=== PATIENT | female | born 1940 | race Caucasian/White ===

== ENCOUNTER 2021-11-21 19:07 | Outpatient (CLI) | payer MEDICARE, SELFPAY | END 2021-11-21 19:08 | disposition home or self-care (01) | LOC: AMB 12-05 12:07 | PROVIDERS: Visit Provider Internal Medicine | DX: R50.9 Fever, unspecified (principal); R11.2 Nausea with vomiting, unspecified; R53.1 Weakness | CPT/HCPCS: A0425; A0427 ==

== ENCOUNTER 2021-11-21 19:42 | Emergency (ER) | payer MEDICARE, SELFPAY ==
[2021-11-21 19:52] VITALS: BP 146/77; PULSE 86; RESP 16; TEMP 36.6; O2SAT 93
--- NOTE | 2021-11-21 20:14 | CRLHL7_ITS ---
For Patients: As a result of the Century Cures Act, medical imaging exams and procedure reports are released immediately into your electronic medical record. You may view this report before your referring provider. If you have questions, please contact your health care provider. Indication: Confusion Technique: Noncontrast CT of the head Please note that all CT scans at this facility use dose modulation, iterative reconstruction, and/or weight-based dosing when appropriate to reduce radiation dose to as low as reasonably achievable. Comparison: None Findings: Unremarkable soft tissues. Bilateral lens replacements. Paranasal sinuses and mastoid air cells appear clear. Unremarkable cranium. Unremarkable basal cisterns, sylvian fissures, ventricles and extra-axial spaces. Normal sulcation for age. No evidence of mass, mass effect, midline shift, acute hemorrhage or acute infarct. Impression: No acute intracranial abnormality. Please note that all CT scans at this facility use dose modulation, iterative reconstruction, and/or weight-based dosing when appropriate to reduce radiation dose to as low as reasonably achievable. Dictated by Sudhakar Tnag MD @ 11/21/2021 8:57:26 PM (Electronically Signed)
[2021-11-21] MEDS: 0.9 % SODIUM CHLORIDE 500 ML 500 ML IV (20:24)
[2021-11-21 20:32] LABS: Lactate* 1.4 mmol/L (0.5-1.9)
--- NOTE | 2021-11-21 20:38 | ED_ITS ---
HPI - General Adult General Chief complaint: Weakness Stated complaint: Weakness Time Seen by Provider: 11/21/21 20:07 History of Present Illness HPI narrative: Pt is a 81 year old woman who became acutely ill at 4:30 this afternoon. She had sudden onset of chills, malaise, and vomiting. No chest pain or shortness of breath. Pt has trouble emtying her bladder and has a stimulator in place. No dysuria. 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 No recent changes. Pt felt slightly confused and called for an ambulance. Upon arrival in the ED she is feeling better with no further symptoms. Had COVID 6 weeks ago. No respiratory symptoms. No diarrhea. No measured fever. Pt does not appear to have been to our facility previously. Related Data Home Medications Medication Instructions Recorded Confirmed amlodipine 2.5 mg tablet 2.5 mg PO DAILY 11/21/21 11/21/21 aspirin 81 mg tablet,delayed 81 mg PO DAILY 11/21/21 11/21/21 release (Adult Aspirin Regimen) duloxetine 20 mg capsule,delayed 20 mg PO DAILY 11/21/21 11/21/21 release (Cymbalta) finasteride 5 mg tablet 5 mg PO DAILY 11/21/21 11/21/21 metoprolol succinate 25 mg 25 mg PO DAILY 11/21/21 11/21/21 tablet,extended release 24 hr nitrofurantoin macrocrystal 100 mg 100 mg PO Q24H 11/21/21 11/21/21 capsule potassium chloride 20 mEq 20 meq PO DAILY 11/21/21 11/21/21 tablet,extended release (K-Tab) tamsulosin 0.4 mg capsule 0.4 mg PO DAILY 11/21/21 11/21/21 tramadol 50 mg tablet 50 mg PO DAILY 11/21/21 11/21/21 Allergies Allergy/AdvReac Type Severity Reaction Status Date / Time No Known Drug Allergies Allergy Verified 11/21/21 20:03 Review of Systems Status of ROS: Reports: 10 or more systems reviewed and unremarkable except as noted in History and below [facility] Social History Smoking Status: Never smoker Do you use any of these nicotine containing products: None Second hand tobacco smoke exposure: No How often do you have a drink containing alcohol: never How often do you have six or more drinks on one occasion: Never AUDIT-C Alcohol total score: 0 Non-prescribed substance use: denies use service: No Exam Narrative: Exam Narrative: EXAM GENERAL: Patient appears comfortable and well. EYES: No scleral icterus. ENT: Tympanic membranes and oropharynx normal. THYROID: no thyroid nodules or thyromegaly. LYMPH: No supraclavicular or cervical lymphadenopathy. 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 EXT: No dependent lower extremity pedal edema. HEART: Regular rate and rhythm with no murmurs, rubs, or gallops. LUNGS: Clear to auscultation bilaterally with no crackles or wheezes. ABD: Soft, non tender, non distended. PSYCH: Good eye contact, speech is not pressured. Const: Vital Signs, click to edit/add: Vital Signs - 24 hr 11/21/21 19:52 11/21/21 21:21 Temperature 97.9 F Pulse Rate [Left P ulse Oximeter] 86 Respiratory Rate 16 Blood Pressure [Ri ght Upper Arm] 146/77 H 163/77 H Pulse Oximetry 93 Oxygen Delivery Me thod Room Air Course Course Hospital Course: Pt appears well. CBC, CMP, Lactate, Troponin, UA ordered. Normal saline given. Reevaluation(s) Reevaluation #1: Pt has been given 500 cc of normal saline and is feeling much better. CT of head unremarkable. WBC 22 with urine consistent with UTI. No other significant findings. Time: 21:44 Vital Signs Vital signs: Initial Vital Signs Temperature 97.9 F 11/21/21 19:52 Temperature Source Temporal Artery Scan 11/21/21 19:52 Pulse Rate 86 11/21/21 19:52 Pulse Rhythm 11/21/21 19:52 Pulse Strength 3+ Normal 11/21/21 19:52 Respiratory Rate 16 11/21/21 19:52 Blood Pressure 146/77 H 11/21/21 19:52 Blood Pressure Mean 100 11/21/21 19:52 Blood Pressure Position Supine 11/21/21 19:52 Pulse Oximetry 93 11/21/21 19:52 Oxygen Delivery Method 11/21/21 19:52 Vital Signs Temperature 97.9 F 11/21/21 19:52 Pulse Rate 86 11/21/21 19:52 Respiratory Rate 16 11/21/21 19:52 Blood Pressure 146/77 H 11/21/21 19:52 Pulse Oximetry 93 11/21/21 19:52 Oxygen Delivery Method 11/21/21 19:52 Temperature 97.9 F 11/21/21 19:52 Pulse Rate 86 11/21/21 19:52 Respiratory Rate 16 11/21/21 19:52 Blood Pressure 163/77 H 11/21/21 21:21 Pulse Oximetry 93 11/21/21 19:52 Oxygen Delivery Method 11/21/21 19:52 Medical Decision Making MDM Narrative Medical decision making narrative: Pt is a 81 year old woman who presents with sudden onset of illness. Workup shows elevated WBC with abnormal urine. Pt feeling better after 500 cc normal saline. Pt urine sent for culture. 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 Differential Diagnosis Differential Diagnosis: Sepsis, UTI, CVA, Viral Sydrome, Abd Infection Lab Data Labs: Lab Results 11/21/21 11/21/21 11/21/21 Range/Units 20:20 20:24 20:24 WBC 22.81 H (4.50-11.00) K/uL RBC 4.86 (4.00-5.20) m/uL Hgb 13.6 (12.0-16.0) gm/dL Hct 41.8 (33.0-51.0) % MCV 86 (80-100) fL MCH 28 (26-34) pg MCHC 33 (32-36) gm/dL RDW Coeff of Lalitha 14.3 (11.5-15.5) % Plt Count 304 (140-440) K/uL Neut % (Auto) 89.5 H (42.0-72.0) % Lymph % (Auto) 3.4 L (20-44) % [place] % (Auto) 6.5 (0.0-11.0) % Eos % (Auto) 0.4 (0.0-7.0) % Baso % (Auto) 0.1 (0.0-3.0) % Neut # (Auto) 20.40 H (1.7-7.0) K/uL Lymph # (Auto) 0.80 L (0.90-2.90) K/uL [place] # (Auto) 1.50 H (0.00-0.90) K/UL Eos # (Auto) 0.10 (0.00-0.50) K/uL Baso # (Auto) 0.00 (0.00-0.30) K/uL Abs Immat Gran (auto) 0.03 (0.00-0.30) K/uL Sodium 137 (135-149) mmol/L Potassium 3.8 (3.6-5.1) mmol/L Chloride 100 (96-114) mmol/L Carbon Dioxide 26 (20-32) mmol/L BUN 16 (7-30) mg/dL Creatinine 0.7 (0.5-1.5) mg/dL Estimated Creat Clear 39.70 Estimated GFR 87 ml/min Glucose 179 H (60-115) mg/dL Lactate (0.5-1.9) mmol/L Calcium 9.2 (8.4-10.6) mg/dL Total Bilirubin 0.9 (0.1-1.5) mg/dL AST 35 (12-35) U/L ALT 22 (4-35) U/L Alkaline Phosphatase 94 (40-150) U/L Total Protein 8.5 H (6.0-8.3) g/dL Albumin 4.7 (3.3-5.0) g/dL Amylase 71 (18-89) U/L Urine Color Yellow (Yellow) Urine Appearance Clear (Clear) Urine pH 6.5 (5.0-8.5) Ur Specific [place] 1.020 (1.000-1.030) Urine Protein Trace A (Negative) Urine Glucose (UA) Negative (Negative) Urine Ketones 3+ A (Negative) Urine Blood 1+ A (Negative) Urine Nitrite Negative (Negative) Urine Bilirubin Negative (Negative) Urine Urobilinogen 0.2 (0.2-1.0) Ur Leukocyte Esterase 3+ A (Negative) Urine RBC 0-2 (0-2) Urine WBC 5-10 A (0-5) Ur Squamous Epith Cells Moderate A (None-Few) Urine Bacteria Moderate A (None) 11/21/21 Range/Units 20:24 WBC (4.50-11.00) K/uL RBC (4.00-5.20) m/uL Hgb (12.0-16.0) gm/dL Hct (33.0-51.0) % MCV (80-100) fL MCH (26-34) pg MCHC (32-36) gm/dL RDW Coeff of Lalitha (11.5-15.5) % Plt Count (140-440) K/uL Neut % (Auto) (42.0-72.0) % Lymph % (Auto) (20-44) % [place] % (Auto) (0.0-11.0) % Eos % (Auto) (0.0-7.0) % Baso % (Auto) (0.0-3.0) % Neut # (Auto) (1.7-7.0) K/uL Lymph # (Auto) (0.90-2.90) K/uL [place] # (Auto) (0.00-0.90) K/UL Eos # (Auto) (0.00-0.50) K/uL Baso # (Auto) (0.00-0.30) K/uL Abs Immat Gran (auto) (0.00-0.30) K/uL Sodium (135-149) mmol/L Potassium (3.6-5.1) mmol/L Chloride (96-114) mmol/L Carbon Dioxide (20-32) mmol/L BUN (7-30) mg/dL Creatinine (0.5-1.5) mg/dL Estimated Creat Clear Estimated GFR ml/min Glucose (60-115) mg/dL Lactate 1.4 (0.5-1.9) mmol/L Calcium (8.4-10.6) mg/dL Total Bilirubin (0.1-1.5) mg/dL AST (12-35) U/L ALT (4-35) U/L Alkaline Phosphatase (40-150) U/L Total Protein (6.0-8.3) g/dL Albumin (3.3-5.0) g/dL Amylase (18-89) U/L Urine Color (Yellow) Urine Appearance (Clear) Urine pH (5.0-8.5) Ur Specific [place] (1.000-1.030) Urine Protein (Negative) Urine Glucose (UA) (Negative) Urine Ketones (Negative) Urine Blood (Negative) Urine Nitrite (Negative) Urine Bilirubin (Negative) Urine Urobilinogen (0.2-1.0) Ur Leukocyte Esterase (Negative) Urine RBC (0-2) Urine WBC (0-5) Ur Squamous Epith Cells (None-Few) Urine Bacteria (None) Discharge Plan Discharge Clinical Impression: Urinary tract infection Condition: Stable Instructions: Urinary Tract Infection in Women (ED) Additional Instructions: Cipro as directed Continue current meds Follow up with your doctor in the next week. Activity Level: Activity as Tolerated Discharge Diet: Regular Prescriptions: No Action potassium chloride [K-Tab] 20 mEq tablet extended release 20 meq PO DAILY duloxetine [Cymbalta] 20 mg capsule,delayed release(DR/EC) 20 mg PO DAILY metoprolol succinate 25 mg tablet extended release 24 hr 25 mg PO DAILY tamsulosin 0.4 mg capsule 0.4 mg PO DAILY amlodipine 2.5 mg tablet 2.5 mg PO DAILY nitrofurantoin macrocrystal 100 mg capsule 100 mg PO Q24H Rx Instructions: must administer with a meal/food finasteride 5 mg tablet 5 mg PO DAILY aspirin [Adult Aspirin Regimen] 81 mg tablet,delayed release (DR/EC) 81 mg PO DAILY tramadol 50 mg tablet 50 mg PO DAILY Follow Up/Referrals: Provider,Not a Local [Primary Care Provider] - Stand Alone Forms: [employer] Info Instructions
[2021-11-21 20:43] LABS: Appearance Urine Clear (Clear); Bilirubin Urine Negative (Negative); Blood Urine 1+ (Negative); Color Urine Yellow (Yellow); Glucose Urine Negative (Negative); Ketones Urine 3+ (Negative); Leukocyte Esterase Urine 3+ (Negative); Nitrite Urine Negative (Negative); Protein Urine Trace (Negative); Urobilinogen Urine 0.2 (0.2-1.0); pH Urine 6.5 (5.0-8.5)
[2021-11-21 20:49] LABS: Albumin* 4.7 g/dL (3.3-5.0); Basophils Percent Auto 0.1 % (0.0-3.0); Chloride* 100 mmol/L (96-114); Eosinophils Percent Auto 0.4 % (0.0-7.0); Hematocrit 41.8 % (33.0-51.0); Hemoglobin* 13.6 gm/dL (12.0-16.0); Immature Granulocytes Abs Auto 0.03 K/uL (0.00-0.30); Lymphocytes Percent Auto 3.4 % (20-44); Mean Corpuscular HGB Conc 33 gm/dL (32-36); Mean Corpuscular Hemoglobin 28 pg (26-34); Mean Corpuscular Volume 86 fL (80-100); Monocytes Percent Auto 6.5 % (0.0-11.0); Neutrophils Percent Auto 89.5 % (42.0-72.0); Platelet Count* 304 K/uL (140-440); RDW Coefficient of Variation % 14.3 % (11.5-15.5); Red Blood Count 4.86 m/uL (4.00-5.20); Slide Review Reflex No; White Blood Count* 22.81 K/uL (4.50-11.00)
[2021-11-21 20:50] LABS: Potassium* 3.8 mmol/L (3.6-5.1); Sodium* 137 mmol/L (135-149)
[2021-11-21 20:52] LABS: Alkaline Phosphatase* 94 U/L (40-150); Amylase* 71 U/L (18-89); Aspartate Amino Transferase* 35 U/L (12-35); Bilirubin Total* 0.9 mg/dL (0.1-1.5); Blood Urea Nitrogen* 16 mg/dL (7-30); Carbon Dioxide* 26 mmol/L (20-32); Creatinine* 0.7 mg/dL (0.5-1.5); Estimated Glomerular Filt Rate 87 ml/min; Glucose* 179 mg/dL (60-115); Total Protein* 8.5 g/dL (6.0-8.3)
[2021-11-21 20:53] LABS: Alanine Aminotransferase* 22 U/L (4-35); Calcium* 9.2 mg/dL (8.4-10.6)
[2021-11-21 21:07] LABS: RBC Urine 0-2 (0-2)
[2021-11-21 21:08] LABS: Bacteria Urine Moderate; Squamous Epithelial Cell Urine Moderate (None-Few)
[2021-11-21 21:21] VITALS: BP 163/77
[2021-11-21 21:47] VITALS: BP 108/68; RESP 20; O2SAT 98
[2021-11-21] MEDS: cefTRIAXone 1 GM in 0.9 % SODIUM CHLORIDE Mini-bag 100 ML IVPB (22:07)
--- NOTE | 2021-11-21 22:38 | PC.NURSE ---
written and verbal D/C per MD and RN. IV D/C intact. Pt ambulate out with daughter and steady gait. [facility] meds provided and instructed use of.
[2021-11-21 22:42] VITALS: BP 110/82; PULSE 81; PULSE 88; RESP 18
== END 2021-11-21 22:45 | disposition home or self-care (01) ==
PROVIDERS: Emergency Provider Internal Medicine
DX: N39.0 Urinary tract infection, site not specified (principal)
CPT/HCPCS: 36415; 70450; 80053; 81003; 81015; 82150; 83605; 85025; 87086; 96361; 96374; 99284; J0696; J7120

== ENCOUNTER 2022-11-20 16:04 | Outpatient (CLI) | payer MEDICARE, SELFPAY | END 2022-11-20 16:05 | disposition home or self-care (01) | LOC: AMB 11-24 14:23 | PROVIDERS: Visit Provider Family Medicine | DX: S09.90XA Unspecified injury of head, initial encounter (principal); R42 Dizziness and giddiness; W18.30XA Fall on same level, unspecified, initial encounter; Y92.10 Unspecified residential institution as the place of occurrence of the external cause | CPT/HCPCS: A0425; A0427 ==

== ENCOUNTER 2024-03-21 08:57 | Outpatient (CLI) | payer MEDICARE, SELFPAY | END 2024-03-21 08:58 | disposition home or self-care (01) | LOC: AMB 04-05 08:29 | PROVIDERS: Visit Provider Emergency Medicine | DX: R53.83 Other fatigue (principal); R05.9 Cough, unspecified; R06.02 Shortness of breath | CPT/HCPCS: A0425; A0427 ==

== ENCOUNTER 2024-03-21 09:31 | Inpatient (IN) | payer MEDICARE, SELFPAY ==
[2024-03-21] VITALS (11 sets, daily range): BP systolic 127–141; BP diastolic 65–71; PULSE 62–82; RESP 20–24; TEMP 36.8–37.3; O2SAT 77–97; BMI 25.0
--- OUTSIDE RECORDS SUMMARY | 2024-03-21 09:37 | XMS_ITS | Encounter Summary ---
Author Organization [facility] Address [address] [place] [id number] Care Team Providers Care Director Athletic Name Role Phone System, Provider Not In Primary Care Provider Un available Seema Boateng APRN NURSE MANAGER Unavailable Steph Jovel PA-C Unavailable Reason for Visit * Reason Comments Flu Symptoms * Auth/Cert (Routine) Specialty Diagnoses / Procedures Referred By Jennifer kincaid Referred To Contact EMERGENCY MEDICINE Diagnoses Influenza A Vomiting and diarrhea Hyponatremia Chest heaviness [facility] Emergency Dept [address] [place] [address] Phone: tel: fax: Referral ID Status Reason Start Date Expiration Date Visits Re quested Visits Authorized [id number] 1 1 Encounter Details Date Type Department Care Team (Late st Contact Info) Description 03/16/2024 5:56 PM ATTORNEY GENERAL - 03/17/2024 11:54 AM ATTORNEY GENERAL Emergency [facility] Emergency Dept [address] [place] [address] Corona Moore DO [facility] [facility] [facility] [address] [facility] [place] [place] [id number] Dyllan Anne MD [address] [place] [address] Mild intermittent asthma with exacerbation (Primary Dx); Influenza A; Vomiting and diarrhea; Hyponatremia; Chest heaviness Discharge Disposition: Home or Self Care Social History Tobacco Use Types Packs/Day Years Used Date Smoking Tobacco: Former Cigarettes Smokeless Tobacco: Former Alcohol Use Standard Drinks/Week Comments Not Currently 0 (1 standard drink = 0.6 oz pur e alcohol) Adolescent Education Answer Date Record ed Getting School Help Needed Not on file 12/06 Food Insecurity Answer Date Recorded Within the past 12 months, d id you worry that your food would run out before you got money to buy more? No 11/09/2023 Within the past 12 months, d id the food you bought just not last and you didn t have money to get more? No 11/09/2023 Housing Stability Answer Date Recorded Do you have housing? (Kevin g is defined as stable permanent housing and does not include staying ouside in a car, in a tent, in an abandoned building, in an overnight nursing home, or couch-surfing.) Yes 11/09/2023 Are you worried about losing your housing? No 11/09/2023 Financial Resource Strain Answer Date R ecorded Within the past 12 months, h ave you or your family members you live with been unable to get utilities (heat, electricity) when it was really needed? No 11/09/2023 Transportation Needs Answer Date Record ed Within the past 12 months, h as lack of transportation kept you from medical appointments, getting your medicines, non-medical meetings or appointments, work, or from getting things that you need? No 11/09/2023 Interpersonal Safety Answer Date Record ed Do you feel physically and e motionally safe where you currently live? Yes 11/09/2023 Within the past 12 months, h ave you been hit, slapped, kicked or otherwise physically hurt by someone? No 11/09/2023 Within the past 12 months, h ave you been humiliated or emotionally abused in other ways by your partner or ex-partner? No 11/09/2023 Comments No Sex and Gender Information Value Date Recorded Sex Assigned at Not on file Legal Sex Female 3:18 AM ATTORNEY GENERAL Gender Identity Not on file Sexual Orientation Not on file documented as of this encounter Last Filed Vital Signs Vital Sign Reading Time Taken Comments Blood Pressure 114/74 03/17/2024 8:35 AM ATTORNEY GENERAL Pulse 89 03/17/2024 8:35 AM ATTORNEY GENERAL Temperature 36.3 C (97.4 F) 03/17/2024 8:35 AM ATTORNEY GENERAL Respiratory Rate 20 03/17/2024 8:35 AM ATTORNEY GENERAL Oxygen Saturation 96% 03/17/2024 8:35 AM ATTORNEY GENERAL Inhaled Oxygen Concentration - - Weight 65.8 kg (145 lb) 03/16/2024 1:54 PM ATTORNEY GENERAL Height 165.1 cm (5' 5) 03/16/2024 1:54 PM ATTORNEY GENERAL Body Mass Index 24.13 03/16/2024 1:54 PM ATTORNEY GENERAL documented in this encounter Discharge Summaries * Leonard Giang MD - 03/17/2024 9:[address] [facility] Hospitalist Discharge Summary Date of Admission: 03/16/2024 Date of Discharge: 03/17/2024 Discharging Provider: Leonard Giang MD Discharge Service: Hospitalist Service Discharge Diagnoses Acute exacerbation of mild intermittent asthma due to influenza A. Dehydration. Mild hyponatremia. Hypertension. Hyperlipidemia. History of coronary artery disease. Glaucoma. Depression. Clinically Significant Risk Factors Follow-ups Needed After Discharge Follow-up Appointments Follow-up and recommended labs and tests Follow up with primary care provider, Provider Not In System, within 7 days for hospital follow- up. No follow up labs or test are needed. Discharge Disposition Discharged to home Condition at discharge: Stable Hospital Course 83-year-old female with history of seasonal allergies and mild intermittent asthma who presented on03/16/2019 10:05 days of cough, weakness, shortness of breath and some chest tightness along with wheezing. Her has been sick with flu who was admitted to the hospital 5 days ago. She initially went to urgent care and was sent to the ER. In the ED she had normal vital signs but in moderate distress due to cough and shortness of breath with wheezing. Lab evaluation was unremarkable with chest x-ray showing by basilar atelectasis. She tested positive for influenza A. She was not started on Tamiflu due to the duration of her symptoms. Was started on prednisone and albuterol nebs with improvement in her symptoms. She was successfully weaned off oxygen and was able to ambulate without shortness of breath. She is not wheezing at the time of discharge. She will be discharged with a burst dose of steroids and as needed albuterol. Given her asthma at baseline is only intermittent, she does not need inhaled steroids. Consultations This Hospital Stay PHYSICAL THERAPY ADULT IP CONSULT Code Status Full Code Time Spent on this Encounter I, Leonard Giang MD, personally saw the patient today and spent less than or equal to 30 minutes discharging this patient. Leonard Giang MD [facility] [address] [facility] [address] Physical Exam Vital Signs: Temp: 97.4 ??F (36.3 ??C) Temp src: Oral BP: 114/74 Pulse: 89 Resp: 20 SpO2: 96 % O2 Device: Nasal cannula Oxygen Delivery: 2 LPM Weight: 145 lbs 0 oz General Appearance: Alert awake and oriented x 3 Respiratory: Clear to auscultation. Wheezing resolved. Cardiovascular: S1-S2 normal GI: Soft and nontender Skin: No rash Other: No edema Primary Care Physician Provider Not In System Discharge Orders Reason for your hospital stay Acute exacerbation of asthma due to influenza A Follow-up and recommended labs and tests Follow up with primary care provider, Provider Not In System, within 7 days for hospital follow- up. No follow up labs or test are needed. Activity Your activity upon discharge: activity as tolerated Diet Follow this diet upon discharge: Current Diet:Orders Placed This Encounter Regular Diet Adult Significant Results and Procedures Most Recent 3 CBC's: Recent Labs Lab Test 11/09/23 1426 11/20/22 1716 11/09/17 1946 WBC 10.6 9.9 12.9* HGB 11.4* 12.2 12.4 MCV 87 90 86 PLT 282 270 325 Most Recent 3 BMP's: Recent Labs Lab Test 03/16/24 1408 11/09/23 1426 11/20/22 1716 NA 131* 136 134* POTASSIUM 3.9 3.4 4.2 CHLORIDE 95* 97* 102 CO2 20* 25 22 BUN 15.1 22.2 20.0 CR 0.83 1.36* 1.04* ANIONGAP 16* 14 10 SAUD 8.8 8.9 8.8 GLC 118* 144* 98 Most Recent 2 LFT's:No lab results found., Results for orders placed or performed during the hospital encounter of 11/09/[address] w/o contrast Narrative EXAM: CT HEAD W/O CONTRAST LOCATION: [facility] DATE: 11/09/2023 INDICATION: Near syncope, dizziness COMPARISON: None. TECHNIQUE: Routine CT Head without IV contrast. Multiplanar reformats. Dose reduction techniques were used. FINDINGS: INTRACRANIAL CONTENTS: No intracranial hemorrhage, extraaxial collection, or mass effect. No CT evidence of acute infarct. Mild presumed chronic small vessel ischemic changes. Mild to moderate generalized volume loss. No hydrocephalus. VISUALIZED ORBITS/SINUSES/MASTOIDS: No intraorbital abnormality. No paranasal sinus mucosal disease. No middle ear or mastoid effusion. BONES/SOFT TISSUES: No acute abnormality. Impression IMPRESSION: 1. No acute intracranial process. CTA Head Neck with Contrast Narrative EXAM: CTA HEAD NECK W CONTRAST LOCATION: [facility] DATE: 11/09/2023 INDICATION: Intermittent dizziness, near syncopal episode COMPARISON: None. CONTRAST: 67mL Isovue 370 TECHNIQUE: Head and neck CT angiogram with IV contrast. Axial helical CT images of the head and neck vessels obtained during the arterial phase of intravenous contrast administration. Axial 2D reconstructed images and multiplanar 3D MIP reconstructed images of the head and neck vessels were performed by the technologist. Dose reduction techniques were used. All stenosis measurements made according to NASCET criteria unless otherwise specified. FINDINGS: HEAD CTA: Right distal carotid siphon mild to moderate stenosis. Left carotid siphon mild to moderate stenosis. Findings secondary to calcified plaque. Left proximal M2 segment inferior division demonstrates tandem moderate stenoses. Left proximal V4 mild to moderate stenosis secondary to calcified plaque. No additional significant stenosis or occlusion. No brain aneurysm. No AVM/AVF. Left medial transverse sinus demonstrates minimal to no enhancement. There is more normal enhancement within the left mid and lateral transverse sinus. Findings may reflect a developmental variant orage-indeterminate thrombosis. Remaining dural venous sinuses appear to enhance normally. NECK CTA: RIGHT CAROTID: No significant stenosis/occlusion. No dissection. LEFT CAROTID: No significant stenosis/occlusion. No dissection. VERTEBRAL ARTERIES: Right vertebral artery origin mild to moderate stenosis. No additional significant stenosis or occlusion. No dissection. AORTIC ARCH: Classic aortic arch anatomy. No significant stenosis at the origin of the great vessels. ARTERIAL PLAQUE: Calcified/noncalcified plaque scattered throughout the arterial system. NONVASCULAR STRUCTURES: Right lung apex calcified granuloma. Possible diffuse bony demineralization. Multilevel spondylosis. Right parotid gland and right submandibular gland demonstrate asymmetric more pronounced enhancement concerning for right parotitis and right submandibular sialadenitis. Right nasopharynx, right oralpharynx, right supraglottic mucosal surfaces demonstrate asymmetric enhancement with no mass lesion possible infectious inflammatory. Atypical normal variation possible. Of note, there is a left arm contrast injection bolus. Multiple small and prominent lymph nodes within the neck. Impression IMPRESSION: HEAD CTA: 1. No intracranial arterial large vessel occlusion. 2. Intracranial arterial stenoses described above likely due to atherosclerotic vascular disease. Please see above for discussion. 3. Left medial transverse sinus demonstrates minimal to no enhancement. There is more normal enhancement within the left mid and lateral transverse sinus. Findings may reflect a developmental variantor age-indeterminate thrombosis. 4. Remaining dural venous sinuses demonstrate normal enhancement. NECK CTA: 1. Right vertebral artery origin mild to moderate stenosis. 2. No additional significant stenosis or occlusion. 3. No cervical artery dissection. 4. Right parotid gland and right submandibular gland demonstrate asymmetric more pronounced enhancement concerning for right parotitis and right submandibular sialadenitis. 5. Right nasopharynx, right oral pharynx, right supraglottic mucosal surfaces demonstrate asymmetric enhancement with no mass lesion possible infectious inflammatory. 6. There is no thickening of the aerodigestive airway mucosal structures. 7. Atypical normal variation possible. Consider follow-up nonemergent CT soft tissue neck to ensureresolution of findings. Dr Ivana Salomon was notified by Dr Gene López at 9:15 PM 11/09/2023 ATTORNEY GENERAL/CDT. Echocardiogram Complete Value LVEF 65-70% Narrative [id number]^LANDAVERDE^[facility] Echocardiography Laboratory [address] [place] [address] Name: HALEY CROW : 1940 Study Date: 11/10/2023 08:45 AM Age: 83 yrs Gender: Female Patient Location: [facility] Reason For Study: Syncope Ordering Physician: JORDAN LANDAVERDE Referring Physician: System, Provider Not In Performed By: Jackie Tirado RDCS BSA: 1.8 m2 Height: 65 in Weight: 157 lb BP: 71/92 mmHg Procedure Complete Portable Echo Adult. Interpretation Summary 1. The left ventricle is normal in size. The visual ejection fraction is 65- 70%. 2. Mild septal thickening. No rest outflow gradient, with Valsalva mild gradient of 3m/s. 3. The right ventricle is normal in structure, function and size. 4. Mitral leaflets are thickened, restricted posterior leaflet motion, mild stenosis, mean 5mmHg. Echo 11/2022 showed EF 65%. Left Ventricle The left ventricle is normal in size. A sigmoid septum is present. Mild septal thickening. No rest outflow gradient, with Valsalva mild gradient of 3m/s. The visual ejection fraction is 65-70%. Normal left ventricular wall motion. Right Ventricle The right ventricle is normal in structure, function and size. Atria The left atrium is moderately dilated. Right atrial size is normal. There is no atrial shunt seen. Mitral Valve Mitral leaflets are thickened, restricted posterior leaflet motion, mild stenosis, mean 5mmHg. There is mild (1+) mitral regurgitation. Tricuspid Valve There is mild (1+) tricuspid regurgitation. Aortic Valve The aortic valve is normal in structure and function. Pulmonic Valve The pulmonic valve is normal in structure and function. Vessels Normal ascending, transverse (arch), and descending aorta. The inferior vena cava was normal in size with preserved respiratory variability. Pericardium There is no pericardial effusion. Rhythm Sinus rhythm was noted. MMode/2D Measurements & Calculations IVSd: 1.6 cm LVIDd: 3.7 cm LVIDs: 2.3 cm LVPWd: 1.0 cm IVC diam: 1.4 cm FS: 37.9 % LV mass(C)d: 165.1 grams LV mass(C)dI: 92.5 grams/m2 Ao root diam: 3.6 cm LA dimension: 4.1 cm LA/Ao: 1.1 LVOT diam: 2.0 cm LVOT area: 3.1 cm2 Ao root diam index Ht(cm/m): 2.2 Ao root diam index BSA (cm/m2): 2.0 LA Volume (BP): 82.9 ml LA Volume Index (BP): 46.6 ml/m2 RV Base: 2.8 cm RWT: 0.54 TAPSE: 2.4 cm Doppler Measurements & Calculations MV E max mac: 115.0 cm/sec MV A max mac: 148.4 cm/sec MV E/A: 0.77 MV max P.9 mmHg MV mean P.8 mmHg MV V2 VTI: 39.8 cm MV P1/2t max mac: 103.4 cm/sec MV P1/2t: 98.5 msec MVA(P1/2t): 2.2 cm2 MV dec slope: 307.5 cm/sec2 MV dec time: 0.34 sec Ao V2 max: 155.7 cm/sec Ao max P.0 mmHg PA acc time: 0.16 sec TR max mac: 261.0 cm/sec TR max P.2 mmHg RV S Mac: 15.1 cm/sec Report approved by: Audra Milner 11/10/2023 12:44 PM Discharge Medications Current Discharge Medication List START taking these medications Details benzonatate (TESSALON) 100 MG capsule Take 2 capsules (200 mg) by mouth 3 times daily as needed forcough. Qty: 30 capsule, Refills: 0 Associated Diagnoses: Influenza A; Mild intermittent asthma with exacerbation guaiFENesin-dextromethorphan (ROBITUSSIN DM) 100-10 MG/5ML syrup Take 10 mLs by mouth every 4 hoursas needed for cough. Qty: 236 mL, Refills: 0 Associated Diagnoses: Influenza A; Mild intermittent asthma with exacerbation predniSONE (DELTASONE) 20 MG tablet Take 2 tablets (40 mg) by mouth daily for 5 days. Qty: 10 tablet, Refills: 0 Associated Diagnoses: Influenza A; Mild intermittent asthma with exacerbation CONTINUE these medications which have CHANGED Details albuterol (PROAIR HFA/PROVENTIL HFA/VENTOLIN HFA) 108 (90 Base) MCG/ACT inhaler Inhale 2 puffs intothe lungs every 4 hours as needed for shortness of breath, wheezing or cough. Qty: 18 g, Refills: 3 Comments: Pharmacy may dispense brand covered by insurance (Proair, or proventil or ventolin or generic albuterol inhaler) Associated Diagnoses: Influenza A; Mild intermittent asthma with exacerbation CONTINUE these medications which have NOT CHANGED Details amLODIPine (NORVASC) 5 MG tablet Take 7.5 mg by mouth daily. aspirin 81 MG EC tablet Take 81 mg by mouth daily clobetasol (TEMOVATE) 0.05 % external ointment Apply topically 2 times daily To víctor area cyanocobalamin (VITAMIN B-12) 1000 MCG tablet Take 1,000 mcg by mouth daily dorzolamide-timolol (COSOPT) 2-0.5 % ophthalmic solution Place 1 drop into the right eye 2 times daily ferrous sulfate (FE TABS) 325 (65 Fe) MG EC tablet Take 65 mg of iron by mouth daily latanoprost (XALATAN) 0.005 % ophthalmic solution INSTILL 1 DROP IN BOTH EYES NIGHTLY AT BEDTIME Magnesium Citrate (MAGNESIUM GUMMIES) 67 MG CHEW Take 1 chew tab by mouth daily. melatonin 5 MG tablet Take 5 mg by mouth at bedtime. potassium chloride michelle er (K-DUR) Take 20 mEq by mouth daily rosuvastatin (CRESTOR) 10 MG tablet Take 10 mg by mouth daily VITAMIN D, CHOLECALCIFEROL, PO Take 2,000 Units by mouth daily DULoxetine (CYMBALTA) 20 MG capsule Take 40 mg by mouth At Bedtime STOP taking these medications MAGNESIUM OXIDE PO Comments: Reason for Stopping: Allergies Allergies Allergen Reactions Gramineae Pollens Hives Plaquenil [Hydroxychloroquine] Hives Smoke. Unknown and Other (See Comments) Dust Mite Extract Other (See Comments) RNEY GENERAL documented in this encounter Discharge Instructions * Discharge Instructions* Vilma Lepe RN - 03/17/2024 11:03 AM ATTORNEY GENERAL RNEY GENERAL documented in this encounter Medications at Time of Discharge albuterol (PROAIR HFA/PROVENTIL HFA/VENTOLIN HFA) 108 (90 Base) MCG/ACT inhalerIndications :Influenza A,Mild intermittent asthma with exacerbation Inhale 2 puffs into the lungs every 4 hours as needed for shortness of breath, wheezing or cough. 18 g 3 03/17/2024 amLODIPine (NORVASC) 5 MG tablet Take 7.5 mg by mouth daily. aspirin 81 MG EC tablet Take 81 mg by mouth daily 05/30/2021 benzonatate (TESSALON) 100 MG capsuleIndications :Influenza A,Mild intermittent asthma with exacerbation Take 2 capsules (200 mg) by mouth 3 times daily as needed for cough. 30 capsule 03/17/2024 clobetasol (TEMOVATE) 0.05 % external ointment Apply topically 2 times daily To víctor area cyanocobalamin (VITAMIN B-12) 1000 MCG tablet Take 1,000 mcg by mouth daily dorzolamide-timolo l (COSOPT) 2-0.5 % ophthalmic solution Place 1 drop into the right eye 2 times daily 10/15/2022 ferrous sulfate (FE TABS) 325 (65 Fe) MG EC tablet Take 65 mg of iron by mouth daily guaiFENesin-dextro methorphan (ROBITUSSIN DM) 100-10 MG/5ML syrupIndications:I nfluenza A,Mild intermittent asthma with exacerbation Take 10 mLs by mouth every 4 hours as needed for cough. 236 mL 03/17/2024 latanoprost (XALATAN) 0.005 % ophthalmic solution INSTILL 1 DROP IN BOTH EYES NIGHTLY AT BEDTIME 08/28/2022 Magnesium Citrate (MAGNESIUM GUMMIES) 67 MG CHEW Take 1 chew tab by mouth daily. melatonin 5 MG tablet Take 5 mg by mouth at bedtime. potassium chloride michelle er (K-DUR) Take 20 mEq by mouth daily predniSONE (DELTASONE) 20 MG tabletIndications: Influenza A,Mild intermittent asthma with exacerbation Take 2 tablets (40 mg) by mouth daily for 5 days. 10 tablet 03/18/2024 rosuvastatin (CRESTOR) 10 MG tablet Take 10 mg by mouth daily VITAMIN D, CHOLECALCIFEROL, PO Take 2,000 Units by mouth daily DULoxetine (CYMBALTA) 20 MG capsule Take 40 mg by mouth At Bedtime documented as of this encounter Progress Notes * Lindsay Reyna, PT - 03/17/2024 10:50 AM CST PT: Orders received. Chart reviewed and discussed with care team. PT not indicated due to per RN, pt is able to ambulate safely and is getting ready to discharge. Defer discharge recommendations to medical team. Will complete orders. RNEY GENERAL documented in this encounter H&P Notes * Dyllan Anne MD - 03/16/2024 10:[address] [facility] History and Physical - Hospitalist Service Date of Admission: 03/16/2024 Assessment & Plan Haley Crow is an 83 year old female admitted on 03/16/2024 with acute influenza A. She has history of glaucoma, seasonal allergies, hyperlipidemia, asthma, depression, hypertension, hypertrophiccardiomyopathy, coronary artery disease with previous coronary artery stent, GERD, and polymyalgia rheumatica. She presented to the emergency department today for evaluation of flu symptoms. Her was admitted to 5 days ago with the flu. He remains in the hospital with other serious health issues. She started feeling ill about a week ago. She has had cough, weakness, shortness of breath, diarrhea, and chest tightness. Her symptoms did seem to be improving at the end of last week but in the last day or 2 have gotten worse. She has been having difficulty walking, eating, and sleeping. Shewent to urgent care for evaluation. She had a CBC that showed white blood cell count 11.4 and a chest x-ray that suggested bibasilar atelectasis. She was having coughing fits so was referred to the emergency department. Emergency department evaluation showed normal vital signs. Physical exam showed moderate distress due to coughing and shortness of breath. She also had coarse breath sounds with wheezes on expiration. Laboratory evaluation at urgent care included white blood cells 11.4 and hemoglobin 11.6. Chest x-ray showed bibasilar atelectasis. Laboratory evaluation here showed sodium 131, chloride 95, bicarb 20, anion gap 16, glucose 118, troponin 24 and 23 on repeat. And positive influenza A test. I was asked to admit her with worsening influenza A symptoms. Problem list: Influenza A Severe coughing Acute exacerbation of asthma Dehydration Weakness -Admit to observation -She has been symptomatic too long to benefit from Tamiflu -Supportive cares for influenza with Tessalon Perles and Robitussin AC for cough, Tylenol, and antiemetics as needed -Treat acute asthma exacerbation with prednisone 40 mg daily and albuterol nebs as needed. -1 L of lactated Ringer's over 10 hours for dehydration -PT for weakness Hyponatremia, mild -Repeat BMP in the morning after IV fluid Hypertension Hyperlipidemia Coronary artery disease -Resume prior to admission aspirin, Norvasc, and Crestor -As needed hydralazine for excessive hypertension Glaucoma -Prior to admission eyedrops Depression -Resume prior to admission Cymbalta Observation Goals: -diagnostic tests and consults completed and resulted, -vital signs normal or atpatient baseline, Nurse to notify provider when observation goals have been met and patient is ready for discharge. Diet: Regular Diet Adult DVT Prophylaxis: Enoxaparin (Lovenox) SQ Calle Catheter: Not present Lines: None Cardiac Monitoring: None Code Status: Full Code Clinically Significant Risk Factors Present on Admission # Hyponatremia: Lowest Na = 131 mmol/L in last 2 days, will monitor as appropriate # Hypochloremia: Lowest Cl = 95 mmol/L in last 2 days, will monitor as appropriate # Drug Induced Platelet Defect: home medication list includes an antiplatelet medication # Hypertension: Noted on problem list Disposition Plan Medically Ready for Discharge: Anticipated Tomorrow Dyllan Anne MD Hospitalist Service [facility] Securely message with [employer] ([employer] info) Text page via [facility] Paging/Directory Chief Complaint Weakness, cough, chest tightness, diarrhea, and wheezing History is obtained from the patient, her son and granddaughter, Dr. Moore, and the medical record History of Present Illness Haley Crow is an 83 year old female admitted on 03/16/2024 with acute influenza A. She has history of glaucoma, seasonal allergies, hyperlipidemia, asthma, depression, hypertension, hypertrophiccardiomyopathy, coronary artery disease with previous coronary artery stent, GERD, and polymyalgia rheumatica. She presented to the emergency department today for evaluation of flu symptoms. Her was admitted to 5 days ago with the flu. He remains in the hospital with other serious health issues. She started feeling ill about a week ago. She has had cough, weakness, shortness of breath, diarrhea, and chest tightness. Her symptoms did seem to be improving at the end of last week but in the last day or 2 have gotten worse. She has been having difficulty walking, eating, and sleeping. Shewent to urgent care for evaluation. She had a CBC that showed white blood cell count 11.4 and a chest x-ray that suggested bibasilar atelectasis. She was having coughing fits so was referred to the emergency department. Emergency department evaluation showed normal vital signs. Physical exam showed moderate distress due to coughing and shortness of breath. She also had coarse breath sounds with wheezes on expiration. Laboratory evaluation at urgent care included white blood cells 11.4 and hemoglobin 11.6. Chest x-ray showed bibasilar atelectasis. Laboratory evaluation here showed sodium 131, chloride 95, bicarb 20, anion gap 16, glucose 118, troponin 24 and 23 on repeat. And positive influenza A test. I was asked to admit her with worsening influenza A symptoms. Past Medical History Glaucoma, seasonal allergies, hyperlipidemia, hypertension, asthma, depression, hypertension, hypertrophic cardiomyopathy, coronary artery disease with previous stent, GERD, and polymyalgia rheumatica Prior to Admission Medications Prior to Admission Medications Prescriptions Last Dose Informant Patient Reported? Taking? DULoxetine (CYMBALTA) 20 MG capsule Self Yes No Sig: Take 40 mg by mouth At Bedtime MAGNESIUM OXIDE PO Yes No Sig: Take 400 mg by mouth daily. VITAMIN D, CHOLECALCIFEROL, PO Self Yes No Sig: Take 2,000 Units by mouth daily albuterol (PROAIR HFA/PROVENTIL HFA/VENTOLIN HFA) 108 (90 Base) MCG/ACT inhaler Self Yes No Sig: INHALE 2 PUFFS BY MOUTH INTO THE LUNGS EVERY 4 HOURS NEEDED FOR WHEEZING OR SHORTNESS OF BREATH amLODIPine (NORVASC) 10 MG tablet No No Sig: Take 1 tablet (10 mg) by mouth daily. aspirin 81 MG EC tablet Self Yes No Sig: Take 81 mg by mouth daily cetirizine (ZYRTEC) 10 MG tablet Self Yes No Sig: Take 10 mg by mouth daily Patient not taking: Reported on 12/20/2023 clobetasol (TEMOVATE) 0.05 % external ointment Self Yes No Sig: Apply topically 2 times daily To víctor area cyanocobalamin (VITAMIN B-12) 1000 MCG tablet Self Yes No Sig: Take 1,000 mcg by mouth daily dorzolamide-timolol (COSOPT) 2-0.5 % ophthalmic solution Self Yes No Sig: Place 1 drop into the right eye 2 times daily ferrous sulfate (FE TABS) 325 (65 Fe) MG EC tablet Self Yes No Sig: Take 65 mg of iron by mouth daily latanoprost (XALATAN) 0.005 % ophthalmic solution Self Yes No Sig: INSTILL 1 DROP IN BOTH EYES NIGHTLY AT BEDTIME melatonin 5 MG tablet Yes No Sig: Take 5 mg by mouth at bedtime. potassium chloride michelle er (K-DUR) Self Yes No Sig: Take 20 mEq by mouth daily rosuvastatin (CRESTOR) 10 MG tablet Self Yes No Sig: Take 10 mg by mouth daily Facility-Administered Medications: None Review of Systems The 10 point Review of Systems is negative other than noted in the HPI or here. Social History I have reviewed this patient's social history and updated it with pertinent information if needed. Social History Tobacco Use Smoking status: Former Types: Cigarettes Smokeless tobacco: Former Substance Use Topics Alcohol use: Not Currently Drug use: Never Family History Noncontributory Allergies Allergies Allergen Reactions Gramineae Pollens Hives Plaquenil [Hydroxychloroquine] Hives Smoke. Unknown and Other (See Comments) Dust Mite Extract Other (See Comments) Physical Exam Vital Signs: Temp: 98.7 ??F (37.1 ??C) Temp src: Axillary BP: (!) 157/80 Pulse: 81 Resp: 22 SpO2: (!) 88 % O2 Device: None (Room air) Weight: 145 lbs 0 oz GENERAL: Pleasant and cooperative. Moderate acute distress with severe coughing spells. Uncomfortable appearing EYES: Pupils equal and round. No scleral erythema or icterus. ENT: External ears are normal without deformity. Posterior oropharynx is without erythem, swelling,or exudate. NECK: Supple. No masses or swelling. No tenderness. Thyroid is normal without mass or tenderness. CHEST: Diffuse coarse breath sounds and wheezes to auscultation. Normal breath sounds. No retractions. CV: Regular rate and rhythm. No JVD. Pulses normal. ABDOMEN: Bowel sounds present. No tenderness. No masses or hernia. EXTREMETIES: No clubbing, cyanosis, or ischemia. SKIN: Warm and dry to touch. No wounds or rashes. NEUROLOGIC: Strength and sensation are normal. Deep tendon reflexes are normal. Cranial nerves are normal. Medical Decision Making 60 MINUTES SPENT BY ME on the date of service doing chart review, history, exam, documentation & further activities per the note. Data I have personally reviewed the following data over the past 24 hrs: N/A \ N/A / N/A 131 (L) 95 (L) 15.1 / 118 (H) 3.9 20 (L) 0.83 \ Trop: 23 (H) BNP: N/A Imaging results reviewed over the past 24 hrs: No results found for this or any previous visit (from the past 24 hours). Recent Labs Lab 03/16/24 1408 NA 131* POTASSIUM 3.9 CHLORIDE 95* CO2 20* BUN 15.1 CR 0.83 ANIONGAP 16* SAUD 8.8 GLC 118* [facility] documented in this encounter ED Notes * Vilma Lepe RN - 03/17/2024 11:25 AM CST Patient's After Visit Summary was reviewed with patient and/or family. Patient verbalized understanding of After Visit Summary, recommended follow up and was given an opportunity to ask questions. Discharge medications sent home with patient/family: YES Discharged with daughter [facility] * Vilma Lepe RN - 03/17/2024 9:47 AM CST Pt was ambulated with pulse ox on, O2 went from 98%-96%. MD notified. [facility] * Daniel Vega RN - 03/16/2024 9:26 PM CST Bed: ED25 Expected date: Expected time: Means of arrival: Comments: IN 6 [facility] * Rosario Barth RN - 03/16/2024 8:[address] [facility] ED Nurse Handoff Report ED Chief complaint: Flu Symptoms . ED Diagnosis: Final diagnoses: Influenza A Vomiting and diarrhea Hyponatremia Chest heaviness Allergies: Allergies Allergen Reactions Gramineae Pollens Hives Plaquenil [Hydroxychloroquine] Hives Smoke. Unknown and Other (See Comments) Dust Mite Extract Other (See Comments) Code Status: Full Code Activity level - Baseline/Home: assist of 1. Activity Level - Current: assist of 1. Lift room needed: No. Bariatric: No Fisher Trawl Line Needed: No Isolation: Yes. Infection: Not Applicable Influenza. Respiratory status: Room air Vital Signs (within 30 minutes): Vitals: 03/16/24 1354 BP: 118/57 Pulse: 70 Resp: 20 Temp: 99.8 ??F (37.7 ??C) TempSrc: Oral SpO2: 96% Weight: 65.8 kg (145 lb) Height: 1.651 m (5' 5) Cardiac Rhythm: , Pain level: Patient confused: No. Patient Falls Risk: bed/chair alarm on, nonskid shoes/slippers when out of bed, and arm band in place. Elimination Status: Has voided Patient Report - Initial Complaint: Haley Crow is a 83 year old female who presents to ED forevaluation of flu symptoms. The patient reports that she has had symptoms for a week now, and her is in the hospital currently with influenza. Initially she and her both felt similar symptoms, but her then had leg pain, so she called the ambulance for him. Her granddaughter reports that patient can't get better from her symptoms and has difficulty walking, eating, and drinking. She has been sleeping nonstop for the past week. She had vomiting and diarrhea at the beginning but now mainly has respiratory symptoms. The patient herself reports chest heaviness/tightness that doesn't change with deep breaths, though the deep breaths make her cough. She also had terrible chills 3 days ago. She denies fever or palpitations. . Focused Assessment: Pt presents for evaluation of a productive cough, chest tightness and weakness.Denies fever, chills or back pain. Feels like it's hard to take a deep breath. Exposed to influenzaA by . Went to [facility], had labs and a chest xray done. Sent here due to lower BPs 90s/50s and for possible IV abx. Abnormal Results: Labs Ordered and Resulted from Time of ED Arrival to Time of ED Departure BASIC METABOLIC PANEL - Abnormal Result Value Sodium 131 (*) Potassium 3.9 Chloride 95 (*) Carbon Dioxide (CO2) 20 (*) Anion Gap 16 (*) Urea Nitrogen 15.1 Creatinine 0.83 GFR Estimate 70 Calcium 8.8 Glucose 118 (*) TROPONIN T, HIGH SENSITIVITY - Abnormal Troponin T, High Sensitivity 24 (*) TROPONIN T, HIGH SENSITIVITY - Abnormal Troponin T, High Sensitivity 23 (*) INFLUENZA A/B, RSV AND SARS-COV2 PCR - Abnormal Influenza A PCR Positive (*) Influenza B PCR Negative RSV PCR Negative SARS CoV2 PCR Negative MAGNESIUM - Normal Magnesium 1.9 ROUTINE UA WITH MICROSCOPIC REFLEX TO CULTURE No orders to display Treatments provided: See MAR Family Comments: At bedside OBS brochure/video discussed/provided to patient: Yes ED Medications: Medications - No data to display Drips infusing: No For the majority of the shift this patient was Green. Interventions performed were NA. Sepsis treatment initiated: No Cares/treatment/interventions/medications to be completed following ED care: All inpatient orders ED Nurse Name: Rosario Barth RN 8:46 PM [facility] * Corona Moore, - 03/16/2024 6:03 PM CST Emergency Department Note Code Status: Full Code History of Present Illness Chief Complaint: Flu Symptoms HPI Haley Crow is a 83 year old female who presents to ED for evaluation of flu symptoms. The patient reports that she has had symptoms for a week now, and her is in the hospital currently with influenza. Initially she and her both felt similar symptoms, but her then had leg pain, so she called the ambulance for him. Her granddaughter reports that patient can't get better from her symptoms and has difficulty walking, eating, and drinking. She has been sleeping nonstop for the past week. She had vomiting and diarrhea at the beginning but now mainly has respiratory symptoms. The patient herself reports chest heaviness/tightness that doesn't change with deep breaths, though the deep breaths make her cough. She also had terrible chills 3 days ago. She denies fever orpalpitations. Independent Historian: Granddaughter as detailed above. Review of External Notes Unable to see UC note from today as patient went to [facility]. Reviewed labs from Urgent Care (printed): WBC 14, HGB 11.6, CXR Atelectasis Past Medical History Medical History, Surgical History, Problem List, and Medications Reviewed in [facility] Physical Exam Patient Vitals for the past 24 hrs: BP Temp Temp src Pulse Resp SpO2 Height Weight 03/17/24 0127 (!) 140/69 98.1 ??F (36.7 ??C) Oral 70 16 92 % -- -- 03/16/24 2309 -- -- -- -- -- 92 % -- -- 03/16/24 2228 -- -- -- -- -- 92 % -- -- 03/16/24 2207 -- -- -- -- -- (!) 88 % -- -- 03/16/24 2131 (!) 157/80 98.7 ??F (37.1 ??C) Axillary 81 22 96 % -- -- 03/16/24 1354 118/57 99.8 ??F (37.7 ??C) Oral 70 20 96 % 1.651 m (5' 5) 65.8 kg (145 lb) Physical Exam Constitutional: Vital signs reviewed as above. Eyes: PEERL, EOMI B/L Neck: No JVD noted. FROM Cardiovascular: normal rate, Regular rhythm and normal heart sounds. No murmur heard. Equal B/L peripheral pulses. Pulmonary/Chest: No respiratory distress. Patient has no wheezes. Patient has B/L coarse breath sounds. Gastrointestinal: Soft. There is no tenderness. Musculoskeletal/Extremities: No pitting edema noted. Normal tone. Skin: Skin is warm and dry. There is no diaphoresis noted. Psychiatric: The patient appears calm. Diagnostics Laboratory: Imaging: Labs Ordered and Resulted from Time of ED Arrival to Time of ED Departure BASIC METABOLIC PANEL - Abnormal Result Value Sodium 131 (*) Potassium 3.9 Chloride 95 (*) Carbon Dioxide (CO2) 20 (*) Anion Gap 16 (*) Urea Nitrogen 15.1 Creatinine 0.83 GFR Estimate 70 Calcium 8.8 Glucose 118 (*) TROPONIN T, HIGH SENSITIVITY - Abnormal Troponin T, High Sensitivity 24 (*) TROPONIN T, HIGH SENSITIVITY - Abnormal Troponin T, High Sensitivity 23 (*) INFLUENZA A/B, RSV AND SARS-COV2 PCR - Abnormal Influenza A PCR Positive (*) Influenza B PCR Negative RSV PCR Negative SARS CoV2 PCR Negative MAGNESIUM - Normal Magnesium 1.9 No orders to display EKG None and ECG results from 03/16/24 EKG 12-lead, tracing only Value Systolic Blood Pressure Diastolic Blood Pressure Ventricular Rate 69 Atrial Rate 69 NC Interval 132 QRS Duration 94 QT 438 QTc 469 P [place] 50 R AXIS 50 T [place] 63 Interpretation ECG Atrial-paced rhythm Abnormal ECG When compared with ECG of 09-Nov-2023 14:26, Electronic atrial pacemaker has replaced Sinus rhythm Interpreted by me at 1805 Independent Interpretation See ED course ED Course Medications Administered Medications amLODIPine (NORVASC) tablet 10 mg (has no administration in time range) aspirin EC tablet 81 mg (has no administration in time range) dorzolamide-timolol (COSOPT) ophthalmic solution 1 drop (has no administration in time range) DULoxetine (CYMBALTA) DR capsule 40 mg (has no administration in time range) latanoprost (XALATAN) 0.005 % ophthalmic solution 1 drop (has no administration in time range) magnesium oxide (MAG-OX) tablet 400 mg (has no administration in time range) rosuvastatin (CRESTOR) tablet 10 mg (has no administration in time range) potassium chloride michelle ER (KLOR-CON M20) CR tablet 20 mEq (has no administration in time range) senna-docusate (SENOKOT-S/PERICOLACE) 8.6-50 MG per tablet 1 tablet (has no administration in time range) Or senna-docusate (SENOKOT-S/PERICOLACE) 8.6-50 MG per tablet 2 tablet (has no administration in time range) ondansetron (ZOFRAN ODT) ODT tab 4 mg (has no administration in time range) Or ondansetron (ZOFRAN) injection 4 mg (has no administration in time range) prochlorperazine (COMPAZINE) injection 5 mg (has no administration in time range) Or prochlorperazine (COMPAZINE) tablet 5 mg (has no administration in time range) enoxaparin ANTICOAGULANT (LOVENOX) injection 40 mg (has no administration in time range) lactated ringers infusion (has no administration in time range) hydrALAZINE (APRESOLINE) tablet 10 mg (has no administration in time range) Or hydrALAZINE (APRESOLINE) injection 10 mg (has no administration in time range) acetaminophen (TYLENOL) tablet 650 mg (650 mg Oral $Given 03/16/242242) Or acetaminophen (TYLENOL) Suppository 650 mg ( Rectal See Alternative 03/16/242242) melatonin tablet 3 mg (has no administration in time range) polyethylene glycol (MIRALAX) Packet 17 g (has no administration in time range) bisacodyl (DULCOLAX) suppository 10 mg (has no administration in time range) albuterol (PROVENTIL) neb solution 2.5 mg (has no administration in time range) predniSONE (DELTASONE) tablet 40 mg (40 mg Oral $Given 03/16/242242) benzonatate (TESSALON) capsule 100 mg (100 mg Oral $Given 03/16/242242) guaiFENesin-codeine (ROBITUSSIN AC) 100-10 MG/5ML solution 5-10 mL (10 mLs Oral $Given 03/16/242242) lactated ringers infusion ( Intravenous $New Bag 03/16/242211) albuterol (PROVENTIL) neb solution 2.5 mg (2.5 mg Nebulization $Given 03/16/242243) guaiFENesin-codeine (ROBITUSSIN AC) 100-10 MG/5ML solution 10 mL (10 mLs Oral $Given 03/16/242240) Procedures Procedures Discussion of Management See ED Course ED Course ED Course as of 03/17/24 0243 SatMar 16, [id number] I evaluated the patient and obtained history. 2027 I rechecked and updated the patient. [address] Anne of the hospitalist service regarding admission. Optional/Additional Documentation: None Medical Decision Making / Diagnosis MIPS None Medical Decision Making: This 83-year-old presents due to respiratory symptoms. Please see the HPI and exam for specifics. The patient's is currently in the hospital due to influenza. The patient's workup included testing for that amongst other things. She was found to have influenza A. There was documented hypoxia. I discussed case with the hospitalist who excepted patient for hospitalization. The patient's troponin is elevated but stable. She had a CBC at urgent care that was notable for leukocytosis. Chest x-ray imaging there did not reveal pneumonia. Critical Care: None. Disposition: See ED Course and MDM ICD-10 Codes: ICD-10-CM 1. Influenza A J10.1 2. Vomiting and diarrhea R11.10 R19.7 3. Hyponatremia E87.1 4. Chest heaviness R07.89 Discharge Medications: New Prescriptions No medications on file Scribe Disclosure: Helen Gonzales, am serving as a scribe at 6:32 PM on 03/16/2024 to document services personally performed by Corona Moore DO based on my observations and the provider's statements to me. 03/16/2024 Corona Moore DO [employer] Corona Moore DO 03/17/24 0245 [facility] * Kirstin Vazquez RN - 03/16/2024 1:51 PM CST Pt presents for evaluation of a productive cough, chest tightness and weakness. Denies fever, chills or back pain. Feels like it's hard to take a deep breath. Exposed to influenza A by . Went to [facility], had labs and a chest xray done. Sent here due to lower BPs 90s/50s and for possible IV abx. [facility] documented in this encounter Miscellaneous Notes * Plan of Care - Vilma Lepe RN - 03/17/2024 9:16 AM CST PRIMARY DIAGNOSIS: GENERIC NURSING OUTPATIENT/OBSERVATION GOALS TO BE MET BEFORE DISCHARGE: ADLs back to baseline: No Activity and level of assistance: Ax1 Pain status: Pain free. Return to near baseline physical activity: No Relay Adjuster Nurse Safe discharge environment identified: Yes Barriers to discharge: Yes Entered by: Vilma Lepe RN 03/17/2024 9:16 AM A&Ox4. VSS. Scheduled medications given. Breakfast tray delivered. LR 100 mL/hr. Droplet precautions maintained. No further needs at this time. Please review provider order for any additional goals. Nurse to notify provider when observation goals have been met and patient is ready for discharge. Problem: Adult Inpatient Plan of Care Goal: Plan of Care Review Description: The Plan of Care Review/Shift note should be completed every shift. The Outcome Evaluation is a brief statement about your assessment that the patient is improving, declining, or no change. This information will be displayed automatically on your shift note. Outcome: Progressing Flowsheets (Taken 03/17/2024 0915) Plan of Care Reviewed With: patient Overall Patient Progress: no change Goal: Patient-Specific Goal (Individualized) Description: You can add care plan individualizations to a care plan. Examples of Individualizationmight be: Parent requests to be called daily at 9am for status, I have a hard time hearing out of my right ear, or Do not touch me to wake me up as it startles me. Outcome: Progressing Goal: Absence of Hospital-Acquired Illness or Injury Outcome: Progressing Goal: Optimal Comfort and Wellbeing Outcome: Progressing Goal: Readiness for Transition of Care Outcome: Progressing Goal Outcome Evaluation: Plan of Care Reviewed With: patient Overall Patient Progress: no changeOverall Patient Progress: no change [facility] * Pharmacy-Admission Medication History - Tete Frye RPH - 03/17/2024 9:00 AM CST Pharmacist Admission Medication History Admission medication history is complete. The information provided in this note is only as accurateas the sources available at the time of the update. Information Source(s): Patient via in-person Pertinent Information: Changes made to [employer]INCIPAL CONSULTING [employer]INEER medication list: Added: None Deleted: zyrtec Changed: amlodipine, magnesium supplement Allergies reviewed with patient and updates made in EHR: yes Medication History Completed By: Tete Frye RPH 03/17/2024 9:00 AM [employer]SULTING [employer]INEER Med List Medication Sig Last Dose/Taking albuterol (PROAIR HFA/PROVENTIL HFA/VENTOLIN HFA) 108 (90 Base) MCG/ACT inhaler INHALE 2 PUFFS BY MOUTH INTO THE LUNGS EVERY 4 HOURS NEEDED FOR WHEEZING OR SHORTNESS OF BREATH Taking amLODIPine (NORVASC) 5 MG tablet Take 7.5 mg by mouth daily. 03/16/2024 Morning aspirin 81 MG EC tablet Take 81 mg by mouth daily 03/16/2024 Morning clobetasol (TEMOVATE) 0.05 % external ointment Apply topically 2 times daily To víctor area 03/16/2024 cyanocobalamin (VITAMIN B-12) 1000 MCG tablet Take 1,000 mcg by mouth daily 03/16/2024 Morning dorzolamide-timolol (COSOPT) 2-0.5 % ophthalmic solution Place 1 drop into the right eye 2 times daily 03/16/2024 Morning ferrous sulfate (FE TABS) 325 (65 Fe) MG EC tablet Take 65 mg of iron by mouth daily 03/16/2024 Morning latanoprost (XALATAN) 0.005 % ophthalmic solution INSTILL 1 DROP IN BOTH EYES NIGHTLY AT BEDTIME 03/15/2024 Bedtime Magnesium Citrate (MAGNESIUM GUMMIES) 67 MG CHEW Take 1 chew tab by mouth daily. Taking melatonin 5 MG tablet Take 5 mg by mouth at bedtime. 03/15/2024 Bedtime potassium chloride michelle er (K-DUR) Take 20 mEq by mouth daily 03/16/2024 Morning rosuvastatin (CRESTOR) 10 MG tablet Take 10 mg by mouth daily 03/16/2024 Morning VITAMIN D, CHOLECALCIFEROL, PO Take 2,000 Units by mouth daily 03/16/2024 Morning [facility] * Plan of Care - Humaira Dowd RN - 03/17/2024 6:[address] [facility] ED Boarding Nurse Handoff Addendum Report: Date/time: 03/17/2024, 4:59 AM Activity Level: assist of 1 with walker Fall Risk: Yes: nonskid shoes/slippers when out of bed, patient and family education, and activity supervised Active Infusions: LR 100 ml/hr Current Meds Due: see MAR Current care needs: oxygen needs, cough control, skin care management, steroids, PT Oxygen requirements (liters/min and/or FiO2): 2LNC Respiratory status: Nasal cannula Vital signs (within last 30 minutes): Vitals: 03/16/24 2228 03/16/24 2309 03/17/24 0127 03/17/24 0515 BP: (!) 140/69 115/71 BP Location: Right arm Right arm Pulse: 70 89 Resp: 16 24 Temp: 98.1 ??F (36.7 ??C) 97.5 ??F (36.4 ??C) TempSrc: Oral Oral SpO2: 92% 92% 92% 97% Weight: Height: Focused assessment within last 30 minutes: Pt A&Ox4. Denies pain. Pt has strong, frequent cough; robitussin and tessalon perles given withrelief. On 2LNC with O2 sats low 90s. UA sent; pt having urinary frequency. VSS with exception of hypertension SBP in 140s-150s. ED Boarding Nurse name: Humaira Dowd RN [facility] documented in this encounter Plan of Treatment Not on file documented as of this encounter Procedures Procedure Name Priority Date/Time Associated Diagnosis Comments ROUTINE UA WITH MICROSCOPIC REFLEX TO CULTURE STAT 03/17/2024 1:20 AM [facility] URINE CULTURE STAT 03/17/2024 1:20 AM [facility]AL INFLUENZA A/B, RSV AND SARS-COV2 PCR STAT 03/16/2024 6:33 PM [facility]AL TROPONIN T, HIGH SENSITIVITY STAT 03/16/2024 6:15 PM [facility] MAGNESIUM STAT 03/16/2024 6:15 PM [facility] EKG 12-LEAD, TRACING ONLY STAT 03/16/2024 2:34 PM [facility] EXTRA TUBE STAT 03/16/2024 2:08 PM [facility] EXTRA PURPLE TOP TUBE STAT 03/16/2024 2:08 PM [facility]AL EXTRA RED TOP TUBE STAT 03/16/2024 2: 08 PM [facility]AL EXTRA BLUE TOP TUBE STAT 03/16/2024 2 :08 PM [facility]AL TROPONIN T, HIGH SENSITIVITY STAT 03/16/2024 2:08 PM [facility] BASIC METABOLIC PANEL STAT 03/16/2024 2:08 PM [facility] documented in this encounter Results * Urine Culture (03/17/2024 1:20 AM ATTORNEY GENERAL) Pathologist [facility] Culture <10,000 CFU/mL Mixture of Urogenital [place] 03/18/2024 6:18 AM [facility] Urine URINE SPECIMEN OBTAINED BY CLEAN CATCH PROCEDURE / Unknown Non-blood Collection / Unknown 03/17/2024 1:20 AM ATTORNEY GENERAL 03/17/2024 1:47 AM [facility]AL Dyllan Anne MD LAB - MICRO GENERAL ORDERABL ES Final Result [facility] Inf. Diseases Diag. Lab [address] [facility], [address] [place] [id number] * (ABNORMAL) UA with Microscopic reflex to Culture (03/17/2024 1:20 AM ATTORNEY GENERAL) Color Urine Yellow Colorless, Straw, Light Yellow, Yellow 03/17/2024 1:48 AM [facility]ORY Appearance Urine Slightly Cloudy(A) Clear 03/17/2024 1:48 AM [facility] Glucose Urine Negative Negative mg/dL 03/17/2024 1:48 AM [facility] Bilirubin Urine Negative Negative 1:48 AM [facility] Ketones Urine Trace(A) Negative mg/dL 03/17/2024 1:48 AM ATTORNEY [facility]AL [facility] Specific [place] Urine 1.011 1.003 - 1.035 03/17/2024 1:48 AM [facility]AL [facility] Blood Urine Moderate(A) Negative 03/17/2024 1:48 AM [facility] LABORATORY pH Urine 6.0 5.0 - 7.0 03/17/2024 1:48 AM [facility] Protein Albumin Urine 20(A) Negative mg/dL 03/17/2024 1:48 AM [facility] Urobilinogen Urine Normal Normal, 2.0 mg/dL 03/17/2024 1:48 AM [facility] Nitrite Urine Negative Negative 03/17/2024 1:48 AM [facility] Leukocyte Esterase Urine Large(A) Negative 03/17/2024 1:48 AM [facility] Bacteria Urine Few(A) None Seen /HPF 03/17/2024 1:48 AM [facility] Mucus Urine Present(A) None Seen /LPF 03/17/2024 1:48 AM [facility] RBC Urine 121(H) <=2 /HPF 03/17/2024 1:48 AM [facility] WBC Urine 21(H) <=5 /HPF 03/17/2024 1:48 AM [facility] Squamous Epithelials Urine 1 <=1 /HPF 03/17/2024 1:48 AM [facility] Hyaline Casts Urine 1 <=2 /LPF 03/17/2024 1:48 AM [facility] Urine URINE SPECIMEN OBTAINED BY CLEAN CATCH PROCEDURE / Unknown Non-blood Collection / Unknown 03/17/2024 1:20 AM [facility] 03/17/2024 1:24 AM [facility] Narrative [facility] - 03/17/2024 1:48 AM [facility] Urine Culture ordered based on laboratory criteria us Dyllan Anne MD LAB - URINE ORDERABLES Final Result LABORATORY [facility] [address] [facility] Lab (1st floor, no room number) [place] [address] * (ABNORMAL) Influenza A/B, RSV and SARS-CoV2 PCR (COVID-19) Nasopharyngeal (03/16/2024 6:33 PM [facility]) Influenza A PCR Positive(A) Negative 03/16/2024 7:25 PM [facility] Influenza B PCR Negative Negative 03/16/2024 7:25 PM [facility] RSV PCR Negative Negative 03/16/2024 7:25 PM [facility] SARS CoV2 PCR Negative Negative 03/16/2024 7:25 PM [facility] Comment:NEGATIVE: SARS-CoV-2 (COVID-19) RNA not detected, presumed negative. Swab NASOPHARYNGEAL STRUCTURE / Unknown Non-blood Collection / Unknown 03/16/2024 6:33 PM [facility] 03/16/2024 6:46 PM [facility] Narrative LABORATORY - 03/16/2024 7:25 PM [facility] Testing was performed using the Xpert Xpress CoV2/Flu/RSV Assay on the [employer] GeneXpert Instrument. This test should be ordered for the detection of SARS- CoV2, influenza, and RSV viruses in individuals with signs and symptoms of respiratory tract infection. This test is for in vitro diagnostic use under the [place] FDA for laboratories certified under CLIA to perform high or moderate complexity testing. This test has been [place] FDA cleared. A negative result does not rule out the presence of PCR inhibitors in the specimen or target RNA in concentration below the limit of detection for the assay. If only one viral target is positive but coinfection with multiple targets is suspected, the sample should be re-tested with another FDA cleared, approved, or authorized test, if coninfection would change clinical management. This test was validated by the [facility] [employer]. These laboratories are certified under the Clinical Laboratory Improvement Amendments of 1988 (CLIA-88) as qualified to perfom high complexity laboratory testing. Corona Moore DO LAB - MICRO GENERAL ORDE RABLES Final Result [facility] [address] [facility] Lab (1st floor, no room number) [place] [address], [facility] * Magnesium (03/16/2024 6:15 PM [facility]) Magnesium 1.9 1.7 - 2.3 mg/dL 03/16/2024 6:55 PM [facility] Blood BLOOD SPECIMEN / Unknown Venipuncture / Unknown 03/16/2024 6:15 PM [facility] 03/16/2024 6:19 PM [facility] Corona Moore DO LAB - BLOOD ORDERABLES F inal Result [facility] [address] Lab (1st floor, no room number) [place] [address], [facility] * (ABNORMAL) Troponin T, High Sensitivity (03/16/2024 6:15 PM [facility]) Troponin T, High Sensitivity 23(H) <=14 ng/L 03/16/2024 6:44 PM [facility] Comment: Either a High Sensitivity Troponin T baseline (0 hours) value = 100 ng/L, or an increase in High Sensitivity Troponin T = 7 ng/L at 2 hours compared to 0 hours (2-0 hours), suggests myocardial injury, and urgent clinical attention is required. If the 2-0 hours increase is <7 ng/L, a High Sensitivity Troponin T result above gender-specific reference ranges warrants further evaluation. Recommendations for further evaluation include correlation with clinical decision-making tool (e.g., HEART), a 3rd High Sensitivity Troponin T test 2 hours after the 2nd (a 20% change from baseline would represent concern), admission for observation, close PCC/cardiology follow-up, or urgent outpatient provocative testing. Blood BLOOD SPECIMEN / Unknown Venipuncture / Unknown 03/16/2024 6:15 PM [facility] 03/16/2024 6:19 PM [facility] us Corona Moore DO LAB - BLOOD ORDERABLES F inal Result LABORATORY [facility] [address], no room number) [place] [address], [facility] * EKG 12-lead, tracing only (03/16/2024 2:34 PM [facility]) Pathologist [facility] Systolic Blood Pressure mmHg RADIOLOGY RESULTS Diastolic Blood Pressure mmHg RADIOLOGY RESULTS Ventricular Rate 69 BPM RAD IOLOGY RESULTS Atrial Rate 69 BPM RADIOLOG Y RESULTS NC Interval 132 ms RADIOLOG Y RESULTS QRS Duration 94 ms RADIOLO GY RESULTS QT 438 ms RADIOLOGY RESULTS QTc 469 ms RADIOLOGY RESULTS P [place] 50 degrees RADIOLOGY RESULTS R AXIS 50 degrees RADIOLOGY RESULTS T [place] 63 degrees RADIOLOGY RESULTS Interpretation ECG Atrial-paced rhythm Abnormal ECG When compared with ECG of 09-Nov-2023 14:26, Electronic atrial pacemaker has replaced Sinus rhythm Unconfirmed report - interpretation of this ECG is computer generated - see medical record for final interpretation Confirmed by - EMERGENCY ROOM, PHYSICIAN ([id number]), video effects editor Donny Boland ([id number]) on 03/16/2024 2:48:44 PM RADIOLOGY RESULTS 03/16/2024 2:34 PM [facility] 03/16/2024 2:48 PM [facility] Arnoldo Baxter MD ECG ORDERABLES Edited Re sult - Final RADIOLOGY RESULTS * Extra Purple Top Tube (03/16/2024 2:08 PM [facility]) Hold Specimen [facility] 03/16/2024 3:31 PM [facility] Blood STRUCTURE OF LEFT UPPER LIMB / Unknown Venipuncture / Unknown 03/16/2024 2:08 PM [facility] 03/16/2024 2:25 PM [facility] Corona Moore DO LAB - BLOOD ORDERABLES F inal Result Performing Organization Address [facility] de Phone Number [facility] [address] Lab (1st floor, no room number) [place] [phone] * Extra Red Top Tube (03/16/2024 2:08 PM [facility]) Hold Specimen [facility] 03/16/2024 3:31 PM [facility] Blood STRUCTURE OF LEFT UPPER LIMB / Unknown Venipuncture / Unknown 03/16/2024 2:08 PM [facility] 03/16/2024 2:25 PM [facility] Corona Moore DO LAB - BLOOD ORDERABLES F inal Result Performing Organization Address City/[facility] Co de Phone Number [facility] [address] Lab (1st floor, no room number) [place] [address] * Extra Blue Top Tube (03/16/2024 2:08 PM [facility]) Hold Specimen [facility] 03/16/2024 3:31 PM [facility] Blood STRUCTURE OF LEFT UPPER LIMB / Unknown Venipuncture / Unknown 03/16/2024 2:08 PM [facility] 03/16/2024 2:25 PM [facility] Corona Moore LAB - BLOOD ORDERABLES F inal Result Performing Organization Address City/[facility]/ZIP Co de Phone Number [facility] [address] Lab (1st floor, no room number) [place] [address] * (ABNORMAL) Troponin T, High Sensitivity (03/16/2024 2:08 PM [facility]) [facility] Troponin T, High Sensitivity 24(H) <=14 ng/L 03/16/2024 2:50 PM [facility] Comment: Either a High Sensitivity Troponin T baseline (0 hours) value = 100 ng/L, or an increase in High Sensitivity Troponin T = 7 ng/L at 2 hours compared to 0 hours (2-0 hours), suggests myocardial injury, and urgent clinical attention is required. If the 2-0 hours increase is <7 ng/L, a High Sensitivity Troponin T result above gender-specific reference ranges warrants further evaluation. Recommendations for further evaluation include correlation with clinical decision-making tool (e.g., HEART), a 3rd High Sensitivity Troponin T test 2 hours after the 2nd (a 20% change from baseline would represent concern), admission for observation, close PCC/cardiology follow-up, or urgent outpatient provocative testing. Blood STRUCTURE OF LEFT UPPER LIMB / Unknown Venipuncture / Unknown 03/16/2024 2:08 PM [facility] 03/16/2024 2:25 PM [facility] Corona Moore LAB - BLOOD ORDERABLES F inal Result [facility] [address] Lab (1st floor, no room number) [place] [address], [facility] * (ABNORMAL) Basic metabolic panel (03/16/2024 2:08 PM [facility]) Sodium 131(L) 135 - 145 mmol/L 03/16/2024 2:50 PM [facility] Potassium 3.9 3.4 - 5.3 mmol/L 03/16/2024 2:50 PM [facility] Chloride 95(L) 98 - 107 mmol/L 03/16/2024 2:50 PM [facility] Carbon Dioxide (CO2) 20(L) 22 - 29 mmol/L 03/16/2024 2:50 PM [facility] Anion Gap 16(H) 7 - 15 mmol/L 03/16/2024 2:50 PM [facility] Urea Nitrogen 15.1 8.0 - 23.0 mg/dL 03/16/2024 2:50 PM [facility] Creatinine 0.83 0.51 - 0.95 mg/dL 03/16/2024 2:50 PM [facility] GFR Estimate 70 >60 mL/min/1.7 3m2 03/16/2024 2:50 PM [facility] Comment:eGFR calculated usin g 2020 CKD-EPI equation. Calcium 8.8 8.8 - 10.4 mg/dL 03/16/2024 2:50 PM [facility] Comment:Reference intervals for this test were updated on 09/24/2023 to reflect our healthy population more accurately. There may be differences in the flagging of prior results with similar values performed with this method. Those prior results can be interpreted in the context of the updated reference intervals. Glucose 118(H) 70 - 99 mg/dL 03/16/2024 2:50 PM [facility] Blood STRUCTURE OF LEFT UPPER LIMB / Unknown Venipuncture / Unknown 03/16/2024 2:08 PM [facility] 03/16/2024 2:25 PM [facility] us Corona Moore DO LAB - BLOOD ORDERABLES F inal Result LABORATORY [facility] [address] [facility] Lab (1st floor, no room number) [place] [address], [facility] documented in this encounter Visit Diagnoses Diagnosis Mild intermittent asthma with exacerbation- Primary Unspecified asthma, with exacerbation Influenza A Influenza with other respiratory manifestations Vomiting and diarrhea Vomiting alone Hyponatremia Hyposmolality and/or hyponatremia Chest heaviness Other chest pain Hyponatremia Hyposmolality and/or hyponatremia Chest heaviness Other chest pain Influenza A Influenza with other respiratory manifestations Vomiting and diarrhea Vomiting alone documented in this encounter Administered Medications Inactive Administered Medications - up to 3 most recent administrations Medication Order MAR Action Action Date Dose Rate Site acetaminophen (TYLENOL) Suppository 650 mg 650 mg, Rectal, EVERY 4 HOURS PRN, mild pain, other, and adjunct with moderate or severe pain or per patient request, Starting on Sat03/16/24 at 2214, Alternate with ibuprofen if ordered. Maximum acetaminophen dose from all sources = 75 mg/kg/day not to exceed 4 grams/day. acetaminophen (TYLENOL) tablet 650 mg 650 mg, Oral, EVERY 4 HOURS PRN, mild pain, other, and adjunct with moderate or severe pain or per patient request, Starting on Sat03/16/24 at 2214, Alternate with ibuprofen if ordered. Maximum acetaminophen dose from all sources = 75 mg/kg/day not to exceed 4 grams/day. $Given 03/16/2024 10:43 PM [facility] 650 mg albuterol (PROVENTIL) neb solution 2.5 mg 2.5 mg, Nebulization, ONCE, On Sat03/16/24 at 2215, For 1 dose $Given 03/16/2024 10:44 PM [facility] 2.5 mg amLODIPine (NORVASC) tablet 7.5 mg 7.5 mg, Oral, DAILY, First dose (after last modification) on Sat03/17/24 at 0930, Hold for SBP < 110 $Given 03/17/2024 11:09 AM [facility] 7.5 mg aspirin EC tablet 81 mg 81 mg, Oral, DAILY, First dose on Sat03/17/24 at 0935, DO NOT CRUSH. $Given 03/17/2024 11:09 AM [facility] 81 mg benzonatate (TESSALON) capsule 100 mg 100 mg, Oral, 3 TIMES DAILY PRN, cough, Starting on Sat03/16/24 at 2214, Swallow whole. Do not chew, crush or break. $Given 03/16/2024 10:43 PM [facility] 100 mg enoxaparin ANTICOAGULANT (LOVENOX) injection 40 mg 40 mg, Subcutaneous, EVERY 24 HOURS, First dose on Sat03/17/24 at 0900, Contact provider if platelet count drops by 50% or more after enoxaparin initiation OR if platelet count falls below 50 x 10e3/uL $Given 03/17/2024 9:03 AM [facility] 40 mg guaiFENesin-codeine (ROBITUSSIN AC) 100-10 MG/5ML solution 10 mL 10 mL, Oral, ONCE, On Sat03/16/24 at 2215, For 1 dose $Given 03/16/2024 10:41 PM [facility] 10 mLs guaiFENesin-codeine (ROBITUSSIN AC) 100-10 MG/5ML solution 5-10 mL 5-10 mL, Oral, EVERY 4 HOURS PRN, cough, Starting on Sat03/16/24 at 2214 $Given 03/17/2024 5:22 AM [facility] 10 mLs $Given 03/16/2024 10:43 PM [facility] 10 mLs hydrALAZINE (APRESOLINE) injection 10 mg 10 mg, Intravenous, EVERY 4 HOURS PRN, high blood pressure, for systolic BP greater than 180 mmHg, Administer over 1 Minutes, Starting on Sat03/16/24 at 2214 hydrALAZINE (APRESOLINE) tablet 10 mg 10 mg, Oral, EVERY 4 HOURS PRN, high blood pressure, for systolic BP greater than 180 mmHg, Starting on Sat03/16/24 at 2214 lactated ringers infusion at 125 mL/hr, Intravenous, ONCE, 1 dose, On Sat03/16/24 at 2110 $New Bag 03/16/2024 10:12 PM [facility] 125 mL/hr lactated ringers infusion at 100 mL/hr, Intravenous, CONTINUOUS, Starting on Sat03/16/24 at 2215, Until Sat03/17/24 at 0814 $New Bag 03/17/2024 6:38 AM [facility] 100 mL/hr magnesium oxide (MAG-OX) tablet 400 mg 400 mg, Oral, DAILY, First dose on Sat03/17/24 at 0935 $Given 03/17/2024 11:09 AM [facility] 400 mg ondansetron (ZOFRAN ODT) ODT tab 4 mg 4 mg, Oral, EVERY 6 HOURS PRN, nausea/vomiting - 1st line, Starting on Sat03/16/24 at 2214, This is Step 1 of nausea and vomiting management. If nausea not resolved in 15 minutes, go to Step 2 prochlorperazine (COMPAZINE). With dry hands, peel back foil backing and gently remove tablet. Do not push oral disintegrating tablet through foil backing. Administer immediately on tongue and oral disintegrating tablet dissolves in seconds, then swallow with saliva. Liquid not required. ondansetron (ZOFRAN) injection 4 mg 4 mg, Intravenous, EVERY 6 HOURS PRN, nausea/vomiting - 1st line, Administer over 2-5 Minutes, Starting on Sat03/16/24 at 2214, Give IF patient unable to tolerate oral medication. This is Step 1 of nausea and vomiting management. If nausea not resolved in 15 minutes, go to Step 2 prochlorperazine (COMPAZINE). potassium chloride michelle ER (KLOR-CON M20) CR tablet 20 mEq 20 mEq, Oral, DAILY, First dose on Sat03/17/24 at 0935, DO NOT CRUSH $Given 03/17/2024 11:09 AM [facility] 20 mEq predniSONE (DELTASONE) tablet 40 mg 40 mg, Oral, DAILY, First dose on Sat03/16/24 at 2215 $Given 03/17/2024 9:03 AM [facility] 40 mg $Given 03/16/2024 10:43 PM [facility] 40 mg prochlorperazine (COMPAZINE) injection 5 mg 5 mg, Intravenous, EVERY 6 HOURS PRN, nausea/vomiting - 2nd line, Administer over 1-2 Minutes, Starting on Sat03/16/24 at 2214, Give IF patient unable to tolerate oral medication. This is Step 2 of nausea and vomiting management. Give if nausea not resolved 15 minutes after giving ondansetron (ZOFRAN). If nausea not resolved in 15-30 minutes, Notify provider. prochlorperazine (COMPAZINE) tablet 5 mg 5 mg, Oral, EVERY 6 HOURS PRN, nausea/vomiting - 2nd line, Starting on Sat03/16/24 at 2214, This is Step 2 of nausea and vomiting management. Give if nausea not resolved 15 minutes after giving ondansetron (ZOFRAN). If nausea not resolved in 15-30 minutes, Notify provider. senna-docusate (SENOKOT-S/PERICOLACE) 8.6-50 MG per tablet 1 tablet 1 tablet, Oral, 2 TIMES DAILY PRN, constipation, Starting on Sat03/16/24 at 2214, If no bowel movement in 24 hours, increase to 2 tablets by mouth. IF more than 1 constipation PRN medication is ordered, administer step-hawkins as indicated, moving to the next step ONLY if prior step ineffective. Step 1: senna-docusate (SENOKOT-S; PERICOLACE) OR bisacodyl (DULCOLAX) EC tablet Step 2: polyethylene glycol (MIRALAX/GLYCOLAX) Step 3: bisacodyl (DULCOLAX) suppository Step 4: enema Hold for loose stools. senna-docusate (SENOKOT-S/PERICOLACE) 8.6-50 MG per tablet 2 tablet 2 tablet, Oral, 2 TIMES DAILY PRN, constipation, Starting on Sat03/16/24 at 2214, IF more than 1 constipation PRN medication is ordered, administer step-hawkins as indicated, moving to the next step ONLY if prior step ineffective. Step 1: senna-docusate (SENOKOT-S; PERICOLACE) OR bisacodyl (DULCOLAX) EC tablet Step 2: polyethylene glycol (MIRALAX/GLYCOLAX) Step 3: bisacodyl (DULCOLAX) suppository Step 4: enema Hold for loose stools. documented in this encounter Active and Recently Administered Medications Times are shown in [facility]. Scheduled Medication Order 03/15/2024 03/16/2024 03/17/2024 albuterol (PROVENTIL) neb solution 2.5 mg (COMPLETED) 2.5 mg, Nebulization, ONCE, On Sat03/16/24 at 2215, For 1 dose 2244 ($Given - Provider: Humaira Dowd RN) amLODIPine (NORVASC) tablet 7.5 mg 7.5 mg, Oral, DAILY, First dose (after last modification) on Sat03/17/24 at 0930, Hold for SBP < 110 1109 ($Given - Provi lauri: Vilma Lepe RN) aspirin EC tablet 81 mg 81 mg, Oral, DAILY, First dose on Sat03/17/24 at 0935, DO NOT CRUSH. 1109 ($Given - Provi lauri: Vilma Lepe RN) dorzolamide-timolol (COSOPT) ophthalmic solution 1 drop 1 drop, Right Eye, 2 TIMES DAILY, First dose on Sat03/17/24 at 0935 0935 (Canceled Entry - Provider: Orders Generic Provider - Comment: Automatically canceled at discontinue of medication order) DULoxetine (CYMBALTA) DR capsule 40 mg 40 mg, Oral, AT BEDTIME, First dose on Sat03/17/24 at 2200 enoxaparin ANTICOAGULANT (LOVENOX) injection 40 mg 40 mg, Subcutaneous, EVERY 24 HOURS, First dose on Sat03/17/24 at 0900, Contact provider if platelet count drops by 50% or more after enoxaparin initiation OR if platelet count falls below 50 x 10e3/uL 0903 ($Given - Provi lauri: Vilma Lepe RN) guaiFENesin-codeine (ROBITUSSIN AC) 100-10 MG/5ML solution 10 mL (COMPLETED) 10 mL, Oral, ONCE, On Sat03/16/24 at 2215, For 1 dose 2241 ($Given - Provider: Humaira Dowd RN) lactated ringers infusion (COMPLETED) at 125 mL/hr, Intravenous, ONCE, 1 dose, On Sat03/16/24 at 2110 2212 ($New Bag - Provider: Humaira Dowd RN) 0639 (Stopped - Provider: Humaira Dowd RN) latanoprost (XALATAN) 0.005 % ophthalmic solution 1 drop 1 drop, Both Eyes, AT BEDTIME, First dose on Sat03/17/24 at 2200 magnesium oxide (MAG-OX) tablet 400 mg 400 mg, Oral, DAILY, First dose on Sat03/17/24 at 0935 1109 ($Given - Provi lauri: Vilma Lepe RN) potassium chloride michelle ER (KLOR-CON M20) CR tablet 20 mEq 20 mEq, Oral, DAILY, First dose on Sat03/17/24 at 0935, DO NOT CRUSH 1109 ($Given - Provi lauri: Vilma Lepe, HUSSEIN) predniSONE (DELTASONE) tablet 40 mg 40 mg, Oral, DAILY, First dose on Sat03/16/24 at 2215 2243 ($Given - Provider: Humaira Dowd RN) 0903 ($Given - Provider: Vilma Lepe, HUSSEIN) rosuvastatin (CRESTOR) tablet 10 mg 10 mg, Oral, DAILY, First dose on Sat03/17/24 at 0935 0935 (Canceled Entry - Provider: Orders Generic Provider - Comment: Automatically canceled at discontinue of medication order) Continuous Medication Order 03/15/2024 03/16/2024 03/17/2024 lactated ringers infusion at 100 mL/hr, Intravenous, CONTINUOUS, Starting on Sat03/16/24 at 2215, Until Sat03/17/24 at 0814 0638 ($New Bag - Pro vider: Humaira Dowd RN)0858 (Stopped - Provider: Vilma Lepe RN) PRN Medication Order 03/15/2024 03/16/2024 03/17/2024 acetaminophen (TYLENOL) Suppository 650 mg(Linked Group 1) 650 mg, Rectal, EVERY 4 HOURS PRN, mild pain, other, and adjunct with moderate or severe pain or per patient request, Starting on Sat03/16/24 at 2214, Alternate with ibuprofen if ordered. Maximum acetaminophen dose from all sources = 75 mg/kg/day not to exceed 4 grams/day. 2243 (See Alternative - Provider: Humaira Dowd RN) acetaminophen (TYLENOL) tablet 650 mg(Linked Group 1) 650 mg, Oral, EVERY 4 HOURS PRN, mild pain, other, and adjunct with moderate or severe pain or per patient request, Starting on Sat03/16/24 at 2214, Alternate with ibuprofen if ordered. Maximum acetaminophen dose from all sources = 75 mg/kg/day not to exceed 4 grams/day. 2243 ($Given - Provider: Humaira Dowd RN) albuterol (PROVENTIL) neb solution 2.5 mg 2.5 mg, Nebulization, EVERY 4 HOURS PRN, shortness of breath, Starting on Sat03/16/24 at 2214 benzonatate (TESSALON) capsule 100 mg 100 mg, Oral, 3 TIMES DAILY PRN, cough, Starting on Sat03/16/24 at 2214, Swallow whole. Do not chew, crush or break. 2243 ($Given - Provider: Humaira Dowd RN) bisacodyl (DULCOLAX) suppository 10 mg 10 mg, Rectal, DAILY PRN, constipation, Starting on Sat03/16/24 at 2214, IF more than 1 constipation PRN medication is ordered, administer step-hawkins as indicated, moving to the next step ONLY if prior step ineffective. Step 1: senna-docusate (SENOKOT-S; PERICOLACE) OR bisacodyl (DULCOLAX) EC tablet Step 2: polyethylene glycol (MIRALAX/GLYCOLAX) Step 3: bisacodyl (DULCOLAX) suppository Step 4: enema Hold for loose stools. guaiFENesin-codeine (ROBITUSSIN AC) 100-10 MG/5ML solution 5-10 mL 5-10 mL, Oral, EVERY 4 HOURS PRN, cough, Starting on Sat03/16/24 at 2214 2243 ($Given - Provider: Humaira Dowd RN) 0522 ($Given - Provider: Humaira Dowd RN) hydrALAZINE (APRESOLINE) injection 10 mg(Linked Group 2) 10 mg, Intravenous, EVERY 4 HOURS PRN, high blood pressure, for systolic BP greater than 180 mmHg, Administer over 1 Minutes, Starting on Sat03/16/24 at 2214 hydrALAZINE (APRESOLINE) tablet 10 mg(Linked Group 2) 10 mg, Oral, EVERY 4 HOURS PRN, high blood pressure, for systolic BP greater than 180 mmHg, Starting on Sat03/16/24 at 2214 melatonin tablet 3 mg 3 mg, Oral, AT BEDTIME PRN, sleep, Starting on Sat03/16/24 at 2214, Do not give unless at least 6 hours of uninterrupted sleep is expected. If patient has multiple medications ordered PRN sleep/insomnia, offer melatonin first. ondansetron (ZOFRAN ODT) ODT tab 4 mg(Linked Group 3) 4 mg, Oral, EVERY 6 HOURS PRN, nausea/vomiting - 1st line, Starting on Sat03/16/24 at 2214, This is Step 1 of nausea and vomiting management. If nausea not resolved in 15 minutes, go to Step 2 prochlorperazine (COMPAZINE). With dry hands, peel back foil backing and gently remove tablet. Do not push oral disintegrating tablet through foil backing. Administer immediately on tongue and oral disintegrating tablet dissolves in seconds, then swallow with saliva. Liquid not required. ondansetron (ZOFRAN) injection 4 mg(Linked Group 3) 4 mg, Intravenous, EVERY 6 HOURS PRN, nausea/vomiting - 1st line, Administer over 2-5 Minutes, Starting on Sat03/16/24 at 2214, Give IF patient unable to tolerate oral medication. This is Step 1 of nausea and vomiting management. If nausea not resolved in 15 minutes, go to Step 2 prochlorperazine (COMPAZINE). polyethylene glycol (MIRALAX) Packet 17 g 17 g, Oral, 2 TIMES DAILY PRN, constipation, Starting on Sat03/16/24 at 2214, IF more than 1 constipation PRN medication is ordered, administer step-hawkins as indicated, moving to the next step ONLY if prior step ineffective. Step 1: senna-docusate (SENOKOT-S; PERICOLACE) OR bisacodyl (DULCOLAX) EC tablet Step 2: polyethylene glycol (MIRALAX/GLYCOLAX) Step 3: bisacodyl (DULCOLAX) suppository Step 4: enema 1 Packet = 17 grams. Mix each gram with at least 1/2 ounce (15 mL) of water - 8 ounces for 17 g dose, 4 ounces for 8.5 g dose, 2 ounces for 4 g dose. Follow with the same volume of water. Hold for loose stools unless being administered as part of a bowel prep regimen or bowel clean out. prochlorperazine (COMPAZINE) injection 5 mg(Linked Group 4) 5 mg, Intravenous, EVERY 6 HOURS PRN, nausea/vomiting - 2nd line, Administer over 1-2 Minutes, Starting on Sat03/16/24 at 2214, Give IF patient unable to tolerate oral medication. This is Step 2 of nausea and vomiting management. Give if nausea not resolved 15 minutes after giving ondansetron (ZOFRAN). If nausea not resolved in 15-30 minutes, Notify provider. prochlorperazine (COMPAZINE) tablet 5 mg(Linked Group 4) 5 mg, Oral, EVERY 6 HOURS PRN, nausea/vomiting - 2nd line, Starting on Sat03/16/24 at 2214, This is Step 2 of nausea and vomiting management. Give if nausea not resolved 15 minutes after giving ondansetron (ZOFRAN). If nausea not resolved in 15-30 minutes, Notify provider. senna-docusate (SENOKOT-S/PERICOLACE) 8.6-50 MG per tablet 1 tablet(Linked Group 5) 1 tablet, Oral, 2 TIMES DAILY PRN, constipation, Starting on Sat03/16/24 at 2214, If no bowel movement in 24 hours, increase to 2 tablets by mouth. IF more than 1 constipation PRN medication is ordered, administer step-hawkins as indicated, moving to the next step ONLY if prior step ineffective. Step 1: senna-docusate (SENOKOT-S; PERICOLACE) OR bisacodyl (DULCOLAX) EC tablet Step 2: polyethylene glycol (MIRALAX/GLYCOLAX) Step 3: bisacodyl (DULCOLAX) suppository Step 4: enema Hold for loose stools. senna-docusate (SENOKOT-S/PERICOLACE) 8.6-50 MG per tablet 2 tablet(Linked Group 5) 2 tablet, Oral, 2 TIMES DAILY PRN, constipation, Starting on Sat03/16/24 at 2214, IF more than 1 constipation PRN medication is ordered, administer step-hawkins as indicated, moving to the next step ONLY if prior step ineffective. Step 1: senna-docusate (SENOKOT-S; PERICOLACE) OR bisacodyl (DULCOLAX) EC tablet Step 2: polyethylene glycol (MIRALAX/GLYCOLAX) Step 3: bisacodyl (DULCOLAX) suppository Step 4: enema Hold for loose stools. Linked Groups Order Group 1: acetaminophen (TYLENOL) tablet 650 mgJump to med 650 mg, Oral, EVERY 4 HOURS PRN, mild pain, other, and adjunct with moderate or severe pain or per patient request, Starting on Sat03/16/24 at 2214, Alternate with ibuprofen if ordered. Maximum acetaminophen dose from all sources = 75 mg/kg/day not to exceed 4 grams/day. Or acetaminophen (TYLENOL) Suppository 650 mgJump to med 650 mg, Rectal, EVERY 4 HOURS PRN, mild pain, other, and adjunct with moderate or severe pain or per patient request, Starting on Sat03/16/24 at 2214, Alternate with ibuprofen if ordered. Maximum acetaminophen dose from all sources = 75 mg/kg/day not to exceed 4 grams/day. Group 2: hydrALAZINE (APRESOLINE) tablet 10 mgJump to med 10 mg, Oral, EVERY 4 HOURS PRN, high blood pressure, for systolic BP greater than 180 mmHg, Starting on Sat03/16/24 at 2214 Or hydrALAZINE (APRESOLINE) injection 10 mgJump to med 10 mg, Intravenous, EVERY 4 HOURS PRN, high blood pressure, for systolic BP greater than 180 mmHg, Administer over 1 Minutes, Starting on Sat03/16/24 at 2214 Group 3: ondansetron (ZOFRAN ODT) ODT tab 4 mgJump to med 4 mg, Oral, EVERY 6 HOURS PRN, nausea/vomiting - 1st line, Starting on Sat03/16/24 at 2214, This is Step 1 of nausea and vomiting management. If nausea not resolved in 15 minutes, go to Step 2 prochlorperazine (COMPAZINE). With dry hands, peel back foil backing and gently remove tablet. Do not push oral disintegrating tablet through foil backing. Administer immediately on tongue and oral disintegrating tablet dissolves in seconds, then swallow with saliva. Liquid not required. Or ondansetron (ZOFRAN) injection 4 mgJump to med 4 mg, Intravenous, EVERY 6 HOURS PRN, nausea/vomiting - 1st line, Administer over 2-5 Minutes, Starting on Sat03/16/24 at 2214, Give IF patient unable to tolerate oral medication. This is Step 1 of nausea and vomiting management. If nausea not resolved in 15 minutes, go to Step 2 prochlorperazine (COMPAZINE). Group 4: prochlorperazine (COMPAZINE) injection 5 mgJump to med 5 mg, Intravenous, EVERY 6 HOURS PRN, nausea/vomiting - 2nd line, Administer over 1-2 Minutes, Starting on Sat03/16/24 at 2214, Give IF patient unable to tolerate oral medication. This is Step 2 of nausea and vomiting management. Give if nausea not resolved 15 minutes after giving ondansetron (ZOFRAN). If nausea not resolved in 15-30 minutes, Notify provider. Or prochlorperazine (COMPAZINE) tablet 5 mgJump to med 5 mg, Oral, EVERY 6 HOURS PRN, nausea/vomiting - 2nd line, Starting on Sat03/16/24 at 2214, This is Step 2 of nausea and vomiting management. Give if nausea not resolved 15 minutes after giving ondansetron (ZOFRAN). If nausea not resolved in 15-30 minutes, Notify provider. Group 5: senna-docusate (SENOKOT-S/PERICOLACE) 8.6-50 MG per tablet 1 tabletJump to med 1 tablet, Oral, 2 TIMES DAILY PRN, constipation, Starting on Sat03/16/24 at 2214, If no bowel movement in 24 hours, increase to 2 tablets by mouth. IF more than 1 constipation PRN medication is ordered, administer step-hawkins as indicated, moving to the next step ONLY if prior step ineffective. Step 1: senna-docusate (SENOKOT-S; PERICOLACE) OR bisacodyl (DULCOLAX) EC tablet Step 2: polyethylene glycol (MIRALAX/GLYCOLAX) Step 3: bisacodyl (DULCOLAX) suppository Step 4: enema Hold for loose stools. Or senna-docusate (SENOKOT-S/PERICOLACE) 8.6-50 MG per tablet 2 tabletJump to med 2 tablet, Oral, 2 TIMES DAILY PRN, constipation, Starting on Sat03/16/24 at 2214, IF more than 1 constipation PRN medication is ordered, administer step-hawkins as indicated, moving to the next step ONLY if prior step ineffective. Step 1: senna-docusate (SENOKOT-S; PERICOLACE) OR bisacodyl (DULCOLAX) EC tablet Step 2: polyethylene glycol (MIRALAX/GLYCOLAX) Step 3: bisacodyl (DULCOLAX) suppository Step 4: enema Hold for loose stools. documented in this encounter Additional Health Concerns Infection Onset Date Last Indicated Resolved Time Rule Out COVID-19 03/16/2024 03/16/2024 03/16/2024 7:25 PM [facility]NEY GENER[facility] Influenza 03/16/2024 03/16/2024 documented as of this encounter Care Teams Director Athletic Relationship Specialty Start Date End Date System, Provider Not In PCP - General Clinic 11/09/17 Seema Boateng, [employer]SE MANAGER [id number] [id number] Nurse Practitioner Cardiovascular Disease 11/22/22 Steph Jovel PA-C [id number] [id number] Assigned Heart and Vascular Provider 12/29/22 documented as of this encounter
--- OUTSIDE RECORDS SUMMARY | 2024-03-21 09:37 | XMS_ITS | Clinical Summary ---
Author Organization [facility] Address [address] [place] [address] Care Team Providers Care Documentation Lead Name Role Phone System, Provider Not In Primary Care Provider Un available Seema Boateng APRN FULL STACK ENGINEER Unavailable Steph Jovel PA-C Unavailable Allergies Active Allergy Reactions Criticality Noted Date Comments Dust Mite Extract Other (See Comments) Low 08/26/19 24 Gramineae Pollens Hives High 02/04/2021 Hydroxychloroquine Hives 11/20/2022 Smoke. Unknown,Other (See Comments) 024 Medications potassium chloride michelle er (K-DUR) Take 20 mEq by mouth daily Active VITAMIN D, CHOLECALCIFEROL , PO Take 2,000 Units by mouth daily Active aspirin 81 MG EC tablet Take 81 mg by mouth daily 05/31/19 22 Active clobetasol (TEMOVATE) 0.05 % external ointment Apply topically 2 times daily To víctor area Active dorzolamide-edvin olol (COSOPT) 2-0.5 % ophthalmic solution Place 1 drop into the right eye 2 times daily 10/16/19 23 Active DULoxetine (CYMBALTA) 20 MG capsule Take 40 mg by mouth At Bedtime Active ferrous sulfate (FE TABS) 325 (65 Fe) MG EC tablet Take 65 mg of iron by mouth daily Active latanoprost (XALATAN) 0.005 % ophthalmic solution INSTILL 1 DROP IN BOTH EYES NIGHTLY AT BEDTIME 08/29/19 23 Active rosuvastatin (CRESTOR) 10 MG tablet Take 10 mg by mouth daily Active cyanocobalamin (VITAMIN B-12) 1000 MCG tablet Take 1,000 mcg by mouth daily Active melatonin 5 MG tablet Take 5 mg by mouth at bedtime. Active amLODIPine (NORVASC) 5 MG tablet Take 7.5 mg by mouth daily. Active Magnesium Citrate (MAGNESIUM GUMMIES) 67 MG CHEW Take 1 chew tab by mouth daily. Active albuterol (PROAIR HFA/PROVENTIL HFA/VENTOLIN HFA) 108 (90 Base) MCG/ACT inhalerIndicati ons:Influenza A,Mild intermittent asthma with exacerbation Inhale 2 puffs into the lungs every 4 hours as needed for shortness of breath, wheezing or cough. 18 g 3 03/17/19 25 Active benzonatate (TESSALON) 100 MG capsuleIndicati ons:Influenza A,Mild intermittent asthma with exacerbation Take 2 capsules (200 mg) by mouth 3 times daily as needed for cough. 30 capsule 03/17/19 25 Active predniSONE (DELTASONE) 20 MG tabletIndicatio ns:Influenza A,Mild intermittent asthma with exacerbation Take 2 tablets (40 mg) by mouth daily for 5 days. 10 tablet 03/18/19 25 025 Active guaiFENesin-dex tromethorphan (ROBITUSSIN DM) 100-10 MG/5ML syrupIndication s:Influenza A,Mild intermittent asthma with exacerbation Take 10 mLs by mouth every 4 hours as needed for cough. 236 mL 03/17/19 25 Active albuterol (PROAIR HFA/PROVENTIL HFA/VENTOLIN HFA) 108 (90 Base) MCG/ACT inhaler INHALE 2 PUFFS BY MOUTH INTO THE LUNGS EVERY 4 HOURS NEEDED FOR WHEEZING OR SHORTNESS OF BREATH 025 Discontinued cetirizine (ZYRTEC) 10 MG tablet Take 10 mg by mouth daily 025 Discontinued(Me d Rec(No AVS / No eCancel)) MAGNESIUM OXIDE PO Take 400 mg by mouth daily. 025 Discontinued(Me d Rec(No AVS / No eCancel)) amLODIPine (NORVASC) 10 MG tabletIndicatio ns:Essential hypertension Take 1 tablet (10 mg) by mouth daily. 90 tablet 3 12/20/19 24 025 Discontinued(Me d Rec(No AVS / No eCancel)) Active Problems Problem Noted Date Diagnosed Date Hyponatremia 03/16/2024 Chest heaviness 03/16/2024 Influenza A 03/16/2024 Vomiting and diarrhea 03/16/2024 Near syncope 11/09/2023 Symptomatic bradycardia 11/20/2022 Acute renal failure, unspecified acute renal katherine lure type 11/20/2022 Syncope, unspecified syncope type 11/20/2022 Anemia 06/01/2021 Bronchitis 06/01/2021 Polymyalgia rheumatica 04/25/2020 Cyst of left ovary 02/22/2020 Coronary arteriosclerosis 08/05/2019 Hypertrophic cardiomyopathy 07/14/2019 Overview (11/20/2022): Isolated septal hypertrophy Eczema 02/16/2019 Major depression in remission 05/29/2018 Alopecia 01/08/2018 Low back pain 01/08/2018 Methicillin resistant Staphylococcus aureus infe ction 01/08/2018 Urinary urgency 01/08/2018 Glaucoma 11/18/2017 Essential hypertension 08/15/2002 Overview (11/20/2022): Hypertension Encounters Date Type Department Care Team Description 03/16/2024 5:56 PM SOUND ENGINEERING TECHNICIAN - 03/17/2024 11:54 AM SOUND ENGINEERING TECHNICIAN Emergency [facility] Emergency Dept [address] [place] [phone] Corona Moore DO Sebring, Daniel L, MD Mild intermittent asthma with exacerbation (Primary Dx); Influenza A; Vomiting and diarrhea; Hyponatremia; Chest heaviness Discharge Disposition: Home or Self Care 03/16/2024 Travel 12/20/2023 8:40 AM CDT Office Visit [facility] [place] [address] [place] [phone] Steph Jovel PA-C Mitral valve stenosis, unspecified etiology (Primary Dx); Bradycardia; Essential hypertension 12/20/2023 Travel from Last 3 Months Family History Relation Status Comments Father Mother Social History Tobacco Use Types Packs/Day Years Used Date Smoking Tobacco: Former Cigarettes Smokeless Tobacco: Former Tobacco Cessation:Counseling Given: Not Answered Alcohol Use Standard Drinks/Week Comments Not Currently [...] in an abandoned building, in an overnight halfway, or couch-surfing.) Yes 11/09/2023 Are you worried [...] on file Legal Sex Female 3:18 AM SOUND ENGINEERING TECHNICIAN Gender Identity Not on file Sexual Orientation Not on file Last Filed Vital Signs Vital Sign Reading Time Taken Comments Blood Pressure 114/74 03/17/2024 8:35 AM SOUND ENGINEERING TECHNICIAN Pulse 89 03/17/2024 8:35 AM SOUND ENGINEERING TECHNICIAN Temperature 36.3 C (97.4 F) 03/17/2024 8:35 AM SOUND ENGINEERING TECHNICIAN Respiratory Rate 20 03/17/2024 8:35 AM SOUND ENGINEERING TECHNICIAN Oxygen Saturation 96% 03/17/2024 8:35 AM SOUND ENGINEERING TECHNICIAN Inhaled Oxygen Concentration - - Weight 65.8 kg (145 lb) 03/16/2024 1:54 PM SOUND ENGINEERING TECHNICIAN Height 165.1 cm (5' 5) 03/16/2024 1:54 PM SOUND ENGINEERING TECHNICIAN Body Mass Index 24.13 03/16/2024 1:54 PM SOUND ENGINEERING TECHNICIAN Plan of Treatment Health Maintenance Due Date Last Done Comments ADVANCE CARE PLANNING 1940 ANNUAL REVIEW OF HM ORDERS 1940 ASTHMA ACTION PLAN 1940 ASTHMA CONTROL TEST 1940 DEPRESSION ACTION PLAN 1940 DEXA 1940 PHQ-9 1940 FALL RISK ASSESSMENT 2005 MEDICARE ANNUAL WELLNESS VISIT 2005 RSV VACCINE (1 - 1-dose 75+ series) 10/24/2015 ZOSTER IMMUNIZATION (2 of 3) 09/02/2018 07/08/2018, 03/11/2012 COVID-19 Vaccine ( season) 2024 12/20/2023, 01/24/2023, 12/01/2021, Additional history exists LIPID 11/08/2024 11/09/2023 BMP 03/16/2025 03/16/2024, 08/03/2023, 11/20/2022, Additional history exists DTAP/TDAP/TD IMMUNIZATION (3 - Td or Tdap) 07/08/2028 07/08/2018, 03/11/2006, 03/11/2006, Additional history exists Pneumococcal Vaccine: 50+ Years Completed 12/10/2017, 08/23/2014, 03/11/2009, Additional history exists INFLUENZA VACCINE Completed 12/20/2023, , 12/01/2021, Additional history exists HPV IMMUNIZATION Aged Out No longer e ligible based on patient's age to complete this topic MENINGITIS IMMUNIZATION Aged Out No l onger eligible based on patient's age to complete this topic RSV MONOCLONAL ANTIBODY Aged Out No l onger eligible based on patient's age to complete this topic Procedures Procedure Name Priority Date/Time Associated Diagnosis Comments URINE CULTURE STAT 03/17/2024 1:20 AM SOUND ENGINEERING TECHNICIAN ROUTINE UA WITH MICROSCOPIC REFLEX TO CULTURE STAT 03/17/2024 1:20 AM SOUND ENGINEERING TECHNICIAN INFLUENZA A/B, RSV AND SARS-COV2 PCR STAT 03/16/2024 6:33 PM SOUND ENGINEERING TECHNICIAN MAGNESIUM STAT 03/16/2024 6:15 PM SOUND ENGINEERING TECHNICIAN TROPONIN T, HIGH SENSITIVITY STAT 03/16/2024 6:15 PM SOUND ENGINEERING TECHNICIAN EKG 12-LEAD, TRACING ONLY STAT 03/16/2024 2:34 PM SOUND ENGINEERING TECHNICIAN EXTRA PURPLE TOP TUBE STAT 03/16/2024 2:08 PM SOUND ENGINEERING TECHNICIAN EXTRA RED TOP TUBE STAT 03/16/2024 2: 08 PM SOUND ENGINEERING TECHNICIAN EXTRA BLUE TOP TUBE STAT 03/16/2024 2 :08 PM SOUND ENGINEERING TECHNICIAN EXTRA TUBE STAT 03/16/2024 2:08 PM SOUND ENGINEERING TECHNICIAN TROPONIN T, HIGH SENSITIVITY STAT 03/16/2024 2:08 PM SOUND ENGINEERING TECHNICIAN BASIC METABOLIC PANEL STAT 03/16/2024 2:08 PM SOUND ENGINEERING TECHNICIAN LAB RESULT - HIM SCAN 03/03/2024 12:00 AM SOUND ENGINEERING TECHNICIAN LIPID REFLEX TO DIRECT LDL PANEL Add-On 11/09/2023 7:31 PM CDT from Last 3 Months or Most Recently Relevant to Health Maintenance Results * (ABNORMAL) UA with Microscopic reflex to Culture (03/17/2024 1:20 AM SOUND ENGINEERING TECHNICIAN) Color Urine Yellow Colorless, Straw, Light Yellow, Yellow 03/17/2024 1:48 AM SOUND ENGINEERING TECHNICIAN [facility] Appearance Urine Slightly Cloudy(A) Clear 03/17/2024 1:48 AM SOUND ENGINEERING TECHNICIAN [facility] Glucose Urine Negative Negative mg/dL 03/17/2024 1:48 AM SOUND ENGINEERING TECHNICIAN [facility] Bilirubin Urine Negative Negative 1:48 AM SOUND ENGINEERING TECHNICIAN LABORATORY Ketones Urine Trace(A) Negative mg/dL 03/17/2024 1:48 AM SOUND ENGINEERING TECHNICIAN LABORATORY Specific [place] Urine 1.011 1.003 - 1.035 03/17/2024 1:48 AM SOUND ENGINEERING TECHNICIAN LABORATORY Blood Urine Moderate(A) Negative 03/17/2024 1:48 AM SOUND ENGINEERING TECHNICIAN LABORATORY pH Urine 6.0 5.0 - 7.0 03/17/2024 1:48 AM SOUND ENGINEERING TECHNICIAN LABORATORY Protein Albumin Urine 20(A) Negative mg/dL 03/17/2024 1:48 AM SOUND ENGINEERING TECHNICIAN LABORATORY Urobilinogen Urine Normal Normal, 2.0 mg/dL 03/17/2024 1:48 AM SOUND ENGINEERING TECHNICIAN LABORATORY Nitrite Urine Negative Negative 03/17/2024 1:48 AM SOUND ENGINEERING TECHNICIAN LABORATORY Leukocyte Esterase Urine Large(A) Negative 03/17/2024 1:48 AM SOUND ENGINEERING TECHNICIAN LABORATORY Bacteria Urine Few(A) None Seen /HPF 03/17/2024 1:48 AM SOUND ENGINEERING TECHNICIAN LABORATORY Mucus Urine Present(A) None Seen /LPF 03/17/2024 1:48 AM SOUND ENGINEERING TECHNICIAN LABORATORY RBC Urine 121(H) <=2 /HPF 03/17/2024 1:48 AM SOUND ENGINEERING TECHNICIAN LABORATORY WBC Urine 21(H) <=5 /HPF 03/17/2024 1:48 AM SOUND ENGINEERING TECHNICIAN LABORATORY Squamous Epithelials Urine 1 <=1 /HPF 03/17/2024 1:48 AM SOUND ENGINEERING TECHNICIAN LABORATORY Hyaline Casts Urine 1 <=2 /LPF 03/17/2024 1:48 AM SOUND ENGINEERING TECHNICIAN LABORATORY Urine URINE SPECIMEN OBTAINED BY CLEAN CATCH PROCEDURE / Unknown Non-blood Collection / Unknown 03/17/2024 1:20 AM SOUND ENGINEERING TECHNICIAN 03/17/2024 1:24 AM SOUND ENGINEERING TECHNICIAN Narrative LABORATORY - 03/17/2024 1:48 AM SOUND ENGINEERING TECHNICIAN Urine Culture ordered based on laboratory criteria us Dyllan Anne MD LAB - URINE ORDERABLES Final Result LABORATORY [facility] [address] Lab (1st floor, no room number) [place] [address], [facility] * Urine Culture (03/17/2024 1:20 AM SOUND ENGINEERING TECHNICIAN) Culture <10,000 CFU/mL Mixture of Urogenital Prudence 03/18/2024 6:18 AM SOUND ENGINEERING TECHNICIAN [facility] Urine URINE SPECIMEN OBTAINED BY CLEAN CATCH PROCEDURE / Unknown Non-blood Collection / Unknown 03/17/2024 1:20 AM SOUND ENGINEERING TECHNICIAN 03/17/2024 1:47 AM SOUND ENGINEERING TECHNICIAN us Dyllan Anne MD LAB - MICRO GENERAL ORDERABL ES Final Result [facility] [address] [place] [address] * (ABNORMAL) Influenza A/B, RSV and SARS-CoV2 PCR (COVID-19) Nasopharyngeal (03/16/2024 6:33 PM SOUND ENGINEERING TECHNICIAN) Influenza A PCR Positive(A) Negative 03/16/2024 7:25 PM SOUND ENGINEERING TECHNICIAN [facility] Influenza B PCR Negative Negative 03/16/2024 7:25 PM SOUND ENGINEERING TECHNICIAN [facility] RSV PCR Negative Negative 03/16/2024 7:25 PM SOUND ENGINEERING TECHNICIAN [facility] SARS CoV2 PCR Negative Negative 03/16/2024 7:25 PM SOUND ENGINEERING TECHNICIAN LABORATORY Comment:NEGATIVE: SARS-CoV-2 (COVID-19) RNA not detected, presumed negative. Swab NASOPHARYNGEAL STRUCTURE / Unknown Non-blood Collection / Unknown 03/16/2024 6:33 PM SOUND ENGINEERING TECHNICIAN 03/16/2024 6:46 PM SOUND ENGINEERING TECHNICIAN Narrative [facility] - 03/16/2024 7:25 PM SOUND ENGINEERING TECHNICIAN Testing was performed using the Xpert Xpress CoV2/Flu/RSV Assay on the [employer] GeneXpert Instrument. This test should be ordered [...] management. This test was validated by the [facility]. These laboratories are certified under the Clinical Laboratory Improvement Amendments of 1988 (CLIA-88) as qualified to perfom high complexity laboratory testing. Corona Moore DO LAB - MICRO GENERAL ORDE RABLES Final Result Performing Organization Address [facility]/ZIP Co de Phone Number [facility] [address] [employer] Lab (1st floor, no room number) [place] [address], [facility] * (ABNORMAL) Troponin T, High Sensitivity (03/16/2024 6:15 PM SOUND ENGINEERING TECHNICIAN) Only the most recent of2 resultswithin the time period is included. [facility] Troponin T, High Sensitivity 23(H) <=14 ng/L 03/16/2024 6:44 PM SOUND ENGINEERING TECHNICIAN LABORATORY Comment: Either a High Sensitivity Troponin [...] Unknown Venipuncture / Unknown 03/16/2024 6:15 PM SOUND ENGINEERING TECHNICIAN 03/16/2024 6:19 PM SOUND ENGINEERING TECHNICIAN Corona Moore DO LAB - BLOOD ORDERABLES F inal Result Performing Organization Address [facility]/ZIP Co de Phone Number [facility] [address] Lab (1st floor, no room number) [place] [address] * Magnesium (03/16/2024 6:15 PM SOUND ENGINEERING TECHNICIAN) Magnesium 1.9 1.7 - 2.3 mg/dL 03/16/2024 6:55 PM SOUND ENGINEERING TECHNICIAN [facility] Blood BLOOD SPECIMEN / Unknown Venipuncture / Unknown 03/16/2024 6:15 PM SOUND ENGINEERING TECHNICIAN 03/16/2024 6:19 PM SOUND ENGINEERING TECHNICIAN Corona Moore DO LAB - BLOOD ORDERABLES F inal Result LABORATORY [facility] Lab [address] Lab (1st floor, no room number) [place] [address] * EKG 12-lead, tracing only (03/16/2024 2:34 PM SOUND ENGINEERING TECHNICIAN) Systolic Blood Pressure mmHg RADIOLOGY RESULTS Diastolic Blood Pressure mmHg RADIOLOGY RESULTS Ventricular Rate 69 BPM RAD IOLOGY RESULTS Atrial Rate 69 BPM RADIOLOG Y RESULTS NH Interval 132 ms RADIOLOG Y RESULTS QRS Duration 94 ms RADIOLO GY RESULTS QT 438 ms RADIOLOGY RESULTS QTc 469 ms RADIOLOGY RESULTS P Sherman 50 degrees RADIOLOGY RESULTS R AXIS 50 degrees RADIOLOGY RESULTS T Sherman 63 degrees RADIOLOGY RESULTS Interpretation ECG Atrial-paced rhythm Abnormal ECG When compared with ECG of 09-Nov-2023 14:26, Electronic atrial pacemaker has replaced Sinus rhythm Unconfirmed report - interpretation of this ECG is computer generated - see medical record for final interpretation Confirmed by - EMERGENCY ROOM, PHYSICIAN ([id number]), health editor Donny Boland ([id number]) on 03/16/2024 2:48:44 PM RADIOLOGY RESULTS 03/16/2024 2:34 PM SOUND ENGINEERING TECHNICIAN 03/16/2024 2:48 PM SOUND ENGINEERING TECHNICIAN Arnoldo Baxter MD ECG ORDERABLES Edited Re allisont - Final RADIOLOGY RESULTS * Extra Purple Top Tube (03/16/2024 2:08 PM SOUND ENGINEERING TECHNICIAN) Hold Specimen JIC 03/16/2024 3:31 PM SOUND ENGINEERING TECHNICIAN [facility] Blood STRUCTURE OF LEFT UPPER LIMB / Unknown Venipuncture / Unknown 03/16/2024 2:08 PM SOUND ENGINEERING TECHNICIAN 03/16/2024 2:25 PM SOUND ENGINEERING TECHNICIAN Corona Moore LAB - BLOOD ORDERABLES F inal Result Performing Organization Address City/[facility]/ZIP Co de Phone Number [facility] [address] Lab (1st floor, no room number) [place] [address] * Extra Red Top Tube (03/16/2024 2:08 PM SOUND ENGINEERING TECHNICIAN) Hold Specimen [facility] 03/16/2024 3:31 PM SOUND ENGINEERING TECHNICIAN [facility] Blood STRUCTURE OF LEFT UPPER LIMB / Unknown Venipuncture / Unknown 03/16/2024 2:08 PM SOUND ENGINEERING TECHNICIAN 03/16/2024 2:25 PM SOUND ENGINEERING TECHNICIAN Corona Moore LAB - BLOOD ORDERABLES F inal Result Performing Organization Address [facility]/ZIP Co de Phone Number [facility] [address] Lab (1st floor, no room number) [place] [address], [facility] * Extra Blue Top Tube (03/16/2024 2:08 PM SOUND ENGINEERING TECHNICIAN) Hold Specimen [facility] 03/16/2024 3:31 PM SOUND ENGINEERING TECHNICIAN [facility] Blood STRUCTURE OF LEFT UPPER LIMB / Unknown Venipuncture / Unknown 03/16/2024 2:08 PM SOUND ENGINEERING TECHNICIAN 03/16/2024 2:25 PM SOUND ENGINEERING TECHNICIAN Corona Moore LAB - BLOOD ORDERABLES F inal Result Performing Organization Address City/[facility]/ZIP Co de Phone Number [facility] [address] Lab (1st floor, no room number) [place] [address], [facility] * (ABNORMAL) Basic metabolic panel (03/16/2024 2:08 PM SOUND ENGINEERING TECHNICIAN) Sodium 131(L) 135 - 145 mmol/L 03/16/2024 2:50 PM SOUND ENGINEERING TECHNICIAN LABORATORY Potassium 3.9 3.4 - 5.3 mmol/L 03/16/2024 2:50 PM SOUND ENGINEERING TECHNICIAN LABORATORY Chloride 95(L) 98 - 107 mmol/L 03/16/2024 2:50 PM SOUND ENGINEERING TECHNICIAN LABORATORY Carbon Dioxide (CO2) 20(L) 22 - 29 mmol/L 03/16/2024 2:50 PM SOUND ENGINEERING TECHNICIAN LABORATORY Anion Gap 16(H) 7 - 15 mmol/L 03/16/2024 2:50 PM SOUND ENGINEERING TECHNICIAN LABORATORY Urea Nitrogen 15.1 8.0 - 23.0 mg/dL 03/16/2024 2:50 PM SOUND ENGINEERING TECHNICIAN LABORATORY Creatinine 0.83 0.51 - 0.95 mg/dL 03/16/2024 2:50 PM SOUND ENGINEERING TECHNICIAN LABORATORY GFR Estimate 70 >60 mL/min/1.7 3m2 03/16/2024 2:50 PM SOUND ENGINEERING TECHNICIAN LABORATORY Comment:eGFR calculated usin 2020 CKD-EPI equation. Calcium 8.8 8.8 - 10.4 mg/dL 03/16/2024 2:50 PM [facility] Comment:Reference intervals for this test were updated on 09/24/2023 to reflect our healthy population more accurately. There may be differences in the flagging of prior results with similar values performed with this method. Those prior results can be interpreted in the context of the updated reference intervals. Glucose 118(H) 70 - 99 mg/dL 03/16/2024 2:50 PM SOUND ENGINEERING TECHNICIAN LABORATORY Blood STRUCTURE OF LEFT UPPER LIMB / Unknown Venipuncture / Unknown 03/16/2024 2:08 PM SOUND ENGINEERING TECHNICIAN 03/16/2024 2:25 PM SOUND ENGINEERING TECHNICIAN Corona Moore DO LAB - BLOOD ORDERABLES F inal Result LABORATORY [facility] [address] [facility] Lab (1st floor, no room number) [place] [address], [facility] * Lab Result - HIM Scan (03/03/2024 12:00 AM SOUND ENGINEERING TECHNICIAN) 03/03/2024 us Provider Outside NON-BEAKER LAB TESTING Final Result * (ABNORMAL) Lipid panel reflex to direct LDL (11/09/2023 7:31 PM CDT) Cholesterol 108 <200 mg/dL 11/10/2023 12:59 AM CDT [facility] Triglycerides 64 <150 mg/dL 11/10/2023 12:59 AM CDT [facility] Direct Measure HDL 45(L) >=50 mg/dL 2023 12:59 AM CDT [facility] LDL Cholesterol Calculated 50 <=100 mg/dL 11/10/2023 12:59 AM CDT [facility] Non HDL Cholesterol 63 <130 mg/dL 11/10/2023 12:59 AM CDT [facility] Blood STRUCTURE OF RIGHT WRIST REGION / Unknown Venipuncture / Unknown 11/09/2023 7:31 PM CDT 11/09/2023 7:35 PM CDT Narrative [facility] - 11/10/2023 12:59 AM CDT Cholesterol Desirable: <200 mg/dL Triglycerides Normal: Less than 150 mg/dL Borderline High: 150-199 mg/dL High: 200-499 mg/dL Very High: Greater than or equal to 500 mg/dL Direct Measure HDL Female: Greater than or equal to 50 mg/dL Male: Greater than or equal to 40 mg/dL LDL Cholesterol Desirable: <100mg/dL Above Desirable: 100-129 mg/dL Borderline High: 130-159 mg/dL High: 160-189 mg/dL Very High: >= 190 mg/dL Non HDL Cholesterol Desirable: 130 mg/dL Above Desirable: 130-159 mg/dL Borderline High: 160-189 mg/dL High: 190-219 mg/dL Very High: Greater than or equal to 220 mg/dL us Rosalind Leonard MD LAB - BLOOD ORDERABLES Final Res ult [facility] [address] [place] [address], [facility] from Last 3 Months or Most Recently Relevant to Health Maintenance Additional Health Concerns Infection Onset Date Last Indicated Influenza 03/16/2024 03/16/2024 Insurance MEDICARE [facility] MEDICARE [facility] Advance Directives For more information, please contact: [phone] * Full Code (Latest Code Status on File) Date Activated Date Inactivated Comments 03/16/2024 10:14 PM 03/17/2024 1:59 PM All basic and advanced life-sustaining interventions are performed as appropriate Question Answer Comments Code status determined by: Discussion with patie nt/ legal decision maker * Full Code Date Activated Date Inactivated Comments 11/09/2023 8:00 PM 11/10/2023 3:01 PM All basic and advanced life-sustaining interventions are performed as appropriate Question Answer Comments Code status determined by: Discussion with patie nt/ legal decision maker * Full Code Date Activated Date Inactivated Comments 11/21/2022 1:26 AM 11/22/2022 3:33 PM All basic an d advanced life-sustaining interventions are performed as appropriate Question Answer Comments Code status determined by: Discussion with patie nt/ legal decision maker Care Teams Documentation Lead Relationship Specialty Start Date End Date System, Provider Not In PCP - General Clinic 11/09/17 Seema Boateng APRN FULL STACK ENGINEER [id number] [place] [id number] Nurse Practitioner Cardiovascular Disease 11/22/22 Steph Jovel PA-C [address] [place] [id number] Assigned Heart and Vascular Provider 12/29/22
--- OUTSIDE RECORDS SUMMARY | 2024-03-21 09:37 | XMS_ITS | Referral Summary ---
Author Organization [facility] Address [address] [place] [address] Care Team Providers Care Rolling Down Machine Operator Name Role Phone System, Provider Not In Primary Care Provider Un available Seema Boateng APRN [employer] Unavailable [phone] Steph Jovel PA-C Unavailable Encounters Date Type Department Care Team Description 03/16/2024 5:56 PM ORACLE BRM DEVELOPER - 03/17/2024 11:54 AM ORACLE BRM DEVELOPER [facility] Emergency Dept [address] [place] [address] Corona Moore DO Sebring, Daniel L, MD Mild intermittent asthma with exacerbation (Primary Dx); Influenza A; Vomiting and diarrhea; Hyponatremia; Chest heaviness Discharge Disposition: Home or Self Care 03/16/2024 Travel 12/20/2023 Travel 12/20/2023 8:40 AM CDT Office Visit [facility] [place] [address] [facility] [address] [place] [phone] Steph Jovel PA-C Mitral valve stenosis, unspecified etiology (Primary Dx); Bradycardia; Essential hypertension from Last 3 Months Allergies Active Allergy Reactions Criticality Noted Date [...] 11/18/2017 Essential hypertension 08/15/2002 Overview (11/20/2022): Hypertension Social History Tobacco Use Types Packs/Day Years [...] Answer Date Recorded Do you have housing? (Housin g is defined as stable permanent housing and does not include staying ouside in a car, in a tent, in an abandoned building, in an overnight fdc, or couch-surfing.) Yes 11/09/2023 Are you worried [...] on file Legal Sex Female 3:18 AM ORACLE BRM DEVELOPER Gender Identity Not on file Sexual Orientation Not on file Last Filed Vital Signs Vital Sign Reading Time Taken Comments Blood Pressure 114/74 03/17/2024 8:35 AM ORACLE BRM DEVELOPER Pulse 89 03/17/2024 8:35 AM ORACLE BRM DEVELOPER Temperature 36.3 C (97.4 F) 03/17/2024 8:35 AM ORACLE BRM DEVELOPER Respiratory Rate 20 03/17/2024 8:35 AM ORACLE BRM DEVELOPER Oxygen Saturation 96% 03/17/2024 8:35 AM ORACLE BRM DEVELOPER Inhaled Oxygen Concentration - - Weight 65.8 kg (145 lb) 03/16/2024 1:54 PM ORACLE BRM DEVELOPER Height 165.1 cm (5' 5) 03/16/2024 1:54 PM ORACLE BRM DEVELOPER Body Mass Index 24.13 03/16/2024 1:54 PM ORACLE BRM DEVELOPER Plan of Treatment Not on file Procedures Procedure Name Priority Date/Time Associated Diagnosis Comments URINE CULTURE STAT 03/17/2024 1:20 AM ORACLE BRM DEVELOPER ROUTINE UA WITH MICROSCOPIC REFLEX TO CULTURE STAT 03/17/2024 1:20 AM ORACLE BRM DEVELOPER INFLUENZA A/B, RSV AND SARS-COV2 PCR STAT 03/16/2024 6:33 PM ORACLE BRM DEVELOPER MAGNESIUM STAT 03/16/2024 6:15 PM ORACLE BRM DEVELOPER TROPONIN T, HIGH SENSITIVITY STAT 03/16/2024 6:15 PM ORACLE BRM DEVELOPER EKG 12-LEAD, TRACING ONLY STAT 03/16/2024 2:34 PM ORACLE BRM DEVELOPER EXTRA PURPLE TOP TUBE STAT 03/16/2024 2:08 PM ORACLE BRM DEVELOPER EXTRA RED TOP TUBE STAT 03/16/2024 2: 08 PM ORACLE BRM DEVELOPER EXTRA BLUE TOP TUBE STAT 03/16/2024 2 :08 PM ORACLE BRM DEVELOPER EXTRA TUBE STAT 03/16/2024 2:08 PM ORACLE BRM DEVELOPER TROPONIN T, HIGH SENSITIVITY STAT 03/16/2024 2:08 PM ORACLE BRM DEVELOPER BASIC METABOLIC PANEL STAT 03/16/2024 2:08 PM ORACLE BRM DEVELOPER LAB RESULT - HIM SCAN 03/03/2024 12:00 AM ORACLE BRM DEVELOPER LIPID REFLEX TO DIRECT LDL PANEL Add-On 11/09/2023 7:31 PM CDT from Last 3 Months or Most Recently Relevant to Health Maintenance Results * (ABNORMAL) UA with Microscopic reflex to Culture (03/17/2024 1:20 AM ORACLE BRM DEVELOPER) Color Urine Yellow Colorless, Straw, Light Yellow, Yellow 03/17/2024 1:48 AM ORACLE BRM DEVELOPER LABORATORY Appearance Urine Slightly Cloudy(A) Clear 03/17/2024 1:48 AM ORACLE BRM DEVELOPER LABORATORY Glucose Urine Negative Negative mg/dL 03/17/2024 1:48 AM ORACLE BRM DEVELOPER LABORATORY Bilirubin Urine Negative Negative 1:48 AM ORACLE BRM DEVELOPER LABORATORY Ketones Urine Trace(A) Negative mg/dL 03/17/2024 1:48 AM ORACLE BRM DEVELOPER LABORATORY Specific Reeds Urine 1.011 1.003 - 1.035 03/17/2024 1:48 AM ORACLE BRM DEVELOPER LABORATORY Blood Urine Moderate(A) Negative 03/17/2024 1:48 AM [facility] pH Urine 6.0 5.0 - 7.0 03/17/2024 1:48 AM [facility] Protein Albumin Urine 20(A) Negative mg/dL 03/17/2024 1:48 AM ORACLE BRM DEVELOPER LABORATORY Urobilinogen Urine Normal Normal, 2.0 mg/dL 03/17/2024 1:48 AM ORACLE BRM DEVELOPER LABORATORY Nitrite Urine Negative Negative 03/17/2024 1:48 AM ORACLE BRM DEVELOPER LABORATORY Leukocyte Esterase Urine Large(A) Negative 03/17/2024 1:48 AM ORACLE BRM DEVELOPER LABORATORY Bacteria Urine Few(A) None Seen /HPF 03/17/2024 1:48 AM [facility] Mucus Urine Present(A) None Seen /LPF 03/17/2024 1:48 AM ORACLE BRM DEVELOPER LABORATORY RBC Urine 121(H) <=2 /HPF 03/17/2024 1:48 AM ORACLE BRM DEVELOPER LABORATORY WBC Urine 21(H) <=5 /HPF 03/17/2024 1:48 AM ORACLE BRM DEVELOPER LABORATORY Squamous Epithelials Urine 1 <=1 /HPF 03/17/2024 1:48 AM [facility] Hyaline Casts Urine 1 <=2 /LPF 03/17/2024 1:48 AM [facility] Urine URINE SPECIMEN OBTAINED BY CLEAN CATCH PROCEDURE / Unknown Non-blood Collection / Unknown 03/17/2024 1:20 AM ORACLE BRM DEVELOPER 03/17/2024 1:24 AM ORACLE BRM DEVELOPER Narrative [facility]AT[facility] - 03/17/2024 1:48 AM ORACLE BRM DEVELOPER Urine Culture ordered based on laboratory criteria Dyllan Anne MD LAB - URINE ORDERABLES Final Result [facility] LABORATORY [facility] [address] Lab (1st floor, no room number) [place] [address] * Urine Culture (03/17/2024 1:20 AM ORACLE BRM DEVELOPER) Culture <10,000 CFU/mL Mixture of Urogenital Prudence 03/18/2024 6:18 AM ORACLE BRM DEVELOPER [facility] Urine URINE SPECIMEN OBTAINED BY CLEAN CATCH PROCEDURE / Unknown Non-blood Collection / Unknown 03/17/2024 1:20 AM ORACLE BRM DEVELOPER 03/17/2024 1:47 AM ORACLE BRM DEVELOPER Dyllan Anne MD LAB - MICRO GENERAL ORDERABL ES Final Result [facility]ORAT[facility] Inf. Diseases Diag. Lab [address] [facility], [address] [place] [address] * (ABNORMAL) Influenza A/B, RSV and SARS-CoV2 PCR (COVID-19) Nasopharyngeal (03/16/2024 6:33 PM ORACLE BRM DEVELOPER) Influenza A PCR Positive(A) Negative 03/16/2024 7:25 PM ORACLE BRM DEVELOPER LABORATORY Influenza B PCR Negative Negative 03/16/2024 7:25 PM ORACLE BRM DEVELOPER [facility] RSV PCR Negative Negative 03/16/2024 7:25 PM ORACLE BRM DEVELOPER [facility] SARS CoV2 PCR Negative Negative 03/16/2024 7:25 PM ORACLE BRM DEVELOPER LABORATORY Comment:NEGATIVE: SARS-CoV-2 (COVID-19) RNA not detected, presumed negative. Swab NASOPHARYNGEAL STRUCTURE / Unknown Non-blood Collection / Unknown 03/16/2024 6:33 PM ORACLE BRM DEVELOPER 03/16/2024 6:46 PM ORACLE BRM DEVELOPER Narrative [facility] LAB[facility]ATORY - 03/16/2024 7:25 PM ORACLE BRM DEVELOPER Testing was performed using the Xpert Xpress CoV2/Flu/RSV Assay on the [employer] GeneXpert Instrument. This test should be ordered [...] management. This test was validated by the [facility]. These laboratories are certified under the Clinical Laboratory Improvement Amendments of 1988 (CLIA-88) as qualified to perfom high complexity laboratory testing. Corona Moore DO LAB - MICRO GENERAL KAYLEIGH DEAL Final Result LABORATORY [facility] [address] [facility], no room number) [place] [address], [facility] * (ABNORMAL) Troponin T, High Sensitivity (03/16/2024 6:15 PM ORACLE BRM DEVELOPER) Only the most recent of2 resultswithin the time period is included. Troponin T, High Sensitivity 23(H) <=14 ng/L 03/16/2024 6:44 PM ORACLE BRM DEVELOPER LABORATORY Comment: Either a High Sensitivity Troponin [...] Unknown Venipuncture / Unknown 03/16/2024 6:15 PM ORACLE BRM DEVELOPER 03/16/2024 6:19 PM ORACLE BRM DEVELOPER Corona Moore LAB - BLOOD ORDERABLES F inal Result [facility] Acute [facility] Lab [address] Lab (1st floor, no room number) [place] [phone] [place] [address] * Magnesium (03/16/2024 6:15 PM ORACLE BRM DEVELOPER) Magnesium 1.9 1.7 - 2.3 mg/dL 03/16/2024 6:55 PM ORACLE BRM DEVELOPER LABORATORY Blood BLOOD SPECIMEN / Unknown Venipuncture / Unknown 03/16/2024 6:15 PM ORACLE BRM DEVELOPER 03/16/2024 6:19 PM ORACLE BRM DEVELOPER Corona Moore LAB - BLOOD ORDERABLES F inal Result Performing Organization Address City/[facility]/ZIP Co de Phone Number [facility] [address] Lab (1st floor, no room number) [place] [phone] [place] [address] * EKG 12-lead, tracing only (03/16/2024 2:34 PM ORACLE BRM DEVELOPER) Systolic Blood Pressure mmHg RADIOLOGY RESULTS Diastolic Blood Pressure mmHg RADIOLOGY RESULTS Ventricular Rate 69 BPM RAD IOLOGY RESULTS Atrial Rate 69 BPM RADIOLOG Y RESULTS CA Interval 132 ms RADIOLOG Y RESULTS QRS Duration 94 ms RADIOLO GY RESULTS QT 438 ms RADIOLOGY RESULTS QTc 469 ms RADIOLOGY RESULTS P [place] 50 degrees RADIOLOGY RESULTS R AXIS 50 degrees RADIOLOGY RESULTS T [place] 63 degrees RADIOLOGY RESULTS Interpretation ECG Atrial-paced rhythm Abnormal ECG When compared with ECG of 09-Nov-2023 14:26, Electronic atrial pacemaker has replaced Sinus rhythm Unconfirmed report - interpretation of this ECG is computer generated - see medical record for final interpretation Confirmed by - EMERGENCY ROOM, PHYSICIAN ([id number]), photography editor Donny Boland ([id number]) on 03/16/2024 2:48:44 PM RADIOLOGY RESULTS 03/16/2024 2:34 PM ORACLE BRM DEVELOPER 03/16/2024 2:48 PM ORACLE BRM DEVELOPER Arnoldo Baxter MD ECG ORDERABLES Edited Re sult - Final Performing Organization Address [facility] Co de Phone Number RADIOLOGY RESULTS * Extra Purple Top Tube (03/16/2024 2:08 PM ORACLE BRM DEVELOPER) Hold Specimen [facility] 03/16/2024 3:31 PM ORACLE BRM DEVELOPER [facility] LAB[facility]ATORY Blood STRUCTURE OF LEFT UPPER LIMB / Unknown Venipuncture / Unknown 03/16/2024 2:08 PM ORACLE BRM DEVELOPER 03/16/2024 2:25 PM ORACLE BRM DEVELOPER Coronameri Giraldo Teresa DO LAB - BLOOD ORDERABLES F inal Result Performing Organization Address [facility] de Phone Number [facility] Lab [address] Lab (1st floor, no room number) [place] [address], [facility] * Extra Red Top Tube (03/16/2024 2:08 PM ORACLE BRM DEVELOPER) Hold Specimen [facility] 03/16/2024 3:31 PM ORACLE BRM DEVELOPER [facility] LAB[facility] Blood STRUCTURE OF LEFT UPPER LIMB / Unknown Venipuncture / Unknown 03/16/2024 2:08 PM ORACLE BRM DEVELOPER 03/16/2024 2:25 PM ORACLE BRM DEVELOPER Corona Moore DO LAB - BLOOD ORDERABLES F inal Result Performing Organization Address [facility] de Phone Number [facility] [address] Lab (1st floor, no room number) [place] [address], [facility] * Extra Blue Top Tube (03/16/2024 2:08 PM ORACLE BRM DEVELOPER) Hold Specimen [facility] 03/16/2024 3:31 PM ORACLE BRM DEVELOPER [facility] LAB[facility] Blood STRUCTURE OF LEFT UPPER LIMB / Unknown Venipuncture / Unknown 03/16/2024 2:08 PM ORACLE BRM DEVELOPER 03/16/2024 2:25 PM ORACLE BRM DEVELOPER us Corona Giraldo Moore DO LAB - BLOOD ORDERABLES F inal Result LABORATORY [facility] [address] [facility] Lab (1st floor, no room number) [place] [address], [facility] * (ABNORMAL) Basic metabolic panel (03/16/2024 2:08 PM ORACLE BRM DEVELOPER) Sodium 131(L) 135 - 145 mmol/L 03/16/2024 2:50 PM ORACLE BRM DEVELOPER LABORATORY Potassium 3.9 3.4 - 5.3 mmol/L 03/16/2024 2:50 PM [facility] Chloride 95(L) 98 - 107 mmol/L 03/16/2024 2:50 PM [facility] Carbon Dioxide (CO2) 20(L) 22 - 29 mmol/L 03/16/2024 2:50 PM [facility] Anion Gap 16(H) 7 - 15 mmol/L 03/16/2024 2:50 PM [facility] Urea Nitrogen 15.1 8.0 - 23.0 mg/dL 03/16/2024 2:50 PM ORACLE BRM DEVELOPER LABORATORY Creatinine 0.83 0.51 - 0.95 mg/dL 03/16/2024 2:50 PM [facility] GFR Estimate 70 >60 mL/min/1.7 3m2 03/16/2024 2:50 PM [facility] Comment:eGFR calculated usin 2020 CKD-EPI equation. Calcium 8.8 8.8 - 10.4 mg/dL 03/16/2024 2:50 PM [facility] Comment:Reference intervals for this test were updated on 09/24/2023 to reflect our healthy population more accurately. There may be differences in the flagging of prior results with similar values performed with this method. Those prior results can be interpreted in the context of the updated reference intervals. Glucose 118(H) 70 - 99 mg/dL 03/16/2024 2:50 PM [facility] Blood STRUCTURE OF LEFT UPPER LIMB / Unknown Venipuncture / Unknown 03/16/2024 2:08 PM ORACLE BRM DEVELOPER 03/16/2024 2:25 PM ORACLE BRM DEVELOPER us Corona Moore DO LAB - BLOOD ORDERABLES F inal Result LABORATORY [facility] [address] Lab (1st floor, no room number) [place] [address], [facility] * Lab Result - HIM Scan (03/03/2024 12:00 AM ORACLE BRM DEVELOPER) 03/03/2024 Provider Outside NON-BEAKER LAB TESTING Final Result [...] BLOOD ORDERABLES Final Res ult [facility]U LABORATORY [facility] [place] [facility] [address] [facility] [address] [facility], [address] [address] from Last 3 Months or Most Recently Relevant to Health Maintenance Additional Health Concerns Infection Onset Date Last Indicated Influenza 03/16/2024 03/16/2024 Insurance MEDICARE [facility] MEDICARE [employer] Advance Directives For more information, please contact: [phone] * Full Code (Latest Code Status on [...] patie nt/ legal decision maker Care Teams Rolling Down Machine Operator Relationship Specialty Start Date End Date System, Provider Not In PCP - General Clinic 11/09/17 Seema Boateng APRN [employer] [address] [place] [id number] Nurse Practitioner Cardiovascular Disease 11/22/22 Steph Jovel PA-C [address] [place] [address] Assigned Heart and Vascular Provider 12/29/22
--- OUTSIDE RECORDS SUMMARY | 2024-03-21 09:38 | XMS_ITS | Encounter Summary ---
Author Organization [facility] Address [address] [place] [address] [place] [address] Care Team Providers Care Supervisor Fertilizer Name Role Phone Ky Jorgensen MD Primary Care Provider Reason for Visit * Procedure/Equipment (Routine) - Incomplete Specialty Diagnoses / Procedures Referred By Jennifer kincaid Referred To Contact Diagnoses Right knee pain, unspecified chronicity Procedures XR Knee Lt 1-2 Views Comparison Kushal Reddy MD [address] [facility] [place] [address] Referral ID Status Reason Start Date Expiration Date V isits Requested Visits Authorized [id number] Incomplete 03/05/2024 06/04/2025 1 1 Encounter Details Date Type Department Care Team (Late st Contact Info) Description 03/05/2024 10:40 AM SIX COLOR PRESS OPERATOR Ancillary Procedure [facility] [address] [address] [address] [place] [address] Kushal Reddy MD [address] [facility] [place] [phone] Right knee pain, unspecified chronicity Social History Tobacco Use Types Packs/Day Years Used Date Smoking Tobacco: Never Smokeless Tobacco: Never Alcohol Use Standard Drinks/Week Comments No 0 (1 standard drink = 0.6 oz pur e alcohol) PHQ-2 Answer Date Recorded PHQ-2 Score 0 07/31/2023 Sex and Gender Information Value Date Recorded Sex Assigned at Not on file Gender Identity Not on file Sexual Orientation Not on file documented as of this encounter Plan of Treatment Not on file documented as of this encounter Procedures Procedure Name Priority Date/Time Associated Diagnosis Comments XR KNEE LT 1-2 VIEWS COMPARISON Routine 03/05/2024 10:48 AM SIX COLOR PRESS OPERATOR Right knee pain, unspecified chronicity documented in this encounter Results * XR Knee Lt 1-2 Views Comparison (03/05/2024 10:48 AM SIX COLOR PRESS OPERATOR) Anatomical Region Laterality Modality Lower Extremity, Knee Digital Ra diography 03/05/2024 10:3 5 AM SIX COLOR PRESS OPERATOR Narrative 03/05/2024 11:18 AM SIX COLOR PRESS OPERATOR COMPARISON: None. FINDINGS: Right knee 3 views. Mild degenerative changes in the patellofemoral compartment. Vascular calcifications. No fracture. Left knee 2 views for comparison. Mild degenerative changes in the medial and patellofemoral compartment. Procedure Note Jacques Tomlin MD - 03/05/2024 COMPARISON: None. FINDINGS: Right knee 3 views. Mild degenerative changes in the patellofemoralcompartment. Vascular calcifications. No fracture. Left knee 2 views for comparison. Mild degenerative changes in the medialand patellofemoral compartment. Kushal Reddy MD RAD GD * XR Knee Rt 3 Views (03/05/2024 10:48 AM SIX COLOR PRESS OPERATOR) Anatomical Region Laterality Modality Lower Extremity, Knee Digital Ra diography 03/05/2024 10:3 5 AM SIX COLOR PRESS OPERATOR Narrative 03/05/2024 11:18 AM SIX COLOR PRESS OPERATOR COMPARISON: None. FINDINGS: Right knee 3 views. Mild degenerative changes in the patellofemoral compartment. Vascular calcifications. No fracture. Left knee 2 views for comparison. Mild degenerative changes in the medial and patellofemoral compartment. Procedure Note Jacques Tomlin MD - 03/05/2024 COMPARISON: None. FINDINGS: Right knee 3 views. Mild degenerative changes in the patellofemoralcompartment. Vascular calcifications. No fracture. Left knee 2 views for comparison. Mild degenerative changes in the medialand patellofemoral compartment. Kushal Reddy MD RAD GD documented in this encounter Visit Diagnoses Diagnosis Right knee pain, unspecified chronicity Right knee pain, unspecified chronicity documented in this encounter Care Teams Supervisor Fertilizer Relationship Specialty [place] [address] [place] [address] PCP - General Family Practice 11/21/17 documented as of this encounter
--- OUTSIDE RECORDS SUMMARY | 2024-03-21 09:38 | XMS_ITS | Encounter Summary ---
Author Organization [facility] Address [address] [place] [address] [place] [address] Care Team Providers Care Retort Load Expediter Name Role Phone Ky Jorgensen MD Primary Care Provider Reason for Visit * Procedure/Equipment (Routine) - Incomplete Specialty Diagnoses / Procedures Referred By Jennifer kincaid Referred To Contact Diagnoses Right knee pain, unspecified chronicity Procedures XR Knee Rt 3 Views Kushal Reddy MD [address] [facility] [place] [address] Referral ID Status Reason Start Date Expiration Date V isits Requested Visits Authorized [id number] Incomplete 03/05/2024 06/04/2025 1 1 Encounter Details Date Type Department Care Team (Late st Contact Info) Description 03/05/2024 10:35 AM WELL SERVICE PUMP EQUIPMENT OPERATOR Ancillary Procedure [facility] [address] [address] [address] [place] [address] Kushal Reddy MD [address] [facility] [place] [phone] Right knee pain, unspecified chronicity Social History [...] Priority Date/Time Associated Diagnosis Comments XR KNEE RT 3 VIEWS Routine 03/05/2024 10 :48 AM WELL SERVICE PUMP EQUIPMENT OPERATOR Right knee pain, unspecified chronicity documented in this encounter Results * XR Knee Lt 1-2 Views Comparison (03/05/2024 10:48 AM WELL SERVICE PUMP EQUIPMENT OPERATOR) Anatomical Region Laterality Modality Lower Extremity, Knee Digital Ra diography 03/05/2024 10:3 5 AM WELL SERVICE PUMP EQUIPMENT OPERATOR Narrative 03/05/2024 11:18 AM WELL SERVICE PUMP EQUIPMENT OPERATOR COMPARISON: None. FINDINGS: Right knee 3 [...] Knee Rt 3 Views (03/05/2024 10:48 AM WELL SERVICE PUMP EQUIPMENT OPERATOR) Anatomical Region Laterality Modality Lower Extremity, Knee Digital Ra diography 03/05/2024 10:3 5 AM WELL SERVICE PUMP EQUIPMENT OPERATOR Narrative 03/05/2024 11:18 AM WELL SERVICE PUMP EQUIPMENT OPERATOR COMPARISON: None. FINDINGS: Right knee 3 [...] changes in the medialand patellofemoral compartment. Kushal WORKMAN GD documented in this encounter Visit Diagnoses Diagnosis Right knee pain, unspecified chronicity Right knee pain, unspecified chronicity documented in this encounter Care Teams Retort Load Expediter Relationship Specialty [place] [address] [place] [address] PCP - General Family Practice 11/21/17 documented as of this encounter
--- OUTSIDE RECORDS SUMMARY | 2024-03-21 09:38 | XMS_ITS | Clinical Summary ---
Author Organization [facility] Address [address] [place] [id number] Care Team Providers Care Breaker Unit Assembler Name Role Phone JameelKy moses MD Primary Care Provider [phone] Source Comments You are receiving this document as you are listed as the primary care provider,follow-up provider, or the patient has been referred to you for consultation.This is in compliance with the Medicare and[facility] Cent[facility] EHR Incentive Program,which states Providers who transition their patient to another setting of careor provider of care or refers their patient to another provider of care shouldprovide summary care record for each transition of care or referral. [facility] Allergies Active Allergy Reactions Criticality Noted Date Comments Gramineae Pollens Hives High 02/04/2021 Hydroxychloroquine Hives High 08/26/2020 Medications Medication Sig Dispensed Refills Start Date End Date Status loratadine (CLARITIN) 10 MG tablet Take 1 Tablet (10 mg) by mouth daily. Active cyanocobalamin (VITAMIN B12) 1000 MCG tablet Take 1 Tablet (1,000 mcg) by mouth daily. Active latanoprost (XALATAN) 0.005 % eye drop solution Place 1 Drop into both eyes every evening. 2.5 mL 11/18/2017 Active dorzolamide (TRUSOPT) 2 % eye drop solution Place 1 Drop into both eyes three times a day. 10 mL 11/18/2017 Active cholecalciferol (VITAMIND3) 2000 units tablet Take 1 Tablet (2,000 Units) by mouth daily. Active ALBUterol sulfate HFA 108 (90 Base) MCG/ACT inhaler Inhale 1-2 Puffs every 4 hours as needed for Wheezing. 1 Each 3 02/16/2020 Active metoprolol succinate (TOPROL XL) 25 MG 24 hour release tablet Take 1 Tablet (25 mg) by mouth daily. 07/14/2020 Active rosuvastatin (CRESTOR) 10 MG tablet Take 1 Tablet (10 mg) by mouth daily at bedtime. 07/11/2020 Active Potassium Chloride ER 20 MEQ TBCR Take 1 Tablet (20 mEq) by mouth daily. 08/19/2020 Active escitalopram oxalate (LEXAPRO) 5 MG tablet TAKE 1 TABLET BY MOUTH IN THE MORNING WITH FOOD 06/27/2020 Active amLODIPine (NORVASC) 5 MG tablet 08/24/2020 Active aspirin 81 MG chewable tablet Chew and swallow 1 Tablet (81 mg) by mouth daily. Active Triamcinolone Acetonide (NASACORT NA) Active desvenlafaxine succinate (PRISTIQ) 50 MG 24 hour release tablet Take 25 mg by mouth daily. Active Probiotic Product (SUPER PROBIOTIC OR) Active ALBUterol sulfate HFA 108 (90 Base) MCG/ACT inhalerIndications: SOB (shortness of breath) Inhale 1-2 Puffs every 4 hours as needed for Wheezing. 1 g 02/04/2021 Active cholecalciferol (VITAMIN D3) 1.25 MG (04007 UT) capsule Vitamin D3 2000 iu Active cyanocobalamin 100 MCG tablet Active benzonatate (TESSALON) 200 MG capsule Take 1 Capsule by mouth three times a day as needed for Cough. 30 Capsule 02/13/2021 Active ketoconazole (NIZORAL) 2 % cream Apply topically two times a day. 30 g 02/13/2021 Active ferrous sulfate (AKA IRON SULFATE) 325 (65 Fe) MG enteric coated tablet Take 1 Tablet (325 mg) by mouth. Active cetirizine (ZYRTEC) 10 MG tablet Take 1 Tablet (10 mg) by mouth. Active melatonin 3 MG tablet Take 2 Tablets (6 mg) by mouth. Active potassium chloride (KLOR-CON M) 20 MEQ ER tablet Take 1 Tablet (20 mEq) by mouth daily. 04/01/2023 Active DULoxetine (CYMBALTA) 20 MG capsule Take 1 Capsule (20 mg) by mouth daily. Active Active Problems Problem Noted Date Diagnosed Date Mixed hyperlipidemia 07/31/2023 Recurrent major depressive disorder, in full rem ission 07/31/2023 Hypertrophic cardiomyopathy 07/31/2023 Coronary artery disease 07/31/2023 Stented coronary artery 07/31/2023 GERD without esophagitis 07/31/2023 History of iron deficiency anemia 07/31/2023 Overactive bladder 07/31/2023 Lichen sclerosus 07/31/2023 Polymyalgia rheumatica 07/31/2023 Glaucoma 11/18/2017 Essential hypertension 08/15/2002 Overview (10/31/2016): Hypertension Lumbago 08/15/2002 Overview (10/31/2016): Pain Low Back Encounters Date Type Department Care Team Description 03/05/2024 10:40 AM COMMUNICATION MANAGER Ancillary Procedure [facility] [address] Radiology [address] [place] [address] Kushal Reddy MD Right knee pain, unspecified chronicity 03/05/2024 10:35 AM COMMUNICATION MANAGER Ancillary Procedure [facility] [address] Radiology [address] [place] [address] Kushal Reddy MD Right knee pain, unspecified chronicity 03/05/2024 10:30 AM COMMUNICATION MANAGER Office Visit [facility] [address] [address] [address] [place] [address] Kushal Reddy MD Right knee pain, unspecified chronicity (Primary Dx); Primary osteoarthritis of right knee 12/31/2023 Telephone Endoscopy at [facility] [place] [address] [place] [address]. [place] [address] Dennys Mendez MD Follow-up from Last 3 Months Immunizations Name Administration Dates Next Due Flu Vac (3+ yrs) 11/30/2011, 1,12/06/2008,2007,01/13/2007,01/09/2006,12/14/1998 [id number] 03/08/2009 HepA Adult (19+ yrs) 03/11/2006,06/01/1998 HepA, Pediatric (DO NOT USE; for MIIC only) 06/01/1998 HepB Adult (Engerix-B, 20+ y rs, 3 dose series) 03/11/2006 IPV (Polio) 06/01/1998 Influenza ([place] Only) (Flul aval Quad 0.5, 3+ yrs) 11/10/2019 Influenza IIV3 (Trivalent) F wily Highdose, 65+ Yrs (30691) 11/10/2019,12/08/2018,12/14/2016,2015,12/05/2014,11/29/2013,01/06/2013 Influenza IIV4 (Quadrivalent ) Fluzone, 65+ Yrs 01/01/2023,12/01/2021,12/02/2020,2019 Influenza aIIV3 65+ Years (Fluad) 03/11/2016 MMR 03/11/2006 Moderna COVID-19 12+ 01/24/2023 PCV13 (Prevnar) 12/10/2017,08/23/2014,03/11/2009 PPSV23 (Pneumovax) 01/13/2007,03/11/2006 Pfizer Bivalent 12+ 12/01/2021 Pfizer Monovalent 12+ Purple Top 12/03/2020,04/12,04/09/2020 RSV Arexvy 01/01/2023 Td 11/27/1993 Tdap 07/08/2018,03/11/2006 Tetanus Toxoid, Absorbed 03/11/2006 Tetanus Toxoid, Unspecified Formulation 03/11/2006 Zoster (Zostavax) 03/11/2012 Zoster, Unspecified Formulation 07/08/2018 Social History Tobacco Use Types Packs/Day Years [...] Sign Reading Time Taken Comments Blood Pressure 158/73 12/18/2023 4:30 PM CDT Pulse 62 12/18/2023 4:30 PM CDT Temperature 36.8 C (98.2 F) 12/18/2023 2:53 PM CDT Respiratory Rate 18 12/18/2023 4:30 PM CDT Oxygen Saturation 99% 12/18/2023 4:30 PM CDT Inhaled Oxygen Concentration - - Weight 68.9 kg (152 lb) 03/05/2024 10:27 AM COMMUNICATION MANAGER Height 166.4 cm (5' 5.5) 03/05/2024 10:27 AM CS T Body Mass Index 24.91 03/05/2024 10:27 AM COMMUNICATION MANAGER Plan of Treatment Health Maintenance Due Date Last Done Comments Dexa 2005 HepB (2) 04/08/2006 03/11/2006 Zoster/Shingles (2 of 3) 09/02/2018 07/08/2018, 03/2012 Medicare Annual Wellness Visit 07/30/2024 07/31/2023 DTaP/Tdap/Td (3 - Tdap) 07/08/2028 07/09/19, 03/11/2006, 11/27/1993 IPV (Polio) Aged Out 06/01/1998 No longer eligi ble based on patient's age to complete this topic HepA Completed 03/11/2006, 05/10, 06/01/1998 Pneumococcal 65+ Yrs Completed 12/10/2017, 08/23/2014, 03/11/2009, Additional history exists RSV Completed 01/01/2023 COVID-19 Vaccine Completed 12/20/2023, , 12/01/2021, Additional history exists Influenza Completed 12/20/2023, 12/10, 12/01/2021, Additional history exists Hib Aged Out No longer eligi ble based on patient's age to complete this topic MCV4 Aged Out No longer eligi ble based on patient's age to complete this topic Procedures Procedure Name Priority Date/Time Associated Diagnosis Comments XR KNEE LT 1-2 VIEWS COMPARISON Routine 03/05/2024 10:48 AM COMMUNICATION MANAGER Right knee pain, unspecified chronicity XR KNEE RT 3 VIEWS Routine 03/05/2024 10 :48 AM COMMUNICATION MANAGER Right knee pain, unspecified chronicity from Last 3 Months Results * XR Knee Lt 1-2 Views Comparison (03/05/2024 10:48 AM COMMUNICATION MANAGER) Anatomical Region Laterality Modality Lower Extremity, Knee Digital Ra diography 03/05/2024 10:3 5 AM COMMUNICATION MANAGER Narrative 03/05/2024 11:18 AM COMMUNICATION MANAGER COMPARISON: None. FINDINGS: Right knee 3 views. [...] the medialand patellofemoral compartment. Kushal WORKMAN GD * XR Knee Rt 3 Views (03/05/2024 10:48 AM COMMUNICATION MANAGER) Anatomical Region Laterality Modality Lower Extremity, Knee Digital Ra diography 03/05/2024 10:3 5 AM COMMUNICATION MANAGER Narrative 03/05/2024 11:18 AM COMMUNICATION MANAGER COMPARISON: None. FINDINGS: Right knee 3 views. [...] the medialand patellofemoral compartment. Kushal WORKMAN GD from Last 3 Months Care Teams Breaker Unit Assembler Relationship Specialty [place] [address] [place] [address] PCP - General Family Practice 11/21/17
--- OUTSIDE RECORDS SUMMARY | 2024-03-21 09:38 | XMS_ITS | Clinical Summary ---
Author Organization [facility] Address [address] [place] [address] Care Team Providers Care Crime Scene Analyst Name Role Phone None Reported, Pcp Primary Care Provider Unavail able Source Comments Patient records contain information from all sites at [facility]. For routine questions regarding patient records, call [phone] during business hours, M-F 8:00 AM - 5:00 PM Central Time. Record requests for emergency care only can be directed to [phone] at any time.[facility] Allergies Active Allergy Reactions Criticality Noted Date Comments Cigarette Smoke Other (see comments) 08/26/2023 House Dust Other (see comments) Low 08/26/2023 Hydroxychloroquine Hives only, no other systemic symptoms,Hives (Reselect Reaction),Itching,Rash High 08/26/2020 Pollen Extracts Other (see comments) 08/26/2023 Medications potassium chloride (KLOR-CON) 20 mEq packet Take 20 mEq by mouth daily with morning meal. Active DULoxetine (CYMBALTA) [address] capsule Take 40 mg by mouth daily. Active rosuvastatin (CRESTOR) 10 mg tablet Take 10 mg by mouth daily. Active aspirin 81 mg chewable tablet Chew 81 mg daily. Active latanoprost (XALATAN) 0.005 % ophthalmic solution Administer 1 drop into both eyes at bedtime. Active dorzolamide-edvin oloL (COSOPT) 22.3-6.8 mg/mL ophthalmic solution Administer 1 drop into the right eye 2 (two) times a day. Active melatonin 5 mg tablet Take 5 mg by mouth at bedtime. Active cyanocobalamin (VITAMIN B12) 1,000 mcg tablet Take 1,000 mcg by mouth daily. Active cholecalciferol (Vitamin D3) 50 mcg (2,000 Unit) tablet Take 50 mcg by mouth daily. Active ferrous sulfate 325 mg (65 mg iron) DR tablet Take 65 mg of iron by mouth daily. Active magnesium oxide (MAG-OX) 400 mg (241.3 mg magnesium) tablet Take 400 mg by mouth every morning before breakfast. Active clobetasoL (CLOBEX) 0.05 % external spray Apply 1 Application topically as needed. Apply to hair. Active loratadine (CLARITIN) 10 mg tablet Take 10 mg by mouth daily. 6 Active clobetasol propionate 0.05 % in plasticized pf base Apply topically 3 (three) times a day as needed. Active triamcinolone (KENALOG) 0.1 % ointmentIndicat ions:Lichen Sclerosus Apply to vulva twice a day for 2 weeks, then switch with clobetasol ointment 80 g 3 4 Active ipratropium (Atrovent) 42 mcg (0.06 %) nasal spray 1-2 sprays Q4H PRN 15 mL 3 4 Active ruxolitinib (Opzelura) 1.5 % cream Apply 1 Application topically 2 (two) times a day. Apply to the vulva Saturday, , Saturday, saturday 60 g 3 4 Active Additional Information Patient not taking.Reported on 12/11/2023 UNABLE TO FIND Apply 1 each topically daily. Med Name: Tofacitinib 2% ointment 10 mL container Apply to affected skin on the vulvar area every other day, alternating with clobetasol ointment 30 each 2 4 Active clotrimazole (Mycelex) 10 mg abenr Dissolve 1 Abner (10 mg total) in the mouth daily as needed (when using clobetasol). Use once daily before you apply clobetasol 30 Abner 11 4 025 Active clobetasoL (Temovate) 0.05 % ointmentIndicat ions:Lichen Sclerosus Apply 1 Application topically 2 (two) times a day. Apply to vulva twice a day for 2 weeks, then alternate with triamcinolone ointment for 2 weeks 60 g 3 4 Active amLODIPine (Norvasc) 5 mg tablet Take 1 tablet by mouth daily. 4 Active nystatin (Mycostatin) 100,000 unit/gram cream Apply 1 Application topically 2 (two) times a day. Apply to vulvar skin for 2 weeks. 90 g 4 Active Active Problems Problem Noted Date Diagnosed Date Lichen Sclerosus 12/21/2022 Family History Medical History Relation Name Comments Stroke Mother Jessenia Escalera 90 yrs old at the time Leukemia Mother's Brother Dhiraj Hearn had cronic Leukima for many years. His son of acute Leukima after a very short time. Another first cousin survived it Breast cancer Paternal Grandmother Isabel Escalera Relation Name Status Comments Mother Jessenia Escalera Mother's Brother Dhiraj Bennett Paternal Grandmother Isabel Escalera Social History Tobacco Use Types Packs/Day Years Used Date Smoking Tobacco: Former Cigarettes Q uit: 03/11/1966 Smokeless Tobacco: Never Alcohol Use Standard Drinks/Week Comments Not Currently 0 (1 standard drink = 0.6 oz pur e alcohol) [facility] Utilities Answer Date Recorded In the past [address] [facility] [employer], gas, oil, or water [employer] threatened to shut off services in your home? No 12/10/2023 Humiliation, Afraid, Rape, and Kick questionnair e Answer Date Recorded Within the last year, have y ou been afraid of your partner or ex-partner? No 11/07/2022 Within the last year, have y ou been humiliated or emotionally abused in other ways by your partner or ex-partner? No Within the last year, have y ou been kicked, hit, slapped, or otherwise physically hurt by your partner or ex-partner? No 11/07/2022 Within the last year, have y ou been raped or forced to have any kind of sexual activity by your partner or ex-partner? No 11/07/2022 Overall Financial Resource Strain (CARDIA) Answe r Date Recorded How hard is it for you to pa y for the very basics like food, housing, medical care, and heating? Not hard at all 11/07/2022 Exercise Vital Sign Answer Date Recorde d On average, how many days pe r week do you engage in moderate to strenuous exercise (like a brisk walk)? 0 days 11/28/2023 On average, how many minutes do you engage in exercise at this level? 0 min 11/28/2023 Hunger Vital Sign Answer Date Recorded Within the past 12 months, y ou worried that your food would run out before you got the money to buy more. Never true 12/10/19 24 Within the past 12 months, t he food you bought just didn't last and you didn't have money to get more. Never true 12/10/2023 PRAPARE - Transportation Answer Date Re corded In the past 12 months, has l ack of transportation kept you from medical appointments or from getting medications? No 03/2023 In the past 12 months, has l ack of transportation kept you from meetings, work, or from getting things needed for daily living? No 12/10/2023 Nutrition Answer Date Recorded On average, how many serving s of fruits and vegetables do you eat per day (serving size is equal to 1 cup or approximately the size of a tennis ball)? 0-2 11/28/2023 Dental Answer Date Recorded Dental: Regular Dentist Yes 11/08/19 Employment Answer Date Recorded Employment status Retired 11/28/2023 Housing Stability Answer Date Recorded What is your living situation today? I have a [facility] place to live 12/10/2023 Comments Unknown Sex and Gender Information Value Date Recorded Sex Assigned at Female 11/07/2022 7:40 PM CDT Legal Sex Female 11:22 AM CDT Gender Identity Female 11/07/2022 7:40 PM CDT Sexual Orientation Straight 11/07/2022 7: 40 PM CDT Last Filed Vital Signs Vital Sign Reading Time Taken Comments Blood Pressure 134/75 08/28/2023 12:55 PM CDT Pulse 74 08/28/2023 12:55 PM CDT Temperature - - Respiratory Rate - - Oxygen Saturation - - Inhaled Oxygen Concentration - - Weight - - Height - - Body Mass Index - - Plan of Treatment Health Maintenance Due Date Last Done Comments Visit: Annual, age 65+ (or Medicare and <65) 1940 Visit: Medicare Annual Wellness 1940 IPV Vaccines (2 of 3 - Adult catch-up series) 06/29/1998 06/01/1998 Zoster Vaccines (2 of 3) 05/06/2012 03/11/2012 COVID-19 Vaccine (2023-2 5 season) 2023 01/24/2023, 12/01/2021, 06/22/2021, Additional history exists Influenza Vaccine (#1) 2023 , 12/01/2021, 12/02/2020, Additional history exists Depression Screening (Annual PHQ-2) 03/11/2024 Fall Risk Screen (Annual) 03/11/2024 DTaP,Tdap,and Td Vaccines (3 - Td or Tdap) 07/08/2028 07/08/2018, 03/11/2006, 11/27/1993 Pneumococcal vaccine (50+ years) Completed 12/10/2017, 08/23/2014, 03/11/2009, Additional history exists RSV vaccine - (32-3 6 weeks) or 60+ years Completed 01/01/2023 Medical Devices Implanted Type Area Tablet Making Machine Operator Device Identifier Shelf Expiration Date Model / Serial / Lot Cardiac Stent Cardiac Stent Heart Description:2 Stents Urologic Other Urologic Other Left: Buttock Description:[place] stem [place] control [facility] Care Teams Crime Scene Analyst Relationship Specialty Start Date End Date None Reported, Pcp PCP - General 01/17/24
--- OUTSIDE RECORDS SUMMARY | 2024-03-21 09:38 | XMS_ITS | Referral Summary ---
Author Organization [facility] Address [address] [place] [address] Care Team Providers Care Cottage Supervisor Name Role Phone None Reported, Pcp Primary Care Provider Unavail able Source Comments Patient records contain information from all sites at [facility]. For routine questions regarding patient records, call [phone] during business hours, M-F 8:00 AM - 5:00 PM Central Time. Record requests for emergency care only can be directed to [phone] at any time.[facility] Allergies Active Allergy Reactions Criticality Noted [...] 2 4 Active clotrimazole (Mycelex) 10 mg abner Dissolve 1 Abner (10 mg total) in [...] Noted Date Diagnosed Date Lichen Sclerosus 12/21/2022 Social History Tobacco Use Types Packs/Day Years Used Date Smoking Tobacco: Former Cigarettes Q uit: 03/11/1966 Smokeless Tobacco: Never Alcohol Use Standard Drinks/Week Comments Not Currently 0 (1 standard drink = 0.6 oz pur e alcohol) [facility] Utilities Answer Date Recorded In the past 12 months has [employer], oil, or water [employer] threatened to shut off services in your [...] your living situation today? I have a [facility] place to live 12/10/2023 Comments Unknown Sex [...] Mass Index - - Plan of Treatment Not on file Medical Devices Implanted Type Area Manager Area Device Identifier Shelf Expiration Date Model / Serial / Lot Cardiac Stent Cardiac Stent Heart Description:2 Stents Urologic Other Urologic Other Left: Buttock Description:Inter stem [place] control Insurance MEDICARE [facility] Care Teams Cottage Supervisor Relationship Specialty Start Date End Date None Reported, Pcp PCP - General 01/17/24
--- OUTSIDE RECORDS SUMMARY | 2024-03-21 09:38 | XMS_ITS | Encounter Summary ---
Author Organization [facility] Address [address] [place] [address] [place] [address] Care Team Providers Care Crayon Painter Name Role Phone Ky Jorgensen MD Primary Care Provider Reason for Referral * Procedure/Equipment (Routine) - Incomplete Specialty Diagnoses / Procedures Referred By Contac t Referred To Contact Diagnoses Right knee pain, unspecified chronicity Procedures XR Knee Lt 1-2 Views Kushal Gill MD [address] [place] [address] Referral ID Status Reason Start Date Expiration Date V isits Requested Visits Authorized [id number] Incomplete 03/05/2024 06/04/2025 1 1 ER * Procedure/Equipment (Routine) - Incomplete Specialty Diagnoses / Procedures Referred By Contac t Referred To Contact Diagnoses Right knee pain, unspecified chronicity Procedures XR Knee Rt 3 Views Kushal Reddy MD [address] [place] [address] Referral ID Status Reason Start Date Expiration Date V isits Requested Visits Authorized [id number] Incomplete 03/05/2024 06/04/2025 1 1 ER Reason for Visit * Reason Comments KNEE PAIN Consult Right knee D OP: 3 months ago, then last night 03/05/24 acute anterior/medial knee. ERIKA: no injury. Thinks cortisone might help Encounter Details Date Type Department Care Team (Late st Contact Info) Description 03/05/2024 10:30 AM TRADER Office Visit [facility] Orthopedic Urgent Care at [address] [phone] Kushal Reddy MD [address] [place] [id number] Right knee pain, unspecified chronicity (Primary Dx); Primary osteoarthritis of right knee Social History Tobacco Use Types Packs/Day Years [...] Sign Reading Time Taken Comments Blood Pressure - - Pulse - - Temperature - - Respiratory Rate - - Oxygen Saturation - - Inhaled Oxygen Concentration - - Weight 68.9 kg (152 lb) 03/05/2024 10:27 AM TRADER Height 166.4 cm (5' 5.5) 03/05/2024 10:27 AM CS T Body Mass Index 24.91 03/05/2024 10:27 AM TRADER documented in this encounter Patient Instructions * Patient Instructions* Hue Kaplan, ATC - 03/05/2024 10:30 AM TRADER Thank you for choosing [facility] for your health care visit today. If you have any questions regarding your visit or next steps, please contact us at [phone]. Kushal Reddy MD Medication Requests: Prescriptions are filled on Weekdays before 3:00PM For all medication refills: Request a refill using MyChart or contact your Pharmacy Paperwork Requests: FMLA or disability paperwork can be faxed to: [phone] Please allow 7-10 business days for completion of all paperwork. [facility] Worker's Compensation Services: E-mail Address: [email or web address] What is Know Your Cost? Know Your Cost is a service for patients and patient/members to call and receive personalized cost information and estimates across our care group. The phone number is (COST) Saturday - Saturday 8 AM to 5 PM To request copies of your medical records, call: [phone] (option 4) Diagnosis: R knee osteoarthritis Plan: Follow Up: As needed if symptoms are not improving or worsen. Injection(s): The right knee was injected with Kenalog-40 and marcaine. You've just had a steroid (cortisone) injection: Steroid injections are among the most frequently used treatments in orthopedics. Steroid injectionsare used for a wide range of conditions from arthritis, to bursitis, to tennis elbow, etc. The two most common side-effects of steroid shots called ???steroid flare??? and ???steroid flush. Steroid flare can cause an increase in symptoms in the first 24-48 hours after a steroid injection.This will usually subside within a few days, and is a cause from the additional fluid in your joint, and the trauma to the joint lining from the injection. This pain usually subsides quickly and can be aided with an ice pack and over the counter anti-inflammatory medication. Steroid flush is a flushing sensation and redness of their face. This reaction is more common in women, but can occur in men as well, and is seen into up to 15 percent of patients. This can begin within a few hours of the injection and may last for a few days. It is not dangerous, and will resolve itself. Diabetic patients also can have their blood sugar levels affected. Patients with diabetes should carefully monitor their blood sugar as steroid can cause a temporary rise in their levels. Patients taking insulin should be especially careful, checking their blood sugar often and adjusting the insulin doses, if necessary. Steroid injections can only be repeated every 3 or 4 months. For some conditions there may also be a limited total number of times it is safe to repeat an injection. RISKS: Infection Whenever there is a break in the skin, like when a needle is used to administer steroid, there is achance of infection this is very unlikely to happen, usually would occur days after the injection. Signs and symptoms to watch for: fever, streaking redness, pus, drainage, foul odor, localized redness that continues to get worse, come to the office if symptoms are recognized during business hours, or proceed to the emergency room if symptoms are recognized after office hours. Skin Pigment Changes Patients should also be aware that steroid may cause skin around the injection site to lighten. This is not harmful or long lasting. Loss of Fatty Tissue This is one reason we limit the number of steroid injections administered. High doses of steroid can have detrimental effects on some tissues in the body, though due to the dosage we use the risk is extremely rare. When injected into fatty tissue, steroid can lead to a problem called fat atrophy. Fat atrophy causes loss of fatty tissue, which can lead to dimpling of the skin or the thinning out of fat. Skin will feel thin. Patients who get steroid injections in the heel to treat plantar fasciitis may find walking painful as fat that usually cushions their steps may thin out. Tendon Rupture Steroid can also cause weakening of tendons. This is one reason to limit the number of steroid injections administered. RESTRICTIONS: Avoid vigorous activity for the next 24 hours. Avoid submersion for next 24 hours; ok to shower. Brace/DME: You were provided a Hinged knee brace in clinic today. Please use and care according to instructions given today. This item will be billed to your insurance. If insurance does not cover this item, you will be billed for any uncovered amount. You should wear your items as directed in clinic. ER documented in this encounter Progress Notes * Kushal Reddy MD - 03/05/2024 10:30 AM CST Acute Injury Clinic Progress Note Date of visit: 03/05/2024 Chief Complaint Chief Complaint Patient presents with KNEE PAIN Consult Right knee DOP: 3 months ago, then last night 03/05/24 acute anterior/medial knee. ERIKA: no injury. Thinks cortisone might help History of Present Illness Haley Crow is a 83 y.o. female that presents today for evaluation of KNEE PAIN (Consult Rightknee DOP: 3 months ago, then last night 03/05/24 acute anterior/medial knee. ERIKA: no injury. Thinkscortisone might help) Haley Crow has had right knee pain, relatively mild, for the past 3 months but this became worse yesterday while she was standing in the kitchen over [place]. No new injuries or falls. He hasbeen treating with Voltaren gel, ice, and Salon pas patches. Thinks she may have had a cortisone injection over 9 years ago, but isn't sure if that is the right knee or the left knee. She has needed a walker to get around the house. She and her are currently visiting here over the holidays before returning to their home in [place] next week. PMHx, medications, allergies, reviewed in Epic. Exam Ht 1.664 m (5' 5.5) Wt 68.9 kg (152 lb) BMI 24.91 kg/m?? General/ Constitutional: Well nourished, well developed, no apparent distress Respiratory: Normal respirations, no retractions Neurological: Oriented to person, place, and time Psychological: Normal mood and affect Musculoskeletal Antalgic gait but able to bear full weight on the right. Tenderness present over the medial joint line. Range of motion is lacking 10?? of full extension, but flexion is full and relatively pain-free. Mild pain but no laxity with valgus stress, negative varus. Positive mild effusion, no unusual warmth or redness. Negative patellar apprehension. Negative anterior-posterior drawer. Imaging XR Knee Rt 3 Views, XR Knee Lt 1-2 Views Comparison COMPARISON: None. FINDINGS: Right knee 3 views. Mild degenerative changes in the patellofemoral compartment. Vascular calcifications. No fracture. Left knee 2 views for comparison. Mild degenerative changes in the medial and patellofemoral compartment. These images were independently reviewed by myself and with the patient, as well as relevant imagesvia PACS if available. Patient advised that x-rays and interpreting physicians are not perfect and if symptoms do not improve as expected would consider additional advance images to rule out occult fracture. Assessment/Plan 1. Right knee pain, unspecified chronicity - XR Knee Rt 3 Views; Future - XR Knee Lt 1-2 Views Comparison; Future - Inject/Asp Major Joint/Bursa Hip Knee Shoulder - Triamcinolone Acet Inj Nos: (per 10 mg) - Khan Knee hinged brace(1819) 2. Primary osteoarthritis of right knee - Inject/Asp Major Joint/Bursa Hip Knee Shoulder - Triamcinolone Acet Inj Nos: (per 10 mg) - Khan Knee hinged brace(1819) Mild degenerative changes noted about the right knee, suspect acute flare, discussed options and wewill proceed with a hinged knee brace today for stability, and she is eager to proceed with a cortisone injection. Follow up with primary care upon return to [place] in a few weeks. RIGHT Knee Injection Consent After discussing the various treatment options for the condition, it was agreed that a corticosteroid injection would be the next step in treatment. The nature of the indications for corticosteroid and local anesthetic injection reviewed in detail with the patient today. The inherent risks of injection including infection, allergic reaction, increased pain, incomplete relief for a temporary relief of symptoms, alterations in blood glucose levels requiring careful monitoring and treatment as indicated, tendon, ligament or articular cartilage rupture or degeneration, nerve injury, skin depigmentation, and/or fatty atrophy were discussed. Procedure After the risks and benefits of the procedure were explained, consent was given. Patient placed in supine position. The site for the injection was properly marked and prepped with chloroprep. Topicalanalgesia provided with ethyl chloride. Using a 25 gauge 1.5 in needle, the knee joint was injectedvia the superolateral patellar approach with 40mg of Kenalog, and 4 cc of 0.5% bupivocaine using sterile technique. During injection, there was unrestricted flow. A sterile Band-Aid was applied. Patient tolerated the injection well and was discharged without complication. I have discussed the nature of her current subjective complaints, clinical examination, test results and have reviewed treatment options. Kushal Reddy MD, SHARONA, CAQ [facility] This note contains medical terminology which is meant for communication between health care physicians and providers. Please note that vocabulary/phrasing/abbreviations may not carry the same definitions as they would in normal conversational speech. Additionally voice recognition software was usedto generate this note. As a result, wrong word or '[id number]' substitutions may have occurred due to the inherent limitations of voice recognition software. There may be errors in the script that have gone undetected. Please consider this when interpreting information found in this chart. ER documented in this encounter Plan of Treatment Not on file documented as of this encounter Results * XR Knee Lt 1-2 Views Comparison (03/05/2024 10:48 AM TRADER) Anatomical Region Laterality Modality Lower Extremity, Knee Digital Ra diography 03/05/2024 10:3 5 AM TRADER Narrative 03/05/2024 11:18 AM TRADER COMPARISON: None. FINDINGS: Right knee 3 views. [...] Knee Rt 3 Views (03/05/2024 10:48 AM TRADER) Anatomical Region Laterality Modality Lower Extremity, Knee Digital Ra diography 03/05/2024 10:3 5 AM TRADER Narrative 03/05/2024 11:18 AM TRADER COMPARISON: None. FINDINGS: Right knee 3 views. [...] Visit Diagnoses Diagnosis Right knee pain, unspecified chronicity- Primary Primary osteoarthritis of right knee Primary localized osteoarthrosis, lower leg Right knee pain, unspecified chronicity Right knee pain, unspecified chronicity documented in this encounter Care Teams Crayon Painter Relationship Specialty [place] [address] [place] [address] PCP - General Family Practice 11/21/17 documented as of this encounter
--- OUTSIDE RECORDS SUMMARY | 2024-03-21 09:38 | XMS_ITS ---
Author Organization [facility] Address [address] [place] [address] Care Team Providers Care College Physics Instructor Name Role Phone Unavailable Unavailable Unavailable Surgery Details Not on file Complications Check Surgery Details section. Procedure Estimated Blood Loss Check Surgery Details section. Procedure Findings Check Surgery Details section. Procedure Specimens Taken Check Surgery Details section.
--- OUTSIDE RECORDS SUMMARY | 2024-03-21 09:38 | XMS_ITS | Encounter Summary ---
Author Organization [facility] Address [address] [place] [address]. [place] [address] Care Team Providers Care President And Chief Operating Officer Name Role Phone System, Provider Not In Primary Care Provider Un available Seema Boateng APRN FABRIC AND ACCESSORIES ESTIMATOR Unavailable [phone] Steph Jovel PA-C Unavailable [phone] Encounter Details Date Type Department Care Team (Latest Contact Info) Description 03/16/2024 Travel Social History Tobacco Use Types Packs/Day Years [...] Answer Date Recorded Do you have housing? (Ericin g is defined as stable permanent housing and does not include staying ouside in a car, in a tent, in an abandoned building, in an overnight correction, or couch-surfing.) Yes 11/09/2023 Are you worried [...] on file Legal Sex Female 3:18 AM PHOTORESIST PRINTER Gender Identity Not on file Sexual Orientation Not on file documented as of this encounter Plan of Treatment Not on file documented as of this encounter Visit Diagnoses Not on filedocumented in this encounter Additional Health Concerns Infection Onset Date Last Indicated Resolved Time Rule Out COVID-19 03/16/2024 03/16/2024 03/16/2024 7:25 PM PHOTORESIST PRINTER Influenza 03/16/2024 03/16/2024 documented as of this encounter Care Teams President And Chief Operating Officer Relationship Specialty Start Date End Date System, Provider Not In PCP - General Clinic 11/09/17 Seema Boateng APRN FABRIC AND ACCESSORIES ESTIMATOR [address] [address] Nurse Practitioner Cardiovascular Disease 11/22/22 Steph Jovel PA-C [address] [place] [id number] Assigned Heart and Vascular Provider 12/29/22 documented as of this encounter
--- NOTE | 2024-03-21 09:58 | CRLHL7_ITS ---
For Patients: As a result of the Century Cures Act, medical imaging exams and procedure reports are released immediately into your electronic medical record. You may view this report before your referring provider. If you have questions, please contact your health care provider. INDICATION: Respiratory distress TECHNIQUE: 1 view chest radiograph COMPARISON: 03/16/2024 FINDINGS: Devices: None. Lung volumes are lower today. New left basilar consolidation with loss of the normal left diaphragmatic silhouette. Mildly elevated right diaphragm is unchanged. No pulmonary edema. No pleural effusion. No pneumothorax. Heart size is normal. IMPRESSION: Left lower lobe consolidative opacity could be pneumonia or atelectasis. Dictated by Vashti Wood MD @ 03/21/2024 11:01:32 AM (Electronically Signed)
--- NOTE | 2024-03-21 10:01 | ED.GENADULT ---
HPI - General Adult General Date Seen: 03/21/24 Chief complaint: Shortness of Breath/Dyspnea Stated complaint: respiratory distress Time Seen by Provider: 03/21/24 09:48 History of Present Illness HPI narrative: 83-year-old female brought to the ER this morning by EMS from her home in [place] with concern for cough, distal call to breathing, and hypoxia History from the patient is that she and her normally live in [place]. She has a past medical history of lichen sclerosis, high blood pressure, occasional extra heartbeat (patient says no history of coronary disease or CHF) overactive bladder. She and her came home for [place] with the plan to stay here in [place] for 2 weeks and then go back to the long-term home in [place]. However while they were here in town for [place] they both became ill with influenza a and her was actually diagnosed with metastatic prostate cancer last week. Therefore they are changing their long-term plans and will now be living long-term here in [place] so he can get his prostate cancer care. Patient began to be sick about 11 days ago around on March 11 with cough. She was diagnosed with influenza based on testing done at [facility] last week. Apparently both she and her were sick with influenza. She was managed in the emergency department at [facility]. It sounds like she stayed overnight in the ER but could not get to a medical bed because or simply were no beds available. She was discharged the following day. She was sent home with albuterol (she has had albuterol in the past and may have a history of asthma, she is not sure. She does not have to use her albuterol very often), prednisone, and also cough medication. She was not put on Tamiflu because she was outside the 48 hour window. It sounds like she has had worsening cough with production of a lot of whitish sputum and worsening shortness of breath. Overnight her breathing got worse. Either she or her family called 911 History from paramedics is that she was hypoxic with sats of 82% on room air when they arrived. EMS was able to put her on non-rebreather and sats came up to the low 90s. She had coarse sounding lungs throughout and they gave 1 nebulizer which is did not make a demonstrable improvement in her oxygenation but did lead to increased cough with increased production of sputum. Mental status is been normal. She is protecting her airway. Patient reports that she has had multiple bouts of pneumonia including bronchopneumonia and lobar pneumonia. Related Data Home Medications ?Medication ?Instructions ?Recorded ?Confirmed aspirin 81 mg tablet,delayed 81 mg PO DAILY 11/21/21 03/21/24 release (Adult Aspirin Regimen) duloxetine 20 mg capsule,delayed 40 mg PO HS 11/21/21 03/21/24 release (Cymbalta) potassium chloride 20 mEq 20 meq PO DAILY 11/21/21 03/21/24 tablet,extended release (K-Tab) tramadol 50 mg tablet 50 mg PO Q6H PRN 11/21/21 03/21/24 rosuvastatin 5 mg tablet 5 mg PO DAILY 03/16/24 03/21/24 amlodipine 5 mg tablet 7.5 mg PO DAILY 03/21/24 03/21/24 cholecalciferol (vitamin D3) 50 50 mcg PO DAILY 03/21/24 03/21/24 mcg (2,000 unit) capsule cyanocobalamin (vitamin B-12) 500 1,000 mcg PO DAILY 03/21/24 03/21/24 mcg tablet dorzolamide 22.3 mg-timolol 6.8 1 drp ophthalmic (eye) BID 03/21/24 03/21/24 mg/mL eye drops (Cosopt) ferrous sulfate 325 mg (65 mg 325 mg PO DAILY 03/21/24 03/21/24 iron) tablet (FeroSul) latanoprost 0.005 % eye drops 1 drp ophthalmic (eye) HS 03/21/24 03/21/24 melatonin 5 mg capsule 5 mg PO HS 03/21/24 03/21/24 Allergies Allergy/AdvReac Type Severity Reaction Status Date / Time hydroxychloroquine (From Allergy Verified 03/16/24 11:36 Plaquenil) [facility] Social History What is your current living situation?: I presently have a place to live Problems where you live: no known problems Problems where you live details: none In the past 12 months, utilities in danger of being shut off: no In past 12 months, lack of transportation kept you from medical appts, meetings, work, or getting things needed for daily living: no In the past 12 mos, have been you worried that your food would run out before you had money to buy more?: never true In the past 12 mos, the food you bought just didn't last and you didn't have money to buy more?: never true Highest level of school completed/degree received: high school graduate Smoking Status: Former smoker What tobacco products do you use: cigarettes Smoking quit date/years: >15 years ago Do you use any of these nicotine containing products: None Second hand tobacco smoke exposure: No How often do you have a drink containing alcohol: never How often do you have six or more drinks on one occasion: Never AUDIT-C Alcohol total score: 0 Non-prescribed substance use: denies use Caffeine: Yes (1-2/cup coffee) How often does anyone, including family, friends and others, physically hurt you: never How often does anyone, including family, friends and others, insult or talk down to you: never How often does anyone, including family, friends and others, threaten you with harm: never How often does anyone, including family, friends and others, scream or curse at you: never service: No Exam Narrative: Exam Narrative: Primary Survey: A- patent. Speaking clearly. Phonation normal. No stridor. B- tachypneic but no severe respiratory distress or tripoding. Able to speak nearly complete sentences. Sats are quite low at 78% on room air but came up to low 90s on non-rebreather. We transitioned her over to high-flow nasal cannula to keep sats in the 90s, help with her work of breathing and lower easier ability to speak. C- no active bleeding. Blood pressure stable. Symmetric pulses and cap refill in 4 extremities. D- alert and oriented x3. GCS 15. No focal deficits. Constitutional: Appears well-developed and well-nourished. Alert. Conversant and alert and normal mental status. Does have a cough productive of whitish sputum HENT: Head: Atraumatic. Nose: Nose normal. Mouth/Throat: Oral mucosa is clear and moist. no trismus. Pharynx normal. Tonsils symmetric. No tonsillar enlargement, erythema, or exudate. Eyes: Conjunctivae normal. EOM normal. Pupils equal, round, and reactive to light. No scleral icterus. Neck: Normal range of motion. Neck supple. No tracheal deviation present. Cardiovascular: Normal rate, regular rhythm. No gallop. No friction rub. No murmur heard. Symmetric radial and DP artery pulses . Normal cap refill in her fingertips Pulmonary/Chest: Tachypnea, mild difficulty breathing but no respiratory distress requiring immediate intubation. She has bilaterally coarse lung sounds with more coarse rales on the left than on the right. Productive cough. Abdominal: SoftNo distension. No mass. No tenderness. No rebound. No guarding. Musculoskeletal: RUE: Normal range of motion. No tenderness. No deformity LUE: Normal range of motion. No tenderness. No deformity RLE: Normal range of motion. No edema. No tenderness. No deformity LLE: Normal range of motion. No edema. No tenderness. No deformity Neurological: Alert and oriented to person, place, and time. Normal strength. CN II-VII intact. No sensory deficit. GCS eye subscore is 4. GCS verbal subscore is 5. GCS motor subscore is 6. Normal coordination Skin: Skin is warm and dry. No rash noted. No pallor. Normal capillary refill. Psychiatric: Normal mood. Normal affect. Const: Vital Signs, click to edit/add: Vital Signs - 24 hr 03/21/24 09:41 03/21/24 09:48 03/21/24 11:58 Temperature 98.2 F Pulse Rate [Pulse Oximeter] 76 Respiratory Rate 20 Blood Pressure [Ri ght Upper Arm] 127/71 Pulse Oximetry 77 L 93 Oxygen Delivery Me thod Room Air High Flow Nasal Ca nnula Oxygen Flow Rate 35 35 Fraction of Inspir ed Oxygen 100 90 Course Course ED Course: Recheck-sats in the mid 90s on high-flow nasal cannula. Patient breathing better. No definit change in lung sounds after neb. No clear evidence for ongoing bronchospasm. Would hold off on steroids for now Reevaluation(s) Reevaluation #1: Recheck-patient's daughter at bedside. Discussed results of workup. They are in agreement with plan for be admitted Discussed with hospitalist, Dr. Bermeo. He graciously accepts for admission. Vital Signs Vital signs: Initial Vital Signs Temperature 98.2 F 03/21/24 09:41 Temperature Source Temporal Artery Scan 03/21/24 09:41 Pulse Rate 76 03/21/24 09:41 Pulse Rhythm Regular 03/21/24 09:41 Respiratory Rate 20 03/21/24 09:41 Respiratory Effort Labored, Short of Breath, Abdominal Breathing, Tachypnea 03/21/24 09:41 Respiratory Depth Retractive 03/21/24 09:41 Respiratory Pattern Tachypnea 03/21/24 09:41 Blood Pressure 127/71 03/21/24 09:41 Blood Pressure Mean 89 03/21/24 09:41 Blood Pressure Position Supine 03/21/24 09:41 Pulse Oximetry 77 L 03/21/24 09:41 Oxygen Delivery Method Room Air 03/21/24 09:41 Vital Signs Temperature 98.2 F 03/21/24 09:41 Pulse Rate 76 03/21/24 09:41 Respiratory Rate 20 03/21/24 09:41 Blood Pressure 127/71 03/21/24 09:41 Pulse Oximetry 77 L 03/21/24 09:41 Oxygen Delivery Method Room Air 03/21/24 09:41 Temperature 98.7 F 03/21/24 12:57 Pulse Rate 80 03/21/24 12:57 Respiratory Rate 24 03/21/24 12:57 Blood Pressure 141/67 H 03/21/24 12:57 Pulse Oximetry 97 03/21/24 12:57 Oxygen Delivery Method High Flow Nasal Cannula 03/21/24 12:57 Oxygen Flow Rate 35 03/21/24 12:57 Fraction of Inspired Oxygen 90 03/21/24 13:00 Medications Administered Medications: Discontinued Medications Generic Name Dose Route Start Last Admin Trade Name Freq PRN Reason Stop Dose Admin Ceftriaxone Sodium 1 gm/ 100 mls @ 200 mls/hr 03/21/24 11:34 03/21/24 12:55 Sodium Chloride IVPB 03/21/24 11:35 Infused ONCE ONE Infusion Azithromycin 500 mg/ Sodium 255 mls @ 255 mls/hr 03/21/24 11:34 03/21/24 14:21 Chloride IVPB 03/21/24 11:35 Infused ONCE ONE Infusion Sodium Chloride 1,000 mls @ 1,000 mls/hr 03/21/24 12:00 03/21/24 12:00 0.9 % Sodium Chloride 1000 Ml IV 03/21/24 12:59 1,000 mls/hr .Q1H ANDRES Administration Medical Decision Making MDM Narrative Medical decision making narrative: Pleasant 83-year-old female presenting to the ER today with concern for cough, difficulty breathing, hypoxia, generalized weakness She did develop respiratory symptoms with nasal congestion and cough on the 1st and apparently was positive for influenza A at another hospital last week. She was apparently kept in the hospital overnight and then discharged the following day (she had to spend the night in the ER because they had no beds) and was sent home on supportive care. She was getting better but now has had worsening cough again for the past couple of days and was very short of breath this morning She was hypoxic with sats of 78 when she presented here to the ER. Sats were able to come up into the 90s when placed on high-flow nasal cannula. Lung sounds were bilaterally coarse with coarse wheezes and rhonchi, worse on the left than on the right. No real wheezing. There was perhaps partial improvement with the neb. At this point does not present as a typical asthma or COPD exacerbation. She has a nonsmoker. No altered mental status to suggest hypercarbia. Venous blood gas shows a venous pCO2 of 36 and pH is 7.49 which would suggest a respiratory alkalosis due to hyperventilation to compensate for hypoxia Repeat nasal PCR is negative for influenza, COVID, RSV today. Chest x-ray does show dense infiltrate in left lower lobe and subtle infiltrates on the right. White blood cell count is 15.4. Differential includes 82% neutrophils, 8% lymphocytes. Suspect that she probably has a bacterial pneumonia superimposed on her previous influenza. Interestingly procalcitonin is fairly low at 0.07. Blood cultures pending at this time. Started on IV antibiotics here in the ER-Rocephin and Zithromax. She has mild hypokalemia with a potassium of 3.4. Suspect this might reflect potassium shifts due to the albuterol nebs she had received from EMS. Would hold off on potassium supplementation for now. BUN 13, creatinine 0.6 is reassuring. LFTs are normal. Troponin is negative. N terminal proBNP is abnormal at 1920 suggesting there should could be some component of CHF. She is not having peripheral edema. Lab Data Labs: Lab Results 03/21/24 03/21/24 Range/Units 09:49 10:19 WBC 15.44 H (4.50-11.00) K/uL RBC 4.05 (4.00-5.20) m/uL Hgb 11.0 L (12.0-16.0) gm/dL Hct 33.2 (33.0-51.0) % MCV 82 (80-100) fL MCH 27 (26-34) pg MCHC 33 (32-36) gm/dL RDW Coeff of Lalitha 12.9 (11.5-15.5) % Plt Count 368 (140-440) K/uL Neut % (Auto) 81.9 H (42.0-72.0) % Lymph % (Auto) 8.4 L (20-44) % Vernon % (Auto) 9.0 (0.0-11.0) % Eos % (Auto) 0.2 (0.0-7.0) % Baso % (Auto) 0.0 (0.0-3.0) % Neut # (Auto) 12.60 H (1.7-7.0) K/uL Lymph # (Auto) 1.30 (0.90-2.90) K/uL Vernon # (Auto) 1.40 H (0.00-0.90) K/UL Eos # (Auto) 0.00 (0.00-0.50) K/uL Baso # (Auto) 0.00 (0.00-0.30) K/uL Abs Immat Gran (auto) 0.10 (0.00-0.30) K/uL Imm/Tot Granulo (auto) 0.5 % VBG pH 7.494 H (7.32-7.43) VBG pCO2 36 L (40-50) mmHG VBG pO2 48.7 H (25-47) mmHG VBG HCO3 27 (21-28) mmol/L Sodium 132 L (135-149) mmol/L Potassium 3.4 L (3.6-5.1) mmol/L Chloride 99 (96-114) mmol/L Carbon Dioxide 28 (20-32) mmol/L Anion Gap 5 L (7-15) mEq/L BUN 13 (7-30) mg/dL Creatinine 0.6 (0.5-1.5) mg/dL Estimated GFR 89 ml/min Glucose 126 H (60-115) mg/dL Lactate 1.1 (0.5-1.9) mmol/L Calcium 8.5 (8.4-10.6) mg/dL Total Bilirubin 0.5 (0.1-1.5) mg/dL AST 17 (12-35) U/L ALT 22 (4-35) U/L Alkaline Phosphatase 69 (40-150) U/L Troponin I < 0.01 L (0.01-0.04) ng/mL NT-Pro-B Natriuret Pep 1920 pg/mL Total Protein 5.6 L (6.0-8.3) g/dL Albumin 2.9 L (3.3-5.0) g/dL Procalcitonin 0.07 (<0.50) ng/mL SARS-CoV-2 (PCR) Negative SARS-CoV-2 (Negative) Influenza Type A (PCR) Negative PCR FLU A (Negative) Influenza Type B (PCR) Negative PCR FLU B (Negative) RSV (PCR) Negative PCR RSV (Negative) Imaging Data Chest x-ray: Attestation: I have reviewed the pertinent imaging results. My impression: Left> right basilar opacity Radiologist's impression: FINDINGS: Devices: None. Lung volumes are lower today. New left basilar consolidation with loss of the normal left diaphragmatic silhouette. Mildly elevated right diaphragm is unchanged. No pulmonary edema. No pleural effusion. No pneumothorax. Heart size is normal. IMPRESSION: Left lower lobe consolidative opacity could be pneumonia or atelectasis. Discharge Plan Discharge Clinical Impression: Community acquired pneumonia, Hypoxia Patient Disposition: Admitted As Inpatient Condition: Guarded
--- OUTSIDE RECORDS SUMMARY | 2024-03-21 10:13 | XMS_ITS | Encounter Summary ---
Author Organization [facility]ly [facility] Address [address] [place] [address] [place] [id number] Care Team Providers [employer] Name Role Phone Ky Jorgensen MD Primary Care Provider Reason for Visit * Procedure/Equipment (Routine) - Incomplete Specialty Diagnoses / Procedures Referred By Jennifer kincaid Referred To Contact Diagnoses Right knee pain, unspecified chronicity Procedures XR Knee Lt 1-2 Views Comparison Kushal Reddy MD [address] [facility] [place] [phone] Referral ID Status Reason Start Date Expiration Date V isits Requested Visits Authorized [id number] Incomplete 03/05/2024 06/04/2025 1 1 Encounter Details Date Type Department Care Team (Late st Contact Info) Description 03/05/2024 10:40 AM SAILING OFFICER Ancillary Procedure [facility] [id number] [facility] [address] [place] [address] Kushal Reddy MD [address] [facility] [place] [phone] Right knee pain, unspecified chronicity Social History [...] 1-2 VIEWS COMPARISON Routine 03/05/2024 10:48 AM SAILING OFFICER Right knee pain, unspecified chronicity documented in this encounter Results * XR Knee Lt 1-2 Views Comparison (03/05/2024 10:48 AM SAILING OFFICER) Anatomical Region Laterality Modality Lower Extremity, Knee Digital Ra diography 03/05/2024 10:3 5 AM SAILING OFFICER Narrative 03/05/2024 11:18 AM SAILING OFFICER COMPARISON: None. FINDINGS: Right knee 3 views. [...] Knee Rt 3 Views (03/05/2024 10:48 AM SAILING OFFICER) Anatomical Region Laterality Modality Lower Extremity, Knee Digital Ra diography 03/05/2024 10:3 5 AM SAILING OFFICER Narrative 03/05/2024 11:18 AM SAILING OFFICER COMPARISON: None. FINDINGS: Right knee 3 views. [...] chronicity documented in this encounter Care Teams [employer] Relationship Specialty [place] [address] [place] [address] PCP - General Family Practice 11/21/17 documented as of this encounter
--- OUTSIDE RECORDS SUMMARY | 2024-03-21 10:13 | XMS_ITS | Referral Summary ---
Author Organization [facility] Address [address] [place] [address] Care Team Providers Care Percussion Instrument Tuner Name Role Phone System, Provider Not In Primary Care Provider Un available Seema Boateng APRN COMMERCIAL PHOTOGRAPHER Unavailable [phone] Steph Jovel PA-C Unavailable Encounters Date Type Department Care Team Description 03/16/2024 5:56 PM INTERNAL MEDICINE NURSE - 03/17/2024 11:54 AM INTERNAL MEDICINE NURSE Emergency [facility] Emergency Dept [address] [place] [address] Corona Moore DO Sebring, Daniel L, MD Mild intermittent asthma with exacerbation (Primary Dx); Influenza A; Vomiting and diarrhea; Hyponatremia; Chest heaviness Discharge Disposition: Home or Self Care 03/16/2024 Travel 12/20/2023 Travel 12/20/2023 8:40 AM CDT Office Visit [facility] [place] [address] [address] [place] [phone] Steph Jovel PA-C Mitral valve stenosis, unspecified [...] in an abandoned building, in an overnight group home, or couch-surfing.) Yes 11/09/2023 Are you [...] on file Legal Sex Female 3:18 AM INTERNAL MEDICINE NURSE Gender Identity Not on file Sexual Orientation Not on file Last Filed Vital Signs Vital Sign Reading Time Taken Comments Blood Pressure 114/74 03/17/2024 8:35 AM INTERNAL MEDICINE NURSE Pulse 89 03/17/2024 8:35 AM INTERNAL MEDICINE NURSE Temperature 36.3 C (97.4 F) 03/17/2024 8:35 AM INTERNAL MEDICINE NURSE Respiratory Rate 20 03/17/2024 8:35 AM INTERNAL MEDICINE NURSE Oxygen Saturation 96% 03/17/2024 8:35 AM INTERNAL MEDICINE NURSE Inhaled Oxygen Concentration - - Weight 65.8 kg (145 lb) 03/16/2024 1:54 PM INTERNAL MEDICINE NURSE Height 165.1 cm (5' 5) 03/16/2024 1:54 PM INTERNAL MEDICINE NURSE Body Mass Index 24.13 03/16/2024 1:54 PM INTERNAL MEDICINE NURSE Plan of Treatment Not on file Procedures Procedure Name Priority Date/Time Associated Diagnosis Comments URINE CULTURE STAT 03/17/2024 1:20 AM INTERNAL MEDICINE NURSE ROUTINE UA WITH MICROSCOPIC REFLEX TO CULTURE STAT 03/17/2024 1:20 AM INTERNAL MEDICINE NURSE INFLUENZA A/B, RSV AND SARS-COV2 PCR STAT 03/16/2024 6:33 PM INTERNAL MEDICINE NURSE MAGNESIUM STAT 03/16/2024 6:15 PM INTERNAL MEDICINE NURSE TROPONIN T, HIGH SENSITIVITY STAT 03/16/2024 6:15 PM INTERNAL MEDICINE NURSE EKG 12-LEAD, TRACING ONLY STAT 03/16/2024 2:34 PM INTERNAL MEDICINE NURSE EXTRA PURPLE TOP TUBE STAT 03/16/2024 2:08 PM INTERNAL MEDICINE NURSE EXTRA RED TOP TUBE STAT 03/16/2024 2: 08 PM INTERNAL MEDICINE NURSE EXTRA BLUE TOP TUBE STAT 03/16/2024 2 :08 PM INTERNAL MEDICINE NURSE EXTRA TUBE STAT 03/16/2024 2:08 PM INTERNAL MEDICINE NURSE TROPONIN T, HIGH SENSITIVITY STAT 03/16/2024 2:08 PM INTERNAL MEDICINE NURSE BASIC METABOLIC PANEL STAT 03/16/2024 2:08 PM INTERNAL MEDICINE NURSE LAB RESULT - HIM SCAN 03/03/2024 12:00 AM INTERNAL MEDICINE NURSE LIPID REFLEX TO DIRECT LDL PANEL Add-On 11/09/2023 7:31 PM CDT from Last 3 Months or Most Recently Relevant to Health Maintenance Results * (ABNORMAL) UA with Microscopic reflex to Culture (03/17/2024 1:20 AM INTERNAL MEDICINE NURSE) Color Urine Yellow Colorless, Straw, Light Yellow, Yellow 03/17/2024 1:48 AM INTERNAL MEDICINE NURSE LABORATORY Appearance Urine Slightly Cloudy(A) Clear 03/17/2024 1:48 AM INTERNAL MEDICINE NURSE LABORATORY Glucose Urine Negative Negative mg/dL 03/17/2024 1:48 AM INTERNAL MEDICINE NURSE LABORATORY Bilirubin Urine Negative Negative 1:48 AM INTERNAL MEDICINE NURSE LABORATORY Ketones Urine Trace(A) Negative mg/dL 03/17/2024 1:48 AM INTERNAL MEDICINE NURSE LABORATORY Specific [place] Urine 1.011 1.003 - 1.035 03/17/2024 1:48 AM INTERNAL MEDICINE NURSE LABORATORY Blood Urine Moderate(A) Negative 03/17/2024 1:48 AM [facility] pH Urine 6.0 5.0 - 7.0 03/17/2024 1:48 AM [facility] Protein Albumin Urine 20(A) Negative mg/dL 03/17/2024 1:48 AM INTERNAL MEDICINE NURSE LABORATORY Urobilinogen Urine Normal Normal, 2.0 mg/dL 03/17/2024 1:48 AM INTERNAL MEDICINE NURSE LABORATORY Nitrite Urine Negative Negative 03/17/2024 1:48 AM INTERNAL MEDICINE NURSE LABORATORY Leukocyte Esterase Urine Large(A) Negative 03/17/2024 1:48 AM INTERNAL MEDICINE NURSE LABORATORY Bacteria Urine Few(A) None Seen /HPF 03/17/2024 1:48 AM [facility] Mucus Urine Present(A) None Seen /LPF 03/17/2024 1:48 AM INTERNAL MEDICINE NURSE LABORATORY RBC Urine 121(H) <=2 /HPF 03/17/2024 1:48 AM INTERNAL MEDICINE NURSE LABORATORY WBC Urine 21(H) <=5 /HPF 03/17/2024 1:48 AM INTERNAL MEDICINE NURSE LABORATORY Squamous Epithelials Urine 1 <=1 /HPF 03/17/2024 1:48 AM [facility] Hyaline Casts Urine 1 <=2 /LPF 03/17/2024 1:48 AM [facility] Urine URINE SPECIMEN OBTAINED BY CLEAN CATCH PROCEDURE / Unknown Non-blood Collection / Unknown 03/17/2024 1:20 AM INTERNAL MEDICINE NURSE 03/17/2024 1:24 AM INTERNAL MEDICINE NURSE Narrative [facility] LABORATORY - 03/17/2024 1:48 AM INTERNAL MEDICINE NURSE Urine Culture ordered based on laboratory criteria Dyllan Anne MD LAB - URINE ORDERABLES Final Result [facility] LABORATORY [facility] [address] Lab (1st floor, no room number) [place] [address] * Urine Culture (03/17/2024 1:20 AM INTERNAL MEDICINE NURSE) Culture <10,000 CFU/mL Mixture of Urogenital Prudence 03/18/2024 6:18 AM INTERNAL MEDICINE NURSE [facility] Urine URINE SPECIMEN OBTAINED BY CLEAN CATCH PROCEDURE / Unknown Non-blood Collection / Unknown 03/17/2024 1:20 AM INTERNAL MEDICINE NURSE 03/17/2024 1:47 AM INTERNAL MEDICINE NURSE Dyllan Anne MD LAB - MICRO GENERAL ORDERABL ES Final Result [facility]ORAT[facility] Inf. Diseases Diag. Lab [address] [facility], [address] [place] [address] * (ABNORMAL) Influenza A/B, RSV and SARS-CoV2 PCR (COVID-19) Nasopharyngeal (03/16/2024 6:33 PM INTERNAL MEDICINE NURSE) Influenza A PCR Positive(A) Negative 03/16/2024 7:25 PM INTERNAL MEDICINE NURSE LABORATORY Influenza B PCR Negative Negative 03/16/2024 7:25 PM INTERNAL MEDICINE NURSE [facility] LABORAT[facility] RSV PCR Negative Negative 03/16/2024 7:25 PM INTERNAL MEDICINE NURSE [facility] SARS CoV2 PCR Negative Negative 03/16/2024 7:25 PM INTERNAL MEDICINE NURSE LABORATORY Comment:NEGATIVE: SARS-CoV-2 (COVID-19) RNA not detected, presumed negative. Swab NASOPHARYNGEAL STRUCTURE / Unknown Non-blood Collection / Unknown 03/16/2024 6:33 PM INTERNAL MEDICINE NURSE 03/16/2024 6:46 PM INTERNAL MEDICINE NURSE Narrative [facility] LABORATORY - 03/16/2024 7:25 PM INTERNAL MEDICINE NURSE Testing was performed using the Xpert Xpress CoV2/Flu/RSV Assay on the [employer] [place] GeneXpert Instrument. This test should be ordered [...] management. This test was validated by the [facility]. These laboratories are certified under the Clinical Laboratory Improvement Amendments of 1988 (CLIA-88) as qualified to perfom high complexity laboratory testing. Corona Moore DO LAB - MICRO GENERAL KAYLEIGH DEAL Final Result LABORATORY [facility] [address] [facility] (1st [facility], no room number) [place] [address], [facility] * (ABNORMAL) Troponin T, High Sensitivity (03/16/2024 6:15 PM INTERNAL MEDICINE NURSE) Only the most recent of2 resultswithin the time period is included. Troponin T, High Sensitivity 23(H) <=14 ng/L 03/16/2024 6:44 PM INTERNAL MEDICINE NURSE LABORATORY Comment: Either a High Sensitivity Troponin [...] Unknown Venipuncture / Unknown 03/16/2024 6:15 PM INTERNAL MEDICINE NURSE 03/16/2024 6:19 PM INTERNAL MEDICINE NURSE Corona Moore LAB - BLOOD ORDERABLES F inal Result [facility] [address] Lab (1st floor, no room number) [place] [phone] [place] [address] * Magnesium (03/16/2024 6:15 PM INTERNAL MEDICINE NURSE) Magnesium 1.9 1.7 - 2.3 mg/dL 03/16/2024 6:55 PM INTERNAL MEDICINE NURSE LABORATORY Blood BLOOD SPECIMEN / Unknown Venipuncture / Unknown 03/16/2024 6:15 PM INTERNAL MEDICINE NURSE 03/16/2024 6:19 PM INTERNAL MEDICINE NURSE Corona Moore LAB - BLOOD ORDERABLES F inal Result Performing Organization Address City/[facility]/ZIP Co de Phone Number [facility] [address] [facility] (1st floor, no room number) [place] [phone] [place] [address] * EKG 12-lead, tracing only (03/16/2024 2:34 PM INTERNAL MEDICINE NURSE) Systolic Blood Pressure mmHg RADIOLOGY RESULTS Diastolic Blood Pressure mmHg RADIOLOGY RESULTS Ventricular Rate 69 BPM RAD IOLOGY RESULTS Atrial Rate 69 BPM RADIOLOG Y RESULTS WV Interval 132 ms RADIOLOG Y RESULTS QRS Duration 94 ms RADIOLO GY RESULTS QT 438 ms RADIOLOGY RESULTS QTc 469 ms RADIOLOGY RESULTS P [place] 50 degrees RADIOLOGY RESULTS R AXIS 50 degrees RADIOLOGY RESULTS T [place] 63 degrees RADIOLOGY RESULTS Interpretation ECG Atrial-paced rhythm Abnormal ECG When compared with ECG of 09-Nov-2023 14:26, Electronic atrial pacemaker has replaced Sinus rhythm Unconfirmed report - interpretation of this ECG is computer generated - see medical record for final interpretation Confirmed by - EMERGENCY ROOM, PHYSICIAN ([id number]), film editor Donny Boland ([id number]) on 03/16/2024 2:48:44 PM RADIOLOGY RESULTS 03/16/2024 2:34 PM INTERNAL MEDICINE NURSE 03/16/2024 2:48 PM INTERNAL MEDICINE NURSE Arnoldo Baxter MD ECG ORDERABLES Edited Re sult - Final Performing Organization Address [facility] Co de Phone Number RADIOLOGY RESULTS * Extra Purple Top Tube (03/16/2024 2:08 PM INTERNAL MEDICINE NURSE) Hold Specimen [facility] 03/16/2024 3:31 PM INTERNAL MEDICINE NURSE [facility] LABORATORY Blood STRUCTURE OF LEFT UPPER LIMB / Unknown Venipuncture / Unknown 03/16/2024 2:08 PM INTERNAL MEDICINE NURSE 03/16/2024 2:25 PM INTERNAL MEDICINE NURSE [place] Giraldo Teresa DO LAB - BLOOD ORDERABLES F inal Result Performing Organization Address [facility] de Phone Number [facility] [address] Lab (1st floor, no room number) [place] [address], [facility] * Extra Red Top Tube (03/16/2024 2:08 PM INTERNAL MEDICINE NURSE) Hold Specimen [facility] 03/16/2024 3:31 PM INTERNAL MEDICINE NURSE [facility] LABORAT[facility] Blood STRUCTURE OF LEFT UPPER LIMB / Unknown Venipuncture / Unknown 03/16/2024 2:08 PM INTERNAL MEDICINE NURSE 03/16/2024 2:25 PM INTERNAL MEDICINE NURSE Corona Moore DO LAB - BLOOD ORDERABLES F inal Result Performing Organization Address [facility] de Phone Number [facility] [address] Lab (1st floor, no room number) [place] [address], [facility] * Extra Blue Top Tube (03/16/2024 2:08 PM INTERNAL MEDICINE NURSE) Hold Specimen [facility] 03/16/2024 3:31 PM INTERNAL MEDICINE NURSE [facility] LABORATORY Blood STRUCTURE OF LEFT UPPER LIMB / Unknown Venipuncture / Unknown 03/16/2024 2:08 PM INTERNAL MEDICINE NURSE 03/16/2024 2:25 PM INTERNAL MEDICINE NURSE us Corona Giraldo Moore DO LAB - BLOOD ORDERABLES F inal Result LABORATORY [facility] [address] [facility] Lab (1st floor, no room number) [place] [address], [facility] * (ABNORMAL) Basic metabolic panel (03/16/2024 2:08 PM INTERNAL MEDICINE NURSE) Sodium 131(L) 135 - 145 mmol/L 03/16/2024 2:50 PM INTERNAL MEDICINE NURSE LABORATORY Potassium 3.9 3.4 - 5.3 mmol/L 03/16/2024 2:50 PM [facility] Chloride 95(L) 98 - 107 mmol/L 03/16/2024 2:50 PM [facility] Carbon Dioxide (CO2) 20(L) 22 - 29 mmol/L 03/16/2024 2:50 PM [facility] Anion Gap 16(H) 7 - 15 mmol/L 03/16/2024 2:50 PM [facility] Urea Nitrogen 15.1 8.0 - 23.0 mg/dL 03/16/2024 2:50 PM INTERNAL MEDICINE NURSE LABORATORY Creatinine 0.83 0.51 - 0.95 mg/dL 03/16/2024 2:50 PM [facility] GFR Estimate 70 >60 mL/min/1.7 3m2 03/16/2024 2:50 PM [facility] Comment:eGFR calculated usin 2020 CKD-EPI equation. Calcium 8.8 8.8 - 10.4 mg/dL 03/16/2024 2:50 PM [facility] Comment:Reference intervals for this test were updated on 09/24/2023 to reflect our healthy population more accurately. There may be differences in the flagging of prior results with similar values performed with this method. Those prior results can be interpreted in the context of the updated reference intervals. Glucose 118(H) 70 - 99 mg/dL 03/16/2024 2:50 PM [facility] Blood STRUCTURE OF LEFT UPPER LIMB / Unknown Venipuncture / Unknown 03/16/2024 2:08 PM INTERNAL MEDICINE NURSE 03/16/2024 2:25 PM INTERNAL MEDICINE NURSE us Corona Moore DO LAB - BLOOD ORDERABLES F inal Result LABORATORY [facility] [address] Lab (1st floor, no room number) [place] [address], [facility] * Lab Result - HIM Scan (03/03/2024 12:00 AM INTERNAL MEDICINE NURSE) 03/03/2024 Provider Outside NON-BEAKER LAB TESTING Final [...] BLOOD ORDERABLES Final Res ult [facility] LAB[facility]ATORY [facility] [place] [facility] [address] [facility] [address] [facility], [address] [address] from Last 3 Months or Most Recently Relevant to Health Maintenance Additional Health Concerns Infection Onset Date Last Indicated Influenza 03/16/2024 03/16/2024 Insurance MEDICARE [facility] MEDICARE AARP Advance Directives For more information, please contact: [phone] * Full Code (Latest Code Status on [...] patie nt/ legal decision maker Care Teams Percussion Instrument Tuner Relationship Specialty Start Date End Date System, Provider Not In PCP - General Clinic 11/09/17 Seema Boateng APRN COMMERCIAL PHOTOGRAPHER [address] [id number] Nurse Practitioner Cardiovascular Disease 11/22/22 Steph Jovel PA-C [address] [place] [address] Assigned Heart and Vascular Provider 12/29/22
--- OUTSIDE RECORDS SUMMARY | 2024-03-21 10:13 | XMS_ITS | Clinical Summary ---
Author Organization [facility] Address [address] [place] [address] Care Team Providers Care Carpenter Railcar Name Role Phone JameelKy moses MD Primary Care Provider Source Comments You are receiving this document as you are listed as the primary care provider,follow-up provider, or the patient has been referred to you for consultation.This is in compliance with the Medicare andOhio[facility] General Hospitalcaid EHR Incentive Program,which states Providers who transition their patient to another setting of careor provider of care or refers their patient to another provider of care shouldprovide summary care record for each transition of care or referral. [facility] Allerg[facility] Active Allergy Reactions Criticality Noted Date [...] 02/04/2021 Active cholecalciferol (VITAMIN D3) 1.25 MG (03165 UT) capsule Vitamin D3 2000 iu Active [...] Department Care Team Description 03/05/2024 10:40 AM HOSE HANDLER Ancillary Procedure [facility] [address] Radiology [address] [place] [address] Kushal Reddy MD Right knee pain, unspecified chronicity 03/05/2024 10:35 AM HOSE HANDLER Ancillary Procedure [facility] [address] [address] [address] [place] [address] Kushal Reddy MD Right knee pain, unspecified chronicity 03/05/2024 10:30 AM HOSE HANDLER Office Visit [facility] [address] [address] [address] [place] [address] Kushal Reddy MD Right knee pain, unspecified chronicity (Primary Dx); Primary osteoarthritis of right knee 12/31/2023 Telephone Endoscopy at [facility] [place] [address] [place] [address]. [place] [address] Dennys Mendez MD Follow-up from Last 3 Months Immunizations Name Administration Dates Next Due Flu Vac (3+ yrs) 11/30/2011, 1,12/06/2008,2007,01/13/2007,01/09/2006,12/14/1998 [id number] 03/08/2009 HepA Adult (19+ yrs) 03/11/2006,06/01/1998 HepA, Pediatric (DO NOT USE; for MIIC only) 06/01/1998 HepB Adult (Engerix-B, 20+ y rs, 3 dose series) 03/11/2006 IPV (Polio) 06/01/1998 Influenza ([place] Only) (Flul aval Quad 0.5, 3+ yrs) 11/10/2019 Influenza IIV3 (Trivalent) F wily Highdose, 65+ Yrs (51865) 11/10/2019,12/08/2018,12/14/2016,2015,12/05/2014,11/29/2013,01/06/2013 Influenza IIV4 (Quadrivalent ) Fluzone, 65+ [...] 68.9 kg (152 lb) 03/05/2024 10:27 AM HOSE HANDLER Height 166.4 cm (5' 5.5) 03/05/2024 10:27 AM CS T Body Mass Index 24.91 03/05/2024 10:27 AM HOSE HANDLER Plan of Treatment Health Maintenance Due Date [...] 1-2 VIEWS COMPARISON Routine 03/05/2024 10:48 AM HOSE HANDLER Right knee pain, unspecified chronicity XR KNEE RT 3 VIEWS Routine 03/05/2024 10 :48 AM HOSE HANDLER Right knee pain, unspecified chronicity from Last 3 Months Results * XR Knee Lt 1-2 Views Comparison (03/05/2024 10:48 AM HOSE HANDLER) Anatomical Region Laterality Modality Lower Extremity, Knee Digital Ra diography 03/05/2024 10:3 5 AM HOSE HANDLER Narrative 03/05/2024 11:18 AM HOSE HANDLER COMPARISON: None. FINDINGS: Right knee 3 views. [...] Knee Rt 3 Views (03/05/2024 10:48 AM HOSE HANDLER) Anatomical Region Laterality Modality Lower Extremity, Knee Digital Ra diography 03/05/2024 10:3 5 AM HOSE HANDLER Narrative 03/05/2024 11:18 AM HOSE HANDLER COMPARISON: None. FINDINGS: Right knee 3 views. [...] GD from Last 3 Months Care Teams Carpenter Railcar Relationship Specialty [place] [address] [place] [address] PCP - General Family Practice 11/21/17
--- OUTSIDE RECORDS SUMMARY | 2024-03-21 10:13 | XMS_ITS | Encounter Summary ---
Author Organization [place] Address [address] [place] [address]. [place] [address] Care Team Providers Care Bow Stapler Name Role Phone System, Provider Not In Primary Care Provider Un available Seema Boateng APRN RN BARIATRIC Unavailable [phone] Steph Jovel PA-C Unavailable [phone] Encounter Details Date Type Department Care Team [...] on file Legal Sex Female 3:18 AM DETAILER FURNITURE Gender Identity Not on file Sexual Orientation Not on file documented as of this encounter Plan of Treatment Not on file documented as of this encounter Visit Diagnoses Not on filedocumented in this encounter Additional Health Concerns Infection Onset Date Last Indicated Resolved Time Rule Out COVID-19 03/16/2024 03/16/2024 03/16/2024 7:25 PM DETAILER FURNITURE Influenza 03/16/2024 03/16/2024 documented as of this encounter Care Teams Bow Stapler Relationship Specialty Start Date End Date System, Provider Not In PCP - General Clinic 11/09/17 Seema Boateng APRN RN BARIATRIC [address] [address] Nurse Practitioner Cardiovascular Disease 11/22/22 Steph Jovel PA-C [address] [place] [id number] Assigned Heart and Vascular Provider 12/29/22 documented as of this encounter
--- OUTSIDE RECORDS SUMMARY | 2024-03-21 10:13 | XMS_ITS | Encounter Summary ---
Author Organization [facility] Address [address] [place] [address] [place] [address] Care Team Providers Care Toll Line Mechanic Name Role Phone Ky Jorgensen MD Primary Care Provider Reason for Visit * Procedure/Equipment (Routine) - Incomplete Specialty Diagnoses / Procedures Referred By Jennifer kincaid Referred To Contact Diagnoses Right knee pain, unspecified chronicity Procedures XR Knee Rt 3 Views Kushal Reddy MD [address] [facility] [place] [address] Referral ID Status Reason Start Date Expiration Date V isits Requested Visits Authorized [id number] Incomplete 03/05/2024 06/04/2025 1 1 Encounter Details Date Type Department Care Team (Late st Contact Info) Description 03/05/2024 10:35 AM ADMISSIONS GATE ATTENDANT Ancillary Procedure [facility] [address] Radiology [address] [place] [address] Kushal Reddy MD [address] [facility] [place] [phone] Right knee pain, unspecified chronicity Social History [...] 3 VIEWS Routine 03/05/2024 10 :48 AM ADMISSIONS GATE ATTENDANT Right knee pain, unspecified chronicity documented in this encounter Results * XR Knee Lt 1-2 Views Comparison (03/05/2024 10:48 AM ADMISSIONS GATE ATTENDANT) Anatomical Region Laterality Modality Lower Extremity, Knee Digital Ra diography 03/05/2024 10:3 5 AM ADMISSIONS GATE ATTENDANT Narrative 03/05/2024 11:18 AM ADMISSIONS GATE ATTENDANT COMPARISON: None. FINDINGS: Right knee 3 views. [...] Knee Rt 3 Views (03/05/2024 10:48 AM ADMISSIONS GATE ATTENDANT) Anatomical Region Laterality Modality Lower Extremity, Knee Digital Ra diography 03/05/2024 10:3 5 AM ADMISSIONS GATE ATTENDANT Narrative 03/05/2024 11:18 AM ADMISSIONS GATE ATTENDANT COMPARISON: None. FINDINGS: Right knee 3 views. [...] chronicity documented in this encounter Care Teams Toll Line Mechanic Relationship Specialty [place] [address] [place] [address] PCP - General Family Practice 11/21/17 documented as of this encounter
--- OUTSIDE RECORDS SUMMARY | 2024-03-21 10:13 | XMS_ITS | Encounter Summary ---
Author Organization [facility] Address [address] [place] [address] Care Team Providers Care Work Study Student Name Role Phone System, Provider Not In Primary Care Provider Un available Seema Boateng APRN AUTOMATION ANALYST Unavailable Steph Jovel PA-C Unavailable Reason for Visit * Reason Comments Flu Symptoms * Auth/Cert (Routine) Specialty Diagnoses / Procedures Referred By Jennifer kincaid Referred To Contact EMERGENCY MEDICINE Diagnoses Influenza A Vomiting and diarrhea Hyponatremia Chest heaviness [facility] Emergency Dept [address] [place] [address] Phone: tel: fax: Referral ID Status Reason Start Date Expiration Date Visits Re quested Visits Authorized [id number] 1 1 Encounter Details Date Type Department Care Team (Late st Contact Info) Description 03/16/2024 5:56 PM DOCTOR OF NATUROPATHIC MEDICINE - 03/17/2024 11:54 AM DOCTOR OF NATUROPATHIC MEDICINE Emergency [facility] Emergency Dept [address] [place] [address] Corona Moore DO [employer] [address] [facility] SANDRA HERNANDEZ [id number] Dyllan Anne MD [address] [place] [address] Mild intermittent asthma with exacerbation [...] in an abandoned building, in an overnight retirement, or couch-surfing.) Yes 11/09/2023 Are you worried [...] on file Legal Sex Female 3:18 AM DOCTOR OF NATUROPATHIC MEDICINE Gender Identity Not on file Sexual Orientation Not on file documented as of this encounter Last Filed Vital Signs Vital Sign Reading Time Taken Comments Blood Pressure 114/74 03/17/2024 8:35 AM DOCTOR OF NATUROPATHIC MEDICINE Pulse 89 03/17/2024 8:35 AM DOCTOR OF NATUROPATHIC MEDICINE Temperature 36.3 C (97.4 F) 03/17/2024 8:35 AM DOCTOR OF NATUROPATHIC MEDICINE Respiratory Rate 20 03/17/2024 8:35 AM DOCTOR OF NATUROPATHIC MEDICINE Oxygen Saturation 96% 03/17/2024 8:35 AM DOCTOR OF NATUROPATHIC MEDICINE Inhaled Oxygen Concentration - - Weight 65.8 kg (145 lb) 03/16/2024 1:54 PM DOCTOR OF NATUROPATHIC MEDICINE Height 165.1 cm (5' 5) 03/16/2024 1:54 PM DOCTOR OF NATUROPATHIC MEDICINE Body Mass Index 24.13 03/16/2024 1:54 PM DOCTOR OF NATUROPATHIC MEDICINE documented in this encounter Discharge Summaries * Leonard Giang MD - 03/17/2024 9:54 AM CST [facility] Hospitalist Discharge Summary Date of Admission: 03/16/2024 [...] minutes discharging this patient. Leonard Giang MD [facility] EMERGENCY DEPT [address] [facility] [address] Physical Exam Vital Signs: Temp: 97.4 ??F [...] Narrative EXAM: CT HEAD W/O CONTRAST LOCATION: [facility] DATE: 11/09/2023 INDICATION: Near syncope, dizziness COMPARISON: [...] EXAM: CTA HEAD NECK W CONTRAST LOCATION: [facility] DATE: 11/09/2023 INDICATION: Intermittent dizziness, near syncopal [...] Dr Gene López at 9:15 PM 11/09/2023 DOCTOR OF NATUROPATHIC MEDICINE/CDT. Echocardiogram Complete Value LVEF 65-70% Narrative [id number]^LANDAVERDE^[facility] Echocardiography Laboratory [address] [place] [address] Name: HALEY CROW : 1940 Study Date: 11/10/2023 08:45 AM Age: 83 yrs Gender: Female Patient Location: [facility] Reason For Study: Syncope Ordering Physician: JORDAN LANDAVERDE Referring Physician: System, Provider Not In Performed By: Jakcie Tirado RDCS BSA: 1.8 m2 Height: 65 [...] Comments) Dust Mite Extract Other (See Comments) OR OF NATUROPATHIC MEDICINE documented in this encounter Discharge Instructions * Discharge Instructions* Vilma Lepe RN - 03/17/2024 11:03 AM DOCTOR OF NATUROPATHIC MEDICINE OR OF NATUROPATHIC MEDICINE documented in this encounter Medications at Time [...] recommendations to medical team. Will complete orders. OR OF NATUROPATHIC MEDICINE documented in this encounter H&P Notes * Dyllan Anne MD - 03/16/2024 10:27 PM CST [facility] History and Physical - Hospitalist Service Date [...] Anticipated Tomorrow Dyllan Anne MD Hospitalist Service [facility] Securely message with [employer] (Hiper[employer] info) Text page via [facility] Paging/Directory Chief Complaint Weakness, cough, chest tightness, [...] 0.83 ANIONGAP 16* SAUD 8.8 GLC 118* OR OF NATUROPATHIC MEDICINE OR OF NATUROPATHIC MEDICINE documented in this encounter ED Notes * Vilma Lepe RN - 03/17/2024 11:25 AM CST Patient's After Visit Summary was reviewed with patient and/or family. Patient verbalized understanding of After Visit Summary, recommended follow up and was given an opportunity to ask questions. Discharge medications sent home with patient/family: YES Discharged with daughter OR OF NATUROPATHIC MEDICINE * Vilma Lepe RN - 03/17/2024 9:47 AM CST Pt was ambulated with pulse ox on, O2 went from 98%-96%. MD notified. OR OF NATUROPATHIC MEDICINE * Daniel Vega RN - 03/16/2024 9:26 PM CST Bed: ED25 Expected date: Expected time: Means of arrival: Comments: IN 6 OR OF NATUROPATHIC MEDICINE * Rosario Barth RN - 03/16/2024 8:46 PM CST [facility] ED Nurse Handoff Report ED Chief complaint: [...] 1. Lift room needed: No. Bariatric: No Supervisor Paint Roller Covers Needed: No Isolation: Yes. Infection: Not Applicable [...] Exposed to influenzaA by . Went to [facility], had labs and a chest xray done. [...] Nurse Name: Rosario Barth RN 8:46 PM OR OF NATUROPATHIC MEDICINE * Corona Moore, - 03/16/2024 6:03 PM [...] note from today as patient went to [facility]. Reviewed labs from Urgent Care (printed): WBC 14, HGB 11.6, CXR Atelectasis Past Medical History Medical History, Surgical History, Problem List, and Medications Reviewed in [facility] Physical Exam Patient Vitals for the past [...] Pressure Ventricular Rate 69 Atrial Rate 69 NE Interval 132 QRS Duration 94 QT 438 QTc 469 P [place] 50 R AXIS 50 T [place] 63 Interpretation ECG Atrial-paced rhythm Abnormal ECG [...] Professional Association Corona Moore DO 03/17/24 0245 OR OF NATUROPATHIC MEDICINE * Kirstin Vazquez RN - 03/16/2024 1:51 PM CST Pt presents for evaluation of a productive cough, chest tightness and weakness. Denies fever, chills or back pain. Feels like it's hard to take a deep breath. Exposed to influenza A by . Went to [facility], had labs and a chest xray done. Sent here due to lower BPs 90s/50s and for possible IV abx. OR OF NATUROPATHIC MEDICINE documented in this encounter Miscellaneous Notes * Plan of Care - Vilma Lepe RN - 03/17/2024 9:16 AM CST PRIMARY DIAGNOSIS: GENERIC NURSING OUTPATIENT/OBSERVATION GOALS TO BE MET BEFORE DISCHARGE: ADLs back to baseline: No Activity and level of assistance: Ax1 Pain status: Pain free. Return to near baseline physical activity: No Manager Construction Nurse Safe discharge environment identified: Yes Barriers [...] Progress: no changeOverall Patient Progress: no change OR OF NATUROPATHIC MEDICINE * Pharmacy-Admission Medication History - Tete Frye RPH - 03/17/2024 9:00 AM CST Pharmacist Admission Medication History Admission medication history is complete. The information provided in this note is only as accurateas the sources available at the time of the update. Information Source(s): Patient via in-person Pertinent Information: Changes made to LINE ERECTOR medication list: Added: None Deleted: zyrtec Changed: amlodipine, magnesium supplement Allergies reviewed with patient and updates made in EHR: yes Medication History Completed By: Tete Frye RPH 03/17/2024 9:00 AM LINE ERECTOR Med List Medication Sig Last Dose/Taking albuterol [...] 2,000 Units by mouth daily 03/16/2024 Morning OR OF NATUROPATHIC MEDICINE * Plan of Care - Humaira Dowd RN - 03/17/2024 6:11 AM CST [facility] ED Boarding Nurse Handoff Addendum Report: Date/time: [...] ED Boarding Nurse name: Humaira Dowd RN OR OF NATUROPATHIC MEDICINE documented in this encounter Plan of Treatment Not on file documented as of this encounter Procedures Procedure Name Priority Date/Time Associated Diagnosis Comments ROUTINE UA WITH MICROSCOPIC REFLEX TO CULTURE STAT 03/17/2024 1:20 AM DOCTOR OF NATUROPATHIC MEDICINE URINE CULTURE STAT 03/17/2024 1:20 AM DOCTOR OF NATUROPATHIC MEDICINE INFLUENZA A/B, RSV AND SARS-COV2 PCR STAT 03/16/2024 6:33 PM DOCTOR OF NATUROPATHIC MEDICINE TROPONIN T, HIGH SENSITIVITY STAT 03/16/2024 6:15 PM DOCTOR OF NATUROPATHIC MEDICINE MAGNESIUM STAT 03/16/2024 6:15 PM DOCTOR OF NATUROPATHIC MEDICINE EKG 12-LEAD, TRACING ONLY STAT 03/16/2024 2:34 PM DOCTOR OF NATUROPATHIC MEDICINE EXTRA TUBE STAT 03/16/2024 2:08 PM DOCTOR OF NATUROPATHIC MEDICINE EXTRA PURPLE TOP TUBE STAT 03/16/2024 2:08 PM DOCTOR OF NATUROPATHIC MEDICINE EXTRA RED TOP TUBE STAT 03/16/2024 2: 08 PM DOCTOR OF NATUROPATHIC MEDICINE EXTRA BLUE TOP TUBE STAT 03/16/2024 2 :08 PM DOCTOR OF NATUROPATHIC MEDICINE TROPONIN T, HIGH SENSITIVITY STAT 03/16/2024 2:08 PM DOCTOR OF NATUROPATHIC MEDICINE BASIC METABOLIC PANEL STAT 03/16/2024 2:08 PM DOCTOR OF NATUROPATHIC MEDICINE documented in this encounter Results * Urine Culture (03/17/2024 1:20 AM DOCTOR OF NATUROPATHIC MEDICINE) Pathologist [facility] Culture <10,000 CFU/mL Mixture of Urogenital Prudence 03/18/2024 6:18 AM DOCTOR OF NATUROPATHIC MEDICINE [facility] Urine URINE SPECIMEN OBTAINED BY CLEAN CATCH PROCEDURE / Unknown Non-blood Collection / Unknown 03/17/2024 1:20 AM DOCTOR OF NATUROPATHIC MEDICINE 03/17/2024 1:47 AM DOCTOR OF NATUROPATHIC MEDICINE Dyllan Anne MD LAB - MICRO GENERAL ORDERABL ES Final Result [facility] Inf. Diseases Diag. Lab [address] [facility], [address] [place] [id number] * (ABNORMAL) UA with Microscopic reflex to Culture (03/17/2024 1:20 AM DOCTOR OF NATUROPATHIC MEDICINE) Color Urine Yellow Colorless, Straw, Light Yellow, Yellow 03/17/2024 1:48 AM DOCTOR OF NATUROPATHIC MEDICINE LABORATORY Appearance Urine Slightly Cloudy(A) Clear 03/17/2024 1:48 AM DOCTOR OF NATUROPATHIC MEDICINE [facility] Glucose Urine Negative Negative mg/dL 03/17/2024 1:48 AM DOCTOR OF NATUROPATHIC MEDICINE [facility] Bilirubin Urine Negative Negative 1:48 AM DOCTOR OF NATUROPATHIC MEDICINE [facility] Ketones Urine Trace(A) Negative mg/dL 03/17/2024 1:48 AM DOCTOR OF NATUROPATHIC MEDICINE [facility] Specific [place] Urine 1.011 1.003 - 1.035 03/17/2024 1:48 AM DOCTOR OF NATUROPATHIC MEDICINE [facility] Blood Urine Moderate(A) Negative 03/17/2024 1:48 AM DOCTOR OF NATUROPATHIC MEDICINE LABORATORY pH Urine 6.0 5.0 - 7.0 03/17/2024 1:48 AM DOCTOR OF NATUROPATHIC MEDICINE [facility] Protein Albumin Urine 20(A) Negative mg/dL 03/17/2024 1:48 AM DOCTOR OF NATUROPATHIC MEDICINE LABORATORY Urobilinogen Urine Normal Normal, 2.0 mg/dL 03/17/2024 1:48 AM DOCTOR OF NATUROPATHIC MEDICINE [facility] Nitrite Urine Negative Negative 03/17/2024 1:48 AM DOCTOR OF NATUROPATHIC MEDICINE [facility] Leukocyte Esterase Urine Large(A) Negative 03/17/2024 1:48 AM DOCTOR OF NATUROPATHIC MEDICINE [facility] Bacteria Urine Few(A) None Seen /HPF 03/17/2024 1:48 AM DO[facility] OF NATUROPATHIC MEDICINE LABORATORY Mucus Urine Present(A) None Seen /LPF 03/17/2024 1:48 AM DOCTOR OF NATUROPATHIC MEDICINE [facility] RBC Urine 121(H) <=2 /HPF 03/17/2024 1:48 AM DOCTOR OF NATUROPATHIC MEDICINE [facility] WBC Urine 21(H) <=5 /HPF 03/17/2024 1:48 AM [facility] OF NATUROPATHIC MEDICINE LABORATORY Squamous Epithelials Urine 1 <=1 /HPF 03/17/2024 1:48 AM DOCTOR OF NATUROPATHIC MEDICINE [facility] Hyaline Casts Urine 1 <=2 /LPF 03/17/2024 1:48 AM DOCTOR OF NATUROPATHIC MEDICINE LABORATORY Urine URINE SPECIMEN OBTAINED BY CLEAN CATCH PROCEDURE / Unknown Non-blood Collection / Unknown 03/17/2024 1:20 AM DOCTOR OF NATUROPATHIC MEDICINE 03/17/2024 1:24 AM DOCTOR OF NATUROPATHIC MEDICINE Narrative [facility] - 03/17/2024 1:48 AM DOCTOR OF NATUROPATHIC MEDICINE Urine Culture ordered based on laboratory criteria us Dyllan Anne MD LAB - URINE ORDERABLES Final Result LABORATORY [facility] Acute Care Lab [address] [facility] (1st floor, no room number) [place] [address] * (ABNORMAL) Influenza A/B, RSV and SARS-CoV2 PCR (COVID-19) Nasopharyngeal (03/16/2024 6:33 PM DOCTOR OF NATUROPATHIC MEDICINE) Influenza A PCR Positive(A) Negative 03/16/2024 7:25 PM DOCTOR OF NATUROPATHIC MEDICINE LABORATORY Influenza B PCR Negative Negative 03/16/2024 7:25 PM DOCTOR OF NATUROPATHIC MEDICINE [facility] RSV PCR Negative Negative 03/16/2024 7:25 PM DOCTOR OF NATUROPATHIC MEDICINE LABORATORY SARS CoV2 PCR Negative Negative 03/16/2024 7:25 PM DOCTOR OF NATUROPATHIC MEDICINE LABORATORY Comment:NEGATIVE: SARS-CoV-2 (COVID-19) RNA not detected, presumed negative. Swab NASOPHARYNGEAL STRUCTURE / Unknown Non-blood Collection / Unknown 03/16/2024 6:33 PM DOCTOR OF NATUROPATHIC MEDICINE 03/16/2024 6:46 PM DOCTOR OF NATUROPATHIC MEDICINE Narrative LABORATORY - 03/16/2024 7:25 PM DOCTOR OF NATUROPATHIC MEDICINE Testing was performed using the Xpert Xpress CoV2/Flu/RSV Assay on the [employer] mobile GeneXpert Instrument. This test should be ordered [...] management. This test was validated by the [facility] [employer]. These laboratories are certified under the Clinical Laboratory Improvement Amendments of 1988 (CLIA-88) as qualified to perfom high complexity laboratory testing. Corona Moore DO LAB - MICRO GENERAL ORDE RABLES Final Result [facility] Care Lab [address] [facility] (1st floor, no room number) [place] [address], [facility] * Magnesium (03/16/2024 6:15 PM DOCTOR OF NATUROPATHIC MEDICINE) Magnesium 1.9 1.7 - 2.3 mg/dL 03/16/2024 6:55 PM DOCTOR OF NATUROPATHIC MEDICINE LABORATORY Blood BLOOD SPECIMEN / Unknown Venipuncture / Unknown 03/16/2024 6:15 PM DOCTOR OF NATUROPATHIC MEDICINE 03/16/2024 6:19 PM DOCTOR OF NATUROPATHIC MEDICINE Corona Moore DO LAB - BLOOD ORDERABLES F inal Result [facility] Acute Care Lab [address] Lab (1st floor, no room number) [place] [address], [facility] * (ABNORMAL) Troponin T, High Sensitivity (03/16/2024 6:15 PM DOCTOR OF NATUROPATHIC MEDICINE) Troponin T, High Sensitivity 23(H) <=14 ng/L 03/16/2024 6:44 PM DOCTOR OF NATUROPATHIC MEDICINE LABORATORY Comment: Either a High Sensitivity Troponin [...] Unknown Venipuncture / Unknown 03/16/2024 6:15 PM DOCTOR OF NATUROPATHIC MEDICINE 03/16/2024 6:19 PM DOCTOR OF NATUROPATHIC MEDICINE us Corona Moore DO LAB - BLOOD ORDERABLES F inal Result LABORATORY [facility] [address] [facility] floor, no room number) [place] [address], [facility] * EKG 12-lead, tracing only (03/16/2024 2:34 PM DOCTOR OF NATUROPATHIC MEDICINE) Pathologist [facility] Systolic Blood Pressure mmHg RADIOLOGY RESULTS Diastolic Blood Pressure mmHg RADIOLOGY RESULTS Ventricular Rate 69 BPM RAD IOLOGY RESULTS Atrial Rate 69 BPM RADIOLOG Y RESULTS NE Interval 132 ms RADIOLOG Y RESULTS QRS Duration 94 ms RADIOLO GY RESULTS QT 438 ms RADIOLOGY RESULTS QTc 469 ms RADIOLOGY RESULTS P [place] 50 degrees RADIOLOGY RESULTS R AXIS 50 degrees RADIOLOGY RESULTS T [place] 63 degrees RADIOLOGY RESULTS Interpretation ECG Atrial-paced rhythm Abnormal ECG When compared with ECG of 09-Nov-2023 14:26, Electronic atrial pacemaker has replaced Sinus rhythm Unconfirmed report - interpretation of this ECG is computer generated - see medical record for final interpretation Confirmed by - EMERGENCY ROOM, PHYSICIAN ([id number]), scientific editor Donny Boland ([id number]) on 03/16/2024 2:48:44 PM RADIOLOGY RESULTS 03/16/2024 2:34 PM DOCTOR OF NATUROPATHIC MEDICINE 03/16/2024 2:48 PM DOCTOR OF NATUROPATHIC MEDICINE Arnoldo Baxter MD ECG ORDERABLES Edited Re sult - Final RADIOLOGY RESULTS * Extra Purple Top Tube (03/16/2024 2:08 PM DOCTOR OF NATUROPATHIC MEDICINE) Hold Specimen [facility] 03/16/2024 3:31 PM DOCTOR OF NATUROPATHIC MEDICINE LABORATORY Blood STRUCTURE OF LEFT UPPER LIMB / Unknown Venipuncture / Unknown 03/16/2024 2:08 PM DOCTOR OF NATUROPATHIC MEDICINE 03/16/2024 2:25 PM DOCTOR OF NATUROPATHIC MEDICINE Corona Moore DO LAB - BLOOD ORDERABLES F inal Result Performing Organization Address [facility] de Phone Number [facility] Lab [address] Lab (1st floor, no room number) [place] [phone] * Extra Red Top Tube (03/16/2024 2:08 PM DOCTOR OF NATUROPATHIC MEDICINE) Hold Specimen [facility] 03/16/2024 3:31 PM DOCTOR OF NATUROPATHIC MEDICINE LABORATORY Blood STRUCTURE OF LEFT UPPER LIMB / Unknown Venipuncture / Unknown 03/16/2024 2:08 PM DOCTOR OF NATUROPATHIC MEDICINE 03/16/2024 2:25 PM DOCTOR OF NATUROPATHIC MEDICINE Corona Moore DO LAB - BLOOD ORDERABLES F inal Result Performing Organization Address City/[facility] Co de Phone Number [facility] Lab [address] Lab (1st floor, no room number) [place] [address] * Extra Blue Top Tube (03/16/2024 2:08 PM DOCTOR OF NATUROPATHIC MEDICINE) Hold Specimen [facility] 03/16/2024 3:31 PM DOCTOR OF NATUROPATHIC MEDICINE LABORATORY Blood STRUCTURE OF LEFT UPPER LIMB / Unknown Venipuncture / Unknown 03/16/2024 2:08 PM DOCTOR OF NATUROPATHIC MEDICINE 03/16/2024 2:25 PM DOCTOR OF NATUROPATHIC MEDICINE Corona Moore LAB - BLOOD ORDERABLES F inal Result Performing Organization Address City/[facility]/ZIP Co de Phone Number [facility] [address] Lab (1st floor, no room number) [place] [address] * (ABNORMAL) Troponin T, High Sensitivity (03/16/2024 2:08 PM DOCTOR OF NATUROPATHIC MEDICINE) [facility] Troponin T, High Sensitivity 24(H) <=14 ng/L 03/16/2024 2:50 PM DOCTOR OF NATUROPATHIC MEDICINE LABORATORY Comment: Either a High Sensitivity Troponin [...] Unknown Venipuncture / Unknown 03/16/2024 2:08 PM DOCTOR OF NATUROPATHIC MEDICINE 03/16/2024 2:25 PM DOCTOR OF NATUROPATHIC MEDICINE Corona Moore LAB - BLOOD ORDERABLES F inal Result [facility] [address] Lab (1st floor, no room number) [place] [address], [facility] * (ABNORMAL) Basic metabolic panel (03/16/2024 2:08 PM DOCTOR OF NATUROPATHIC MEDICINE) Sodium 131(L) 135 - 145 mmol/L 03/16/2024 2:50 PM [facility]IC[facility] LABORATORY Potassium 3.9 3.4 - 5.3 mmol/L 03/16/2024 2:50 PM [facility]IC[facility] LABORATORY Chloride 95(L) 98 - 107 mmol/L 03/16/2024 2:50 PM [facility]UROP[facility] MEDIC[facility] LABORATORY Carbon Dioxide (CO2) 20(L) 22 - 29 mmol/L 03/16/2024 2:50 PM [facility] Anion Gap 16(H) 7 - 15 mmol/L 03/16/2024 2:50 PM [facility]UROPATH[facility] MEDICINE LABORATORY Urea Nitrogen 15.1 8.0 - 23.0 mg/dL 03/16/2024 2:50 PM [facility]UROP[facility]IC[facility] LABORATORY Creatinine 0.83 0.51 - 0.95 mg/dL 03/16/2024 2:50 PM [facility]IC[facility] LABORATORY GFR Estimate 70 >60 mL/min/1.7 3m2 03/16/2024 2:50 PM [facility]UROP[facility]IC[facility] LABORATORY Comment:eGFR calculated usin g 2020 CKD-EPI equation. Calcium 8.8 8.8 - 10.4 mg/dL 03/16/2024 2:50 PM [facility] Comment:Reference intervals for this test were updated on 09/24/2023 to reflect our healthy population more accurately. There may be differences in the flagging of prior results with similar values performed with this method. Those prior results can be interpreted in the context of the updated reference intervals. Glucose 118(H) 70 - 99 mg/dL 03/16/2024 2:50 PM [facility] Blood STRUCTURE OF LEFT UPPER LIMB / Unknown Venipuncture / Unknown 03/16/2024 2:08 PM DOCTOR OF NATUROPATHIC MEDICINE 03/16/2024 2:25 PM DOCTOR OF NATUROPATHIC MEDICINE us Corona Moore DO LAB - BLOOD ORDERABLES F inal Result LABORATORY [facility] Lab [address] [facility] Lab (1st floor, no room number) [place] [address], [facility] documented in this encounter Visit Diagnoses Diagnosis [...] exceed 4 grams/day. $Given 03/16/2024 10:43 PM DOCTOR OF NATUROPATHIC MEDICINE 650 mg albuterol (PROVENTIL) neb solution 2.5 mg 2.5 mg, Nebulization, ONCE, On Sat03/16/24 at 2215, For 1 dose $Given 03/16/2024 10:44 PM DOCTOR OF NATUROPATHIC MEDICINE 2.5 mg amLODIPine (NORVASC) tablet 7.5 mg 7.5 mg, Oral, DAILY, First dose (after last modification) on Sat03/17/24 at 0930, Hold for SBP < 110 $Given 03/17/2024 11:09 AM DOCTOR OF NATUROPATHIC MEDICINE 7.5 mg aspirin EC tablet 81 mg 81 mg, Oral, DAILY, First dose on Sat03/17/24 at 0935, DO NOT CRUSH. $Given 03/17/2024 11:09 AM DOCTOR OF NATUROPATHIC MEDICINE 81 mg benzonatate (TESSALON) capsule 100 mg 100 mg, Oral, 3 TIMES DAILY PRN, cough, Starting on Sat03/16/24 at 2214, Swallow whole. Do not chew, crush or break. $Given 03/16/2024 10:43 PM DOCTOR OF NATUROPATHIC MEDICINE 100 mg enoxaparin ANTICOAGULANT (LOVENOX) injection 40 mg 40 mg, Subcutaneous, EVERY 24 HOURS, First dose on Sat03/17/24 at 0900, Contact provider if platelet count drops by 50% or more after enoxaparin initiation OR if platelet count falls below 50 x 10e3/uL $Given 03/17/2024 9:03 AM DO[facility] OF NATUROPATHIC MEDICINE 40 mg guaiFENesin-codeine (ROBITUSSIN AC) 100-10 MG/5ML solution 10 mL 10 mL, Oral, ONCE, On Sat03/16/24 at 2215, For 1 dose $Given 03/16/2024 10:41 PM DO[facility] OF NATUROPATHIC MEDICINE 10 mLs guaiFENesin-codeine (ROBITUSSIN AC) 100-10 MG/5ML solution 5-10 mL 5-10 mL, Oral, EVERY 4 HOURS PRN, cough, Starting on Sat03/16/24 at 2214 $Given 03/17/2024 5:22 AM DO[facility] OF NATUROPATHIC MEDICINE 10 mLs $Given 03/16/2024 10:43 PM DOCTOR OF NATUROPATHIC MEDICINE 10 mLs hydrALAZINE (APRESOLINE) injection 10 mg [...] at 2110 $New Bag 03/16/2024 10:12 PM DOCTOR OF NATUROPATHIC MEDICINE 125 mL/hr lactated ringers infusion at 100 mL/hr, Intravenous, CONTINUOUS, Starting on Sat03/16/24 at 2215, Until Sat03/17/24 at 0814 $New Bag 03/17/2024 6:38 AM DO[facility] OF NATUROPATHIC MEDICINE 100 mL/hr magnesium oxide (MAG-OX) tablet 400 mg 400 mg, Oral, DAILY, First dose on Sat03/17/24 at 0935 $Given 03/17/2024 11:09 AM DO[facility] OF NATUROPATHIC MEDICINE 400 mg ondansetron (ZOFRAN ODT) ODT tab [...] DO NOT CRUSH $Given 03/17/2024 11:09 AM DO[facility] OF NATUROPATHIC MEDICINE 20 mEq predniSONE (DELTASONE) tablet 40 mg 40 mg, Oral, DAILY, First dose on Sat03/16/24 at 2215 $Given 03/17/2024 9:03 AM DO[facility] OF NATUROPATHIC MEDICINE 40 mg $Given 03/16/2024 10:43 PM DO[facility] OF NATUROPATHIC MEDICINE 40 mg prochlorperazine (COMPAZINE) injection 5 mg [...] Recently Administered Medications Times are shown in [facility]. Scheduled Medication Order 03/15/2024 03/16/2024 03/17/2024 albuterol [...] Humaira Dowd RN) 0903 ($Given - Provider: Vimla Lepe, HUSSEIN) rosuvastatin (CRESTOR) tablet 10 mg [...] Out COVID-19 03/16/2024 03/16/2024 03/16/2024 7:25 PM [facility] Influenza 03/16/2024 03/16/2024 documented as of this encounter Care Teams Work Study Student Relationship Specialty Start Date End Date System, Provider Not In PCP - General Clinic 11/09/17 Seema Boateng, DEPUTY COUNTY CLERK AUTOMATION ANALYST [address] [address] Nurse Practitioner Cardiovascular Disease 11/22/22 Steph Jovel PA-C [address] [id number] Assigned Heart and Vascular Provider 12/29/22 documented as of this encounter
--- OUTSIDE RECORDS SUMMARY | 2024-03-21 10:13 | XMS_ITS | Clinical Summary ---
Author Organization [facility] Address [address] [place] [address] Care Team Providers Care [employer] Repairer Name Role Phone System, Provider Not In Primary Care Provider Un available Seema Boateng APRN RELIEF DRILLER Unavailable [phone] Steph Jovel PA-C Unavailable Allergies Active Allergy [...] Department Care Team Description 03/16/2024 5:56 PM SAAS ARCHITECT - 03/17/2024 11:54 AM SAAS ARCHITECT Emergency [facility] Emergency Dept [address] [place] [phone] Corona Moore DO Sebring, Daniel L, MD Mild intermittent asthma with exacerbation (Primary Dx); Influenza A; Vomiting and diarrhea; Hyponatremia; Chest heaviness Discharge Disposition: Home or Self Care 03/16/2024 Travel 12/20/2023 8:40 AM CDT Office Visit [facility] [place] [address] [address] [place] [phone] Steph Jovel PA-C Mitral valve stenosis, unspecified [...] in an abandoned building, in an overnight half-way, or couch-surfing.) Yes 11/09/2023 Are you worried [...] on file Legal Sex Female 3:18 AM SAAS ARCHITECT Gender Identity Not on file Sexual Orientation Not on file Last Filed Vital Signs Vital Sign Reading Time Taken Comments Blood Pressure 114/74 03/17/2024 8:35 AM SAAS ARCHITECT Pulse 89 03/17/2024 8:35 AM SAAS ARCHITECT Temperature 36.3 C (97.4 F) 03/17/2024 8:35 AM SAAS ARCHITECT Respiratory Rate 20 03/17/2024 8:35 AM SAAS ARCHITECT Oxygen Saturation 96% 03/17/2024 8:35 AM SAAS ARCHITECT Inhaled Oxygen Concentration - - Weight 65.8 kg (145 lb) 03/16/2024 1:54 PM SAAS ARCHITECT Height 165.1 cm (5' 5) 03/16/2024 1:54 PM SAAS ARCHITECT Body Mass Index 24.13 03/16/2024 1:54 PM SAAS ARCHITECT Plan of Treatment Health Maintenance Due Date [...] Comments URINE CULTURE STAT 03/17/2024 1:20 AM SAAS ARCHITECT ROUTINE UA WITH MICROSCOPIC REFLEX TO CULTURE STAT 03/17/2024 1:20 AM SAAS ARCHITECT INFLUENZA A/B, RSV AND SARS-COV2 PCR STAT 03/16/2024 6:33 PM SAAS ARCHITECT MAGNESIUM STAT 03/16/2024 6:15 PM SAAS ARCHITECT TROPONIN T, HIGH SENSITIVITY STAT 03/16/2024 6:15 PM SAAS ARCHITECT EKG 12-LEAD, TRACING ONLY STAT 03/16/2024 2:34 PM SAAS ARCHITECT EXTRA PURPLE TOP TUBE STAT 03/16/2024 2:08 PM SAAS ARCHITECT EXTRA RED TOP TUBE STAT 03/16/2024 2: 08 PM SAAS ARCHITECT EXTRA BLUE TOP TUBE STAT 03/16/2024 2 :08 PM SAAS ARCHITECT EXTRA TUBE STAT 03/16/2024 2:08 PM SAAS ARCHITECT TROPONIN T, HIGH SENSITIVITY STAT 03/16/2024 2:08 PM SAAS ARCHITECT BASIC METABOLIC PANEL STAT 03/16/2024 2:08 PM SAAS ARCHITECT LAB RESULT - HIM SCAN 03/03/2024 12:00 AM SAAS ARCHITECT LIPID REFLEX TO DIRECT LDL PANEL Add-On 11/09/2023 7:31 PM CDT from Last 3 Months or Most Recently Relevant to Health Maintenance Results * (ABNORMAL) UA with Microscopic reflex to Culture (03/17/2024 1:20 AM SAAS ARCHITECT) Color Urine Yellow Colorless, Straw, Light Yellow, Yellow 03/17/2024 1:48 AM SAAS ARCHITECT [facility] Appearance Urine Slightly Cloudy(A) Clear 03/17/2024 1:48 AM SAAS ARCHITECT [facility] Glucose Urine Negative Negative mg/dL 03/17/2024 1:48 AM SAAS ARCHITECT [facility] Bilirubin Urine Negative Negative 1:48 AM SAAS ARCHITECT LABORATORY Ketones Urine Trace(A) Negative mg/dL 03/17/2024 1:48 AM SAAS ARCHITECT LABORATORY Specific [place] Urine 1.011 1.003 - 1.035 03/17/2024 1:48 AM SAAS ARCHITECT LABORATORY Blood Urine Moderate(A) Negative 03/17/2024 1:48 AM SAAS ARCHITECT LABORATORY pH Urine 6.0 5.0 - 7.0 03/17/2024 1:48 AM SAAS ARCHITECT LABORATORY Protein Albumin Urine 20(A) Negative mg/dL 03/17/2024 1:48 AM SAAS ARCHITECT LABORATORY Urobilinogen Urine Normal Normal, 2.0 mg/dL 03/17/2024 1:48 AM SAAS ARCHITECT LABORATORY Nitrite Urine Negative Negative 03/17/2024 1:48 AM SAAS ARCHITECT LABORATORY Leukocyte Esterase Urine Large(A) Negative 03/17/2024 1:48 AM SAAS ARCHITECT LABORATORY Bacteria Urine Few(A) None Seen /HPF 03/17/2024 1:48 AM SAAS ARCHITECT LABORATORY Mucus Urine Present(A) None Seen /LPF 03/17/2024 1:48 AM SAAS ARCHITECT LABORATORY RBC Urine 121(H) <=2 /HPF 03/17/2024 1:48 AM SAAS ARCHITECT LABORATORY WBC Urine 21(H) <=5 /HPF 03/17/2024 1:48 AM SAAS ARCHITECT LABORATORY Squamous Epithelials Urine 1 <=1 /HPF 03/17/2024 1:48 AM SAAS ARCHITECT LABORATORY Hyaline Casts Urine 1 <=2 /LPF 03/17/2024 1:48 AM SAAS ARCHITECT LABORATORY Urine URINE SPECIMEN OBTAINED BY CLEAN CATCH PROCEDURE / Unknown Non-blood Collection / Unknown 03/17/2024 1:20 AM SAAS ARCHITECT 03/17/2024 1:24 AM SAAS ARCHITECT Narrative LABORATORY - 03/17/2024 1:48 AM SAAS ARCHITECT Urine Culture ordered based on laboratory criteria us Dyllan Anne MD LAB - URINE ORDERABLES Final Result LABORATORY [facility] [address] Lab (1st floor, no room number) [place] [address], [facility] * Urine Culture (03/17/2024 1:20 AM SAAS ARCHITECT) Culture <10,000 CFU/mL Mixture of Urogenital Prudence 03/18/2024 6:18 AM SAAS ARCHITECT [facility] Urine URINE SPECIMEN OBTAINED BY CLEAN CATCH PROCEDURE / Unknown Non-blood Collection / Unknown 03/17/2024 1:20 AM SAAS ARCHITECT 03/17/2024 1:47 AM SAAS ARCHITECT us Dyllan Anne MD LAB - MICRO GENERAL ORDERABL ES Final Result [facility] LABORATORY [facility] Inf. Diseases Diag. Lab [address] [place] [address] * (ABNORMAL) Influenza A/B, RSV and SARS-CoV2 PCR (COVID-19) Nasopharyngeal (03/16/2024 6:33 PM SAAS ARCHITECT) Influenza A PCR Positive(A) Negative 03/16/2024 7:25 PM SAAS ARCHITECT [facility] LAB[facility] Influenza B PCR Negative Negative 03/16/2024 7:25 PM SAAS ARCHITECT [facility] RSV PCR Negative Negative 03/16/2024 7:25 PM SAAS ARCHITECT [facility] SARS CoV2 PCR Negative Negative 03/16/2024 7:25 PM SAAS ARCHITECT LABORATORY Comment:NEGATIVE: SARS-CoV-2 (COVID-19) RNA not detected, presumed negative. Swab NASOPHARYNGEAL STRUCTURE / Unknown Non-blood Collection / Unknown 03/16/2024 6:33 PM SAAS ARCHITECT 03/16/2024 6:46 PM SAAS ARCHITECT Narrative [facility] LABORATORY - 03/16/2024 7:25 PM SAAS ARCHITECT Testing was performed using the Xpert Xpress CoV2/Flu/RSV Assay on the [employer] GeneXpert Instrument. This test should be ordered [...] management. This test was validated by the [facility]. These laboratories are certified under the Clinical Laboratory Improvement Amendments of 1988 (CLIA-88) as qualified to perfom high complexity laboratory testing. Corona Moore DO LAB - MICRO GENERAL ORDE RABLES Final Result Performing Organization Address [facility]/ZIP Co de Phone Number [facility] [address] [employer] Lab (1st floor, no room number) [place] [address], [facility] * (ABNORMAL) Troponin T, High Sensitivity (03/16/2024 6:15 PM SAAS ARCHITECT) Only the most recent of2 resultswithin the time period is included. [facility] Troponin T, High Sensitivity 23(H) <=14 ng/L 03/16/2024 6:44 PM SAAS ARCHITECT LABORATORY Comment: Either a High Sensitivity Troponin [...] Unknown Venipuncture / Unknown 03/16/2024 6:15 PM SAAS ARCHITECT 03/16/2024 6:19 PM SAAS ARCHITECT Corona Moore DO LAB - BLOOD ORDERABLES F inal Result Performing Organization Address [facility]/ZIP Co de Phone Number [facility] [address] Lab (1st floor, no room number) [place] [address] * Magnesium (03/16/2024 6:15 PM SAAS ARCHITECT) Magnesium 1.9 1.7 - 2.3 mg/dL 03/16/2024 6:55 PM SAAS ARCHITECT [facility] LABORATORY Blood BLOOD SPECIMEN / Unknown Venipuncture / Unknown 03/16/2024 6:15 PM SAAS ARCHITECT 03/16/2024 6:19 PM SAAS ARCHITECT Corona Moore DO LAB - BLOOD ORDERABLES F inal Result LABORATORY [facility] [address] Lab (1st floor, no room number) [place] [address] * EKG 12-lead, tracing only (03/16/2024 2:34 PM SAAS ARCHITECT) Systolic Blood Pressure mmHg RADIOLOGY RESULTS Diastolic Blood Pressure mmHg RADIOLOGY RESULTS Ventricular Rate 69 BPM RAD IOLOGY RESULTS Atrial Rate 69 BPM RADIOLOG Y RESULTS UT Interval 132 ms RADIOLOG Y RESULTS QRS Duration 94 ms RADIOLO GY RESULTS QT 438 ms RADIOLOGY RESULTS QTc 469 ms RADIOLOGY RESULTS P Sloan 50 degrees RADIOLOGY RESULTS R AXIS 50 degrees RADIOLOGY RESULTS T Sloan 63 degrees RADIOLOGY RESULTS Interpretation ECG Atrial-paced rhythm Abnormal ECG When compared with ECG of 09-Nov-2023 14:26, Electronic atrial pacemaker has replaced Sinus rhythm Unconfirmed report - interpretation of this ECG is computer generated - see medical record for final interpretation Confirmed by - EMERGENCY ROOM, PHYSICIAN ([id number]), movie editor Donny Boland ([id number]) on 03/16/2024 2:48:44 PM RADIOLOGY RESULTS 03/16/2024 2:34 PM SAAS ARCHITECT 03/16/2024 2:48 PM SAAS ARCHITECT Arnoldo Baxter MD ECG ORDERABLES Edited Re allisont - Final RADIOLOGY RESULTS * Extra Purple Top Tube (03/16/2024 2:08 PM SAAS ARCHITECT) Hold Specimen JIC 03/16/2024 3:31 PM SAAS ARCHITECT [facility] Blood STRUCTURE OF LEFT UPPER LIMB / Unknown Venipuncture / Unknown 03/16/2024 2:08 PM SAAS ARCHITECT 03/16/2024 2:25 PM SAAS ARCHITECT Corona Moore LAB - BLOOD ORDERABLES F inal Result Performing Organization Address City/[facility]/ZIP Co de Phone Number [facility] [address] Lab (1st floor, no room number) [place] [address] * Extra Red Top Tube (03/16/2024 2:08 PM SAAS ARCHITECT) Hold Specimen [facility] 03/16/2024 3:31 PM SAAS ARCHITECT [facility] LAB[facility]AT[facility] Blood STRUCTURE OF LEFT UPPER LIMB / Unknown Venipuncture / Unknown 03/16/2024 2:08 PM SAAS ARCHITECT 03/16/2024 2:25 PM SAAS ARCHITECT Corona Moore LAB - BLOOD ORDERABLES F inal Result Performing Organization Address [facility]/ZIP Co de Phone Number [facility] [address] Lab (1st floor, no room number) [place] [address], [facility] * Extra Blue Top Tube (03/16/2024 2:08 PM SAAS ARCHITECT) Hold Specimen [facility] 03/16/2024 3:31 PM SAAS ARCHITECT [facility] LAB[facility]AT[facility] Blood STRUCTURE OF LEFT UPPER LIMB / Unknown Venipuncture / Unknown 03/16/2024 2:08 PM SAAS ARCHITECT 03/16/2024 2:25 PM SAAS ARCHITECT Corona Moore LAB - BLOOD ORDERABLES F inal Result Performing Organization Address City/[facility]/ZIP Co de Phone Number [facility] [address] Lab (1st floor, no room number) [place] [address], [facility] * (ABNORMAL) Basic metabolic panel (03/16/2024 2:08 PM SAAS ARCHITECT) Sodium 131(L) 135 - 145 mmol/L 03/16/2024 2:50 PM SAAS ARCHITECT LABORATORY Potassium 3.9 3.4 - 5.3 mmol/L 03/16/2024 2:50 PM SAAS ARCHITECT LABORATORY Chloride 95(L) 98 - 107 mmol/L 03/16/2024 2:50 PM SAAS ARCHITECT LABORATORY Carbon Dioxide (CO2) 20(L) 22 - 29 mmol/L 03/16/2024 2:50 PM SAAS ARCHITECT LABORATORY Anion Gap 16(H) 7 - 15 mmol/L 03/16/2024 2:50 PM SAAS ARCHITECT LABORATORY Urea Nitrogen 15.1 8.0 - 23.0 mg/dL 03/16/2024 2:50 PM SAAS ARCHITECT LABORATORY Creatinine 0.83 0.51 - 0.95 mg/dL 03/16/2024 2:50 PM SAAS ARCHITECT LABORATORY GFR Estimate 70 >60 mL/min/1.7 3m2 03/16/2024 2:50 PM SAAS ARCHITECT LABORATORY Comment:eGFR calculated usin 2020 CKD-EPI equation. Calcium 8.8 8.8 - 10.4 mg/dL 03/16/2024 2:50 PM [facility] Comment:Reference intervals for this test were updated on 09/24/2023 to reflect our healthy population more accurately. There may be differences in the flagging of prior results with similar values performed with this method. Those prior results can be interpreted in the context of the updated reference intervals. Glucose 118(H) 70 - 99 mg/dL 03/16/2024 2:50 PM SAAS ARCHITECT LABORATORY Blood STRUCTURE OF LEFT UPPER LIMB / Unknown Venipuncture / Unknown 03/16/2024 2:08 PM SAAS ARCHITECT 03/16/2024 2:25 PM SAAS ARCHITECT Corona Moore DO LAB - BLOOD ORDERABLES F inal Result LABORATORY [facility] [address] [facility] Lab (1st floor, no room number) [place] [address], [facility] * Lab Result - HIM Scan (03/03/2024 12:00 AM SAAS ARCHITECT) 03/03/2024 us Provider Outside NON-BEAKER LAB TESTING [...] BLOOD ORDERABLES Final Res ult UU LABORATORY [facility] [address], [address] [place] [address], [facility] from Last 3 Months or Most Recently Relevant to Health Maintenance Additional Health Concerns Infection Onset Date Last Indicated Influenza 03/16/2024 03/16/2024 Insurance MEDICARE [facility] MEDICARE [facility] Advance Directives For more information, please contact: [phone] * Full Code (Latest Code Status on [...] patie nt/ legal decision maker Care Teams [employer] Repairer Relationship Specialty Start Date End Date System, Provider Not In PCP - General Clinic 11/09/17 Seema Boateng APRN RELIEF DRILLER [address] [place] [id number] Nurse Practitioner Cardiovascular Disease 11/22/22 Steph Jovel PA-C [address] [place] [address] Assigned Heart and Vascular Provider 12/29/22
--- OUTSIDE RECORDS SUMMARY | 2024-03-21 10:14 | XMS_ITS ---
Author Organization [facility] Address [address] [place] [address] Care Team Providers Care Resolution Specialist Name Role Phone Unavailable Unavailable Unavailable Surgery Details Not on file Complications Check Surgery Details section. Procedure Estimated Blood Loss Check Surgery Details section. Procedure Findings Check Surgery Details section. Procedure Specimens Taken Check Surgery Details section.
--- OUTSIDE RECORDS SUMMARY | 2024-03-21 10:14 | XMS_ITS | Clinical Summary ---
Author Organization [facility] Address [address] [place] [address] Care Team Providers Care Oracle Distribution Consultant Name Role Phone None Reported, Pcp Primary Care Provider Unavail able Source Comments Patient records contain information from all sites at [facility]. For routine questions regarding patient records, call [phone] during business hours, M-F 8:00 AM - 5:00 PM Central Time. Record requests for emergency care only can be directed to [phone] at any time.[facility] Allergies Active Allergy Reactions Criticality Noted Date [...] drink = 0.6 oz pur e alcohol) [facility] Utilities Answer Date Recorded In the past 12 months has [facility] [employer], gas, oil, or water [employer] threatened to shut off services in your [...] your living situation today? I have a [facility] place to live 12/10/2023 Comments Unknown [...] Completed 01/01/2023 Medical Devices Implanted Type Area Travel Consultant Device Identifier Shelf Expiration Date Model / Serial / Lot Cardiac Stent Cardiac Stent Heart Description:2 Stents Urologic Other Urologic Other Left: Buttock Description:Inter stem bladd [place] control [facility] Care Teams [employer] Distribution Consultant Relationship Specialty Start Date End Date None Reported, Pcp PCP - General 01/17/24
--- OUTSIDE RECORDS SUMMARY | 2024-03-21 10:14 | XMS_ITS | Referral Summary ---
Author Organization [facility] Address [address] [place] [address] Care Team Providers Care Butcher Apprentice Name Role Phone None Reported, Pcp Primary Care Provider Unavail able Source Comments Patient records contain information from all sites at [facility]. For routine questions regarding patient records, call [phone] during business hours, M-F 8:00 AM - 5:00 PM Central Time. Record requests for emergency care only can be directed to [phone] at any time.[facility] Allergies Active Allergy Reactions Criticality Noted [...] drink = 0.6 oz pur e alcohol) [facility] Utilities Answer Date Recorded In the past 12 months has [employer], oil, or water [employer] threatened to shut off services in your [...] your living situation today? I have a [facility] place to live 12/10/2023 Comments Unknown Sex [...] on file Medical Devices Implanted Type Area Trials Manager Device Identifier Shelf Expiration Date Model / Serial / Lot Cardiac Stent Cardiac Stent Heart Description:2 Stents Urologic Other Urologic Other Left: Buttock Description:Inter stem bladd [place] control Insurance MEDICARE [facility] Care Teams Butcher Apprentice Relationship Specialty Start Date End Date None Reported, Pcp PCP - General 01/17/24
--- OUTSIDE RECORDS SUMMARY | 2024-03-21 10:14 | XMS_ITS | Encounter Summary ---
Author Organization [facility] Address [address] [place] [address] [place] [address] Care Team Providers Care Decorator Inspector Name Role Phone Ky Jorgensen MD Primary Care Provider Reason for Referral * Procedure/Equipment (Routine) - Incomplete Specialty Diagnoses / Procedures Referred By Contac t Referred To Contact Diagnoses Right knee pain, unspecified chronicity Procedures XR Knee Lt 1-2 Views Kushal Gill MD [address] [place] [address] Referral ID Status Reason Start Date Expiration Date V isits Requested Visits Authorized [id number] Incomplete 03/05/2024 06/04/2025 1 1 LATION BOARD HEAD SAW OPERATOR * Procedure/Equipment (Routine) - Incomplete Specialty Diagnoses / Procedures Referred By Contac t Referred To Contact Diagnoses Right knee pain, unspecified chronicity Procedures XR Knee Rt 3 Views Kushal Reddy MD [address] [place] [address] Referral ID Status Reason Start Date Expiration Date V isits Requested Visits Authorized [id number] Incomplete 03/05/2024 06/04/2025 1 1 LATION BOARD HEAD SAW OPERATOR Reason for Visit * Reason Comments KNEE PAIN Consult Right knee D OP: 3 months ago, then last night 03/05/24 acute anterior/medial knee. ERIKA: no injury. Thinks cortisone might help Encounter Details Date Type Department Care Team (Late st Contact Info) Description 03/05/2024 10:30 AM INSULATION BOARD HEAD SAW OPERATOR Office Visit [facility] Orthopedic Urgent Care at [address] [phone] Kushal Reddy MD [address] [place] [id number] Right knee pain, unspecified chronicity (Primary Dx); [...] 68.9 kg (152 lb) 03/05/2024 10:27 AM INSULATION BOARD HEAD SAW OPERATOR Height 166.4 cm (5' 5.5) 03/05/2024 10:27 AM CS T Body Mass Index 24.91 03/05/2024 10:27 AM INSULATION BOARD HEAD SAW OPERATOR documented in this encounter Patient Instructions * Patient Instructions* Hue Kaplan, ATC - 03/05/2024 10:30 AM INSULATION BOARD HEAD SAW OPERATOR Thank you for choosing [facility] for your health care visit today. If you have any questions regarding your visit or next steps, please contact us at [phone]. Kushal Reddy MD Medication Requests: Prescriptions are filled on Weekdays before 3:00PM For all medication refills: Request a refill using MyChart or contact your Pharmacy Paperwork Requests: FMLA or disability paperwork can be faxed to: [phone] Please allow 7-10 business days for completion of all paperwork. [facility] Worker's Compensation Services: E-mail Address: [email or web address] What is Know Your Cost? Know Your Cost is a service for patients and patient/members to call and receive personalized cost information and estimates across our care group. The phone number is (COST) Saturday - Saturday 8 AM to 5 PM To request copies of your medical records, call: [phone] (option 4) Diagnosis: R knee osteoarthritis Plan: [...] wear your items as directed in clinic. LATION BOARD HEAD SAW OPERATOR documented in this encounter Progress Notes * [...] holidays before returning to their home in [place] next week. PMHx, medications, allergies, reviewed in [...] up with primary care upon return to [place] in a few weeks. RIGHT Knee Injection [...] note. As a result, wrong word or '[id number]' substitutions may have occurred due to the inherent limitations of voice recognition software. There may be errors in the script that have gone undetected. Please consider this when interpreting information found in this chart. LATION BOARD HEAD SAW OPERATOR documented in this encounter Plan of Treatment Not on file documented as of this encounter Results * XR Knee Lt 1-2 Views Comparison (03/05/2024 10:48 AM INSULATION BOARD HEAD SAW OPERATOR) Anatomical Region Laterality Modality Lower Extremity, Knee Digital Ra diography 03/05/2024 10:3 5 AM INSULATION BOARD HEAD SAW OPERATOR Narrative 03/05/2024 11:18 AM INSULATION BOARD HEAD SAW OPERATOR COMPARISON: None. FINDINGS: Right knee 3 [...] Knee Rt 3 Views (03/05/2024 10:48 AM INSULATION BOARD HEAD SAW OPERATOR) Anatomical Region Laterality Modality Lower Extremity, Knee Digital Ra diography 03/05/2024 10:3 5 AM INSULATION BOARD HEAD SAW OPERATOR Narrative 03/05/2024 11:18 AM INSULATION BOARD HEAD SAW OPERATOR COMPARISON: None. FINDINGS: Right knee 3 [...] chronicity documented in this encounter Care Teams Decorator Inspector Relationship Specialty [place] [address] [place] [address] PCP - General Family Practice 11/21/17 documented as of this encounter
[2024-03-21 10:26] LABS: HCO3 VBG 27 mmol/L (21-28); Lactate* 1.1 mmol/L (0.5-1.9); PCO2 VBG 36 mmHG (40-50); PO2 VBG 48.7 mmHG (25-47); pH VBG 7.494 (7.32-7.43)
[2024-03-21 10:30] LABS: Eosinophils Percent Auto 0.2 % (0.0-7.0); Hematocrit 33.2 % (33.0-51.0); Immature Granulocytes Pct Auto 0.5 %; Lymphocytes Percent Auto 8.4 % (20-44); Mean Corpuscular HGB Conc 33 gm/dL (32-36); Mean Corpuscular Hemoglobin 27 pg (26-34); Mean Corpuscular Volume 82 fL (80-100); Neutrophils Percent Auto 81.9 % (42.0-72.0); Platelet Count* 368 K/uL (140-440); RDW Coefficient of Variation % 12.9 % (11.5-15.5); Red Blood Count 4.05 m/uL (4.00-5.20); White Blood Count* 15.44 K/uL (4.50-11.00)
[2024-03-21 10:31] LABS: Slide Review Reflex No
[2024-03-21 10:40] LABS: PCR FLU A Negative PCR FLU A (Negative); PCR FLU B Negative PCR FLU B (Negative); PCR RSV Negative PCR RSV (Negative); SARS PCR* Negative SARS-CoV-2 (Negative)
[2024-03-21 10:46] LABS: Albumin* 2.9 g/dL (3.3-5.0); Chloride* 99 mmol/L (96-114); Potassium* 3.4 mmol/L (3.6-5.1); Sodium* 132 mmol/L (135-149)
[2024-03-21 10:48] LABS: Creatinine* 0.6 mg/dL (0.5-1.5); Estimated Glomerular Filt Rate 89 ml/min
[2024-03-21 10:49] LABS: Alanine Aminotransferase* 22 U/L (4-35); Alkaline Phosphatase* 69 U/L (40-150); Anion Gap 5 mEq/L (7-15); Aspartate Amino Transferase* 17 U/L (12-35); Bilirubin Total* 0.5 mg/dL (0.1-1.5); Blood Urea Nitrogen* 13 mg/dL (7-30); Carbon Dioxide* 28 mmol/L (20-32); Glucose* 126 mg/dL (60-115); Total Protein* 5.6 g/dL (6.0-8.3)
[2024-03-21 10:50] LABS: Calcium* 8.5 mg/dL (8.4-10.6)
[2024-03-21 10:57] LABS: NT Pro B Type NatriureticPept* 1920 pg/mL; Troponin I* < 0.01 ng/mL (0.01-0.04)
[2024-03-21 11:06] LABS: Procalcitonin* 0.07 ng/mL (<0.50)
[2024-03-21] MEDS: 0.9 % SODIUM CHLORIDE 1000 ml 1,000 ML IV (12:00)
[2024-03-21] MEDS: cefTRIAXone 1 GM in 0.9 % SODIUM CHLORIDE Mini-bag 100 ML IVPB (12:00)
[2024-03-21] MEDS: AZITHROMYCIN 500 MG in 0.9 % SODIUM CHLORIDE 250 ml 250 ML 255 MG IVPB (12:48)
[2024-03-21] MEDS: IPRAT-ALBUT 0.5-2.5 MG/3 ML NEB 1 NEB IH (16:06)
--- NOTE | 2024-03-21 16:09 | P.IMHP_ITS ---
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 Patient began to be sick about 11 days ago around on March 11 with cough. She was diagnosed with influenza based on testing done at [facility] last week. Apparently both she and her were sick with influenza. She was managed in the emergency department at [facility]. It sounds like she stayed overnight in the ER but could not get to a medical bed because or simply were no beds available. She was discharged the following day. She was sent home with albuterol (she has had albuterol in the past and may have a history of as thma, she is not sure. She does not have to use her albuterol very often), prednisone, and also cough medication. She was not put on Tamiflu because she was outside the 48 hour window. History from paramedics is that she was hypoxic with sats of 82% on room air when they arrived. EMS was able to put her on non- rebreather and sats came up to the low 90s. Pt has Hx of Methicillin resistant Staphylococcus aureus infection per [facility] (rectal stent infection). Review of Systems Status of ROS: Reports: 6 or more systems reviewed and unremarkable except as noted in History and below [facility] Medical History (Updated 03/21/24 @ 17:18 by Diana Baker MD) Fecal incontinence ?R15.9 - Full incontinence of feces (ICD-10) History of syncope ?Z87.898 - Personal history of other specified conditions (ICD-10) History of MRSA infection ?Z86.14 - Personal history of Methicillin resistant Staphylococcus aureus infection (ICD-10) HLD (hyperlipidemia) ?E78.5 - Hyperlipidemia, unspecified (ICD-10) HTN (hypertension) ?I10 - Essential (primary) hypertension (ICD-10) CAD (coronary artery disease) ?I25.10 - Atherosclerotic heart disease of craig coronary artery without angina pectoris (ICD-10) Social History What is your current living situation?: I presently have a place to live Problems where you live: no known problems Problems where you live details: none In the past 12 months, utilities in danger of being shut off: no In past 12 months, lack of transportation kept you from medical appts, meetings, work, or getting things needed for daily living: no In the past 12 mos, have been you worried that your food would run out before you had money to buy more?: never true In the past 12 mos, the food you bought just didn't last and you didn't have money to buy more?: never true Highest level of school completed/degree received: high school graduate Smoking Status: Former smoker What tobacco products do you use: cigarettes Smoking quit date/years: >15 years ago Do you use any of these nicotine containing products: None Second hand tobacco smoke exposure: No How often do you have a drink containing alcohol: never How often do you have six or more drinks on one occasion: Never AUDIT-C Alcohol total score: 0 Non-prescribed substance use: denies use Caffeine: Yes (1-2/cup coffee) How often does anyone, including family, friends and others, physically hurt you : never How often does anyone, including family, friends and others, insult or talk down to you: never How often does anyone, including family, friends and others, threaten you with harm: never How often does anyone, including family, friends and others, scream or curse at you: never service: No Meds Home Medications and Allergies Home Medications ?Medication ?Instructions ?Recorded ?Confirmed ?Type aspirin 81 mg tablet,delayed 81 mg PO DAILY 11/21/21 03/21/24 History release (Adult Aspirin Regimen) duloxetine 20 mg capsule,delayed 40 mg PO HS 11/21/21 03/21/24 History release (Cymbalta) potassium chloride 20 mEq 20 meq PO DAILY 11/21/21 03/21/24 History tablet,extended release (K-Tab) tramadol 50 mg tablet 50 mg PO Q6H PRN 11/21/21 03/21/24 History rosuvastatin 5 mg tablet 5 mg PO DAILY 03/16/24 03/21/24 History amlodipine 5 mg tablet 7.5 mg PO DAILY 03/21/24 03/21/24 History cholecalciferol (vitamin D3) 50 50 mcg PO DAILY 03/21/24 03/21/24 History mcg (2,000 unit) capsule cyanocobalamin (vitamin B-12) 500 1,000 mcg PO DAILY 03/21/24 03/21/24 History mcg tablet dorzolamide 22.3 mg-timolol 6.8 1 drp ophthalmic (eye) BID 03/21/24 03/21/24 History mg/mL eye drops (Cosopt) ferrous sulfate 325 mg (65 mg 325 mg PO DAILY 03/21/24 03/21/24 History iron) tablet (FeroSul) latanoprost 0.005 % eye drops 1 drp ophthalmic (eye) HS 03/21/24 03/21/24 History melatonin 5 mg capsule 5 mg PO HS 03/21/24 03/21/24 History Allergies Allergy/AdvReac Type Severity Reaction Status Date / Time hydroxychloroquine (From Allergy Verified 03/16/24 11:36 Plaquenil) Exam Narrative: Exam Narrative: Physical exam GENERAL: Patient is on high-flow nasal cannula, increased work of breathing HEAD AND NECK: Atraumatic, normocephalic CARDIOVASCULAR: RRR. Normal S1, S2. No murmurs. RESPIRATORY: Harsh crackles B/L. Good air entry B/L w/ HFNC. GASTROINTESTINAL: Not distended, not tender to palpation. NEUROLOGY: Alert, awake, oriented X 3. Normal speech. PSYCH: Normal mood, normal affect. Const: Vital Signs, click to edit/add: Vital Signs - 24 hr 03/21/24 09:41 03/21/24 09:48 03/21/24 11:58 Temperature 98.2 F Pulse Rate [Pulse Oximeter] 76 Pulse Rate [Right Brachial] Respiratory Rate 20 Blood Pressure [Ri ght Arm] Blood Pressure [Ri ght Upper Arm] 127/71 Pulse Oximetry 77 L 93 Oxygen Delivery Me thod Room Air High Flow Nasal Ca nnula Oxygen Flow Rate 35 35 Fraction of Inspir ed Oxygen 100 90 03/21/24 12:57 03/21/24 12:57 03/21/24 13:00 Temperature 98.7 F Pulse Rate [Pulse Oximeter] Pulse Rate [Right Brachial] 80 Respiratory Rate 24 24 Blood Pressure [Ri ght Arm] 141/67 H Blood Pressure [Ri ght Upper Arm] Pulse Oximetry 96 97 Oxygen Delivery Me thod High Flow Nasal Ca nnula High Flow Nasal Ca nnula Oxygen Flow Rate 35 35 Fraction of Inspir ed Oxygen 90 90 90 03/21/24 15:00 Temperature Pulse Rate [Pulse Oximeter] Pulse Rate [Right Brachial] Respiratory Rate Blood Pressure [Ri ght Arm] Blood Pressure [Ri ght Upper Arm] Pulse Oximetry Oxygen Delivery Me thod Oxygen Flow Rate Fraction of Inspir ed Oxygen 90 Hospitalist - H&P: Result Labs Labs: Short CBC 03/21/24 Range/Units 10:19 WBC 15.44 H (4.50-11.00) K/uL Hgb 11.0 L (12.0-16.0) gm/dL Hct 33.2 (33.0-51.0) % Plt Count 368 (140-440) K/uL BMP 03/21/24 10:19 Sodium 132 L Potassium 3.4 L Chloride 99 Carbon Dioxide 28 BUN 13 Creatinine 0.6 Glucose 126 H Calcium 8.5 Cardiac Enzymes 03/21/24 Range/Units 10:19 Troponin I < 0.01 L (0.01-0.04) ng/mL Liver Function 03/21/24 Range/Units 10:19 Total Bilirubin 0.5 (0.1-1.5) mg/dL AST 17 (12-35) U/L ALT 22 (4-35) U/L Alkaline Phosphatase 69 (40-150) U/L Albumin 2.9 L (3.3-5.0) g/dL ECG Attestation: I personally reviewed and interpreted this ECG as follows: ECG interpretation date: 03/21/24 Interpretation: Normal sinus rhythm, no ischemic changes Imaging Chest x-ray: Attestation: I have reviewed the pertinent imaging results. Radiologist's impression: INDICATION: Respiratory distress TECHNIQUE: 1 view chest radiograph COMPARISON: 03/16/2024 FINDINGS: Devices: None. Lung volumes are lower today. New left basilar consolidation with loss of the normal left diaphragmatic silhouette. Mildly elevated right diaphragm is unchanged. No pulmonary edema. No pleural effusion. No pneumothorax. Heart size is normal. IMPRESSION: Left lower lobe consolidative opacity could be pneumonia or atelectasis. Dictated by Vashti Wood MD @ 03/21/2024 11:01:32 AM Assessment and Plan Assessment and plan (1) Acute hypoxic respiratory failure: Problem comment: -secondary to community-acquired pneumonia likely post influenza viral infection -patient was severely hypoxic on presentation, currently on high-flow nasal cannula FiO2 50%, 35 liters/minute. -chest x-ray shows reticular pattern of the lower lobe of left lung, patient needs more workup to rule out interstitial lung disease as an outpatient. Discussed with her daughter. -will start patient on ceftriaxone, azithromycin and vancomycin due to MRSA history. -Venous blood gas shows a venous pCO2 of 36 and pH is 7.49 Status: Acute (2) Community acquired pneumonia: Problem comment: -Likely post influenza viral infection -patient was severely hypoxic on presentation, currently on high-flow nasal cannula FiO2 50%, 35 liters/minute. 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 -will start patient on ceftriaxone, azithromycin and vancomycin due to MRSA history. -blood cultures withdrawn please follow-up -Ordered MRSA screen Status: Acute (3) Sepsis: Problem comment: -patient was septic on presentation with wbc's above 12 and respiratory rate of 20 or above -blood cultures withdrawn please follow-up -lactic acid was normal -IV fluids given, will do maintenance. Status: Acute (4) History of influenza: Problem comment: -patient tested positive for flu on March 11. -currently is negative -flu virus likely lead to bacterial infection. Status: Acute (5) History of MRSA infection: Problem comment: -patient has history of MRSA infection involving her rectal stent. -will start patient on ceftriaxone, azithromycin and vancomycin due to MRSA history. -blood cultures withdrawn please follow-up -Ordered MRSA screen Status: Acute (6) CAD (coronary artery disease): Problem comment: -CAD s/p PCI to LAD in 2019 (followed by [facility] network planner). -ECHO 10/2023: normal EF with mild septal thickening but no significant outflow gradient, mild mitral stenosis with a gradient of 5. Status: Acute (7) HTN (hypertension): Problem comment: Hold amlodipine for now Status: Acute (8) HLD (hyperlipidemia): Problem comment: Resume statin Status: Acute (9) History of syncope: Problem comment: Likely secondary to bradycardia which was investigated by her network planner and it was sinus bradycardia, patient did well after beta-burton was stopped. Status: Acute Assessment and Plan: As above (10) Fecal incontinence: Problem comment: -hx of urinary/fecal incontinence with stimulator in place. 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
--- NOTE | 2024-03-21 18:47 | PC.NURSE ---
shift note: admit to rm 260 via stretcher. pt on hiflo with harsh cough. Pt states I don't feel good. daughter at bedside. pt vss stable. pt afeb. IV to lt ac patent. Ls with bibasilar fine crkls. mckeon placed @ 1835 w/o difficulty. urine output clear & yellow.
[2024-03-21] MEDS: 0.9 % SODIUM CHLORIDE 1000 ml 1,000 ML 100 ML IV (19:11)
[2024-03-21] MEDS: POTASSIUM CHLORIDE 10 MEQ CAPSULE ER 20 MEQ PO (19:11)
[2024-03-21] MEDS: ENOXAPARIN 40 MG/0.4 ML INJ SUBCUT (21:11)
[2024-03-21] MEDS: MELATONIN 3 MG TABLET 6 MG PO (21:11)
[2024-03-21] MEDS: DULOXETINE HCL 20 MG CAPSULE DR 40 MG PO (21:11)
[2024-03-21] MEDS: VANCOMYCIN 1.5 GM/300 ML 1.5 GM/300 ML PIGGYBACK IVPB (21:11)
[2024-03-22] VITALS (16 sets, daily range): BP systolic 115–157; BP diastolic 62–81; PULSE 62–76; RESP 18–20; TEMP 36.7–37.1; O2SAT 91–98
[2024-03-22] MEDS: VANCOMYCIN 1 GM/200 ML 1 GM/200 ML PIGGYBACK IVPB (05:24)
[2024-03-22 06:46] LABS: Hematocrit 32.5 % (33.0-51.0); Hemoglobin* 10.5 gm/dL (12.0-16.0); Mean Corpuscular HGB Conc 32 gm/dL (32-36); Mean Corpuscular Hemoglobin 27 pg (26-34); Mean Corpuscular Volume 83 fL (80-100); Platelet Count* 329 K/uL (140-440); White Blood Count* 12.94 K/uL (4.50-11.00)
[2024-03-22 06:48] LABS: Slide Review Reflex No
[2024-03-22 06:57] LABS: Chloride* 101 mmol/L (96-114); Potassium* 3.5 mmol/L (3.6-5.1); Sodium* 132 mmol/L (135-149)
[2024-03-22 07:00] LABS: Anion Gap 3 mEq/L (7-15); Blood Urea Nitrogen* 10 mg/dL (7-30); Carbon Dioxide* 28 mmol/L (20-32); Creatinine* 0.6 mg/dL (0.5-1.5); Est. Creatinine Clearance* 38.36; Estimated Glomerular Filt Rate 89 ml/min; Glucose* 126 mg/dL (60-115)
[2024-03-22 07:01] LABS: Calcium* 8.3 mg/dL (8.4-10.6); Magnesium* 2.1 mg/dL (1.5-2.6)
--- NOTE | 2024-03-22 07:06 | PC.NURSE ---
(DOWNTIME [id number]) Pt alert, oriented and vitally stable. Pt on high flow, sats maintained in the upper 90s. Pt has mckeon in place, it is patent and draining. Pt afebrile. In bed,?appears to be resting, call light within reach. ?
[2024-03-22] MEDS: DORZOLAMIDE/TIMOLOL 2-0.5% OPHTH 1 DROP EYE-BOTH ×2 (10:39→21:16)
[2024-03-22] MEDS: ROSUVASTATIN CALCIUM 10 MG TABLET 5 MG PO (10:40)
[2024-03-22] MEDS: ASPIRIN 81 MG TAB.CHEW PO (10:42)
[2024-03-22] MEDS: POTASSIUM CHLORIDE 10 MEQ CAPSULE ER 20 MEQ PO (10:42)
[2024-03-22] MEDS: SODIUM CHLORIDE 0.9 % (FLUSH) 10 ML SYRINGE 5 ML IVF ×2 (10:44→21:17)
[2024-03-22] MEDS: cefTRIAXone 1 GM in 0.9 % SODIUM CHLORIDE Mini-bag 100 ML IVPB (12:42)
[2024-03-22] MEDS: AZITHROMYCIN 500 MG in 0.9 % SODIUM CHLORIDE 250 ml 250 ML 255 MG IVPB (13:36)
--- NOTE | 2024-03-22 15:12 | P.IMPN_ITS ---
Progress Note: A&P Assessment and plan (1) Acute hypoxic respiratory failure: Problem details: -secondary to community-acquired pneumonia likely post influenza viral infection -patient was severely hypoxic on presentation, currently on high-flow nasal cannula FiO2 50%, 35 liters/minute. -chest x-ray shows reticular pattern of the lower lobe of left lung, patient needs more workup to rule out interstitial lung disease as an outpatient. Discussed with her daughter. -will start patient on ceftriaxone, azithromycin and vancomycin due to MRSA history. If nasal MRSA is negative, will stop vancomycin if is still doing well. -Venous blood gas shows a venous pCO2 of 36 and pH is 7.49 Status: Acute (2) Community acquired pneumonia: Problem details: -Likely post influenza viral infection -patient was severely hypoxic on presentation, currently on high-flow nasal cannula FiO2 50%, 35 liters/minute. 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 -will start patient on ceftriaxone, azithromycin and vancomycin due to MRSA history. -blood cultures withdrawn please follow-up -Ordered MRSA screen Status: Acute (3) Sepsis: Problem details: -patient was septic on presentation with wbc's above 12 and respiratory rate of 20 or above -blood cultures withdrawn please follow-up -lactic acid was normal -IV fluids given, will do maintenance. Status: Acute (4) History of influenza: Problem details: -patient tested positive for flu on March 11. -currently is negative -flu virus likely lead to bacterial infection. 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 -will start patient on ceftriaxone, azithromycin and vancomycin due to MRSA history. -blood cultures withdrawn please follow-up -Ordered MRSA screen Status: Acute (6) CAD (coronary artery disease): Problem details: -CAD s/p PCI to LAD in 2019 (followed by [facility] refuse driver). -ECHO 10/2023: normal EF with mild septal thickening but no significant outflow gradient, mild mitral stenosis with a gradient of 5. Status: Acute (7) HTN (hypertension): Problem details: Hold amlodipine for now Status: Acute (8) HLD (hyperlipidemia): Problem details: Resume statin Status: Acute (9) History of syncope: Problem details: Likely secondary to bradycardia which was investigated by her refuse driver and it was sinus bradycardia, patient did well after beta-burton was stopped. Status: Acute (10) Fecal incontinence: Problem details: -hx of urinary/fecal incontinence with stimulator in place. 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 Reviewed impression and recommendations with patient 2. Answered patient's questions 3. 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 Patient began to be sick about 11 days ago around on March 11 with cough. She was diagnosed with influenza based on testing done at [facility] last week. Apparently both she and her were sick with influenza. She was managed in the emergency department at [facility]. It sounds like she stayed overnight in the ER but could not get to a medical bed because or simply were no beds available. She was discharged the following day. She was sent home with albuterol (she has had albuterol in the past and may have a history of asthma, she is not sure. She does not have to use her albuterol very often), prednisone, and also cough medication. She was not put on Tamiflu because she was outside the 48 hour window. History from paramedics is that she was hypoxic with sats of 82% on room air when they arrived. EMS was able to put her on non- rebreather and sats came up to the low 90s. Pt has Hx of Methicillin resistant Staphylococcus aureus infection per [facility] (rectal stent infection).? Hospital day 2, 03/22/2024. She indicates she is feeling better. Continues to be on high-flow oxygen. D ecrease FiO2 from 0.7 down to 0.5 and tolerating, maintaining saturations at rest of greater than 88%. Appetite is slowly improving. Tolerating increased activity including standing and walking to bathroom. Exam Narrative: Exam Narrative: Examined patient in her hospital room. Vision and hearing are adequate. Friendly, articulate, cooperative. Lungs with bibasilar rales left greater than right. Scattered rhonchi. No wheezing. Heart tones with regular rhythm, normal S1-S2. Abdomen is soft with active bowel sounds. Independent with transfer, station, gait. No edema. Const: Vital Signs, click to edit/add: Vital Signs - 24 hr 03/21/24 16:24 03/21/24 17:00 03/21/24 18:46 Temperature Pulse Rate 82 Pulse Rate [Pulse Oximeter] Respiratory Rate Blood Pressure [Ri ght Arm] Pulse Oximetry 93 Oxygen Delivery Me thod Oxygen Flow Rate Fraction of Inspir ed Oxygen 70 03/21/24 19:00 03/21/24 23:00 03/21/24 23:00 Temperature 99.1 F 98.6 F Pulse Rate Pulse Rate [Pulse Oximeter] 73 71 Respiratory Rate 24 Blood Pressure [Ri ght Arm] 137/69 135/65 Pulse Oximetry 93 97 Oxygen Delivery Me thod High Flow Nasal Ca nnula Oxygen Flow Rate Fraction of Inspir ed Oxygen 70 03/21/24 23:00 03/21/24 23:00 03/22/24 01:00 Temperature Pulse Rate 62 Pulse Rate [Pulse Oximeter] 71 Respiratory Rate 24 Blood Pressure [Ri ght Arm] Pulse Oximetry Oxygen Delivery Me thod Oxygen Flow Rate Fraction of Inspir ed Oxygen 70 03/22/24 03:00 03/22/24 03:00 03/22/24 05:00 Temperature 98.0 F Pulse Rate Pulse Rate [Pulse Oximeter] 62 Respiratory Rate 18 Blood Pressure [Ri ght Arm] 131/62 Pulse Oximetry 97 Oxygen Delivery Me thod High Flow Nasal Ca nnula Oxygen Flow Rate Fraction of Inspir ed Oxygen 70 70 03/22/24 07:00 03/22/24 08:26 03/22/24 09:00 Temperature 98.7 F Pulse Rate Pulse Rate [Pulse Oximeter] 71 Respiratory Rate 20 Blood Pressure [Ri ght Arm] 141/79 H Pulse Oximetry 91 Oxygen Delivery Me thod High Flow Nasal Ca nnula Oxygen Flow Rate 35 Fraction of Inspir ed Oxygen 70 70 70 03/22/24 09:59 03/22/24 11:00 03/22/24 11:00 Temperature 98.7 F Pulse Rate Pulse Rate [Pulse Oximeter] 69 Respiratory Rate 18 Blood Pressure [Ri t Arm] 115/68 Pulse Oximetry 94 Oxygen Delivery Me thod Room Air Oxygen Flow Rate 35 Fraction of Inspir ed Oxygen 70 50 03/22/24 13:00 Temperature Pulse Rate Pulse Rate [Pulse Oximeter] Respiratory Rate Blood [facility]] Pulse Oximetry Oxygen Delivery Me thod Oxygen Flow Rate Fraction of Inspir ed Oxygen 50 Labs Labs: Laboratory Results - last 24 hr 03/22/24 06:06 WBC 12.94 H RBC 3.90 L Hgb 10.5 L Hct 32.5 L MCV 83 MCH 27 MCHC 32 Plt Count 329 Sodium 132 L Potassium 3.5 L Chloride 101 Carbon Dioxide 28 Anion Gap 3 L BUN 10 Creatinine 0.6 Estimated Creat Clear 38.36 Estimated GFR 89 Glucose 126 H Calcium 8.3 L Magnesium 2.1
--- NOTE | 2024-03-22 17:15 | RESP.RT ---
Patient has been able to be weaned from 100% FiO2 yesterday to 45% HFNC @ 35Lpm. We will continue to wean as the patient tolerates. Patient has copious amount of secretions and will stay on the HFNC to help clear secretions. She has been able to independently use the [employer] and has a strong productive cough. Patient and family know that she needs to be up in the chair and moving in order to help clear the pneumonia.
--- NOTE | 2024-03-22 18:47 | PC.NURSE ---
End of shift-- Very pleasant and cooperative, alert and oriented patient. VSS and pt is afebrile. SPO2 maintained >90% on high flow nasal cannula at 35L with 50% FiO2 (and with 5L per n.c. while eating.) Crackles auscultated in bilateral bases of lungs posteriorly increased on right side with inspiratory and expiratory wheezing noted throughout. Telemetry shows NSR. She denied nausea and is currently eating a regular heart healthy diet. Calle is patent and drained 450ml of light pacheco urine this shift. She was up to the chair with assist of 1 and tolerated it well. Report to oncoming shift.
[2024-03-22] MEDS: IPRAT-ALBUT 0.5-2.5 MG/3 ML NEB 1 NEB IH (20:36)
[2024-03-22] MEDS: LATANOPROST 0.005% OPHTH 1 DROP EYE-BOTH (21:16)
[2024-03-22] MEDS: MELATONIN 3 MG TABLET 6 MG PO (21:16)
[2024-03-22] MEDS: DULOXETINE HCL 20 MG CAPSULE DR 40 MG PO (21:16)
[2024-03-22] MEDS: ENOXAPARIN 40 MG/0.4 ML INJ SUBCUT (21:16)
[2024-03-22] MEDS: guaiFENesin 100 MG/ML CUP PO (21:30)
[2024-03-23] VITALS (10 sets, daily range): BP systolic 109–163; BP diastolic 61–73; PULSE 64–74; RESP 18–20; TEMP 36.4–37.2; O2SAT 93–97
[2024-03-23] MEDS: IPRAT-ALBUT 0.5-2.5 MG/3 ML NEB 1 NEB IH ×4 (02:02→20:27)
[2024-03-23] MEDS: guaiFENesin 100 MG/ML CUP PO ×3 (02:25→20:59)
[2024-03-23] MEDS: VANCOMYCIN 1.5 GM/300 ML 1.5 GM/300 ML PIGGYBACK IVPB (05:19)
[2024-03-23 06:40] LABS: HCO3 VBG 29 mmol/L (21-28); Lactate* 0.8 mmol/L (0.5-1.9); PCO2 VBG 39 mmHG (40-50); PO2 VBG 62.6 mmHG (25-47)
[2024-03-23 06:41] LABS: Basophils Percent Auto 0.1 % (0.0-3.0); Eosinophils Percent Auto 0.7 % (0.0-7.0); Hematocrit 31.5 % (33.0-51.0); Hemoglobin* 10.2 gm/dL (12.0-16.0); Immature Granulocytes Pct Auto 1.5 %; Lymphocytes Percent Auto 8.4 % (20-44); Mean Corpuscular HGB Conc 32 gm/dL (32-36); Mean Corpuscular Hemoglobin 27 pg (26-34); Mean Corpuscular Volume 83 fL (80-100); Monocytes Percent Auto 6.6 % (0.0-11.0); Neutrophils Percent Auto 82.7 % (42.0-72.0); Platelet Count* 353 K/uL (140-440); Red Blood Count 3.82 m/uL (4.00-5.20)
[2024-03-23 06:47] LABS: Slide Review Reflex No
[2024-03-23 06:59] LABS: Chloride* 99 mmol/L (96-114); Potassium* 3.3 mmol/L (3.6-5.1); Sodium* 131 mmol/L (135-149)
[2024-03-23 07:01] LABS: Creatinine* 0.6 mg/dL (0.5-1.5); Est. Creatinine Clearance* 38.36; Estimated Glomerular Filt Rate 89 ml/min
[2024-03-23 07:02] LABS: Anion Gap 3 mEq/L (7-15); Blood Urea Nitrogen* 11 mg/dL (7-30); Carbon Dioxide* 29 mmol/L (20-32); Glucose* 152 mg/dL (60-115); Phosphorus* 3.4 mg/dL (2.5-4.5)
[2024-03-23 07:03] LABS: Calcium* 7.9 mg/dL (8.4-10.6)
[2024-03-23 07:13] LABS: NT Pro B Type NatriureticPept* 946 pg/mL
[2024-03-23 07:18] LABS: Procalcitonin* 0.13 ng/mL (<0.50)
--- NOTE | 2024-03-23 07:42 | PC.NURSE ---
Pt is alert and oriented x3. Afebrile. Pt lung sounds continue to have inspiratory and expiratory wheezing.?Pt denies pain but reports coughing fit that made it difficult to breath, updated, Nebulizers ordered with PRN guaifenesin, pt reported ?it feels better now?. Pt was on high flow throughout night, 35L with 45 FIO2, O2 stats ranging between 94-98%. Pt?s mckeon catheter was pulled around 0600 pt tolerated well. Pt voided for 400ml around 0700.?
[2024-03-23] MEDS: ASPIRIN 81 MG TAB.CHEW PO (08:05)
[2024-03-23] MEDS: DORZOLAMIDE/TIMOLOL 2-0.5% OPHTH 1 DROP EYE-BOTH ×2 (08:05→20:41)
[2024-03-23] MEDS: POTASSIUM CHLORIDE 10 MEQ CAPSULE ER 20 MEQ PO (08:05)
[2024-03-23] MEDS: SODIUM CHLORIDE 0.9 % (FLUSH) 10 ML SYRINGE 5 ML IVF ×2 (08:06→20:51)
[2024-03-23] MEDS: polyethylene glycoL 3350 17 GM PACK PO (08:28)
--- NOTE | 2024-03-23 09:31 | NUTR.NU ---
RDN with diet education related to current diet order. Patient admitted for pneumonia, respiratory failure, and sepsis. Past medical history includes but not limited to CAD. Current weight 148lb 6oz; height 5ft 5in; BMI 24.7 kg/m2. No weight history to assess. Current diet order is Heart Healthy. Meal intakes since admit have been adequate at 100%. RDN visited with patient whom reports a stable weight. She tries to be careful what she eats due to her history. RDN offered diet education related to heart healthy diet, patient declined at this time. Has appropriate Heart Healthy menu in room. RDN will continue to monitor.
[2024-03-23] MEDS: cefTRIAXone 1 GM in 0.9 % SODIUM CHLORIDE Mini-bag 100 ML IVPB (12:06)
[2024-03-23] MEDS: AZITHROMYCIN 250 MG TABLET 500 MG PO (15:23)
--- NOTE | 2024-03-23 16:11 | P.IMPN_ITS ---
Progress Note: A&P Assessment and plan (1) Acute hypoxic respiratory failure: Problem details: -secondary to community-acquired pneumonia likely post influenza viral infection -patient was severely hypoxic on presentation, currently on high-flow nasal cannula FiO2 50%, 35 liters/minute. -chest x-ray shows reticular pattern of the lower lobe of left lung, patient needs more workup to rule out interstitial lung disease as an outpatient. Discussed with her daughter. -will start patient on ceftriaxone, azithromycin and vancomycin due to MRSA history. If nasal MRSA is negative, will stop vancomycin if is still doing well. -Venous blood gas shows a venous pCO2 of 36 and pH is 7.49 Status: Acute (2) Community acquired pneumonia: Problem details: -Likely post influenza viral infection -patient was severely hypoxic on presentation, currently on high-flow nasal cannula FiO2 50%, 35 liters/minute. 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 -will start patient on ceftriaxone, azithromycin and vancomycin due to MRSA history. -blood cultures withdrawn please follow-up -Ordered MRSA screen Status: Acute (3) Sepsis: Problem details: -patient was septic on presentation with wbc's above 12 and respiratory rate of 20 or above -blood cultures withdrawn please follow-up -lactic acid was normal -IV fluids given, will do maintenance. Status: Acute (4) History of influenza: Problem details: -patient tested positive for flu on March 11. -currently is negative -flu virus likely lead to bacterial infection. 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 -will start patient on ceftriaxone, azithromycin and vancomycin due to MRSA history. -blood cultures withdrawn please follow-up -nasal MRSA swab is negative. Stop vancomycin. Status: Acute (6) CAD (coronary artery disease): Problem details: -CAD s/p PCI to LAD in 2019 (followed by [facility] patient services clerk). -ECHO 10/2023: normal EF with mild septal thickening but no significant outflow gradient, mild mitral stenosis with a gradient of 5. Status: Acute (7) HTN (hypertension): Problem details: Restart amlodipine Status: Acute (8) HLD (hyperlipidemia): Problem details: Resume statin Status: Acute (9) History of syncope: Problem details: Likely secondary to bradycardia which was investigated by her patient services clerk and it was sinus bradycardia, patient did well after beta-burton was stopped. Status: Acute (10) Fecal incontinence: Problem details: -hx of urinary/fecal incontinence with stimulator in place. 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 Reviewed impression with patient 2. Answered her questions 3. 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 Patient began to be sick about 11 days ago around on March 11 with cough. She was diagnosed with influenza based on testing done at [facility] last week. Apparently both she and her were sick with influenza. She was managed in the emergency department at [facility]. It sounds like she stayed overnight in the ER but could not get to a medical bed because or simply were no beds available. She was discharged the following day. She was sent home with albuterol (she has had albuterol in the past and may have a history of asthma, she is not sure. She does not have to use her albuterol very often), prednisone, and also cough medication. She was not put on Tamiflu because she was outside the 48 hour window. History from paramedics is that she was hypoxic with sats of 82% on room air when they arrived. EMS was able to put her on non- rebreather and sats came up to the low 90s. 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 Hospital day 3, 03/23/2024. She indicates she is feeling better yet today. Continues to require oxygen supplementation. She now needs only oxygen supplementation at 3-4 liters/minute via nasal cannula. No longer requiring high-flow oxygen and humidification. Appetite is slowly improving. Tolerating increased activity including standing and walking to bathroom. Working with physical and occupational therapy. Exam Narrative: Exam Narrative: I examine her in her hospital room. Appears comfortable and in no acute distress when sitting in chair at her bedside. Resting oxygen saturations of 93-94% on 3 L of oxygen per minute via nasal cannula continuously. Continues to have scattered rhonchi and inspiratory rales bilaterally. Regular heart rate and rhythm. Abdomen is benign. No focal motor neurologic deficits. Nasal MRSA swab is negative. Const: Vital Signs, click to edit/add: Vital Signs - 24 hr 03/22/24 16:24 03/22/24 17:13 03/22/24 20:37 Temperature Pulse Rate Pulse Rate [Pulse Oximeter] Respiratory Rate Blood Pressure [Ri ght Arm] Pulse Oximetry 92 Oxygen Delivery Me thod Oxygen Flow Rate 35 Fraction of Inspir ed Oxygen 45 45 03/22/24 20:37 03/22/24 21:23 03/22/24 22:00 Temperature 98.3 F 98.1 F Pulse Rate Pulse Rate [Pulse Oximeter] 76 72 Respiratory Rate 20 18 Blood Pressure [Ri ght Arm] 157/70 H 139/81 Pulse Oximetry 92 97 Oxygen Delivery Me thod High Flow Nasal Ca nnula High Flow Nasal Ca nnula Oxygen Flow Rate 35 35 Fraction of Inspir ed Oxygen 45 45 45 03/22/24 23:00 03/22/24 23:00 03/22/24 23:52 Temperature Pulse Rate 67 Pulse Rate [Pulse Oximeter] 65 Respiratory Rate 18 Blood Pressure [Ri ght Arm] Pulse Oximetry Oxygen Delivery Me thod Oxygen Flow Rate Fraction of Inspir ed Oxygen 45 03/23/24 02:00 03/23/24 02:03 03/23/24 04:00 Temperature 98.4 F Pulse Rate Pulse Rate [Pulse Oximeter] 74 Respiratory Rate 18 Blood Pressure [Ri ght Arm] 163/72 H Pulse Oximetry 96 Oxygen Delivery Me thod High Flow Nasal Ca nnula Oxygen Flow Rate 35 Fraction of Inspir ed Oxygen 45 45 45 03/23/24 05:34 03/23/24 07:00 03/23/24 08:00 Temperature 97.5 F L Pulse Rate Pulse Rate [Pulse Oximeter] 65 Respiratory Rate 18 Blood Pressure [Ri ght Arm] 109/61 Pulse Oximetry 93 Oxygen Delivery Me thod High Flow Nasal Ca nnula Oxygen Flow Rate 35 Fraction of Inspir ed Oxygen 45 45 45 03/23/24 10:12 03/23/24 13:58 Temperature 98.3 F Pulse Rate 73 Pulse Rate [Pulse Oximeter] 66 Respiratory Rate 18 [facility] 133/63 Pulse Oximetry 93 Oxygen Delivery Me thod Nasal Cannula Oxygen Flow Rate 4 Fraction of Inspir ed Oxygen Labs Labs: Laboratory Results - last 24 hr 03/23/24 06:06 WBC 12.20 H RBC 3.82 L Hgb 10.2 L Hct 31.5 L MCV 83 MCH 27 MCHC 32 RDW Coeff of Lalitha 13.0 Plt Count 353 Neut % (Auto) 82.7 H Lymph % (Auto) 8.4 L Bell % (Auto) 6.6 Eos % (Auto) 0.7 Baso % (Auto) 0.1 Neut # (Auto) 10.10 H Lymph # (Auto) 1.00 Bell # (Auto) 0.80 Eos # (Auto) 0.10 Baso # (Auto) 0.00 Abs Immat Gran (auto) 0.20 Imm/Tot Granulo (auto) 1.5 VBG pH 7.470 H VBG pCO2 39 L VBG pO2 62.6 H VBG HCO3 29 H Sodium 131 L Potassium 3.3 L Chloride 99 Carbon Dioxide 29 Anion Gap 3 L BUN 11 Creatinine 0.6 Estimated Creat Clear 38.36 Estimated GFR 89 Glucose 152 H Lactate 0.8 Calcium 7.9 L Phosphorus 3.4 Magnesium 2.0 C-Reactive Protein 14.0 H NT-Pro-B Natriuret Pep 946 Procalcitonin 0.13
--- NOTE | 2024-03-23 16:30 | PC.SOCIAL ---
Discharge planning: unit control worker attempted to meet with pt several times today and pt was either sleeping or with other disciplines. unit control worker will plan to meet with pt tomorrow. Social work to follow-up as needed.
[2024-03-23] MEDS: POTASSIUM CHLORIDE 10 MEQ CAPSULE ER 40 MEQ PO (16:53)
--- NOTE | 2024-03-23 19:27 | PC.NURSE ---
End of shift [id number] ? Pt alert, oriented, cooperative. Up with standby assistance, denies pain. SOB noted with exertion with pt observed to recover appropriately with rest. High Flow d/c?d per RT, pt tolerating O2 via nasal cannula at 3.5L and maintaining saturation at 90% and above per order. Pt requested cough suppressant to help reduce cough while sleeping. Medication given per MAY with pt reporting improvement. Pt observed to sleep during shift, family at bedside. Pt requested barrier cream for buttock area as she reported feeling that her skin was ?sore?. Education and cream provided by RN , a mepilex dressing offered and the pt refused. Pt appears to be resting in bed with call light within reach at end of shift. ?
[2024-03-23] MEDS: DULOXETINE HCL 20 MG CAPSULE DR 40 MG PO (20:41)
[2024-03-23] MEDS: MELATONIN 3 MG TABLET 6 MG PO (20:42)
[2024-03-23] MEDS: ROSUVASTATIN CALCIUM 10 MG TABLET PO (20:42)
[2024-03-23] MEDS: ENOXAPARIN 40 MG/0.4 ML INJ SUBCUT (20:43)
[2024-03-23] MEDS: LATANOPROST 0.005% OPHTH 1 DROP EYE-BOTH (20:44)
--- NOTE | 2024-03-23 22:45 | PC.NURSE ---
Shift note ([id number]): Patient pleasant, alert and oriented. Ambulates with stand by assist. PRN cough syrup given at HS. Denied any pain.?
[2024-03-24] VITALS (15 sets, daily range): BP systolic 100–157; BP diastolic 58–72; PULSE 63–81; RESP 16–20; TEMP 36.5–36.8; O2SAT 91–95
[2024-03-24] MEDS: guaiFENesin 100 MG/ML CUP PO ×2 (01:08→22:38)
[2024-03-24] MEDS: IPRAT-ALBUT 0.5-2.5 MG/3 ML NEB 1 NEB IH ×4 (02:04→20:20)
[2024-03-24] MEDS: VANCOMYCIN 1.5 GM/300 ML 1.5 GM/300 ML PIGGYBACK IVPB (05:04)
--- NOTE | 2024-03-24 06:56 | PC.NURSE ---
The pt has been pleasant and cooperative; Denies chest pain ; the pt has been on 3.5L of oxygen via NC with Spo2 in the low 90s; Short of breath with exertion noted. The pt has been coughing up yellowish sputum; guaifenesin was given with some relief. Urine frequency noted this shift; denied dysuria . The pt appeared without any acute distress. ?
[2024-03-24] MEDS: POTASSIUM CHLORIDE 10 MEQ CAPSULE ER 20 MEQ PO (08:33)
[2024-03-24] MEDS: SODIUM CHLORIDE 0.9 % (FLUSH) 10 ML SYRINGE 5 ML IVF ×2 (08:34→20:21)
[2024-03-24] MEDS: AMLODIPINE 5 MG TABLET 7.5 MG PO (08:34)
[2024-03-24] MEDS: DORZOLAMIDE/TIMOLOL 2-0.5% OPHTH 1 DROP EYE-BOTH ×2 (08:34→20:20)
[2024-03-24] MEDS: ASPIRIN 81 MG TAB.CHEW PO (08:34)
[2024-03-24 08:46] LABS: Hematocrit 31.7 % (33.0-51.0); Hemoglobin* 10.7 gm/dL (12.0-16.0); Mean Corpuscular HGB Conc 34 gm/dL (32-36); Mean Corpuscular Hemoglobin 28 pg (26-34); Mean Corpuscular Volume 83 fL (80-100); Platelet Count* 391 K/uL (140-440); White Blood Count* 10.55 K/uL (4.50-11.00)
[2024-03-24 09:02] LABS: Slide Review Reflex No
[2024-03-24 09:04] LABS: Chloride* 98 mmol/L (96-114); Potassium* 4.1 mmol/L (3.6-5.1); Sodium* 131 mmol/L (135-149)
[2024-03-24 09:07] LABS: Anion Gap 4 mEq/L (7-15); Carbon Dioxide* 29 mmol/L (20-32); Creatinine* 0.6 mg/dL (0.5-1.5); Est. Creatinine Clearance* 38.36; Estimated Glomerular Filt Rate 89 ml/min
[2024-03-24 09:08] LABS: Blood Urea Nitrogen* 11 mg/dL (7-30); Calcium* 8.5 mg/dL (8.4-10.6); Glucose* 139 mg/dL (60-115)
--- NOTE | 2024-03-24 09:38 | PC.SOCIAL ---
Addendum entered by VIRGINIA Mehta 03/24/24 16:36: Discharge planning: Pt has been accepted to [facility] for admission tomorrow. Pre-admission screening was completed and confirmation number was secure emailed to Hollis at [facility], [email or web address]. [phone]. Pt's daughter, Bobby), can transport the pt to [facility] with a tentative plan for pick-up around 11am. conversion worker notified the charge nurse and provider on duty. Social work to follow-up as needed. Addendum entered by VIRGINIA Mehta 03/24/24 15:39: Discharge planning: conversion worker emailed with Hollis Flo throughout the day today with questions he had about pt's referral. As of 3:30pm this worker had not heard if [facility] had accepted the pt or not. conversion worker emailed and left a voicemail with Hollis at [facility] and also left a voicemail with Stevenson Pickard at [facility]. Social work to follow-up as needed. Addendum entered by VIRGINIA Mehta 03/24/24 15:23: Discharge planning: [facility] is assessing the pt for placement. Social work to follow-up as needed. Original Note: Discharge planning: Pt is being recommended for short-term rehab after her hospital stay. Pt should be ready for discharge on Saturday of this week. conversion worker met with pt and her daughter this morning to discuss placement options. Pt and her daughter would like [facility] in [place]. Pt's daughter can transport the pt when it is time for her to discharge to SNF placement. conversion worker will inquire with them about openings and send a referral if appropriate. Social work to follow-up as needed.
[2024-03-24] MEDS: cefTRIAXone 1 GM in 0.9 % SODIUM CHLORIDE Mini-bag 100 ML IVPB (11:33)
[2024-03-24] MEDS: LACTOBACILLUS ACIDOPHILUS 1 TABLET 2 TAB PO ×2 (12:12→17:34)
[2024-03-24] MEDS: AZITHROMYCIN 250 MG TABLET 500 MG PO (13:47)
--- NOTE | 2024-03-24 14:15 | P.IMPN_ITS ---
Progress Note: A&P Assessment and plan (1) Acute hypoxic respiratory failure: Problem details: -secondary to community-acquired pneumonia likely post influenza viral infection -patient was severely hypoxic on presentation, currently on high-flow nasal cannula FiO2 50%, 35 liters/minute. -chest x-ray shows reticular pattern of the lower lobe of left lung, patient needs more workup to rule out interstitial lung disease as an outpatient. Discussed with her daughter. -will start patient on ceftriaxone, azithromycin and vancomycin due to MRSA history. If nasal MRSA is negative, will stop vancomycin if is still doing well. -Venous blood gas shows a venous pCO2 of 36 and pH is 7.49 Status: Acute (2) Community acquired pneumonia: Problem details: -Likely post influenza viral infection -patient was severely hypoxic on presentation, currently on high-flow nasal cannula FiO2 50%, 35 liters/minute. 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 -will start patient on ceftriaxone, azithromycin and vancomycin due to MRSA history. -blood cultures withdrawn please follow-up -Ordered MRSA screen Status: Acute (3) Sepsis: Problem details: -patient was septic on presentation with wbc's above 12 and respiratory rate of 20 or above -blood cultures withdrawn please follow-up -lactic acid was normal -IV fluids given, will do maintenance. Status: Acute (4) History of influenza: Problem details: -patient tested positive for flu on March 11. -currently is negative -flu virus likely lead to bacterial infection. 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 -will start patient on ceftriaxone, azithromycin and vancomycin due to MRSA history. -blood cultures withdrawn please follow-up -nasal MRSA swab is negative. Stop vancomycin. Status: Acute (6) CAD (coronary artery disease): Problem details: -CAD s/p PCI to LAD in 2019 (followed by [facility] social workers in health care). -ECHO 10/2023: normal EF with mild septal thickening but no significant outflow gradient, mild mitral stenosis with a gradient of 5. Status: Acute (7) HTN (hypertension): Problem details: Restart amlodipine Status: Acute (8) HLD (hyperlipidemia): Problem details: Resume statin Status: Acute (9) History of syncope: Problem details: Likely secondary to bradycardia which was investigated by her certified social workers in health care and it was sinus bradycardia, patient did well after beta-burton was stopped. Status: Acute (10) Fecal incontinence: Problem details: -hx of urinary/fecal incontinence with stimulator in place. 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 Reviewed impression with patient and daughter, Allison. 2. Reviewed plans and recommendations with patient and daughter. 3. Answered their questions to their satisfaction. 4. They understand that patient may need oxygen temporarily postop spills a sky as she continues to recover. 5. They are agreeable with above stated plans and recommendations. 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 Patient began to be sick about 11 days ago around on March 11 with cough. She was diagnosed with influenza based on testing done at [facility] last week. Apparently both she and her were sick with influenza. She was managed in the emergency department at [facility]. It sounds like she st ayed overnight in the ER but could not get to a medical bed because or simply were no beds available. She was discharged the following day. She was sent home with albuterol (she has had albuterol in the past and may have a history of asthma, she is not sure. She does not have to use her albuterol very often), prednisone, and also cough medication. She was not put on Tamiflu because she was outside the 48 hour window. History from paramedics is that she was hypoxic with sats of 82% on room air when they arrived. EMS was able to put her on non- rebreather and sats came up to the low 90s. Pt has Hx of Methicillin resistant Staphylococcus aureus infection per [facility] (rectal stent infection).? Hospital day 4, 03/24/2024. She indicates she is feeling even better today. Continues to require oxygen supplementation. She now needs only oxygen supplementation at 2.5 liters/minute via nasal cannula. No longer requiring high-flow oxygen and humidification. Appetite is gradually improving. Tolerating increased activity including standing and walking to bathroom. Working with physical and occupational therapy. Both patient and daughter are agreeable to short term rehabilitation in TCU before considering safely returning home. Exam Narrative: Exam Narrative: Examined patient in her hospital room. Vision and hearing are adequate. Friendly and cooperative. Articulate. Alert and oriented x4. With oxygen supplementation at 2.5 liters/minute via nasal cannula continuously her saturations are greater than 88% at rest and with transferring and ambulating about 10 ft. Lungs with scattered rhonchi. Heart tones with regular rhythm. Abdomen benign. Extremities with trace edema. Skin is dry and intact. No focal motor neurologic deficits. Const: Vital Signs, click to edit/add: Vital Signs - 24 hr 03/23/24 16:23 03/23/24 16:23 03/23/24 16:23 Temperature 98.1 F Pulse Rate 64 Pulse Rate [Pulse Oximeter] 68 Respiratory Rate 18 Blood Pressure [Ri ght Arm] 159/73 H Pulse Oximetry 97 97 Oxygen Delivery Me thod Nasal Cannula Oxygen Flow Rate 4 03/23/24 19:00 03/24/24 01:15 03/24/24 01:15 Temperature 98.9 F 98.1 F Pulse Rate Pulse Rate [Pulse Oximeter] 71 69 Respiratory Rate 20 20 20 Blood Pressure [Ri ght Arm] 155/71 H 157/72 H Pulse Oximetry 94 95 Oxygen Delivery Me thod Nasal Cannula Nasal Cannula Oxygen Flow Rate 3.5 3.5 03/24/24 01:59 03/24/24 04:21 03/24/24 08:07 Temperature 97.7 F 98.1 F Pulse Rate 64 Pulse Rate [Pulse Oximeter] 68 63 Respiratory Rate 20 20 Blood Pressure [Ri ght Arm] 146/65 H 138/60 Pulse Oximetry 91 93 Oxygen Delivery Me thod Nasal Cannula Nasal Cannula Oxygen Flow Rate 3.5 3.5 03/24/24 08:20 03/24/24 08:55 03/24/24 08:56 Temperature Pulse Rate 65 Pulse Rate [Pulse Oximeter] 63 Respiratory Rate 20 Blood Pressure [[facility]] Pulse Oximetry 93 Oxygen Delivery Me thod Oxygen Flow Rate 03/24/24 11:41 Temperature 97.9 F Pulse Rate Pulse Rate [Pulse Oximeter] 63 Respiratory Rate 18 Blood Pressure [[facility]] 123/63 Pulse Oximetry 95 Oxygen Delivery Me thod Nasal Cannula Oxygen Flow Rate 2.5 Labs Labs: Laboratory Results - last 24 hr 03/24/24 08:33 WBC 10.55 RBC 3.80 L Hgb 10.7 L Hct 31.7 L MCV 83 MCH 28 MCHC 34 Plt Count 391 Sodium 131 L Potassium 4.1 Chloride 98 Carbon Dioxide 29 Anion Gap 4 L BUN 11 Creatinine 0.6 Estimated Creat Clear 38.36 Estimated GFR 89 Glucose 139 H Calcium 8.5
--- NOTE | 2024-03-24 16:22 | PM.DS1 ---
DS: Providers Provider Date Seen: 03/24/24 Date of admission: 03/21/24 12:10 Primary care physician: Not a Local Provider Admitting Clinician: Jakub Bermeo MD Consults: 03/21/24 16:24 Consult to Respiratory Therapy [CONS] Routine Comment: Reason(s) for RT Consult:: Consult 03/22/24 10:40 Consult to Occupational Therapy [CONS] Routine Comment: Reason(s) for OT Consult:: Evaluate and Treat Any Restrictions?:: No Restrictions Comment: On high-flow O2 at 35 LPM, FiO2 70% Consult to Physical Therapy [CONS] Routine Comment: Reason(s) for PT Consult:: Evaluate and Treat Any Restrictions?:: No Restrictions Comment: On high-flow O2 at 35 LPM, FiO2 70% 03/22/24 10:41 Consult to Tooth Inspector [CONS] Routine Comment: Reason for Consult:: Discharge Planning Needs Attending Physician on discharge: Jakub Bermeo MD Date of Discharge: 03/25/24 DS: Diagnosis Discharge Diagnosis (1) Acute hypoxic respiratory failure: Status: Acute Problem details: -secondary to community-acquired pneumonia likely post influenza viral infection -patient was severely hypoxic on presentation, currently on high-flow nasal cannula FiO2 50%, 35 liters/minute. -chest x-ray shows reticular pattern of the lower lobe of left lung, patient needs more workup to rule out interstitial lung disease as an outpatient. Discussed with her daughter. -will start patient on ceftriaxone, azithromycin and vancomycin due to MRSA history. If nasal MRSA is negative, will stop vancomycin if is still doing well. -Venous blood gas shows a venous pCO2 of 36 and pH is 7.49 (2) Sepsis: Status: Acute Problem details: -patient was septic on presentation with wbc's above 12 and respiratory rate of 20 or above -blood cultures withdrawn please follow-up -lactic acid was normal -IV fluids given, will do maintenance. (3) Community acquired pneumonia: Status: Acute Problem details: -Likely post influenza viral infection -patient was severely hypoxic on presentation, currently on high-flow nasal cannula FiO2 50%, 35 liters/minute. 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 -will start patient on ceftriaxone, azithromycin and vancomycin due to MRSA history. -blood cultures withdrawn please follow-up -Ordered MRSA screen (4) History of influenza: Status: Acute Problem details: -patient tested positive for flu on March 11. -currently is negative -flu virus likely lead to bacterial infection. 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 -will start patient on ceftriaxone, azithromycin and vancomycin due to MRSA history. -blood cultures withdrawn please follow-up -nasal MRSA swab is negative. Stop vancomycin. (6) Hypokalemia: Status: Acute Problem details: -potassium supplementation and monitor (7) Hyponatremia: Status: Acute Problem details: -mild hyponatremia with sodium of 131 during course of hospitalization -2000 mL fluid restriction -continue to monitor (8) CAD (coronary artery disease): Status: Acute Problem details: -CAD s/p PCI to LAD in 2019 (followed by [facility] licensed practical nurse). -ECHO 10/2023: normal EF with mild septal thickening but no significant outflow gradient, mild mitral stenosis with a gradient of 5. 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 -rectal sent with history of MRSA infection (13) History of syncope: Status: Acute Problem details: Likely secondary to bradycardia which was investigated by her pediatric licensed practical nurse and it was sinus bradycardia, patient did well after beta-burton was stopped. 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 Patient began to be sick about 11 days ago around on March 11 with cough. She was diagnosed with influenza based on testing done at [facility] last week. Apparently both she and her were sick with influenza. She was managed in the emergency department at [facility]. It sounds like she stayed overnight in the ER but could not get to a medical bed because or simply were no beds available. She was discharged the following day. She was sent home with albuterol (she has had albuterol in the past and may have a history of asthma, she is not sure. She does not have to use her albuterol very often), prednisone, and also cough medication. She was not put on Tamiflu because she was outside the 48 hour window. History from paramedics is that she was hypoxic with sats of 82% on room air when they arrived. EMS was able to put her on non-rebreather and sats came up to the low 90s. 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 Hospital day 4, 03/24/2024. She indicates she is feeling even better today. Continues to require oxygen supplementation. She now needs only oxygen supplementation at 2.5 liters/minute via nasal cannula. No longer requiring high-flow oxygen and humidification. Appetite is gradually improving. Tolerating increased activity including standing and walking to bathroom. Working with physical and occupational therapy. Both patient and daughter are agreeable to short term rehabilitation in TCU before considering safely returning home. Status at Discharge Functional status at discharge: uses cane/walker Overall status at discharge: patient is not back to baseline Time Spent with Patient Time attestation: Total time spent providing and/or coordinating discharge services: Time spent: Greater than 30 minutes Exam Narrative: Exam Narrative: Examined patient in her hospital room. Vision and hearing are adequate. Friendly and cooperative. Articulate. Alert and oriented x4. With oxygen supplementation at 2.5 liters/minute via nasal cannula continuously her saturations are greater than 88% at rest and with transferring and ambulating about 10 ft. Lungs with scattered rhonchi. Heart tones with regular rhythm. Abdomen benign. Extremities with trace edema. Skin is dry and intact. No focal motor neurologic deficits. Const: Vital Signs, click to edit/add: Vital Signs - 24 hr 03/23/24 16:23 03/23/24 16:23 03/23/24 16:23 Temperature 98.1 F Pulse Rate 64 Pulse Rate [Pulse Oximeter] 68 Respiratory Rate 18 Blood Pressure [Ri ght Arm] 159/73 H Pulse Oximetry 97 97 Oxygen Delivery Me thod Nasal Cannula Oxygen Flow Rate 4 03/23/24 19:00 03/24/24 01:15 03/24/24 01:15 Temperature 98.9 F 98.1 F Pulse Rate Pulse Rate [Pulse Oximeter] 71 69 Respiratory Rate 20 20 20 Blood Pressure [Ri ght Arm] 155/71 H 157/72 H Pulse Oximetry 94 95 Oxygen Delivery Me thod Nasal Cannula Nasal Cannula Oxygen Flow Rate 3.5 3.5 03/24/24 01:59 03/24/24 04:21 03/24/24 08:07 Temperature 97.7 F 98.1 F Pulse Rate 64 Pulse Rate [Pulse Oximeter] 68 63 Respiratory Rate 20 20 Blood Pressure [Ri ght Arm] 146/65 H 138/60 Pulse Oximetry 91 93 Oxygen Delivery Me thod Nasal Cannula Nasal Cannula Oxygen Flow Rate 3.5 3.5 03/24/24 08:20 03/24/24 08:55 03/24/24 08:56 Temperature Pulse Rate 65 Pulse Rate [Pulse Oximeter] 63 Respiratory Rate 20 Blood Pressure [Ri ght Arm] Pulse Oximetry 93 Oxygen Delivery Me thod Oxygen Flow Rate 03/24/24 11:41 Temperature 97.9 F Pulse Rate Pulse Rate [Pulse Oximeter] 63 Respiratory Rate 18 Blood Pressure [Ri ght Arm] 123/63 Pulse Oximetry 95 Oxygen Delivery Me thod Nasal Cannula Oxygen Flow Rate 2.5 DS: Data Data Completed and Pending Labs on day of discharge: Labs from last 24 hours 03/24/24 08:33 WBC 10.55 RBC 3.80 L Hgb 10.7 L Hct 31.7 L MCV 83 MCH 28 MCHC 34 Plt Count 391 Sodium 131 L Potassium 4.1 Chloride 98 Carbon Dioxide 29 Anion Gap 4 L BUN 11 Creatinine 0.6 Estimated Creat Clear 38.36 Estimated GFR 89 Glucose 139 H Calcium 8.5 Preliminary micro results at discharge 03/21/24 10:19 Blood Culture - Preliminary Blood NO GROWTH AFTER 72 HOURS Imaging Chest x-ray: Radiologist's impression: Left lower lobe consolidative opacity could be pneumonia or atelectasis. Discharge Plan Discharge Disposition: [facility] Date of Admission: 03/21/24 12:10 Attending Provider on Discharge: Jakub Bermeo Primary Care Provider: Provider,Not a Local Condition: Improved Anticipated Discharge Date/Time: 03/25/24 11:00 Discharge Medications: New cefdinir 300 mg capsule 300 mg PO BID 2 Days Qty: 4 0RF Continued potassium chloride [K-Tab] 20 mEq tablet extended release 20 meq PO DAILY duloxetine [Cymbalta] 20 mg capsule,delayed release(DR/EC) 40 mg PO HS aspirin [Adult Aspirin Regimen] 81 mg tablet,delayed release (DR/EC) 81 mg PO DAILY tramadol 50 mg tablet 50 mg PO Q6H PRN amlodipine 5 mg tablet 7.5 mg PO DAILY dorzolamide-timolol [Cosopt] 22.3-6.8 mg/mL drops 1 drp ophthalmic (eye) BID Rx Instructions: RIGHT EYE latanoprost 0.005 % drops 1 drp ophthalmic (eye) HS cholecalciferol (vitamin D3) 50 mcg (2,000 unit) capsule 50 mcg PO DAILY ferrous sulfate [FeroSul] 325 mg (65 mg iron) tablet 325 mg PO DAILY cyanocobalamin (vitamin B-12) 500 mcg tablet 1,000 mcg PO DAILY melatonin 5 mg capsule 5 mg PO HS rosuvastatin 10 mg tablet 10 mg PO HS Discharge Orders: Discharge Order (Routine); Ordered 03/24/24 Ordered By: Jakub Bermeo Activity Level: Activity as Tolerated Discharge Diet: Regular Follow Up Appointments: Provider,Not a Local [Primary Care Provider] - Forms: [employer] Info Instructions Admit to: SNF Discharge Potential: Good Length of Stay: <30 days Can use facility standing orders?: Yes Code Status: Full Code Rehab Potential: Good Therapy: Physical Therapy and Occupational Therapy Therapy Orders: Evaluate and Treat Oxygen: Yes Oxygen Delivery Method: Nasal Cannula Oxygen Flow Rate: 2 LPM Orders are good >30 days: No Signature: Jakub Bermeo
--- NOTE | 2024-03-24 19:37 | PC.NURSE ---
End of Shift: Patient pleasant and cooperative, A&O. VSS, afebrile. SpO2 maintained above 90% on 2.5L nasal canula. Tolerating heart healthy diet. SBA to bathroom. Call light within reach.
[2024-03-24] MEDS: DULOXETINE HCL 20 MG CAPSULE DR 40 MG PO (20:19)
[2024-03-24] MEDS: LATANOPROST 0.005% OPHTH 1 DROP EYE-BOTH (20:20)
[2024-03-24] MEDS: MELATONIN 3 MG TABLET 6 MG PO (20:20)
[2024-03-24] MEDS: ROSUVASTATIN CALCIUM 10 MG TABLET PO (20:20)
[2024-03-24] MEDS: ENOXAPARIN 40 MG/0.4 ML INJ SUBCUT (20:20)
[2024-03-25] VITALS: PULSE 71
[2024-03-25 02:49] VITALS: BP 124/72; PULSE 76; RESP 18; TEMP 36.4; O2SAT 93
[2024-03-25] MEDS: IPRAT-ALBUT 0.5-2.5 MG/3 ML NEB 1 NEB IH ×2 (02:51→08:30)
[2024-03-25] MEDS: guaiFENesin 100 MG/ML CUP PO ×2 (02:56→08:31)
[2024-03-25 03:01] VITALS: O2SAT 87
[2024-03-25 03:03] VITALS: O2SAT 91
--- NOTE | 2024-03-25 06:52 | PC.NURSE ---
End of shift [id number]: A&O pleasant and cooperative. Pt reports feeling better this evening. VSS. Originally on 2.5 L of oxygen and maintaining sats in low 90s. Overnight pt was bumped up to 3L NC d/t sats hanging in the mid 80s. Denies sob with activity. Intermittent productive cough. Using call light appropriately.
[2024-03-25 07:08] VITALS: PULSE 77
[2024-03-25 07:30] VITALS: BP 130/72; PULSE 68; PULSE 76; RESP 18; TEMP 36.8; O2SAT 87; O2SAT 91
[2024-03-25] MEDS: LACTOBACILLUS ACIDOPHILUS 1 TABLET 2 TAB PO (08:30)
[2024-03-25] MEDS: POTASSIUM CHLORIDE 10 MEQ CAPSULE ER 20 MEQ PO (08:31)
[2024-03-25] MEDS: polyethylene glycoL 3350 17 GM PACK PO (08:31)
[2024-03-25] MEDS: ASPIRIN 81 MG TAB.CHEW PO (08:31)
[2024-03-25] MEDS: DORZOLAMIDE/TIMOLOL 2-0.5% OPHTH 1 DROP EYE-BOTH (08:31)
[2024-03-25] MEDS: AMLODIPINE 5 MG TABLET 7.5 MG PO (08:31)
--- NOTE | 2024-03-25 11:15 | W.PM.CROSSCO ---
Subjective Subjective Date Seen: 03/25/24 Interval history: Patient seen on day of discharge, discharge summary completed by Dr. Ugarte yesterday. No changes made to diagnoses or clinical course. Patient was doing well with therapies and needing less supplemental oxygen this morning, still appropriate to discharge for SNF/rehab stay. Haley has no concerns for hospitalist team on discharge. Objective Objective Data Details: GEN: Alert and oriented. Seen seated in bedside chair and walking in hallway with her walker and therapy teams HEENT: EOMIs bilaterally, no scleral icterus CV: RRR, No concerning murmurs R: No tachypnea at rest. Bibasilar rhonchi, no wheezing, + coughing paroxysms during exam Skin: No concerning skin lesions or rashes on exposed skin Neuro: Nonfocal Psych: Appropriate Assessment and Plan Assessment and plan (1) Acute hypoxic respiratory failure: Problem comment: -secondary to community-acquired pneumonia likely post influenza viral infection -patient was severely hypoxic on presentation, currently on high-flow nasal cannula FiO2 50%, 35 liters/minute. -chest x-ray shows reticular pattern of the lower lobe of left lung, patient needs more workup to rule out interstitial lung disease as an outpatient. Discussed with her daughter. 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 -initiated ceftriaxone, azithromycin and vancomycin due to MRSA history -> negative swab and narrowed to oral Cefdinir upon d/c -blood cultures negative -negative MRSA screen Status: Acute Plan - per above - other notable findings in d/c summary from Dr. Bermeo on 03/24/24 - to [facility] 03/25/24
--- NOTE | 2024-03-25 11:24 | PC.NURSE ---
nurse to nurse was done. SL was d/c intact and tele was also d/c pt was packet up and given a w/c ride to car. with all belongings and paperwork
== END 2024-03-25 10:40 | DRG 193 ==
LOC: ED 11:39 → MEDSURG 12:09
PROVIDERS: Student in an Organized Health Care Education/Training Program; Admitting Provider Internal Medicine; Emergency Provider Emergency Medicine; Visit Provider Internal Medicine
DX: J15.9 Unspecified bacterial pneumonia (principal); A41.9 Sepsis, unspecified organism; J96.01 Acute respiratory failure with hypoxia; C91.50 Adult T-cell lymphoma/leukemia (HTLV-1-associated) not having achieved remission; E87.1 Hypo-osmolality and hyponatremia; J11.08 Influenza due to unidentified influenza virus with specified pneumonia; E87.6 Hypokalemia; Z87.09 Personal history of other diseases of the respiratory system; Z86.14 Personal history of Methicillin resistant Staphylococcus aureus infection; I10 Essential (primary) hypertension; R15.9 Full incontinence of feces; I25.10 Atherosclerotic heart disease of native coronary artery without angina pectoris; E78.5 Hyperlipidemia, unspecified; Z87.891 Personal history of nicotine dependence
CPT/HCPCS: 36415; 51701; 71045; 80048; 80053; 82803; 83605; 83735; 83880; 84100; 84145; 84484; 85025; 85027; 86140; 87040; 87081; 87631; 93005; 94664; 94761; 97110; 97116; 97161; 97165; 97530; 97535; 99285; A9270; J0456; J0696; J1650; J3372; J7030; J7050

== ENCOUNTER 2024-12-24 14:55 | Outpatient (CLI) | payer MEDICARE, SELFPAY | END 2024-12-24 14:56 | disposition home or self-care (01) | LOC: AMB 12-26 04:36 | PROVIDERS: PCP Family Medicine; Visit Provider Family Medicine | DX: R30.0 Dysuria (principal); R42 Dizziness and giddiness; R53.1 Weakness | CPT/HCPCS: A0425; A0429 ==

== ENCOUNTER 2024-12-24 15:26 | Emergency (ER) | payer MEDICARE, SELFPAY ==
--- OUTSIDE RECORDS SUMMARY | 2024-12-09 09:25 | XMS_ITS | Encounter Summary ---
Author Organization [facility] Address [address] [place] [address] Care Team Providers Care Product Development Name Role Phone System, Provider Not In Primary Care Provider Un available Seema Boateng APRN ROTARY DRILL RIG OPERATOR Unavailable [phone] Nicole Ernst PA-C Unavailable [phone] Reason for Referral * CV Testing (Routine) - Closed Specialty Diagnoses / Procedures Referred By Contac t Referred To Contact Cardiology Diagnoses Mitral valve stenosis, unspecified etiology Procedures Echocardiogram Complete ZZHC TTE W/DOPPLER, COMPLETE ZZHC ECHO COMPLETE W DOPPLER W CONTRAST ZZHC ECHO COMPLETE W DOPPLER W/O CONTRAST ZZHC IV PUSH SINGLE, INITIAL SUBSTANCE ZZHC US GUIDE FOR PERICARDIOCENTESIS ZZHC ECHO MYOCARD BX ZZC INJECTION, PERFLUTREN LIPID MICROSPHERES, PER ML ZZHC STATISTIC IV PUSH SINGLE INITIAL SUBSTANCE AK ECHO MYOCARD BX AK INJECTION, PERFLUTREN LIPID MICROSPHERES, PER ML AK TTE W/DOPPLER, COMPLETE AK IV PUSH SINGLE, INITIAL SUBSTANCE AK TTE W/DOPPLER, COMPLETE AK TTE W/DOPPLER, COMPLETE HC US GUIDE FOR PERICARDIOCENTESIS HC ECHO MYOCARD BX HC IV PUSH SINGLE, INITIAL SUBSTANCE HC STATISTIC IV PUSH SINGLE INITIAL SUBSTANCE HC ECHO COMPLETE W DOPPLER W CONTRAST HC ECHO COMPLETE W DOPPLER W/O CONTRAST Nicole Ernst PA-C [address] [facility] [address] [place] [address] Phone: tel: fax: [facility] [address] [place] [address] Phone: tel: fax: Referral ID Status Reason Start Date Expiration Date Visits Re quested Visits Authorized [id number] Closed 12/20/2023 12/19/2024 1 1 Reason for Visit * CV Testing (Routine) - Closed Specialty Diagnoses / Procedures Referred By Jennifer t Referred To Contact Cardiology Diagnoses Mitral valve stenosis, unspecified etiology Procedures Echocardiogram Complete ZZHC TTE W/DOPPLER, COMPLETE ZZHC ECHO COMPLETE W DOPPLER W CONTRAST ZZHC ECHO COMPLETE W DOPPLER W/O CONTRAST ZZHC IV PUSH SINGLE, INITIAL SUBSTANCE ZZHC US GUIDE FOR PERICARDIOCENTESIS ZZHC ECHO MYOCARD BX ZZC INJECTION, PERFLUTREN LIPID MICROSPHERES, PER ML ZZHC STATISTIC IV PUSH SINGLE INITIAL SUBSTANCE AK ECHO MYOCARD BX AK INJECTION, PERFLUTREN LIPID MICROSPHERES, PER ML AK TTE W/DOPPLER, COMPLETE AK IV PUSH SINGLE, INITIAL SUBSTANCE AK TTE W/DOPPLER, COMPLETE AK TTE W/DOPPLER, COMPLETE HC US GUIDE FOR PERICARDIOCENTESIS HC ECHO MYOCARD BX HC IV PUSH SINGLE, INITIAL SUBSTANCE HC STATISTIC IV PUSH SINGLE INITIAL SUBSTANCE HC ECHO COMPLETE W DOPPLER W CONTRAST HC ECHO COMPLETE W DOPPLER W/O CONTRAST Nicole Ernst PA-C [id number], [facility] [address] [place] [address] Phone: tel: fax: [facility] [address] [place] [address] Phone: tel: fax: Referral ID Status Reason Start Date Expiration Date Visits Re quested Visits Authorized [id number] Closed 12/20/2023 12/19/2024 1 1 Encounter Details Date Type Department Care Team (Latest Contact Info) Description 12/09/2024 9:25 AM CDT - 12/09/2024 11:59 PM CDT Hospital Encounter [facility] [address] [facility] [address] [place] [id number] Nicole Ernst PA-C [address] [place] [address] Mitral valve stenosis, unspecified etiology Discharge Disposition: Home or Self Care Social [...] permanent housing and does not include staying outside in a car, in a tent, in an abandoned building, in an overnight skilled nursing, or couch-surfing.) Yes 11/09/2023 Are you worried [...] on file 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 18 g 3 03/17/2024 aspirin 81 MG EC tablet Take 81 [...] the right eye 2 times daily 10/15/2022 DULoxetine (CYMBALTA) 20 MG capsule Take 40 mg by mouth At Bedtime guaiFENesin-dextro methorphan (ROBITUSSIN DM) 100-10 MG/5ML syrupIndications:I nfluenza A,Mild intermittent asthma with exacerbation Take 10 mLs by mouth every 4 hours as needed for cough. 236 mL 03/17/2024 latanoprost (XALATAN) 0.005 % ophthalmic solution INSTILL 1 DROP IN BOTH EYES NIGHTLY AT BEDTIME 08/28/2022 losartan (COZAAR) 50 MG tabletIndications: Benign essential hypertension Take 1 tablet (50 mg) by mouth daily. 90 tablet 3 10/13/2024 Magnesium Citrate (MAGNESIUM GUMMIES PO) Take 500 mg by mouth daily. 2 per day rosuvastatin (CRESTOR) 10 MG tablet Take 10 mg by mouth daily VITAMIN D, CHOLECALCIFEROL, PO Take 2,000 Units by mouth daily ferrous sulfate (FE TABS) 325 (65 Fe) MG EC tablet Take 65 mg of iron by mouth daily melatonin 5 MG tablet Take 5 mg by mouth at bedtime. potassium chloride michelle er (K-DUR) Take 20 mEq by mouth daily documented as of this encounter Plan of Treatment Upcoming Encounters Date Type Department Care Team (Late st Contact Info) Description 12/29/2024 10:00 AM CDT Appointment [facility] [address] [place] [address] Zoe Yang MD [address] [place] [address] documented as of this encounter Procedures Procedure Name Priority Date/Time Associated Diagnosis Comments ECHO COMPLETE Routine 12/09/2024 9:58 AM CDT Mitral valve stenosis, unspecified etiology documented in this encounter Results * ECHO COMPLETE (12/09/2024 9:58 AM CDT) LVEF 55-60% CARDIOLOGY RESULTS Anatomical Region Laterality Modality Echocardiography 12/09/2024 9:34 AM CDT Narrative 12/09/2024 11:51 AM CDT [id number]^SUJATA^NICOLE^JH [facility] Echocardiography Laboratory [address] [place] [address] Name: HALEY CROW : 1940 Study Date: 12/09/2024 09:34 AM Age: 84 yrs Gender: Female Patient Location: [facility] Reason For Study: Mitral valve stenosis, unspecified etiology Ordering Physician: NICOLE ERNST Referring Physician: NICOLE ERNST Performed By: Aaron Jovel RDCS BSA: 1.7 m2 Height: 65 in Weight: 149 lb HR: 63 BP: 192/86 mmHg Procedure Echocardiogram with two-dimensional, color and spectral Doppler. Interpretation Summary The visual ejection fraction is 55-60%. No regional wall motion abnormalities noted. The left ventricle is normal in structure, function and size. The right ventricle is normal in structure, function and size. There is mild mitral stenosis. Mean gradient of 6 mmHg There is mild (1+) mitral regurgitation. There is mild (1+) tricuspid regurgitation. There is no pericardial effusion. PASP is 33 mmHg + CVP No significant change compared to 11/10/23 report Left Ventricle The left ventricle is normal in structure, function and size. A sigmoid septum is present. The visual ejection fraction is 55-60%. No regional wall motion abnormalities noted. Right Ventricle The right ventricle is normal in structure, function and size. Atria Normal left atrial size. Right atrial size is normal. The interatrial septum bows toward the right atrium, consistent with increased left atrial pressure. Mitral Valve There is mild (1+) mitral regurgitation. There is mild mitral stenosis. Tricuspid Valve There is mild (1+) tricuspid regurgitation. Aortic Valve No aortic regurgitation is present. Pulmonic Valve The pulmonic valve is not well visualized. Vessels The aortic root is normal size. Normal size ascending aorta. The inferior vena cava is normal. Pericardium There is no pericardial effusion. MMode/2D Measurements & Calculations IVSd: 1.3 cm LVIDd: 5.0 cm LVIDs: 2.7 cm LVPWd: 0.96 cm FS: 46.2 % LV mass(C)d: 211.6 grams LV mass(C)dI: 121.2 grams/m2 Ao root diam: 3.3 cm asc Aorta Diam: 3.2 cm LVOT diam: 1.8 cm LVOT area: 2.5 cm2 Ao root diam index Ht(cm/m): 2.0 Ao root diam index BSA (cm/m2): 1.9 Asc Ao diam index BSA (cm/m2): 1.8 Asc Ao diam index Ht(cm/m): 1.9 LA Volume (BP): 60.4 ml LA Volume Index (BP): 34.5 ml/m2 RV Base: 3.4 cm RWT: 0.38 TAPSE: 2.0 cm Time Measurements Aortic HR: 61.0 BPM Doppler Measurements & Calculations MV E max mac: 115.0 cm/sec MV A max mac: 142.0 cm/sec MV E/A: 0.81 MV max P.3 mmHg MV mean P.0 mmHg MV V2 VTI: 55.6 cm MVA(VTI): 1.4 cm2 MV dec time: 0.36 sec LV V1 max P.7 mmHg LV V1 max: 129.0 cm/sec LV V1 VTI: 31.1 cm CO(LVOT): 4.7 l/min CI(LVOT): 2.7 l/min/m2 SV(LVOT): 77.4 ml SI(LVOT): 44.3 ml/m2 PA acc time: 0.17 sec TR max mac: 288.9 cm/sec TR max P.4 mmHg E/E' av.2 Lateral E/e': 13.5 Medial E/e': 16.8 RV S Mac: 10.7 cm/sec Report approved by: Nilam Dubon on 12/09/2024 11:51 AM Procedure Note Kelvin Dubon MD - 12/09/2024 [id number]^SUJATA^NICOLE^J[facility] Echocardiography Laboratory [address] [place] [address] Name: HALEY CROW : 1940 Study Date: 12/09/2024 09:34 AM Age: 84 yrs Gender: Female Patient Location: [facility] Reason For Study: Mitral valve stenosis, unspecified etiology Ordering Physician: NICOLE ERNST Referring Physician: NICOLE ERNST Performed By: Aaron Jovel RDCS BSA: 1.7 m2 Height: 65 in Weight: 149 lb HR: 63 BP: 192/86 mmHg Procedure Echocardiogram with two-dimensional, color and spectral Doppler. Interpretation Summary The visual ejection fraction is 55-60%. No regional wall motion abnormalities noted. The left ventricle is normal in structure, function and size. The right ventricle is normal in structure, function and size. There is mild mitral stenosis. Mean gradient of 6 mmHg There is mild (1+) mitral regurgitation. There is mild (1+) tricuspid regurgitation. There is no pericardial effusion. PASP is 33 mmHg + CVP No significant change compared to 11/10/23 report Left Ventricle The left ventricle is normal in structure, function and size. A sigmoidseptum is present. The visual ejection fraction is 55-60%. No regional wallmotion abnormalities noted. Right Ventricle The right ventricle is normal in structure, function and size. Atria Normal left atrial size. Right atrial size is normal. The interatrialseptum bows toward the right atrium, consistent with increased left atrialpressure. Mitral Valve There is mild (1+) mitral regurgitation. There is mild mitral stenosis. Tricuspid Valve There is mild (1+) tricuspid regurgitation. Aortic Valve No aortic regurgitation is present. Pulmonic Valve The pulmonic valve is not well visualized. Vessels The aortic root is normal size. Normal size ascending aorta. The inferiorvena cava is normal. Pericardium There is no pericardial effusion. MMode/2D Measurements & Calculations IVSd: 1.3 cm LVIDd: 5.0 cm LVIDs: 2.7 cm LVPWd: 0.96 cm FS: 46.2 % LV mass(C)d: 211.6 grams LV mass(C)dI: 121.2 grams/m2 Ao root diam: 3.3 cm asc Aorta Diam: 3.2 cm LVOT diam: 1.8 cm LVOT area: 2.5 cm2 Ao root diam index Ht(cm/m): 2.0 Ao root diam index BSA (cm/m2): 1.9 Asc Ao diam index BSA (cm/m2): 1.8 Asc Ao diam index Ht(cm/m): 1.9 LA Volume (BP): 60.4 ml LA Volume Index (BP): 34.5 ml/m2 RV Base: 3.4 cm RWT: 0.38 TAPSE: 2.0 cm Time Measurements Aortic HR: 61.0 BPM Doppler Measurements & Calculations MV E max mac: 115.0 cm/sec MV A max mac: 142.0 cm/sec MV E/A: 0.81 MV max P.3 mmHg MV mean P.0 mmHg MV V2 VTI: 55.6 cm MVA(VTI): 1.4 cm2 MV dec time: 0.36 sec LV V1 max P.7 mmHg LV V1 max: 129.0 cm/sec LV V1 VTI: 31.1 cm CO(LVOT): 4.7 l/min CI(LVOT): 2.7 l/min/m2 SV(LVOT): 77.4 ml SI(LVOT): 44.3 ml/m2 PA acc time: 0.17 sec TR max mac: 288.9 cm/sec TR max P.4 mmHg E/E' av.2 Lateral E/e': 13.5 Medial E/e': 16.8 RV S Mac: 10.7 cm/sec Report approved by: Nilam Dubon on 12/09/2024 11:51 AM Nicole Ernst PA-C CV ECHO ORDERABLES E dited Result - Final documented in this encounter Visit Diagnoses Diagnosis Mitral valve stenosis, unspecified etiology documented in this encounter Care Teams Product Development Relationship Specialty Start Date End Date System, Provider Not In PCP - General Clinic 11/09/17 Seema Boateng APRN ROTARY DRILL RIG OPERATOR [address] [id number] Nurse Practitioner Cardiovascular Disease 11/22/22 Nicole Ernst PA-C [address] [place] [address] Assigned Heart and Vascular Provider 07/31/24 documented as of this encounter
--- OUTSIDE RECORDS SUMMARY | 2024-12-09 10:45 | XMS_ITS | Encounter Summary ---
Author Organization [place] Address [address] [place] [address] Care Team Providers Care Crime Scene Technician Name Role Phone System, Provider Not In Primary Care Provider Un available Seema Boateng APRN LABORATORY SPECIALIST Unavailable [phone] Steph López PA-C Unavailable [phone] Encounter Details Date Type Department Care Team (Late st Contact Info) Description 12/09/2024 10:45 AM CDT Lab [facility] Heart [address] [place] [address] Essential hypertension Social History Tobacco Use Types Packs/Day Years [...] in an abandoned building, in an overnight residential, or couch-surfing.) Yes 11/09/2023 Are you worried [...] on file 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 Gender Identity Not on file Sexual Orientation Not on file documented as of this encounter Plan of Treatment Upcoming Encounters Date Type Department Care Team (Late st Contact Info) Description 12/29/2024 10:00 AM CDT Appointment [facility] [address] [place] [address] Zoe Yang MD [address] [place] [address] documented as of this encounter Procedures Procedure Name Priority Date/Time Associated Diagnosis Comments LIPID REFLEX TO DIRECT LDL PANEL Routine 12/09/2024 10:09 AM CDT Essential hypertension BASIC METABOLIC PANEL Routine 12/09/2024 10:09 AM CDT Essential hypertension CBC WITH PLATELETS Routine 12/09/2024 10 :09 AM CDT Essential hypertension documented in this encounter Results * (ABNORMAL) CBC with platelets (12/09/2024 10:09 AM CDT) WBC Count 7.39 4.00 - 11.00 10e3/uL 12/09/2024 11:31 AM CDT [facility] RBC Count 4.21 3.80 - 5.20 10e6/uL 12/09/2024 11:31 AM CDT [facility] Hemoglobin 9.6(L) 11.7 - 15.7 g/dL 12/09/2024 11:31 AM CDT [facility] Hematocrit 32.2(L) 35.0 - 47.0 % 12/09/2024 11:31 AM CDT [facility] MCV 76.5(L) 78.0 - 100.0 fL 12/09/2024 11:31 AM CDT [facility] MCH 22.8(L) 26.5 - 33.0 pg 12/09/2024 11:31 AM CDT [facility] MCHC 29.8(L) 31.5 - 36.5 g/dL 12/09/2024 11:31 AM CDT [facility] RDW 14.8 10.0 - 15.0 % 12/09/2024 11:31 AM CDT [facility] Platelet Count 315 150 - 450 10e3/uL 12/09/2024 11:31 AM CDT [facility] Blood STRUCTURE OF LEFT UPPER LIMB / Unknown Venipuncture / Unknown 12/09/2024 10:09 AM CDT 12/09/2024 10:09 AM CDT us Steph López PA-C LAB - BLOOD ORDERABL ES Final Result LABORATORY [facility] [address] Lab (1st floor, no room number) [place] [address], [facility] * Lipid panel reflex to direct LDL Fasting (12/09/2024 10:09 AM CDT) Cholesterol 131 <200 mg/dL 12/09/2024 4:16 PM CDT [facility] Triglycerides 45 <150 mg/dL 12/09/2024 4:16 PM CDT [facility] Direct Measure HDL 61 >=50 mg/dL 2024 4:16 PM CDT [facility] LDL Cholesterol Calculated 61 <100 mg/dL 12/09/2024 4:16 PM CDT [facility] Comment:LDL calculated using the Friedewald equation. Non HDL Cholesterol 70 <130 mg/dL 12/09/2024 4:16 PM CDT [facility] Patient Fasting > 8hrs? Yes 12/09/2024 4:16 PM CDT [facility] Blood STRUCTURE OF LEFT UPPER LIMB / Unknown Venipuncture / Unknown 12/09/2024 10:09 AM CDT 12/09/2024 10:09 AM CDT Narrative [facility] - 12/09/2024 4:16 PM CDT Cholesterol Desirable: < 200 mg/dL Borderline High: 200 - 239 mg/dL High: >= 240 mg/dL Triglycerides Normal: < 150 mg/dL Borderline High: 150 - 199 mg/dL High: 200-499 mg/dL Very High: >= 500 mg/dL Direct Measure HDL Female: >= 50 mg/dL Male: >= 40 mg/dL LDL Cholesterol Desirable: < 100 mg/dL Above Desirable: 100 - 129 mg/dL Borderline High: 130 - 159 mg/dL High: 160 - 189 mg/dL Very High: >= 190 mg/dL Non HDL Cholesterol Desirable: < 130 mg/dL Above Desirable: 130 - 159 mg/dL Borderline High: 160 - 189 mg/dL High: 190 - 219 mg/dL Very High: >= 220 mg/dL Steph López PA-C LAB - BLOOD ORDERABL ES Final Result [facility] [address] [facility] [address], [address] [place] [address], [facility] LABORATORY [facility] Lab [address] Lab (1st floor, no room number) [place] [address], [facility] * (ABNORMAL) Basic metabolic panel (12/09/2024 10:09 AM CDT) Sodium 140 135 - 145 mmol/L 12/09/2024 12:01 PM CDT LABORATORY Potassium 4.0 3.4 - 5.3 mmol/L 12/09/2024 12:01 PM CDT LABORATORY Chloride 104 98 - 107 mmol/L 12/09/2024 12:01 PM CDT LABORATORY Carbon Dioxide (CO2) 23 22 - 29 mmol/L 12/09/2024 12:01 PM CDT LABORATORY Anion Gap 13 7 - 15 mmol/L 12/09/2024 12:01 PM CDT LABORATORY Urea Nitrogen 13.8 8.0 - 23.0 mg/dL 12/09/2024 12:01 PM CDT LABORATORY Creatinine 0.85 0.51 - 0.95 mg/dL 12/09/2024 12:01 PM CDT LABORATORY GFR Estimate 67 >60 mL/min/1.7 3m2 12/09/2024 12:01 PM CDT [facility] Comment:eGFR calculated usin 2020 CKD-EPI equation. Calcium 8.9 8.8 - 10.4 mg/dL 12/09/2024 12:01 PM CDT LABORATORY Glucose 118(H) 70 - 99 mg/dL 12/09/2024 12:01 PM CDT LABORATORY Blood STRUCTURE OF LEFT UPPER LIMB / Unknown Venipuncture / Unknown 12/09/2024 10:09 AM CDT 12/09/2024 10:09 AM CDT Steph López PA-C LAB - BLOOD ORDERABL ES Final Result LABORATORY [facility] Lab [address] Lab (1st floor, no room number) [place] [address], [facility] documented in this encounter Visit Diagnoses Diagnosis Essential hypertension Unspecified essential hypertension documented in this encounter Care Teams Crime Scene Technician Relationship Specialty Start Date End Date System, Provider Not In PCP - General Clinic 11/09/17 Seema Boateng APRN LABORATORY SPECIALIST [address] [id number] Nurse Practitioner Cardiovascular Disease 11/22/22 Steph López PA-C [address] [place] [address] Assigned Heart and Vascular Provider 07/31/24 documented as of this encounter
--- OUTSIDE RECORDS SUMMARY | 2024-12-15 12:15 | XMS_ITS | Encounter Summary ---
Author Organization [facility] Address [address] [place] [address] Care Team Providers Care Personal Property Assessor Name Role Phone System, Provider Not In Primary Care Provider Un available Seema Boateng APRN SENIOR ENGINEERING ASSOCIATE Unavailable [phone] Steph López PA-C Unavailable [phone]- [phone] Reason for Referral * Consultation (Routine: Next available opening) - Pending Review Specialty Diagnoses / Procedures Referred By Contcaleb t Referred To Contact Cardiovascular Disease Diagnoses Essential hypertension Zoe Yang MD [address] [address] Phone: tel: fax: Referral ID Status Reason Start Date Expiration Date V isits Requested Visits Authorized [id number] Pending Review 12/15/2024 12/15/2025 1 1 Question Answer Follow-up with: [facility] Patient Scheduling Instructions: [employer] will call you to coordinate your care as prescribed by your provider. If you have concerns about scheduling, please call [phone]. Comments [facility] will call you to coordinate your care as prescribed by your provider. If you have concerns about scheduling, please call [phone]. * CV Testing (Routine) - Authorized Specialty Diagnoses / Procedures Referred By Contac t Referred To Contact Cardiology Diagnoses Essential hypertension Procedures Exercise Stress Echocardiogram [facility] DOPPLER ECHO PULSED, F/U OR LIMITED [facility] DOPPLER ECHO COLOR FLOW VELOCITY MAP [facility] ECHO HEART XTHORACIC, STRESS/REST [facility] ECHO TRANSTHORACIC, STRESS/REST W CONTRAST [facility] ECHO TRANSTHORACIC, STRESS/REST W/O CONTRAST [facility] IV PUSH SINGLE, INITIAL SUBSTANCE [facility] INJECTION, PERFLUTREN LIPID MICROSPHERES, PER ML [facility] STATISTIC IV PUSH SINGLE INITIAL SUBSTANCE ND DOPPLER ECHO PULSED, F/U OR LIMITED ND DOPPLER ECHO COLOR FLOW VELOCITY MAP ND ECHO HEART XTHORACIC, STRESS/REST ND INJECTION, PERFLUTREN LIPID MICROSPHERES, PER ML ND IV PUSH SINGLE, INITIAL SUBSTANCE ND ECHO HEART XTHORACIC, STRESS/REST ND ECHO HEART XTHORACIC, STRESS/REST HC DOPPLER ECHO PULSED, F/U OR LIMITED HC DOPPLER ECHO COLOR FLOW VELOCITY MAP HC IV PUSH SINGLE, INITIAL SUBSTANCE HC STATISTIC IV PUSH SINGLE INITIAL SUBSTANCE HC ECHO TRANSTHORACIC, STRESS/REST W CONTRAST HC ECHO TRANSTHORACIC, STRESS/REST W/O CONTRAST Zoe Yang MD [address] [place] [address] Phone: tel: fax: [facility] [address] [place] [address] Phone: tel: Referral ID Status Reason Start Date Expiration Date V isits Requested Visits Authorized [id number] Authorized 12/15/2024 12/15/2025 1 1 Reason for Visit * Reason Comments Follow Up * Consultation (Routine: Next available opening) - Closed Specialty Diagnoses / Procedures Referred By Contcaleb t Referred To Contact Cardiovascular Disease Diagnoses Essential hypertension Steph López PA-C [address] [place] [address] Phone: tel: fax: Suhail Espinoza MD Referral ID Status Reason Start Date Expiration Date Visits Re quested Visits Authorized [id number] Closed 12/20/2023 12/19/2024 1 1 Encounter Details Date Type Department Care Team (Late st Contact Info) Description 12/15/2024 12:15 PM CDT Office Visit [facility] [address] [place] [address] Zoe Yang MD [address] [place] [address] Essential hypertension Social History Tobacco Use Types [...] on file Legal 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 Gender Identity Not on file Sexual Orientation Not on file documented as of this encounter Last Filed Vital Signs Vital Sign Reading Time Taken Comments Blood Pressure 182/90 12/15/2024 11:45 AM CDT danisha gross Pulse 62 12/15/2024 11:45 AM CDT Temperature - - Respiratory Rate 18 12/15/2024 11:45 AM CDT Oxygen Saturation 100% 12/15/2024 11:45 AM CDT Inhaled Oxygen Concentration - - Weight - - Height 162.6 cm (5' 4) 12/15/2024 11:45 AM CDT Body Mass Index - - documented in this encounter Progress Notes * Zoe Yang MD - 12/15/2024 12:15 PM CDT Reason for Consultation: Coronary artery disease, syncope secondary to symptomatic bradycardia in 2022 at which point beta-burton therapy was discontinued. History of Presenting Illness: This is an 84-year-old female who I saw as an inpatient at [facility] in November 2022. She has a history of a previous PCI to the LAD in 2019 and was admittedat the time with a syncopal episode. She was noted to have sinus bradycardia in the emergency department and was on metoprolol which was subsequently discontinued. Telemetry during that admission demonstrated sinus rhythm with no evidence of symptomatic bradycardia. Event monitoring was performed post discharge and demonstrated sinus bradycardia which was not symptomatic. He did report dizziness which corresponded with normal sinus rhythm at the time of the symptoms. In October 2023 she was admitted with a hypertensive emergency manifested symptomatically as dizziness. Her antihypertensive medication was optimized at the time. Most recent Zio patch monitoring in October of this year demonstrated sinus rhythm with short runs of SVT. Today she feels well overall from a cardiovascular standpoint. Earlier this year her amlodipine wasdiscontinued and losartan substituted due to proteinuria. Her blood pressure has been elevated at home, however, and systolics have generally ranged between 140 to 160 mmHg. Despite this she feels well. She remains very active at home and denies any exertional limitations while doing so. She denies any chest discomfort, syncope or presyncope. She was accompanied by her daughter who did note that the patient appeared significantly fatigued while walking a short distancerecently. She has been dealing with right knee issues which may have also contributed to exercise limitations recently. She does report occasional palpitations but these are brief and self-limiting. PMH, FH, SH, Allergies and Meds: As outlined below. Physical Exam: Gen: NAD Respiratory : Clear to Auscultation. Cardiovascular: RRR with occasional premature beats. Extremities: No edema. Labs: Labs on 12/09/2024 demonstrate total cholesterol 131, HDL 61, LDL 61 and triglycerides of 45. Other Cardiac Testing: Echocardiography on 12/09/2024 demonstrated normal left ventricular systolic function with mild mitral stenosis/regurgitation and mild tricuspid regurgitation. There is no significant change compared to the previous study. IMPRESSION: Coronary artery disease status post PCI to the LAD in 2019. 2. Syncope secondary to symptomatic bradycardia in the context of beta-burton therapy. This has not occurred after discontinuation of metoprolol. 3. Hypertension. Blood pressure significantly elevated on losartan 50 mg daily. PLAN: Ms. Crow is doing well overall from a cardiovascular standpoint. We went over the results of her recent echocardiogram and Zio patch monitor which are reassuring. At this point I have recommended optimization of antihypertensive therapy with the reintroduction of amlodipine. She will continue losartan as previously dosed. I will also order an exercise stress echocardiogram for an ischemic reassessment as well as to assess her chronotropic response to exercise. It was a pleasure seeing her in follow-up today. Zoe Yang M.D. CURRENT MEDICATIONS: Current Outpatient Medications Medication Sig Dispense Refill albuterol (PROAIR HFA/PROVENTIL HFA/VENTOLIN HFA) 108 (90 Base) MCG/ACT inhaler Inhale 2 puffs intothe lungs every 4 hours as needed for shortness of breath, wheezing or cough. 18 g 3 aspirin 81 MG EC tablet Take 81 mg by mouth daily benzonatate (TESSALON) 100 MG capsule Take 2 capsules (200 mg) by mouth 3 times daily as needed forcough. 30 capsule 0 clobetasol (TEMOVATE) 0.05 % external ointment Apply topically 2 times daily To víctor area cyanocobalamin (VITAMIN B-12) 1000 MCG tablet Take 1,000 mcg by mouth daily dorzolamide-timolol (COSOPT) 2-0.5 % ophthalmic solution Place 1 drop into the right eye 2 times daily DULoxetine (CYMBALTA) 20 MG capsule Take 40 mg by mouth At Bedtime ferrous sulfate (FE TABS) 325 (65 Fe) MG EC tablet Take 65 mg of iron by mouth daily guaiFENesin-dextromethorphan (ROBITUSSIN DM) 100-10 MG/5ML syrup Take 10 mLs by mouth every 4 hoursas needed for cough. 236 mL 0 latanoprost (XALATAN) 0.005 % ophthalmic solution INSTILL 1 DROP IN BOTH EYES NIGHTLY AT BEDTIME losartan (COZAAR) 50 MG tablet Take 1 tablet (50 mg) by mouth daily. 90 tablet 3 Magnesium Citrate (MAGNESIUM GUMMIES PO) Take 500 mg by mouth daily. 2 per day melatonin 5 MG tablet Take 5 mg by mouth at bedtime. potassium chloride michelle er (K-DUR) Take 20 mEq by mouth daily rosuvastatin (CRESTOR) 10 MG tablet Take 10 mg by mouth daily VITAMIN D, CHOLECALCIFEROL, PO Take 2,000 Units by mouth daily ALLERGIES Allergies Allergen Reactions Gramineae Pollens Hives Plaquenil [Hydroxychloroquine] Hives Smoke. Unknown and Other (See Comments) Dust Mite Extract Other (See Comments) PAST MEDICAL HISTORY: No past medical history on file. PAST SURGICAL HISTORY: No past surgical history on file. FAMILY HISTORY: No family history on file. SOCIAL HISTORY: Social History Socioeconomic History Marital status: Tobacco Use Smoking status: Former Types: Cigarettes Smokeless tobacco: Former Substance and Sexual Activity Alcohol use: Not Currently Drug use: Never Social Drivers of Health Financial Resource Strain: Low Risk (04/15/2024) Received from [facility] Financial Resource Strain Difficulty of Paying Living Expenses: 3 Food Insecurity: No Food Insecurity (04/15/2024) Received from [facility] Food Insecurity Do you worry your food will run out before you are able to buy more?: 1 Transportation Needs: No Transportation Needs (04/15/2024) Received from [facility] Transportation Needs Does lack of transportation keep you from medical appointments?: 1 Does lack of transportation keep you from work, meetings or getting things that you need?: 1 Physical Activity: Inactive (11/28/2023) Received from [facility] Exercise Vital Sign Days of Exercise per Week: 0 days Minutes of Exercise per Session: 0 min Social Connections: Socially Integrated (04/15/2024) Received from [facility] Social Connections Do you often feel lonely or isolated from those around you?: 0 Interpersonal Safety: Low Risk (11/09/2023) Interpersonal Safety Do you feel physically and emotionally safe where you currently live?: Yes Within the past 12 months, have you been hit, slapped, kicked or otherwise physically hurt by someone?: No Within the past 12 months, have you been humiliated or emotionally abused in other ways by your partner or ex-partner?: No Housing Stability: Low Risk (04/15/2024) Received from [facility] Housing Stability What is your housing situation today?: 1 Review of Systems: Skin: Eyes: ENT: Respiratory: Cardiovascular: Gastroenterology: Genitourinary: Musculoskeletal: Neurologic: Psychiatric: Heme/Lymph/Imm: Endocrine: Physical Exam: Vitals: There were no vitals taken for this visit. Constitutional: Skin: Head: Eyes: Lymph: ENT: Neck: Respiratory: Cardiac: GI: Extremities and Muscular Skeletal: Neurological: Psych: CC Steph López PA-C [address] [place] [address] documented in this encounter Plan of Treatment Upcoming Encounters Date Type Department Care Team (Late st Contact Info) Description 12/29/2024 10:00 AM CDT Appointment [facility] [address] [facility] [id number] Zoe Yang MD [address] [place] [address] Scheduled Orders Name Type Priority Associated Diagnoses Orde r Schedule Exercise Stress Echocardiogram Echocardiography Routine Essential hypertension Expected: 12/22/2024 (Approximate), Expires: 12/15/2025 Scheduled Referrals Name Type Priority Associated Diagnoses Orde r Schedule Follow-Up with Cardiology [facility] Referral Routine: Next available opening Essential hypertension Expected: 12/15/2025 (Approximate), Expires: 12/15/2025 documented as of this encounter Visit Diagnoses Diagnosis Essential hypertension Unspecified essential hypertension documented in this encounter Care Teams Personal Property Assessor Relationship Specialty Start Date End Date System, Provider Not In PCP - General Clinic 11/09/17 Seema Boateng APRN CNP [address] [place] [address] Nurse Practitioner Cardiovascular Disease 11/22/22 Steph López PA-C [address] [place] [address] Assigned Heart and Vascular Provider 07/31/24 documented as of this encounter
--- OUTSIDE RECORDS SUMMARY | 2024-12-24 15:28 | XMS_ITS | Clinical Summary ---
Author Organization [facility] Address [address] [place] [id number] Care Team Providers Care Water Filterer Name Role Phone Amada Hamilton DO Primary Care Provider [phone] Carmen Rajput Unavailable [phone] Allergies Active Allergy Reactions Criticality Noted Date Comments Cigarette Smoke *Unknown 04/20/2024 Grass Pollen-Red Top, Standard Hives High 02/04 Hydroxychloroquine Hives,Itching,Rash 3 Pollen Extracts *Unknown 04/20/2024 Medications latanoprost (XALATAN) 0.005 % ophthalmic solution INSTILL 1 DROP IN BOTH EYES NIGHTLY AT BEDTIME 3 Active dorzolamide-timol oL (COSOPT) 2-0.5 % ophthalmic solution INSTILL 1 DROP INTO THE RIGHT EYE TWICE DAILY 3 Active aspirin (ECOTRIN) 81 mg enteric coated tablet Take 1 Tablet by mouth once daily. 4 Active albuterol HFA (PRO-AIR; VENTOLIN; PROVENTIL) 90 mcg/actuation inhaler Inhale 2 Puffs by mouth every 4 hours if needed. 5 Active losartan 25 mg tabletIndications :Essential hypertension,Prot einuria, unspecified type Take 1 Tablet (25 mg) by mouth once daily. 90 Tablet 5 Active DULoxetine (CYMBALTA) 20 mg Delayed-release capsuleIndication s:Major depression in remission Take 2 Capsules (40 mg) by mouth once daily. 180 Capsule 3 5 Active clobetasol (TEMOVATE) 0.05 % ointmentIndicatio ns:Lichen sclerosus Apply topically to affected area(s) two times daily. Use as needed. 60 g 3 5 Active rosuvastatin (CRESTOR) 10 mg tabletIndications :Coronary arteriosclerosis, Atherosclerosis of coronary artery, unspecified vessel or lesion type, unspecified whether angina present, unspecified whether belkofski or transplanted heart Take 1 Tablet (10 mg) by mouth at bedtime. 90 Tablet 3 5 Active cholecalciferol (Vitamin D-3) 2,000 unit capsule Take 2,000 units by mouth once daily. Active magnesium 250 mg tab Take 1,000 mg by mouth once daily. Active amLODIPine (NORVASC) 5 mg tablet Take 5 mg by mouth once daily. 4 Active Active Problems Problem Noted Date Diagnosed Date Type 2 diabetes mellitus wit hout complication, without long-term current use of insulin 12/23/2024 Left ventricular hypertrophy 05/23/2023 Gastroesophageal reflux disease without esophagi tis 05/23/2023 Dyspnea on exertion 05/23/2023 Coronary atherosclerosis 05/23/2023 Lichen planus 02/12/2023 Asthma 02/12/2023 Polymyalgia rheumatica 04/25/2020 Cyst of left ovary 02/22/2020 Coronary arteriosclerosis 08/05/2019 Hypertrophic cardiomyopathy 07/14/2019 Overview (04/09/2024): Isolated septal hypertrophy Eczema 02/16/2019 Major depression in remission 05/29/2018 Glaucoma 11/18/2017 Essential hypertension 08/15/2002 Resolved Problems Problem Noted Date Diagnosed Date Resolved Date Interstitial lung disease 04/09/2024 Iron deficiency anemia 05/23/202310/01 Overactive bladder 02/12/2023 Methicillin resistant Staphy lococcus aureus infection 01/08/2018 04/09/2024 Encounters Date Type Department Care Team Description 12/24/2024 Orders Only [facility] [address] [place] [address] Amada Hamilton, DO 1 scan: (1-Ord) NFLD-EKG-10/15/25 12/23/2024 10:50 AM CDT Office Visit [facility] [address] [place] [address] Amada Hamilton, Preoperative Exam (01/12/2025); Results (discuss low hemoglobin /Recent dizziness and weakness.) 12/23/2024 Travel 12/19/2024 Travel 12/18/2024 Travel 12/17/2024 9:00 AM CDT Office Visit [facility] [address] [place] [address] Aric Felix MD Procedure (Cystoscopy) 12/16/2024 Travel 11/12/2024 9:30 AM CDT - 11/12/2024 11:59 PM CDT Hospital Encounter [facility] [address] [place] [address] Carmen Rajput PA Pelvic pain; Gross hematuria 11/11/2024 9:30 AM CDT Office Visit [facility] [address] [place] [address] Carmen Rajput PA Consult (N32.89,R39.89 (ICD-10-CM) - Painful bladder spasm/N39.0 (ICD-10-CM) - Recurrent UTI//) 11/11/2024 Telephone [facility] [id number] [place] [address] Marla Kennedy, Appointment Request 11/11/2024 Travel 10/27/[address] [place] [address] [place] [address] Palak Cantrell MD Referral 10/01/2024 10:25 AM CDT Office Visit [facility] [address] [place] [address] Amada Hamilton DO Medicare ANNUAL (subsequent) Visit (83 year old. Having lower abdominal pain for 3 weeks, comes on suddenly. ) 10/01/2024 Travel 09/28/2024 Travel 09/23/2024 Telephone [facility] [address] [place] [address] Amada Hamilton, DO Results; Blood Pressure from Last 3 Months Immunizations Immunization Administration Dates Next Due Hepatitis A (Adult) 03/11/2006 Hepatitis B (Adult) 03/11/2006 Influenza, High-dose Inactivated 024,11/20/2015,12/05/2014,11/29,01/06/2013 Influenza, High-dose Quadriv alent Inactivated 01/01/2023,12/01/2021 Influenza, IIV3 (Age >=3 years) 11/30/19 12,12/11/2010,12/06/2008,01/15,01/13/2007,01/09/2006,12/14/1998 Pneumococcal Poly,23-Valent (Pneumovax) 03/11/2006 Pneumococcal conj 13-Valent (Prevnar 13) 03/11/2009 RSV, Recombinant ADJ Reconst ituted (Arexvy 120MCG/0.5mL) 01/01/2023 Tetanus Toxoid, Unspecified 03/11/2006 Zoster (Zostavax-ZVL, live) 03/11/2012 Zoster, Unspecified Formulation 07/08/2018 Social History Tobacco Use Types Packs/Day Years Used Date Smoking Tobacco: Never Smokeless Tobacco: Never Tobacco Cessation:Counseling Given: Yes Alcohol Use Standard Drinks/Week Comments Not Currently 0 (1 standard drink = 0.6 oz pur e alcohol) PHQ-2 Answer Date Recorded PHQ-2 TOTAL SCORE 0 10/01/2024 Social Connections Answer Date Recorded Do you often feel lonely or isolated from those around you? 0 04/15/2024 Alcohol Use Answer Date Recorded How often do you have a drink containing alcohol ? 0 12/23/2024 How many drinks containing a lcohol do you have on a typical day when you are drinking? 0 12/23/2024 How often do you have five or more drinks on one occasion? 0 12/23/2024 Financial Resource Strain Answer Date R ecorded Difficulty of Paying Living Expenses 3 04/15/2024 Difficulty of Paying Living Expenses Not on file 04/15/2024 Food Insecurity Answer Date Recorded Do you worry your food will run out before you are able to buy more? 1 04/15/2024 Transportation Needs Answer Date Record ed Does lack of transportation keep you from medica l appointments? 1 04/15/2024 Does lack of transportation keep you from work, meetings or getting things that you need? 1 04/15/2024 Housing Stability Answer Date Recorded What is your housing situation today? 1 04/15/2024 Utilities Answer Date Recorded Do you have trouble paying f or utilities (for example, heat, electricity, water, phone)? 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 Gender Identity Not on file Sexual Orientation Not on file Obstetrics History Last Filed Vital Signs Vital Sign Reading Time Taken Comments Blood Pressure 156/75 12/23/2024 11:53 AM CDT Pulse 66 12/23/2024 11:53 AM CDT Temperature 36.6 C (97.8 F) 08/17/2024 9:32 AM CDT Respiratory Rate - - Oxygen Saturation 100% 12/23/2024 10:59 AM CDT Inhaled Oxygen Concentration - - Weight 67.1 kg (148 lb) 12/23/2024 10:59 AM CDT Height 164.8 cm (5' 4.88) 12/23/2024 10:59 AM C DT Body Mass Index 24.72 12/23/2024 10:59 AM CDT Plan of Treatment Upcoming Encounters Date Type Department Care Team (Latest Contact Info) Description 01/05/2025 9:15 AM CDT Orders Only [facility] [address] [place] [address] 01/12/2025 7:30 AM ADVERTISING VICE PRESIDENT Hospital Encounter [facility] [address] [place] [address] Aric Felix MD 100 [place] [address] 01/12/2025 7:30 AM ADVERTISING VICE PRESIDENT - 01/12/2025 8:20 AM ADVERTISING VICE PRESIDENT Surgery [facility] [address] [place] [address] Aric Felix MD 100 [facility] [place] [address] Cystoscopy with bladder biopsy Scheduled Procedures Name Priority Associated Diagnoses Date/Ti me CYSTOSCOPY BIOPSY BLADDER Lesion of bladder 01/12/2025 7:30 AM ADVERTISING VICE PRESIDENT Health Maintenance Due Date Last Done Comments Tetanus booster 10/24/1951 DEXA/DXA scan for age 65+ 2005 Hepatitis B series for 19+ ( 2 of 3 - 19+ 3-dose series) 04/08/2006 03/11/2006 Zoster (shingles) series for age 50+ (2 of 3) 05/06/2012 03/11/2012 COVID-19 vaccine series ( season) 2024 12/20/2023, 01/24/2023, 12/01/2021, Additional history exists Influenza Vaccine (#1) 2024 , 11/20/2015, 12/05/2014, Additional history exists Depression screening for age 12+ 10/01/2025 10/02/19 25 Medicare Wellness for age 65+ 10/02/2025 10/01/2024 BMI (ht and wt on same day) for age 18+ 12/23/2025 12/23/2024, 10/01/2024 Pneumococcal series for age 50+ Completed 0, 03/11/2006 RSV vaccine for adults or Completed 01/01/2023 Goals Goal Patient Goal Type Associated Problems Recent Progress Patient-Stated? Author Autogenerat ed Goal Care Plan Autogenerated Problem No Alessia Pacheco Procedures Procedure Name Priority Date/Time Associated Diagnosis Comments EKG 12 LEAD Routine 12/24/2024 1:56 PM CDT Dizziness ID READING EKG - NO CHARGE, COMP ONLY Routine 12/24/2024 1:55 PM CDT Dizziness C-REACTIVE PROTEIN Routine 12/23/2024 12 :28 PM CDT Polymyalgia rheumatica (HC) BASIC METABOLIC PANEL Routine 12/23/2024 12:28 PM CDT Preop examination CBC W PLT NO DIFF Routine 12/23/2024 12: 28 PM CDT Preop examination CT ABDOMEN PELVIS UROGRAM WWO KERON 11/12/2024 9:48 AM CDT Pelvic pain Gross hematuria PATH URINE CYTOLOGY Routine 11/11/2024 1 0:10 AM CDT Pelvic pain Gross hematuria URINALYSIS MICROSCOPIC Routine 11/11/2024 10:10 AM CDT Pelvic pain Gross hematuria UA W/ SEDIMENT EXAM REFLEXED PER CRITERIA Routine 11/11/2024 10:10 AM CDT Pelvic pain Gross hematuria URINE CULTURE Routine 11/11/2024 10:10 AM CDT Pelvic pain Gross hematuria URINALYSIS MACROSCOPIC - [facility] ONLY POC DIP ([facility]) Routine 10/01/2024 11:28 AM CDT Painful bladder spasm URINALYSIS MICROSCOPIC Routine 10/01/2024 11:10 AM CDT Painful bladder spasm URINE CULTURE Routine 10/01/2024 11:10 AM CDT Painful bladder spasm from Last 3 Months Results * EKG 12 LEAD (12/24/2024 1:56 PM CDT) us Amada Hamilton DO EKG ORD Final Resu lt * ID READING EKG - NO CHARGE, COMP ONLY (12/24/2024 1:55 PM CDT) us Amada Hamilton DO PB - PROVIDER READINGS Fin al Result * (ABNORMAL) CBC W PLT NO DIFF (12/23/2024 12:28 PM CDT) WHITE BLOOD CELL COUNT 7.9 3.8 - 10.8 Thousand/ uL 12/24/2024 3:24 AM CDT [facility] RED BLOOD CELL COUNT 4.06 3.80 - 5.10 Million/u L 12/24/2024 3:24 AM CDT [facility] HEMOGLOBIN 9.2(L) 11.7 - 15.5 g/dL 12/24/2024 3:24 AM CDT [facility] HEMATOCRIT 30.9(L) 35.0 - 45.0 % 12/24/2024 3:24 AM CDT [facility] MCV 76.1(L) 80.0 - 100.0 fL 12/24/2024 3:24 AM CDT [facility] MCH 22.7(L) 27.0 - 33.0 pg 12/24/2024 3:24 AM CDT [facility] MCHC 29.8(L) 32.0 - 36.0 g/dL 12/24/2024 3:24 AM CDT [facility] Comment: For adults, a slight decrease in the calculated MCHC value (in the range of 30 to 32 g/dL) is most likely not clinically significant; however, it should be interpreted with caution in correlation with other red cell parameters and the patient's clinical condition. RDW 14.1 11.0 - 15.0 % 12/24/2024 3:24 AM CDT [facility] PLATELET COUNT 330 140 - 400 Thousand/ uL 12/24/2024 3:24 AM CDT [facility] MPV 10.4 7.5 - 12.5 fL 12/24/2024 3:24 AM CDT [facility] Blood BLOOD SPECIMEN / Unknown [facility] / Unknown 12/23/2024 12:28 PM CDT 12/23/2024 12:28 PM CDT Amada Hamilton DO HEMATOLOGY Final Resu lt [facility] [address] [place] [address], * (ABNORMAL) C-REACTIVE PROTEIN (12/23/2024 12:28 PM CDT) C-REACTIVE PROTEIN (MG/L) 9.6(H) <8.0 mg/L 12/24/2024 12:41 PM CDT [facility] Blood BLOOD SPECIMEN / Unknown [facility] / Unknown 12/23/2024 12:28 PM CDT 12/23/2024 12:28 PM CDT us Amada Hamilton DO CHEMISTRY Final Resu lt [facility] [address] [place] [address], [place] [phone] * (ABNORMAL) BASIC METABOLIC PANEL (12/23/2024 12:28 PM CDT) Pathologist [facility] SODIUM 138 135 - 146 mmol/L 12/24/2024 3:52 AM CDT [facility] POTASSIUM 3.8 3.5 - 5.3 mmol/L 12/24/2024 3:52 AM CDT [facility] CARBON DIOXIDE 29 20 - 32 mmol/L 12/24/2024 3:52 AM CDT [facility] GLUCOSE 108(H) 65 - 99 mg/dL 12/24/2024 3:52 AM CDT [facility] Comment: Fasting reference interval For someone without known diabetes, a glucose value between 100 and 125 mg/dL is consistent with prediabetes and should be confirmed with a follow-up test. CALCIUM 9.1 8.6 - 10.4 mg/dL 12/24/2024 3:52 AM CDT [facility] CREATININE 0.88 0.60 - 0.95 mg/dL 12/24/2024 3:52 AM CDT [facility] BUN/CREATININE RATIO SEE NOTE: 6 - 22 (calc) 12/24/2024 3:52 AM CDT [facility] Comment: Not Reported: BUN and Creatinine are within reference range. EGFR 65 > OR = 60 mL/min/1. 73m2 12/24/2024 3:52 AM CDT [facility] UREA NITROGEN (BUN) 20 7 - 25 mg/dL 12/24/2024 3:52 AM CDT [facility] ELECTROLYTE BALANCE 7 7 - 17 mmol/L (calc) 12/24/2024 3:52 AM CDT [facility] CHLORIDE 102 98 - 110 mmol/L 12/24/2024 3:52 AM CDT [facility] Blood BLOOD SPECIMEN / Unknown [facility] / Unknown 12/23/2024 12:28 PM CDT 12/23/2024 12:28 PM CDT us Amada Hamilton DO CHEMISTRY Final Resu lt [facility] [address] [place] [address], * CT ABDOMEN PELVIS UROGRAM WWO (11/12/2024 9:48 AM CDT) Anatomical Region Laterality Modality Abdomen, Pelvis, KIDNEYS, BLADDER Computed Tomography 11/12/2024 10:2 7 AM CDT Impressions 11/12/2024 10:27 AM CDT 1. Curvilinear filling defect extending from the right bladder wall of indeterminate significance. Recommend correlation with cystoscopy. 2. Benign left renal cysts. Kidneys collecting system and ureters are otherwise unremarkable. 3. Old granulomatous disease. Chronic atherosclerotic disease. Sigmoid diverticulosis. 4. Degenerative scoliosis. Bilateral hip osteoarthritis. Please note that all CT scans at this facility use dose modulation, iterative reconstruction, and/or weight-based dosing when appropriate to reduce radiation dose to as low as reasonably achievable. Dictated by Laura Mccain MD @ 11/12/2024 10:27:50 AM (Electronically Signed) Narrative 11/12/2024 10:27 AM CDT For Patients: As a result of the Cures Act, medical imaging exams and procedure reports are released immediately into your electronic medical record. You may view this report before your referring provider. If you have questions, please contact your health care provider. INDICATION: Pelvic pain. Gross hematuria. TECHNIQUE: CT abdomen and pelvis urogram without and with IV contrast. Contrast images were obtained in the nephrographic and delayed phases. COMPARISON: None FINDINGS: Lower chest: Lung bases are clear. Heart size normal. Mitral valve and coronary artery calcification. Liver: Occasional granuloma. Spleen: Multiple granuloma. Pancreas: Unremarkable. Gallbladder and bile ducts: Cholecystectomy. Kidneys: The unenhanced images demonstrate no kidney or ureteral stones. The kidneys are normal in caliber and demonstrate normal uptake and excretion of IV contrast. 3.0 and 0.7 cm cortical cysts and single small medullary cysts, left kidney. No masses or hydronephrosis. The renal collecting systems and ureters are symmetrical, normal in caliber, and without evidence of mass or filling defect. Adrenal glands: Unremarkable. GI tract: Sigmoid diverticulosis. Moderate stool burden. Small bowel and appendix normal. No inflammation or obstructive pattern. Vascular structures: Aorta heavily calcified and tortuous. No aneurysm. Lymph nodes: No lymphadenopathy. Miscellaneous: Unremarkable. No free air or significant free fluid. Pelvic Organs: Multiple pelvic phleboliths. There is a curvilinear filling defect in the right bladder () which is of indeterminate significance. This does not appear to be a ureteral jet defect. No other bladder abnormality or pelvic mass. Bones: Scoliosis. Severe degenerative lumbar disc and facet disease. Bilateral hip osteoarthritis. Procedure Note Enzo Mccain MD - 11/12/2024 For Patients: As a result of the Cures Act, medical imagingexams and procedure reports are released immediately into your electronicmedical record. You may view this report before your referring provider.If you have questions, please contact your health care provider. INDICATION: Pelvic pain. Gross hematuria. TECHNIQUE: CT abdomen and pelvis urogram without and with IV contrast. Contrastimages were obtained in the nephrographic and delayed phases. COMPARISON: None FINDINGS: Lower chest: Lung bases are clear. Heart size normal. Mitral valve andcoronary artery calcification. Liver: Occasional granuloma. Spleen: Multiple granuloma. Pancreas: Unremarkable. Gallbladder and bile ducts: Cholecystectomy. Kidneys: The unenhanced images demonstrate no kidney or ureteral stones.The kidneys are normal in caliber and demonstrate normal uptake andexcretion of IV contrast. 3.0 and 0.7 cm cortical cysts and single smallmedullary cysts, left kidney. No masses or hydronephrosis. The renalcollecting systems and ureters are symmetrical, normal in caliber, andwithout evidence of mass or filling defect. Adrenal glands: Unremarkable. GI tract: Sigmoid diverticulosis. Moderate stool burden. Small bowel andappendix normal. No inflammation or obstructive pattern. Vascular structures: Aorta heavily calcified and tortuous. No aneurysm. Lymph nodes: No lymphadenopathy. Miscellaneous: Unremarkable. No free air or significant free fluid. Pelvic Organs: Multiple pelvic phleboliths. There is a curvilinear fillingdefect in the right bladder () which is of indeterminatesignificance. This does not appear to be a ureteral jet defect. No otherbladder abnormality or pelvic mass. Bones: Scoliosis. Severe degenerative lumbar disc and facet disease.Bilateral hip osteoarthritis. IMPRESSION: 1. Curvilinear filling defect extending from the right bladder wall ofindeterminate significance. Recommend correlation with cystoscopy. 2. Benign left renal cysts. Kidneys collecting system and ureters areotherwise unremarkable. 3. Old granulomatous disease. Chronic atherosclerotic disease. Sigmoiddiverticulosis. 4. Degenerative scoliosis. Bilateral hip osteoarthritis. Please note that all CT scans at this facility use dose modulation,iterative reconstruction, and/or weight-based dosing when appropriate toreduce radiation dose to as low as reasonably achievable. Dictated by Laura Mccain MD @ 11/12/2024 10:27:50 AM (Electronically Signed) us Carmen GUAN CT Final Res ult * PATH URINE CYTOLOGY (11/11/2024 10:10 AM CDT) Case Report Medical Cytology Report Case: [id number] Authorizing Provider: Carmen Rajptu PA Collected: 11/11/2024 1010 [facility] Received: 11/11/2024 1126 Clinic Pathologist: Gerald Choudhury Jr., MD Specimen: Urine Void 11/12/2024 1:15 PM CDT [facility] Final Diagnosis A) URINE, VOIDED, CYTOLOGY: 1. Negative for high-grade urothelial carcinoma 2. Acute inflammation 11/12/2024 1:15 PM CDT [facility] at 1315 CDT Comment A) According to the Silvia System of reporting urinary cytology, the diagnosis of negative for high-grade urothelial carcinoma indicates the sample is composed of benign urothelial cells and that cells of high-grade urothelial carcinoma are absent. This does not exclude benign and low-grade urothelial neoplasia. 11/12/2024 1:15 PM CDT [facility] Clinical Information Gross hematuria 11/12/2024 1:15 PM CDT [facility] Gross Description A) SOURCE: Urine, Voided The specimen consists of 90 cc of light yellow clear fluid from which the following is prepared: -1 Papanicolaou stained ThinPrep slide 11/12/2024 1:[address] [facility] Microscopic Description Specimen adequacy: Adequate for interpretation. All slides were reviewed. The microscopic appearance substantiates the diagnosis. 11/12/2024 1:15 PM CDT [facility] Additional Information Cytology is screened at [facility] - [address] [place] [address] and [facility] - [address], [place] [address] and [facility] - [address] [place] [address] Interpreted at [facility] - [address], [place] [address] 11/12/2024 1:15 PM CDT [facility] Urine URINE SPECIMEN / Unknown Non-Blood / Unknown 11/11/2024 10:10 AM CDT 11/11/2024 11:26 AM CDT us Carmen GUAN PATHOLOGY/CYTOLOGY Final Result [facility] [address] [place] [address], [place] * (ABNORMAL) URINALYSIS MICROSCOPIC (11/11/2024 10:10 AM CDT) Only the most recent of2 resultswithin the time period is included. RBC 6-10(A) 0-2, None Seen /HPF 11/11/2024 11:42 AM CDT [facility] WBC 3-5 0-2, 3-5, None Seen /HPF 11/11/2024 11:42 AM CDT [facility] BACTERIA Few None Seen, Rare, Few Bacteria/H PF 11/11/2024 11:42 AM CDT [facility] EPITHELIAL CELLS Few None Seen, Few Epi/HPF 11/11/2024 11:42 AM CDT [facility] Urine URINE SPECIMEN / Unknown Non-Blood / Unknown 11/11/2024 10:10 AM CDT 11/11/2024 11:26 AM CDT Carmen GUAN URINE Final Res ult Performing Organization Address City/[facility]/ZIP Co de Phone Number [facility] [address] [place] [address] * URINE CULTURE (11/11/2024 10:10 AM CDT) Only the most recent of2 resultswithin the time period is included. CULTURE No growth (<1,000 CFU/mL) 11/13/2024 7:59 AM CDT [facility] Urine URINE SPECIMEN / Unknown Non-Blood / Unknown 11/11/2024 10:10 AM CDT 11/11/2024 11:26 AM CDT Carmen GUAN MICROBIOLOGY Final Res ult Performing Organization Address City/[facility]/ZIP Co de Phone Number [facility] [address] [address], * (ABNORMAL) UA W/ SEDIMENT EXAM REFLEXED PER CRITERIA (11/11/2024 10:10 AM CDT) COLOR Yellow Yellow Color 11/11/2024 11:38 AM T [facility] CLARITY Clear Clear Clarity 11/11/2024 11:38 AM T [facility] SPECIFIC GRAVITY,URINE 1.010 1.010, 1.015, 1.020, 1.025 11/11/2024 11:38 AM [facility] PH,URINE 7.0 6.0, 7.0, 8.0, 5.5, 6.5, 7.5, 8.5 11/11/2024 11:38 AM [facility] UROBILINOGEN, QUALITATIVE Normal Normal EU/dl 11/11/2024 11:38 AM [facility] PROTEIN, URINE Trace(A) Negative mg/dL 11/11/2024 11:38 AM [facility] GLUCOSE, URINE Negative Negative mg/dL 11/11/2024 11:38 AM CDT [facility] KETONES,URINE Negative Negative mg/dL 11/11/2024 11:38 AM CDT [facility] BILIRUBIN,URI NE Negative Negative 11/11/2024 11:38 AM CDT [facility] OCCULT BLOOD,URINE Small(A) Negative 11/11/2024 11:38 AM CDT [facility] NITRITE Negative Negative 11/11/2024 11:38 AM CDT [facility] LEUKOCYTE ESTERASE Trace(A) Negative 11/11/2024 11:38 AM CDT [facility] Urine URINE SPECIMEN / Unknown Non-Blood / Unknown 11/11/2024 10:10 AM CDT 11/11/2024 11:26 AM CDT us Carmen GUAN URINE Final Res ult [facility] [address] [place] [address] * (ABNORMAL) POCT Urinalysis Dipstick Only [[id number]] (10/01/2024 11:28 AM CDT) Pathologist [facility] PH 6.5 5.0 - 8.0 [facility] SPECIFIC GRAVITY 1.020 1.001 - 1.035 [facility] GLUCOSE NEGATIVE NEGATIVE [facility] BILIRUBIN 1+(A) NEGATIVE [facility] Comment: A false positive may be caused by the drug Lodine. For any presumptive positive bilirubin, consider confirmation by serum bilirubin if clinically indicated. KETONES TRACE(A) NEGATIVE [facility] OCCULT BLOOD 2+(A) NEGATIVE [facility] PROTEIN 3+(A) NEGATIVE [facility] NITRITE NEGATIVE NEGATIVE [facility] LEUKOCYTE ESTERASE 2+(A) NEGATIVE [facility] Urine URINE SPECIMEN / Unknown 10/01/2024 11:28 AM CDT 10/01/2024 11:29 AM CDT Amada Hamilton DO URINE Final Resu lt [facility] [address] [place] [address], [facility] [address] [place] [address] from Last 3 Months Additional Health Concerns Active Problems Noted Date Diagnosed Date Autogenerated Problem 12/17/2024 Insurance MEDICARE PB ONLY [facility] PB ONLY MEDICARE PART B HB ONLY AARP HB ONLY Care Teams Water Filterer Relationship Specialty Start Date End Date Amada Hamilton DO [address] [place] [address] PCP - General Family Practice 04/09/24 Carmen Rajput PA [address] [place] [address] Physician Nicking Machine Operator 11/11/24
--- OUTSIDE RECORDS SUMMARY | 2024-12-24 15:28 | XMS_ITS | Encounter Summary ---
Author Organization [place] Address [address] [place] [address]. [place] [address] Care Team Providers Care Gate Tender Name Role Phone System, Provider Not In Primary Care Provider Un available Seema Boateng APRN WAREHOUSE DELIVERY DRIVER Unavailable [phone] Steph López PA-C Unavailable [phone] Encounter Details Date Type Department Care Team (Latest Contact Info) Description 12/15/2024 Travel Social History Tobacco Use Types Packs/Day [...] in an abandoned building, in an overnight chcf, or couch-surfing.) Yes 11/09/2023 Are you worried [...] on file Legal Sex Female 3:18 AM RECORDIST Gender Identity Not on file Sexual Orientation Not on file documented as of this encounter Plan of Treatment Upcoming Encounters Date Type Department Care Team (Late st Contact Info) Description 12/29/2024 10:00 AM CDT Appointment [facility] [address] [place] [address] Zoe Yang MD [address] [place] [address] documented as of this encounter Visit Diagnoses Not on filedocumented in this encounter Care Teams Gate Tender Relationship Specialty Start Date End Date System, Provider Not In PCP - General Clinic 11/09/17 Seema Boateng APRN WAREHOUSE DELIVERY DRIVER [address] [address] Nurse Practitioner Cardiovascular Disease 11/22/22 Steph López PA-C [address] [place] [address] Assigned Heart and Vascular Provider 07/31/24 documented as of this encounter
--- OUTSIDE RECORDS SUMMARY | 2024-12-24 15:28 | XMS_ITS | Clinical Summary ---
Author Organization [place] Address [address] [place] [address] Care Team Providers Care Java Tech Lead Name Role Phone System, Provider Not In Primary Care Provider Un available Seema Boateng APRN TASSEL CLIPPER Unavailable Nicole Ernst PA-C Unavailable [phone] Allergies Active Allergy Reactions Criticality Noted Date Comments Dust Mite Extract Other (See Comments) Low 08/26/19 24 Gramineae Pollens Hives High 02/04/2021 Hydroxychloroquine Hives 11/20/2022 Smoke. Unknown,Other (See Comments) 024 Medications potassium chloride michelle er (K-DUR) Take 20 mEq by mouth daily Active VITAMIN D, CHOLECALCIFEROL, PO Take 2,000 Units by mouth daily Active aspirin 81 MG EC tablet Take 81 mg by mouth daily 2 Active clobetasol (TEMOVATE) 0.05 % external ointment Apply topically 2 times daily To víctor area Active dorzolamide-timol ol (COSOPT) 2-0.5 % ophthalmic solution Place 1 drop into the right eye 2 times daily 3 Active DULoxetine (CYMBALTA) 20 MG capsule Take 40 mg by mouth At Bedtime Active ferrous sulfate (FE TABS) 325 (65 Fe) MG EC tablet Take 65 mg of iron by mouth daily Active latanoprost (XALATAN) 0.005 % ophthalmic solution INSTILL 1 DROP IN BOTH EYES NIGHTLY AT BEDTIME 3 Active rosuvastatin (CRESTOR) 10 MG tablet Take 10 mg by mouth daily Active cyanocobalamin (VITAMIN B-12) 1000 MCG tablet Take 1,000 mcg by mouth daily Active melatonin 5 MG tablet Take 5 mg by mouth at bedtime. Active Magnesium Citrate (MAGNESIUM GUMMIES PO) Take 500 mg by mouth daily. 2 per day Active albuterol (PROAIR HFA/PROVENTIL HFA/VENTOLIN HFA) 108 (90 Base) MCG/ACT inhalerIndication s:Influenza A,Mild intermittent asthma with exacerbation Inhale 2 puffs into the lungs every 4 hours as needed for shortness of breath, wheezing or cough. 18 g 3 5 Active benzonatate (TESSALON) 100 MG capsuleIndication s:Influenza A,Mild intermittent asthma with exacerbation Take 2 capsules (200 mg) by mouth 3 times daily as needed for cough. 30 capsule 5 Active guaiFENesin-dextr omethorphan (ROBITUSSIN DM) 100-10 MG/5ML syrupIndications: Influenza A,Mild intermittent asthma with exacerbation Take 10 mLs by mouth every 4 hours as needed for cough. 236 mL 5 Active losartan (COZAAR) 50 MG tabletIndications :Benign essential hypertension Take 1 tablet (50 mg) by mouth daily. 90 tablet 3 5 Active Cranberry 50 MG CHEW Take by mouth. Activ e amLODIPine (NORVASC) 5 MG tabletIndications :Essential hypertension Take 1 tablet (5 mg) by mouth daily. 90 tablet 3 5 Active Active Problems Problem Noted Date Diagnosed [...] Encounters Date Type Department Care Team Description 12/15/2024 12:15 PM CDT Office Visit [facility] [address] [facility] [place] [address] Zoe Yang MD Essential hypertension 12/15/2024 Travel 12/11/2024 Results Follow-Up [facility] [address] [place] [phone] Nicole Ernst PA-C 12/09/2024 10:[address] [facility] [address] [place] [address] Essential hypertension 12/09/2024 9:25 AM CDT - 12/09/2024 11:59 PM CDT Hospital Encounter [facility] [address] [place] [address] Nicole Ernst PA-C Mitral valve stenosis, unspecified etiology Discharge Disposition: Home or Self Care 12/09/2024 Travel 11/12/2024 Results Follow-Up [facility] [address] [place] [phone] Nicole Ernst PA-C 10/13/2024 1:04 PM CDT - 10/13/2024 11:59 PM CDT Hospital Encounter [facility] [address] [place] [address] Nicole Ernst PA-C Palpitations Discharge Disposition: Home or Self Care 10/13/2024 10:00 AM CDT Office Visit [address] [place] [address] Nicole Ernst PA-C Screening for cardiovascular condition (Primary Dx); Palpitations; Benign essential hypertension 10/13/2024 Travel from Last 3 Months Family History [...] in an abandoned building, in an overnight longterm, or couch-surfing.) Yes 11/09/2023 Are you worried [...] on file Legal Sex Female 3:18 AM PHARMACEUTICAL ANALYST Gender Identity Not on file Sexual Orientation Not on file Last Filed Vital Signs Vital Sign Reading Time Taken Comments Blood Pressure 182/90 12/15/2024 11:45 AM CDT ma nual Pulse 62 12/15/2024 11:45 AM CDT Temperature 36.3 C (97.4 F) 03/17/2024 8:35 AM PHARMACEUTICAL ANALYST Respiratory Rate 18 12/15/2024 11:45 AM CDT Oxygen Saturation 100% 12/15/2024 11:45 AM CDT Inhaled Oxygen Concentration - - Weight 67.8 kg (149 lb 8 oz) 10/13/2024 9:52 AM CDT Height 162.6 cm (5' 4) 12/15/2024 11:45 AM CDT Body Mass Index 24.5 10/13/2024 9:52 AM CDT Plan of Treatment Upcoming Encounters Date Type Department Care Team (Late st Contact Info) Description 12/29/2024 10:00 AM CDT Appointment [facility] [address] [place] [address] Zoe Yang MD [address] [place], [place] [address] Health Maintenance Due Date Last Done Comments ADVANCE CARE PLANNING 1940 ANNUAL REVIEW OF HM ORDERS 1940 ASTHMA ACTION PLAN 1940 ASTHMA CONTROL TEST 1940 DEPRESSION ACTION PLAN 1940 DEXA 1940 PHQ-9 1940 FALL RISK ASSESSMENT 2005 ZOSTER VACCINE (2 of 3) 09/02/2018 07/08/2018, 03/11 COVID-19 VACCINE ( season) 2024 12/20/2023, 01/24/2023, 12/01/2021, Additional history exists INFLUENZA VACCINE (#1) 2024 4, 01/01/2023, 12/01/2021, Additional history exists MEDICARE ANNUAL WELLNESS VISIT 10/01/2025 10/01/2024 BMP 12/09/2025 12/09/2024, 08/2024, 11/09/2023, Additional history exists LIPID 12/09/2025 12/09/2024, 11/09/2023 DTAP/TDAP/TD VACCINE (3 - Td or Tdap) 07/08/2028 07/08/2018, 03/11/2006, 03/11/2006, Additional history exists PNEUMOCOCCAL VACCINE 50+ YEARS Completed 12/10/2017, 08/23/2014, 03/11/2009, Additional history exists RSV VACCINE Completed 01/01/2023 HPV VACCINE (No Doses Required) Completed MENINGITIS VACCINE Aged Out No longer eligible based on patient's age to complete this topic Procedures Procedure Name Priority Date/Time Associated Diagnosis Comments CBC WITH PLATELETS Routine 12/09/2024 10 :09 AM CDT Essential hypertension LIPID REFLEX TO DIRECT LDL PANEL Routine 12/09/2024 10:09 AM CDT Essential hypertension BASIC METABOLIC PANEL Routine 12/09/2024 10:09 AM CDT Essential hypertension ECHO COMPLETE Routine 12/09/2024 9:58 AM CDT Mitral valve stenosis, unspecified etiology CARDIAC MOBILE EXECUTOR OF ESTATE PROVIDER INTERPRETATION Routine 10/13/2024 1:36 PM CDT Palpitations EKG 12-LEAD COMPLETE W/READ - CLINICS Routine 10/13/2024 Screening for cardiovascular condition from Last 3 Months Results * Lipid panel reflex to direct LDL [...] 219 mg/dL Very High: >= 220 mg/dL Nicole Ernst PA-C LAB - BLOOD ORDERABL ES Final Result [facility] [place] [facility] [address] [facility] [address] [facility] [address], [address] [place] [address], [facility] [address] Lab (1st floor, no room number) [place] [address], [facility] * (ABNORMAL) Basic metabolic panel (12/09/2024 10:09 AM CDT) Sodium 140 135 - 145 mmol/L 12/09/2024 12:01 PM CDT LABORATORY Potassium 4.0 3.4 - 5.3 mmol/L 12/09/2024 12:01 PM CDT LABORATORY Chloride 104 98 - 107 mmol/L 12/09/2024 12:01 PM CDT [facility] Carbon Dioxide (CO2) 23 22 - [...] 10:09 AM CDT 12/09/2024 10:09 AM CDT Nicole Ernst PA-C LAB - BLOOD ORDERABL ES Final Result LABORATORY [facility] [address] Lab (1st floor, no room number) [place] [address], [facility] * (ABNORMAL) CBC with platelets (12/09/2024 10:09 AM CDT) WBC Count 7.39 4.00 - 11.00 10e3/uL 12/09/2024 11:31 AM CDT [facility] RBC Count 4.21 3.80 - 5.20 10e6/uL 12/09/2024 11:31 AM CDT [facility] Hemoglobin 9.6(L) 11.7 - 15.7 g/dL 12/09/2024 11:31 AM CDT LABORATORY Hematocrit 32.2(L) 35.0 - 47.0 % [...] 10:09 AM CDT 12/09/2024 10:09 AM CDT Nicole Ernst PA-C LAB - BLOOD ORDERABL ES Final Result LABORATORY [facility] Acute Care Lab [address] [facility] Lab (1st floor, no room number) [place] [address]RUST * ECHO COMPLETE (12/09/2024 9:58 AM CDT) LVEF 55-60% CARDIOLOGY RESULTS Anatomical Region Laterality Modality Echocardiography 12/09/2024 9:34 AM CDT Narrative 12/09/2024 11:51 AM CDT [id number]^SUJATA^NICOLE^JH [facility] Echocardiography Laboratory [address] [place] [address] Name: HALEY CROW : 1940 Study Date: 12/09/2024 09:34 AM Age: 84 yrs Gender: Female Patient Location: [facility] Reason For Study: Mitral valve stenosis, unspecified etiology Ordering Physician: NICOLE ERNST Referring Physician: NICOLE ERNST Performed By: Aaron Jovel [facility] BSA: 1.7 m2 Height: 65 in Weight: [...] Procedure Note Kelvin Dubon MD - 12/09/2024 [id number]^SUJATA^NICOLE^JH [facility] Echocardiography Laboratory [address] [place] [place] [address] Name: HALEY CROW : 1940 Study Date: 12/09/2024 09:34 AM Age: 84 yrs Gender: Female Patient Location: [facility] Reason For Study: Mitral valve stenosis, unspecified [...] by: Nilam Dubon on 12/09/2024 11:51 AM us Nicole Ernst PA-C CV ECHO ORDERABLES E dited Result - Final * CARDIAC MOBILE EXECUTOR OF ESTATE PROVIDER INTERPRETATION (10/13/2024 1:36 PM CDT) Anatomical Region Laterality Modality Other Nicole Ernst PA-C CV CARDIAC SERVICES ORDERABLES Final Result * EKG 12-lead complete w/read - Clinics (performed today) (10/13/2024) Nicole Ernst PA-C ECG ORDERABLES Rosalba l Result from Last 3 Months Insurance MEDICARE [facility] MEDICARE AARP Advance Directives For more information, please contact: [phone] * Full Code (Latest Code Status on [...] patie nt/ legal decision maker Care Teams Java Tech Lead Relationship Specialty Start Date End Date System, Provider Not In PCP - General Clinic 11/09/17 Seema Boateng APRN TASSEL CLIPPER [address] [address] Nurse Practitioner Cardiovascular Disease 11/22/22 Nicole Ernst PA-C [address] [place] [address] Assigned Heart and Vascular Provider 07/31/24
--- OUTSIDE RECORDS SUMMARY | 2024-12-24 15:28 | XMS_ITS | Encounter Summary ---
Author Organization [place] Address [facility] [place] [address] Care Team Providers Care Airplane Mechanic Name Role Phone System, Provider Not In Primary Care Provider Un available Seema Boateng APRN FAN INSTALLER Unavailable [phone] Steph López PA-C Unavailable [phone] Encounter Details Date Type Department Care Team (Late st Contact Info) Description 11/12/2024 Results Follow-Up [facility] [place] [address] [facility] [address] [place] [phone] Steph López PA-C [address] [facility] [address] [place] [id number] Social History Tobacco Use Types Packs/Day Years [...] on file Legal Sex Female 3:18 AM SILK SPREADER Gender Identity Not on file Sexual Orientation Not on file documented as of this encounter Plan of Treatment Upcoming Encounters Date Type Department Care Team (Late st Contact Info) Description 12/29/2024 10:00 AM CDT Appointment [facility] [address] [facility] [phone] Zoe Yang MD [address] [place] [address] documented as of this encounter Visit Diagnoses Not on filedocumented in this encounter Care Teams Airplane Mechanic Relationship Specialty Start Date End Date System, Provider Not In PCP - General Clinic 11/09/17 Seema Boateng APRN FAN INSTALLER [address] [place] [address] [address] Nurse Practitioner Cardiovascular Disease 11/22/22 Steph López PA-C [address] [place] [address] Assigned Heart and Vascular Provider 07/31/24 documented as of this encounter
--- OUTSIDE RECORDS SUMMARY | 2024-12-24 15:29 | XMS_ITS | Encounter Summary ---
Author Organization [facility] Address [address] [place] [address]. [place] [address] Care Team Providers Care Creche Attendant Name Role Phone System, Provider Not In Primary Care Provider Un available Seema Boateng APRN CLINICAL SYSTEMS ANALYST Unavailable Steph López PA-C Unavailable [phone] Encounter Details Date Type Department Care Team (Latest Contact Info) Description 12/09/2024 Travel Social History Tobacco Use Types Packs/Day [...] on file Legal Sex Female 3:18 AM COACH MECHANIC Gender Identity Not on file Sexual Orientation Not on file documented as of this encounter Plan of Treatment Upcoming Encounters Date Type Department Care Team (Late st Contact Info) Description 12/29/2024 10:00 AM CDT Appointment [facility] [address] [place] [address] Zoe Yang MD [address] [place] [address] documented as of this encounter Visit Diagnoses Not on filedocumented in this encounter Care Teams Creche Attendant Relationship Specialty Start Date End Date System, Provider Not In PCP - General Clinic 11/09/17 Seema Boateng APRN CLINICAL SYSTEMS ANALYST [address] [address] Nurse Practitioner Cardiovascular Disease 11/22/22 Steph López PA-C [address] [place] [address] Assigned Heart and Vascular Provider 07/31/24 documented as of this encounter
--- OUTSIDE RECORDS SUMMARY | 2024-12-24 15:29 | XMS_ITS | Clinical Summary ---
Author Organization [facility] Address [address] [place] [address] Care Team Providers Care Client Onboarding Analyst Name Role Phone None Reported, Pcp Primary Care Provider Unavail able Source Comments Patient records contain information from all sites at [facility]. For routine questions regarding patient records, call [phone] during business hours, M-F 8:00 AM - 5:00 PM Central Time. Record requests for emergency care only can be directed to [phone] at any time.[facility] Allergies Active Allergy Reactions Criticality Noted [...] tablet Take 10 mg by mouth daily. 05/04/19 16 Active clobetasol propionate 0.05 % in plasticized pf base Apply topically 3 (three) times a day as needed. Active triamcinolone (KENALOG) 0.1 % ointmentIndicat ions:Lichen Sclerosus Apply to vulva twice a day for 2 weeks, then switch with clobetasol ointment 80 g 3 08/27/19 24 Active ipratropium (Atrovent) 42 mcg (0.06 %) nasal spray 1-2 sprays Q4H PRN 15 mL 3 09/04/19 24 Active ruxolitinib (Opzelura) 1.5 % cream Apply 1 Application topically 2 (two) times a day. Apply to the vulva Saturday, , Saturday, saturday 60 g 3 10/22/19 24 Active Additional Information Patient not taking.Reported on 12/11/2023 UNABLE TO FIND Apply 1 each topically daily. Med Name: Tofacitinib 2% ointment 10 mL container Apply to affected skin on the vulvar area every other day, alternating with clobetasol ointment 30 each 2 11/29/19 24 Active clobetasoL (Temovate) 0.05 % ointmentIndicat ions:Lichen Sclerosus Apply 1 Application topically 2 (two) times a day. Apply to vulva twice a day for 2 weeks, then alternate with triamcinolone ointment for 2 weeks 60 g 3 11/29/19 24 Active amLODIPine (Norvasc) 5 mg tablet Take 1 tablet by mouth daily. 11/13/19 24 Active nystatin (Mycostatin) 100,000 unit/gram cream Apply 1 Application topically 2 (two) times a day. Apply to vulvar skin for 2 weeks. 90 g 12/19/19 24 Active clotrimazole (Mycelex) 10 mg abner Dissolve 1 Abner (10 mg total) in the mouth daily as needed (when using clobetasol). 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 His son of acute Leukima after a very short time. Another first cousin survived it Breast cancer (in one breast) Paternal Grandmother Isabel Solitariowitt Relation Name Status Comments Mother Jessenia Escalera Mother's Brother Dhiraj [place] Paternal Grandmother Isabel Escalera Social History Tobacco Use Types Packs/Day Years Used Date Smoking Tobacco: Former Cigarettes Q uit: 03/11/1966 Smokeless Tobacco: Never Alcohol Use Standard Drinks/Week Comments Not Currently 0 (1 standard drink = 0.6 oz pur e alcohol) [facility] Utilities Answer Date Recorded In the past 12 months has city hospital [employer], [employer], oil, or water [email or web address] threatened to shut off services in your [...] by your partner or ex-partner? No 11/07/2022 Hunger Vital Sign Answer Date Recorded Within [...] things needed for daily living? No 12/10/2023 Housing Stability Answer Date Recorded What is your living situation today? I have a [facility] place to live 12/10/2023 Comments Unknown [...] Health Maintenance Due Date Last Done Comments IPV Vaccines (2 of 3 - Adult catch-up series) 06/29/1998 06/01/1998 Zoster Vaccines (2 of 3) 05/06/2012 03/11/2012 Depression Screening (Annual PHQ-2) 03/11/2024 Fall Risk Screen (Annual) 03/11/2024 COVID-19 Vaccine (7 2024-2 6 season) 2024 01/24/2023, 12/01/2021, 06/22/2021, Additional history exists Influenza Vaccine (#1) 2024 , 01/01/2023, 12/01/2021, Additional history exists DTaP,Tdap,and Td Vaccines (3 - Td or Tdap) 07/08/2028 07/08/2018, 03/11/2006, 11/27/1993 Pneumococcal vaccine (50+ years) Completed 12/10/2017, 08/23/2014, 03/11/2009, Additional history exists RSV vaccine - (32-3 6 weeks) or 50+ years Completed 01/01/2023 Medical Devices Implanted Type Area Wash Oil Pump Operator Helper Device Identifier Shelf Expiration Date Model / Serial / Lot Cardiac Stent Cardiac Stent Heart Description:2 Stents Urologic Other Urologic Other Left: Buttock Description:Inter stem bladd [place] control Insurance MEDICARE [facility] Care Teams Client Onboarding Analyst Relationship Specialty Start Date End Date None Reported, Pcp PCP - General 01/17/24
--- OUTSIDE RECORDS SUMMARY | 2024-12-24 15:29 | XMS_ITS | Clinical Summary ---
Author Organization [facility] Address [address] [place] [id number] Care Team Providers Care Funeral Professional Name Role Phone JameelKy MD Primary Care Provider [phone] Source Comments You are receiving this document as you are listed as the primary care provider,follow-up provider, or the patient has been referred to you for consultation.This is in compliance with the Medicare andF[facility] Hospitalcaid EHR Incentive Program,which states Providers who transition their patient to another setting of careor provider of care or refers their patient to another provider of care shouldprovide summary care record for each transition of care or referral. [facility] Allerg[facility] Active Allergy Reactions Criticality Noted Date Comments Gramineae Pollens Hives High 02/04/2021 Hydroxychloroquine Hives High 08/26/2020 Medications loratadine (CLARITIN) 10 MG tablet Take 1 Tablet (10 mg) by mouth daily. Active cyanocobalamin (VITAMIN B12) 1000 MCG tablet Take 1 Tablet (1,000 mcg) by mouth daily. Active latanoprost (XALATAN) 0.005 % eye drop solution Place 1 Drop into both eyes every evening. 2.5 mL 8 Active dorzolamide (TRUSOPT) 2 % eye drop solution Place 1 Drop into both eyes three times a day. 10 mL 8 Active cholecalciferol (VITAMIND3) 2000 units tablet Take 1 Tablet (2,000 Units) by mouth daily. Active ALBUterol sulfate HFA 108 (90 Base) MCG/ACT inhaler Inhale 1-2 Puffs every 4 hours as needed for Wheezing. 1 Each 3 0 Active metoprolol succinate (TOPROL XL) 25 MG 24 hour release tablet Take 1 Tablet (25 mg) by mouth daily. 1 Active rosuvastatin (CRESTOR) 10 MG tablet Take 1 Tablet (10 mg) by mouth daily at bedtime. 1 Active Potassium Chloride ER 20 MEQ TBCR Take 1 Tablet (20 mEq) by mouth daily. 1 Active escitalopram oxalate (LEXAPRO) 5 MG tablet TAKE 1 TABLET BY MOUTH IN THE MORNING WITH FOOD 1 Active amLODIPine (NORVASC) 5 MG tablet 1 Active aspirin 81 MG chewable tablet Chew and swallow 1 Tablet (81 mg) by mouth daily. Active Triamcinolone Acetonide (NASACORT NA) Active desvenlafaxine succinate (PRISTIQ) 50 MG 24 hour release tablet Take 25 mg by mouth daily. Active Probiotic Product (SUPER PROBIOTIC OR) Active ALBUterol sulfate HFA 108 (90 Base) MCG/ACT inhalerIndicati ons:SOB (shortness of breath) Inhale 1-2 Puffs every 4 hours as needed for Wheezing. 1 g 1 Active cholecalciferol (VITAMIN D3) 1.25 MG (72274 UT) capsule Vitamin D3 2000 iu Active cyanocobalamin 100 MCG tablet Activ e benzonatate (TESSALON) 200 MG capsule Take 1 Capsule by mouth three times a day as needed for Cough. 30 Capsule 1 Active ketoconazole (NIZORAL) 2 % cream Apply topically two times a day. 30 g 1 Active ferrous sulfate (AKA IRON SULFATE) 325 (65 Fe) MG enteric coated tablet Take 1 Tablet (325 mg) by mouth. Active cetirizine (ZYRTEC) 10 MG tablet Take 1 Tablet (10 mg) by mouth. Active melatonin 3 MG tablet Take 2 Tablets (6 mg) by mouth. Active potassium chloride (KLOR-CON M) 20 MEQ ER tablet Take 1 Tablet (20 mEq) by mouth daily. 4 Active DULoxetine (CYMBALTA) 20 MG capsule Take [...] Lumbago 08/15/2002 Overview (10/31/2016): Pain Low Back Immunizations Immunization Administration Dates Next Due Flu Vac (3+ yrs) 11/30/2011, 1,12/06/2008,2007,01/13/2007,01/09/2006,12/14/1998 [id number] 03/08/2009 HepA Adult (19+ yrs) 03/11/2006,06/01/1998 HepA, Pediatric (DO NOT USE; for [facility] only) 06/01/1998 HepB Adult (Engerix-B, 20+ y rs, 3 dose series) 03/11/2006 IPV (Polio) 06/01/1998 Influenza ([place] Only) (Flul aval Quad 0.5, 3+ yrs) 11/10/2019 Influenza IIV3 (Trivalent) F luzone Highdose, 65+ Yrs (04848) 11/10/2019,12/08/2018,12/14/2016,2015,12/05/2014,11/29/2013,01/06/2013 Influenza IIV4 (Quadrivalent ) Fluzone, 65+ Yrs 01/01/2023,12/01/2021,12/02/2020,2019 Influenza aIIV3 65+ Years (Fluad) 03/11/2016 MMR 03/11/2006 Moderna COVID-19 12+ (Spikevax) 01/24/2023 PCV13 (Prevnar) 12/10/2017,08/23/2014,03/11/2009 PPSV23 (Pneumovax) 01/13/2007,03/11/2006 [...] Answer Date Recorded PHQ-2 Score 0 07/31/2023 Comments No Sex and Gender Information Value Date Recorded Sex Assigned at Not on file Legal Sex Female 4:27 AM CDT Gender Identity Not on file Sexual Orientation [...] 68.9 kg (152 lb) 03/05/2024 10:27 AM GEAR HOBBER OPERATOR Height 166.4 cm (5' 5.5) 03/05/2024 10:27 AM CS T Body Mass Index 24.91 03/05/2024 10:27 AM GEAR HOBBER OPERATOR Plan of Treatment Health Maintenance Due Date Last Done Comments Pneumococcal PCV20 Immunization Discussion 1940 Dexa 2005 HepB Vaccine (2) 04/08/2006 03/11/2006 Zoster/Shingles Vaccine (2 of 3) 09/02/2018 07/08/2018, 03/11/2012 Medicare Annual Wellness Visit 07/30/2024 07/31/2023 COVID-19 Vaccine ( season) 2024 12/20/2023, 01/24/2023, 12/01/2021, Additional history exists Influenza Vaccine (#1) 2024 , 01/01/2023, 12/01/2021, Additional history exists DTaP/Tdap/Td Vaccine (3 - Tdap) 07/08/2028 07/08/2018, 03/11/2006, 11/27/1993 HepA Vaccine Completed 03/11/2006, 05/10, 06/01/1998 Pneumococcal Vaccine 50+ Yrs Completed 04/2017, 08/23/2014, 03/11/2009, Additional history exists RSV Vaccine Completed 01/01/2023 Hib Vaccine Aged Out No longer eligi ble based on patient's age to complete this topic MCV4 Vaccine Aged Out No longer eligi ble based on patient's age to complete this topic Meningococcal B Vaccine Aged Out No l onger eligible based on patient's age to complete this topic Insurance MEDICARE AARP MEDICARE SUPPLEMENT Care Teams Funeral Professional Relationship Specialty [place] [address] [place] [address] PCP - General Family Practice 11/21/17
--- OUTSIDE RECORDS SUMMARY | 2024-12-24 15:29 | XMS_ITS | Encounter Summary ---
Author Organization [facility] Address [address] [facility] [place] [address] Care Team Providers Care Electrocardiograph Operator Name Role Phone System, Provider Not In Primary Care Provider Un available Seema Boateng APRN ST[facility]MAN Unavailable [phone] Steph López PA-C Unavailable [phone] Encounter Details Date Type Department Care Team (Late st Contact Info) Description 12/11/2024 Results Follow-Up 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 Gender Identity Not on file Sexual Orientation Not on file documented as of this encounter Plan of Treatment Upcoming Encounters Date Type Department Care Team (Late st Contact Info) Description 12/29/2024 10:00 AM CDT Appointment [facility] [address] [facility] [id number] Zoe Yang MD [address] [place] [address] documented as of this encounter Visit Diagnoses Not on filedocumented in this encounter Care Teams Electrocardiograph Operator Relationship Specialty Start Date End Date System, Provider Not In PCP - General Clinic 11/09/17 Seema Boateng APRN [facility] [address] [place] [id number] Nurse Practitioner Cardiovascular Disease 11/22/22 Steph López PA-C [address] [place] [address] Assigned Heart and Vascular Provider 07/31/24 documented as of this encounter
[2024-12-24 15:40] VITALS: BP 144/72; PULSE 72; RESP 20; TEMP 36.5; O2SAT 100
[2024-12-24 16:05] LABS: Appearance Urine Clear (Clear)
--- NOTE | 2024-12-24 16:39 | ED_ITS ---
HPI - Female Genitourinary General Date Seen: 12/24/24 Chief complaint: Urogenital Problems, Female Stated complaint: Bladder pain Time Seen by Provider: 12/24/24 15:46 Source: patient Mode of arrival: EMS Limitations: no limitations History of Present Illness HPI Narrative: Patient is an 84-year-old female presenting for concerns of a UTI. States for the past few days she has been having intermittent dizziness, feels, abdominal pain. She states that today the dizziness and chills have resolved but she continues to have suprapubic abdominal pain. She notes she has been having difficulty urinating today in believe she is developing a UTI. She has had UTIs several times in the past and states this feels just like her previous UTIs. Has some difficulty urinating and some mild dysuria. Does states she seen a urologist for bladder spasms and has cystoscopy done 2 weeks ago and is scheduled for another 1 in 2 weeks with her biopsy. Denies chest pain, shortness of breath, diarrhea, constipation, weakness, numbness, headache, vision changes. States she has been eating and drinking normally. Does states she saw her primary care provider yesterday for her dizziness and chills have lab work done that was unremarkable. No other concerns noted. Related Data Home Medications ?Medication ?Instructions ?Recorded ?Confirmed aspirin 81 mg tablet,delayed 81 mg PO DAILY 11/21/21 0 03/21/24 release (Adult Aspirin Regimen) duloxetine 20 mg capsule,delayed 40 mg PO HS 11/21/21 03/21/24 release (Cymbalta) potassium chloride 20 mEq 20 meq PO DAILY 11/21/2102/02 tablet,extended release (K-Tab) tramadol 50 mg tablet 50 mg PO Q6H PRN 11/21/21 amlodipine 5 mg tablet 7.5 mg PO DAILY 03/21/2402/02 cholecalciferol (vitamin D3) 50 50 mcg PO DAILY 03/21/24 mcg (2,000 unit) capsule cyanocobalamin (vitamin B-12) 500 1,000 mcg PO DAILY 0 03/21/24 03/21/24 mcg tablet dorzolamide 22.3 mg-timolol 6.8 1 drp ophthalmic (eye) BID 03/21/24 03/21/24 mg/mL eye drops (Cosopt) ferrous sulfate 325 mg (65 mg 325 mg PO DAILY 03/21/24 03/21/24 iron) tablet (FeroSul) latanoprost 0.005 % eye drops 1 drp ophthalmic (eye) H S 03/21/24 03/21/24 melatonin 5 mg capsule 5 mg PO HS 03/21/24 03/21/24 rosuvastatin 10 mg tablet 10 mg PO HS 03/23/24 5 Previous Rx's ?Medication ?Instructions ?Recorded cefdinir 300 mg capsule 300 mg PO BID 2 days #4 caps 03/24/24 cephalexin 250 mg capsule 250 mg PO QID #20 caps 12/24 Allergies Allergy/AdvReac Type Severity Reaction Status Date / Time hydroxychloroquine (From Allergy Verified 12/24/24 15:39 Plaquenil) PFSH [facility] Medical History Physical debility ?R53.81 - Other malaise (ICD-10) Fecal incontinence ?R15.9 - Full incontinence of feces (ICD-10) History of syncope ?Z87.898 - Personal history of other specified conditions (ICD-10) History of MRSA infection ?Z86.14 - Personal history of Methicillin resistant Staphylococcus aureus infection (ICD-10) HLD (hyperlipidemia) ?E78.5 - Hyperlipidemia, unspecified (ICD-10) HTN (hypertension) ?I10 - Essential (primary) hypertension (ICD-10) CAD (coronary artery disease) ?I25.10 - Atherosclerotic heart disease of [place] coronary artery without angina pectoris (ICD-10) Social History What is your current living situation?: I presently have a place to live Problems where you live: no known problems Problems where you live details: none In the past 12 months, utilities in danger of being shut off: no In past 12 months, lack of transportation kept you from medical appts, meetings, work, or getting things needed for daily living: no In the past 12 mos, have been you worried that your food would run out before you had money to buy more?: never true In the past 12 mos, the food you bought just didn't last and you didn't have money to buy more?: never true Highest level of school completed/degree received: high school graduate Smoking Status: Former smoker What tobacco products do you use: cigarettes Smoking quit date/years: >15 years ago Do you use any of these nicotine containing products: None Second hand tobacco smoke exposure: No How often do you have a drink containing alcohol: never How often do you have six or more drinks on one occasion: Never AUDIT-C Alcohol total score: 0 Non-prescribed substance use: denies use Caffeine: Yes (1-2/cup coffee) How often does anyone, including family, friends and others, physically hurt you : never How often does anyone, including family, friends and others, insult or talk down to you: never How often does anyone, including family, friends and others, threaten you with harm: never How often does anyone, including family, friends and others, scream or curse at you: never service: No Exam Narrative: Exam Narrative: Const: Well-nourished, Well-developed, in no distress Eyes: PERRL, no conjunctival injection, and symmetrical lids HENT: Atraumatic external nose and ears. Moist mucous membranes. Neck: Symmetric, trachea midline, No thyromegaly. CVS: RRR, No murmurs or gallops. Peripheral pulses 2+ and equal in all extremities RESP: Unlabored respiratory effort. Clear to auscultation bilaterally. GI: Mild suprapubic pain, Nondistended, No rebound or guarding. MSK:Extremities w/o deformity, Normal Active ROM Skin: Warm, Dry. No rashes or lesions. Neuro: Normal Muscle tone, No focal neurological deficits. Psych: Awake, Alert, & Oriented x3. Appropriate mood and affect. Const: Vital Signs, click to edit/add: Vital Signs - 24 hr 12/24/24 15:40 Temperature 97.7 F Pulse Rate [Pulse Oximeter] 72 Respiratory Rate 20 Blood Pressure [Ri ght Upper Arm] 144/72 H Pulse Oximetry 100 Oxygen Delivery Me thod Room Air Course Vital Signs Vital signs: Initial Vital Signs Temperature 97.7 F 12/24/24 15:40 Temperature Source Temporal Artery Scan 12/24/24 15:40 Pulse Rate 72 12/24/24 15:40 Respiratory Rate 20 12/24/24 15:40 Blood Pressure 144/72 H 12/24/24 15:40 Blood Pressure Mean 96 12/24/24 15:40 Pulse Oximetry 100 12/24/24 15:40 Oxygen Delivery Method Room Air 12/24/24 15:40 Vital Signs Temperature 97.7 F 12/24/24 15:40 Pulse Rate 72 12/24/24 15:40 Respiratory Rate 20 12/24/24 15:40 Blood Pressure 144/72 H 12/24/24 15:40 Pulse Oximetry 100 12/24/24 15:40 Oxygen Delivery Method Room Air 12/24/24 15:40 Temperature 97.7 F 12/24/24 15:40 Pulse Rate 72 12/24/24 15:40 Respiratory Rate 20 12/24/24 15:40 Blood Pressure 144/72 H 12/24/24 15:40 Pulse Oximetry 100 12/24/24 15:40 Oxygen Delivery Method Room Air 12/24/24 15:40 MDM - Female Genitourinary MDM Narrative Medical decision making narrative: Patient is an 84-year-old female presenting for concerns of UTI. She does have symptoms consistent with the UTI and does have the suprapubic pain. She was unable to urinate and straight cath was done per the patient's request and 210 mL were drained. Urinalysis returned showing blood in the urine but no leukocyte esterase, nitrites, white blood cells, bacteria. After shared decision making with the patient demonstrates I will treat her with antibiotics as this may just be a very early stage of the UTI. Did also speak to her about doing lab work today be considered she does have lab work done yesterday and overall is feeling better today she declined lab work and that seems reasonable. She is safe for discharge. Lab Data Labs: Lab Results 12/24/24 Range/Units 15:55 Urine Color Yellow (Yellow) Urine Appearance Clear (Clear) Urine pH 7.5 (5.0-8.5) Ur Specific [place] 1.020 (1.000-1.030) Urine Protein 2+ A (Negative) Urine Glucose (UA) Negative (Negative) Urine Ketones 1+ A (Negative) Urine Blood Trace-intact A (Negative) Urine Nitrite Negative (Negative) Urine Bilirubin Negative (Negative) Urine Urobilinogen 0.2 (0.2-1.0) Ur Leukocyte Esterase Negative (Negative) Urine RBC 2-5 A (0-2) Urine WBC 0-2 (0-5) Ur Squamous Epith Cells Few (None-Few) Urine Bacteria None (None) Discharge Plan Discharge Clinical Impression: Urinary tract infection Qualifiers: Urinary tract infection type: site unspecified Hematuria presence: with hematuria Qualified Code(s): N39.0 - Urinary tract infection, site not specified Patient Disposition: Home, Self-Care Condition: Stable Instructions: Urinary Tract Infection in Women (DC), Acute Urinary Retention in Women (ED) Additional Instructions: Recommend close follow-up with the primary care provider and urologist. If he still have difficulty urinating he with the antibiotics a recommend close follow-up as urinary retention can cause long-term bladder issues. Take the antibiotics as prescribed. You can pick them up from your pharmacy. Return to emergency department for any other new or worsening symptoms. Prescriptions: New cephalexin 250 mg capsule 250 mg PO QID Qty: 20 0RF No Action potassium chloride [K-Tab] 20 mEq tablet extended release 20 meq PO DAILY duloxetine [Cymbalta] 20 mg capsule,delayed release(DR/EC) 40 mg PO HS aspirin [Adult Aspirin Regimen] 81 mg tablet,delayed release (DR/EC) 81 mg PO DAILY tramadol 50 mg tablet 50 mg PO Q6H PRN amlodipine 5 mg tablet 7.5 mg PO DAILY dorzolamide-timolol [Cosopt] 22.3-6.8 mg/mL drops 1 drp ophthalmic (eye) BID Rx Instructions: RIGHT EYE latanoprost 0.005 % drops 1 drp ophthalmic (eye) HS cholecalciferol (vitamin D3) 50 mcg (2,000 unit) capsule 50 mcg PO DAILY ferrous sulfate [FeroSul] 325 mg (65 mg iron) tablet 325 mg PO DAILY cyanocobalamin (vitamin B-12) 500 mcg tablet 1,000 mcg PO DAILY melatonin 5 mg capsule 5 mg PO HS rosuvastatin 10 mg tablet 10 mg PO HS cefdinir 300 mg capsule 300 mg PO BID 2 Days Qty: 4 0RF Follow Up/Referrals: Provider,Not a Local [Non-Staff, Family Practice] Stand Alone Forms: MyHealth Info Instructions
== END 2024-12-24 17:00 | disposition home or self-care (01) ==
PROVIDERS: Emergency Provider Student in an Organized Health Care Education/Training Program; PCP Family Medicine
DX: N39.0 Urinary tract infection, site not specified (principal); R31.9 Hematuria, unspecified; Z87.440 Personal history of urinary (tract) infections
CPT/HCPCS: 51798; 80048; 81001; 85025; 99283

== ENCOUNTER 2025-03-09 14:23 | Outpatient (CLI) | payer MEDICARE, SELFPAY | END 2025-03-09 14:24 | disposition home or self-care (01) | LOC: AMB 03-15 13:41 | PROVIDERS: PCP Family Medicine; Visit Provider Family Medicine | DX: N32.89 Other specified disorders of bladder (principal) | CPT/HCPCS: A0425; A0427 ==

== ENCOUNTER 2025-03-09 15:01 | Emergency (ER) | payer MEDICARE, SELFPAY ==
[2025-03-09 15:06] VITALS: BP 195/99; PULSE 84; RESP 24; TEMP 36.8; O2SAT 100; BMI 24.1
--- OUTSIDE RECORDS SUMMARY | 2025-03-09 15:17 | XMS_ITS | Clinical Summary ---
Author Organization [facility] Address [address] [place] [address] Care Team Providers Care Telehealth Nurse Educator Name Role Phone None Reported, Pcp Primary Care Provider Unavail able Source Comments Patient records contain information from all sites at [facility]. For routine questions regarding patient records, call [phone] during business hours, M-F 8:00 AM - 5:00 PM Central Time. Record requests for emergency care only can be directed to [phone] at any time.[facility] Allergies Active AllergyReactionsCriticalityNoted DateCommentsCigarette SmokeOther (see comments)08/26/2023House DustOther (see comments)Low08/26/2023Hydroxychloroquine Hives only, no other systemic symptoms,Hives (Reselect Reaction),Itching,Rash High1Pollen ExtractsOther (see comments)08/26/2023 Medications MedicationSigDispense QuantityRefillsLast FilledStart DateEnd DateStatus potassium chloride (KLOR-CON) 20 mEq packet Take 20 mEq by mouth daily with morning meal.Active DULoxetine (CYMBALTA) [address] capsule Take 40 mg by mouth daily.Active rosuvastatin (CRESTOR) 10 mg tablet Take 10 mg by mouth daily.Active aspirin 81 mg chewable tablet Chew 81 mg daily.Active latanoprost (XALATAN) 0.005 % ophthalmic solution Administer 1 drop into both eyes at bedtime.Active dorzolamide-timoloL (COSOPT) 22.3-6.8 mg/mL ophthalmic solution Administer 1 drop into the right eye 2 (two) times a day.Active melatonin 5 mg tablet Take 5 mg by mouth at bedtime.Active cyanocobalamin (VITAMIN B12) 1,000 mcg tablet Take 1,000 mcg by mouth daily.Active cholecalciferol (Vitamin D3) 50 mcg (2,000 Unit) tablet Take 50 mcg by mouth daily.Active ferrous sulfate 325 mg (65 mg iron) DR tablet Take 65 mg of iron by mouth daily.Active magnesium oxide (MAG-OX) 400 mg (241.3 mg magnesium) tablet Take 400 mg by mouth every morning before breakfast.Active clobetasoL (CLOBEX) 0.05 % external spray Apply 1 Application topically as needed. Apply to hair.Active loratadine (CLARITIN) 10 mg tablet Take 10 mg by mouth daily.05/04/2015Active clobetasol propionate 0.05 % in plasticized pf base Apply topically 3 (three) times a day as needed.Active triamcinolone (KENALOG) 0.1 % ointment Indications:Lichen SclerosusApply to vulva twice a day for 2 weeks, then switch with clobetasol ointment 80 g ctive ipratropium (Atrovent) 42 mcg (0.06 %) nasal spray 1-2 sprays Q4H PRN 15 mL ctive ruxolitinib (Opzelura) 1.5 % cream Apply 1 Application topically 2 (two) times a day. Apply to the vulva Saturday, , Saturday, saturday 60 g ctive Additional Information Patient not taking.Reported on 12/11/2023 UNABLE TO FIND Apply 1 each topically daily. Med Name: Tofacitinib 2% ointment 10 mL container Apply to affected skin on the vulvar area every other day, alternating with clobetasol ointment 30 each ctive clobetasoL (Temovate) 0.05 % ointment Indications:Lichen SclerosusApply 1 Application topically 2 (two) times a day. Apply to vulva twice a day for 2 weeks, then alternate with triamcinolone ointment for 2 weeks 60 g ctive amLODIPine (Norvasc) 5 mg tablet Take 1 tablet by mouth daily.11/13/2023ctive nystatin (Mycostatin) 100,000 unit/gram cream Apply 1 Application topically 2 (two) times a day. Apply to vulvar skin for 2 weeks. 90 g 12/19/2023ctive Active Problems ProblemNoted DateDiagnosed DateLichen Nulxupnnb39/13/2023 Family History Medical HistoryRelationNameCommentsStrokeMotherEsther Ktuvfl46 yrs old at the timeLeukemiaMother's BrotherAlfred Precious had cronic Leukima for many years. His son of acute Leukima after a very short time. Another first cousin survived itBreast cancer (in one breast)Paternal GrandmotherEmma Escalera RelationNameStatusCommentsMotherEsther JwMother's BrotherAlfred Sabrina Paternal GrandmotherEmma Oilton Social History Tobacco UseTypesPacks/DayYears UsedDateSmoking Tobacco: ToutebEyyaiczgzt5Ivwt: 03/11/1966Smokeless Tobacco: NeverAlcohol UseStandard Drinks/WeekCommentsNot Currently0 (1 standard drink = 0.6 oz pure alcohol)[facility] UtilitiesAnswerDate RecordedIn the past 12 months has the [employer], gas, oil, or water opentabs threatened to shut off services in your home?No12/10/2023Humiliation, Afraid, Rape, and Kick questionnaireAnswerDate RecordedWithin the last year, have you been afraid of your partner or ex-partner?11/07/2022Within the last year, have you been humiliated or emotionally abused in other ways by your partner or ex-partner?No11/07/2022Within the last year, have you been kicked, hit, slapped, or otherwise physically hurt by your partner or ex-partner?No11/07/2022Within the last year, have you been raped or forced to have any kind of sexual activity by your partner or ex-partner?11/07/2022Hunger Vital SignAnswerDate Recorded Within the past 12 months, you worried that your food would run out before you got the money to buymore.Never true12/10/2023Within the past 12 months, the food you bought just didn't last and you didn't have money to get more.Never true 12/10/2023RAPARE - TransportationAnswerDate RecordedIn the past 12 months, has lack of transportation kept you from medical appointments or from getting medications?No12/10/2023In the past 12 months, has lack of transportation kept you from meetings, work, or from getting things needed for daily living?No 12/10/2023Housing StabilityAnswerDate RecordedWhat is your living situation today?I have a steady place to live12/10/2023CommentsUnknownSex and Gender InformationValueDate RecordedSex Assigned at FzevqAfylrd91/30/2023 7:40 PM CDTLegal LlrWkxeot84/02/2023 11:22 AM CDTGender UtwciqmrCzifwi58/30/2023 7:40 PM CDTSexual QjhvgvoryihKemtbwxh17/30/2023 7:40 PM CDT Last Filed Vital Signs Vital SignReadingTime TakenCommentsBlood Wtvyyzqq639/7506/ 12:55 PM CDT [id number] 12:55 PM CDTTemperature--Respiratory Rate--Oxygen Saturation-- Inhaled Oxygen Concentration--Weight--Height--Body Mass Index-- Plan of Treatment Health MaintenanceDue DateLast DoneCommentsIPV Vaccines (2 of 3 - Adult catch-up series)Zoster Vaccines (2 of 3) Depression Screening (Annual PHQ-2)03/11/2024Fall Risk Screen (Annual)03/11/2024 COVID-19 Vaccine ( season), 12/01/2021, 06/22/2021, Additional history existsInfluenza Vaccine (#1), 01/01/2023, 12/01/2021, Additional history existsDTaP,Tdap,and Td Vaccines (3 - Td or Tdap), 03/11/2006, 11/27/1993Pneumococcal vaccine (50+ years)Nwzmjyeam66/02/2018, 08/23/2014, 03/11/2009, Additional history existsRSV vaccine - (32-36 weeks) or 50+ zjnrpNwthqtppo10/24/2023 Medical Devices ImplantedTypeAreaManufacturerDevice IdentifierShelf Expiration DateModel / Serial / LotCardiac StentCardiac StentHeartDescription:2 StentsUrologic Other Urologic OtherLeft: ButtockDescription:Inter stem bladder control Insurance Care Teams Team MemberRelationshipSpecialtyStart DateEnd Date None Reported, Pcp PCP - Qqumrjr97/8/24
--- OUTSIDE RECORDS SUMMARY | 2025-03-09 15:17 | XMS_ITS | Clinical Summary ---
Author Organization [facility] Address [address] [place] [address] Care Team Providers Care Survival Equipment Repairer Name Role Phone Amada Hamilton DO Primary Care Provider [phone] Carmen Rajput Unavailable [phone] Allergies Active AllergyReactionsCriticalityNoted DateCommentsCigarette Smoke*Unknown, *Unknown - Follow up needed,Other - Describe In Comment Field08/26/2023Grass Pollen-Red Top, YalutddmUxmbxFqpt38/27/2021House Dust*FqqjsylToj82/17/2024 HydroxychloroquineHives,Itching,Rash11/20/2022ollen Extracts*Eiryhzc8504/20/2024 Medications MedicationSigDispense QuantityRefillsLast FilledStart DateEnd DateStatus latanoprost (XALATAN) 0.005 % ophthalmic solution INSTILL 1 DROP IN BOTH EYES NIGHTLY AT TOUITOC7108/28/2022ctive dorzolamide-timoloL (COSOPT) 2-0.5 % ophthalmic solution INSTILL 1 DROP INTO THE RIGHT EYE TWICE DAILY10/15/2022ctive aspirin (ECOTRIN) 81 mg enteric coated tablet Take 1 Tablet by mouth once daily.06/26/2023ctive albuterol HFA (PRO-AIR; VENTOLIN; PROVENTIL) 90 mcg/actuation inhaler Inhale 2 Puffs by mouth every 4 hours if needed.5Active losartan 25 mg tablet Indications:Essential hypertension,Proteinuria, unspecified typeTake 1 Tablet (25 mg) by mouth once daily. 90 Tablet 5Active DULoxetine (CYMBALTA) 20 mg Delayed-release capsule Indications:Major depression in remissionTake 2 Capsules (40 mg) by mouth once daily. 180 Capsule 5Active clobetasol (TEMOVATE) 0.05 % ointment Indications:Lichen sclerosusApply topically to affected area(s) two times daily. Use as needed. 60 g 5Active rosuvastatin (CRESTOR) 10 mg tablet Indications:Coronary arteriosclerosis,Atherosclerosis of coronary artery, unspecified vessel or lesion type, unspecified whether angina present, unspecified whether stebbins or transplanted heartTake 1 Tablet (10 mg) by mouth at bedtime. 90 Tablet 5Active cholecalciferol (Vitamin D-3) 2,000 unit capsule Take 2,000 units by mouth once daily.Active magnesium 250 mg tab Take 1,000 mg by mouth once daily.Active amLODIPine (NORVASC) 5 mg tablet Take 5 mg by mouth once daily.4Active oxybutynin (DITROPAN) 5 mg tablet Indications:Bladder spasmTake 1 Tablet (5 mg) by mouth 3 times daily if needed (for bladder spasm). 15 Tablet 5Active cholecalciferol (vitamin D3) (Cholecalciferol (VitD3) (Bulk)) 100,000 unit/gram powd Mix 2,000 units in liquid then take by mouth.Active ipratropium (ATROVENT NASAL) 42 mcg (0.06 %) nasal spray 1-2 sprays Q4H PRN4Active amoxicillin-clavulanate (AUGMENTIN) 875-125 mg tablet Indications:Acute non-recurrent maxillary sinusitisTake 1 Tablet by mouth two times daily with meals. 20 Tablet 5Active sulfacetamide (BLEPH-10) 10 % ophthalmic solution Indications:Conjunctivitis of both eyes, unspecified conjunctivitis typePlace 2 Drops into both eyes four times daily for 7 days. 5.6 mL Expired Active Problems ProblemNoted DateDiagnosed DateType 2 diabetes mellitus without complication, without long-term current use of galdmyp4012/23/2024History of iron deficiency wtfsha3907/31/2023Mixed qvgupyrqzygidm02/22/2024ecurrent major depressive disorder, in full yunstnhyi86/22/2024Stented coronary plfjyp1807/31/2023Left ventricular onnspfnwgtq09/14/2024Gastroesophageal reflux disease without oqhjahljlrq57/14/2024yspnea on ujugtyby81/14/2024oronary atherosclerosis 05/23/2023Lichen ujuhfp1602/12/20230099Devanf71/05/2023Lichen aztimcfaq55/13/2023 Polymyalgia vfkynslzob10/15/2021yst of left ovary02/22/2020Coronary xuxowudhxzsramvf07/27/2020Hypertrophic fcwojyheztplvf56/05/2020 Overview (04/09/2024): Isolated septal hypertrophy Jrgarr4102/16/2019Major depression in acypqkzvl73/21/4036Msprcpnc19/10/2018 Essential ilslnfpvjtwf20/07/4047Iaprovp41/07/2003 Overview (02/15/2025): Pain Low Back Resolved Problems ProblemNoted DateDiagnosed DateResolved DateInterstitial lung ijzoisf1404/09/2024 10/01/2024Iron deficiency hmzpix16Overactive ahmreke1702/12/2023 04/09/2024Methicillin resistant Staphylococcus aureus fevsfzgpz60/31/2018 04/09/2024 Encounters DateTypeDepartmentCare HtdsRcheosogrwp74/16/2025Results Follow-Up [address] [phone] Carmen Rajput PA 02/18/2025 12:00 PM CSTOffice Visit [address] [phone] Aric Felix MD Procedure (Cystoscopy)02/18/20250256Wdanhh54/08/2025 11:00 AM CSTOffice Visit [facility] [address] [place] [address] Mitchell Stevens MD Sinus Hgctinobf28/08/1640Hnvnxq36/28/2025Telephone [facility] [address] [place] [address] Gelacio Arshad MD Zllkmdfwt24/27/2025Telephone [address] [address] Aric Felix MD Surgery Scheduled (Urology)12/31/20245632Ibdbga05/23/2025Medical Messaging [facility] [address] [facility] [place] [address] Amada Hamilton, DO Tests etc12/25/2024Orders Only [facility] Scanner 1 scan: (1-Ord) [facility], URINALYSIS, Orders Only [facility] [address] [facility] [place] [address] Amada Hamilton, 1 scan: (1-Ord) NFLD-EKG-12/23/2509 10:50 AM CDTOffice Visit [facility] [address] [facility] [place] [address] Amada Hamilton, Preoperative Exam (01/12/2025); Results (discuss low hemoglobin /Recent dizziness and weakness.)12/23/20249214Omffyz77/11/2473Hwixsn38/10/2025Travel 12/17/2024 9:00 AM CDTOffice Visit [address] [phone] Aric Felix MD Procedure (Cystoscopy)12/16/2024Travelfrom Last 3 Months Immunizations ImmunizationAdministration DatesNext DueHepatitis A (Adult)03/11/2006,06/01/1998 Hepatitis A (Peds),Ixyspbsnxml36/24/1999Hepatitis B (Adult)03/11/2006Inactivated Polio Yhjcukp0406/01/1998Influenza A (H1N1), Vlnhcpffvzl02/29/2009Influenza, High- dose Mfrmthwyqxr26/01/2025,12/20/2023,11/20/2015,12/05/2014,11/29/2013, 01/06/2013Influenza, High-dose Quadrivalent Ykyvqswcpqd33/24/2023,12/01/2021 Influenza, IIV3 (Age >=3 years)11/30/2011,12/11/2010,12/06/2008,01/16/2008, 01/13/2007,01/09/2006,12/14/1998MMR03/11/2006Pneumococcal Poly,23-Valent (Pneumovax)01/13/2007,03/11/2006Pneumococcal conj 13-Valent (Prevnar 13) 12/10/2017,08/23/2014,03/11/2009RSV, Recombinant ADJ Reconstituted (Arexvy 120MCG/0.5mL)01/01/2023Td (Age >=7 Years)11/27/1993Tdap07/08/2018,03/11/2006 Tetanus Ctbkds6503/11/2006Tetanus Toxoid, Oqzqsrkrwzu64/01/2007Zoster (Zostavax- ZVL, live)03/11/2012Zoster, Unspecified Qubokltllwv53/30/2019 Social History Tobacco UseTypesPacks/DayYears UsedDateSmoking Tobacco: NeverPassive Smoke Exposure: NeverSmokeless Tobacco: Never Tobacco Cessation:Counseling Given: No Alcohol UseStandard Drinks/WeekCommentsNot Currently0 (1 standard drink = 0.6 oz pure alcohol)PHQ-2AnswerDate RecordedPHQ-2 TOTAL [id number] ConnectionsAnswerDate RecordedDo you often feel lonely or isolated from those around you?lcohol UseAnswerDate RecordedHow often do you have a drink containing alcohol?How many drinks containing alcohol do you have on a typical day when you are drinking?How often do you have five or more drinks on one occasion?Financial Resource StrainAnswer Date RecordedDifficulty of Paying Living Zqsyrxrl657/05/2025Difficulty of Paying Living ExpensesNot on file04/15/2024Food InsecurityAnswerDate RecordedDo you worry your food will run out before you are able to buy more? Transportation NeedsAnswerDate RecordedDoes lack of transportation keep you from medical appointments?Does lack of transportation keep you from work, meetings or getting things that you need?Housing StabilityAnswerDate RecordedWhat is your housing situation today?UtilitiesAnswerDate RecordedDo you have trouble paying for utilities (for example, heat, electricity, water, phone)?CommentsNoSex and Gender InformationValueDate RecordedSex Assigned at BirthNot on fileLegal SexFemale 03/24/2012 6:00 AM CSTGender IdentityNot on fileSexual OrientationNot on file Last Filed Vital Signs Vital SignReadingTime TakenCommentsBlood Qogxggdz508/56104/18/2024 11:02 AM REPEATER CHIEF Zuxnh096302/15/2025 11:02 AM SBZYsboqzcddbr13.6 ??C (97.8 ??F)08/17/2024 9:32 AM CDTRespiratory Rate--Oxygen Lsyldziqlt05%02/15/2025 11:02 AM CSTInhaled Oxygen Concentration--Qzwpvm95.6 kg (149 lb)02/15/2025 11:02 AM RJIQmostx120.1 cm (5' 5)02/15/2025 11:02 AM CSTBody Mass Index24.7902/15/2025 11:02 AM REPEATER CHIEF Plan of Treatment DateTypeDepartmentCare Team (Latest Contact Info)Lseuaqukcgx08/18/2026 11:00 AM CSTOffice Visit [address] [phone] Carmen Rajput PA [address] [place] [phone] 08/19/2025 12:30 PM CDTOffice Visit [address] [phone] Aric Felix MD [address] [place] [phone] [facility] MaintenanceDu DateLast DoneCommentsDEXA/DXA scan for age 65+2005 Hepatitis B series for 19+ (2 of 3 - 19+ 3-dose series) Zoster (shingles) series for age 50+ (2 of 3)COVID-19 vaccine series ( season), 01/24/2023, 12/01/2021, Additional history existsMedicare Wellness for age 65+/[place] (ht and wt on same day) for age 18+/10/2024, 12/23/2024, 10/01/2024 Depression screening for age 12+/01/2025, 02/15/2025, 10/01/2024 Tetanus jetyphj97/, 03/11/2006, 11/27/1993Pneumococcal series for age 50+Zvwuyrgsn29/02/2018, 08/23/2014, 03/11/2009, Additional history existsRSV vaccine for adults or cyhexdrtlYawovfhbv62/24/2023Influenza Vaccine Odwyrmkjc48/01/2025, 12/20/2023, 11/20/2015, Additional history exists Procedures Procedure NamePriorityDate/TimeAssociated DiagnosisCommentsPATH TISSUE EXAM Datusat1402/18/2025 12:24 PM REPEATER CHIEF Lesion of bladder SCAN-LABORATORY IEGRDH8912/25/2024 12:00 AM CDT EKG 12 RJMVSowaeyq23/16/2025 1:56 PM CDT Dizziness ND READING EKG - NO CHARGE, COMP ZWIKKbuukqp02/16/2025 1:55 PM CDT Dizziness IRON PLUS IRON BINDING CAPAdd On12/23/2024 12:28 PM CDT Microcytic anemia FERRITINAdd On12/23/2024 12:28 PM CDT Microcytic anemia C-REACTIVE AVIQINGBkhujki76/15/2025 12:28 PM CDT Polymyalgia rheumatica (HC) BASIC METABOLIC CGXVOEktizdn61/15/2025 12:28 PM CDT Preop examination CBC W PLT NO OLQGLtngomb15/15/2025 12:28 PM CDT Preop examination from Last 3 Months Results * PATH TISSUE EXAM (02/18/2025 12:24 PM REPEATER CHIEF)ComponentValueRef RangeTest Method Analysis TimePerformed AtPathologist SignatureCase ReportPathology Report ?Case: [id number] ? Authorizing Provider: ??Aric Felix MD ?Collected: ? 02/18/2025 1224 ? Ordering Location: ? [facility] ?Received: ?02/18/2025 1451 ? Clinic ? Pathologist: ? Tony Dietrich MD ? Specimen: ?Bladder Biopsy ? 02/22/2025 1:37 PM [facility] LABORATORYFinal Diagnosis A) URINARY BLADDER, BIOPSY: 1. Severe chronic cystitis with surface erosion 2. Sampling includes: Urothelium, lamina propria 3. Negative for in-situ and invasive malignancy 02/22/2025 1:37 PM [facility] at 1337 CSTClinical Information History of office cystoscopy due to pelvic pain and curvilinear filling defect extending from the right bladder wall of indeterminate significance on CT urogram. Cystoscope showed erythematous and raised along right lateral wall and also on left. Per operative findings: There were no urethral lesions. ??The ureteral orifices were identified in normal anatomic positions. ??There were no tumors, diverticula or calculi. ??The scope was retroflexed - no lesions noted. ?? 02/22/2025 1:37 PM [facility] LABORATORYGross DescriptionA) Received in formalin, labeled with the patient's name and bladder biopsy, is a singular 0.2 x 0.1 x 0.1 cm pink-white soft tissue fragment that is submitted entirely in 1 cassette. PAD 1:37 PM [facility] Microscopic DescriptionThe final diagnosis is based on microscopic examination of appropriate sections of all specimens.02/22/2025 1:37 PM [facility] LABORATORYAdditional Information Interpreted at [facility] Laboratory - [address], [place] [address]/22/2025 1:37 PM [facility] LABORATORYSpecimen (Source)Anatomical Location / LateralityCollection Method / VolumeCollection TimeReceived TimeOther (Bladder Biopsy)Non-Blood / Slppxbl3702/18/2025 12:24 PM CST02/18/2025 2:51 PM REPEATER CHIEF Narrative Authorizing ProviderResult TypeResult StatusBasir U Tarkwadwo MDPATHOLOGY/CYTOLOGY Final ResultPerforming OrganizationAddressCity/State/ZIP CodePhone Number [facility] [address] [place] [phone], * SCAN-LABORATORY REPORT (12/25/2024 12:00 AM CDT) Narrative Authorizing ProviderResult TypeResult StatusScannerOTHERFinal Result * EKG 12 LEAD (12/24/2024 1:56 PM CDT) Narrative Authorizing ProviderResult TypeResult StatusAmada Hamilton DOEKG ORDFinal Result * ND READING EKG - NO CHARGE, COMP ONLY (12/24/2024 1:55 PM CDT) Narrative Authorizing ProviderResult TypeResult StatusAmada Hamilton DOPB - PROVIDER READINGSFinal Result * (ABNORMAL) IRON PLUS IRON BINDING CAP (12/23/2024 12:28 PM CDT)ComponentValue Ref RangeTest MethodAnalysis TimePerformed AtPathologist SignatureIRON, TOTAL 19(L)45 - 160 mcg/dL12/25/2024 12:51 AM CDTQUEST DIAGNOSTICSIRON BINDING TXXMXVMP962339 - 450 mcg/dL (calc)12/25/2024 12:51 AM CDTQUEST [facility]% SATURATION4(L)16 - 45 % (calc)12/25/2024 12:51 AM CDTQUEST DIAGNOSTICSSpecimen (Source)Anatomical Location / LateralityCollection Method / VolumeCollection TimeReceived TimeBloodBLOOD SPECIMEN / UnknownQuest Collect / Unknown 12/23/2024 12:28 PM CDT1 12:28 PM CDT Narrative Authorizing ProviderResult TypeResult StatusAmada Hamilton DOCHEMISTRYFinal ResultPerforming OrganizationAddressCity/State/ZIP CodePhone Number [facility] [address] [place] [address], [place] [phone] * (ABNORMAL) CBC W PLT NO DIFF (12/23/2024 12:28 PM CDT)ComponentValueRef Range Test MethodAnalysis TimePerformed AtPathologist SignatureWHITE BLOOD CELL COUNT7.93.8 - 10.8 Thousand/uL12/24/2024 3:24 AM CDTQUEST DIAGNOSTICSRED BLOOD CELL COUNT4.063.80 - 5.10 Million/uL12/24/2024 3:24 AM CDT[facility] HEMOGLOBIN9.2(L)11.7 - 15.5 g/dL12/24/2024 3:24 AM CDT[facility] CVLWXNFDFI23.9(L)35.0 - 45.0 %12/24/2024 3:24 AM CDTQUEST CCLOQLAELLBNJG57.1 (L)80.0 - 100.0 fL12/24/2024 3:24 AM CDTQUEST QFUMPVHACBQCGH86.7(L)27.0 - 33.0 pg12/24/2024 3:24 AM CDTQUEST BDIBGNJUXNXNEUA92.8(L)32.0 - 36.0 g/dL12/24/2024 3:24 AM CDTQUEST DIAGNOSTICSComment: For adults, a slight decrease in the calculated MCHC value (in the range of 30 to 32 g/dL) is most likely not clinically significant; however, it should be interpreted with caution in correlation with other red cell parameters and the patient's clinical condition. RDW14.111.0 - 15.0 %12/24/2024 3:24 AM CDTQUEST DIAGNOSTICSPLATELET PAXCW355027 - 400 Thousand/uL12/24/2024 3:24 AM CDTQUEST LJOZXSIZGPRUTZ91.47.5 - 12.5 fL 12/24/2024 3:24 AM CDTQUEST DIAGNOSTICSSpecimen (Source)Anatomical Location / LateralityCollection Method / VolumeCollection TimeReceived TimeBloodBLOOD SPECIMEN / UnknownQuest Collect / Qlkjvvb5812/23/2024 12:28 PM CDT1 12:28 PM CDT Narrative Authorizing ProviderResult TypeResult StatusErin Herminia Hamilton DOHEMATOLOGYFinal ResultPerforming OrganizationAddressCity/State/ZIP CodePhone Number [facility] [address] [address], [place] [phone] * (ABNORMAL) C-REACTIVE PROTEIN (12/23/2024 12:28 PM CDT)ComponentValueRef Range Test MethodAnalysis TimePerformed AtPathologist SignatureC-REACTIVE PROTEIN (MG/L)9.6(H)<8.0 mg/L1 12:41 PM CDTQUEST DIAGNOSTICSSpecimen (Source) Anatomical Location / LateralityCollection Method / VolumeCollection Time Received TimeBloodBLOOD SPECIMEN / UnknownQuest Collect / Yuipeac8812/23/2024 12:28 PM CDT1 12:28 PM CDT Narrative Authorizing ProviderResult TypeResult StatusAmada Hamilton DOCHEMISTRYFinal ResultPerforming OrganizationAddressCity/State/ZIP CodePhone Number [facility] [address] [place] [address], [place] [phone] * (ABNORMAL) FERRITIN (12/23/2024 12:28 PM CDT)ComponentValueRef RangeTest MethodAnalysis TimePerformed AtPathologist SignatureFERRITIN6(L)16 - 288 ng/mL 12/25/2024 6:25 AM CDTQUEST DIAGNOSTICSSpecimen (Source)Anatomical Location / LateralityCollection Method / VolumeCollection TimeReceived TimeBloodBLOOD SPECIMEN / UnknownQuest Collect / Mptscov7712/23/2024 12:28 PM CDT1 12:28 PM CDT Narrative Authorizing ProviderResult TypeResult StatusAmada Hamilton [facility] HEALTHHEMISTRYFinal ResultPerforming OrganizationAddressty/State/ZIP CodePhone Number [facility] [address] [address], [place] [phone] * (ABNORMAL) BASIC METABOLIC PANEL (12/23/2024 12:28 PM CDT)ComponentValueRef RangeTest MethodAnalysis TimePerformed AtPathologist FoircpjtkZBBFLG124394 - 146 mmol/L1 3:52 AM CDTQUEST DIAGNOSTICSPOTASSIUM3.83.5 - 5.3 mmol/L 12/24/2024 3:52 AM CDTQUEST DIAGNOSTICSCARBON DRGGPQM9644 - 32 mmol/L 12/24/2024 3:52 AM CDTQUEST DDNVWEYOKYTTZTXVNC152(H)65 - 99 mg/dL12/24/2024 3:52 AM CDTQUEST DIAGNOSTICSComment: ? Fasting reference interval For someone without known diabetes, a glucose value between 100 and 125 mg/dL is consistent with prediabetes and should be confirmed with a follow-up test. CALCIUM9.18.6 - 10.4 mg/dL12/24/2024 3:52 AM CDTQUEST DIAGNOSTICSCREATININE0.88 0.60 - 0.95 mg/dL12/24/2024 3:52 AM CDTQUEST DIAGNOSTICSBUN/CREATININE RATIOSEE NOTE:6 - 22 (calc)12/24/2024 3:52 AM CDTQUEST DIAGNOSTICSComment: ?? Not Reported: BUN and Creatinine are within ?? reference range. ? EGFR65> OR = 60 mL/min/1.33m86112/24/2024 3:52 AM CDTQUEST DIAGNOSTICSUREA NITROGEN (BUN)207 - 25 mg/dL12/24/2024 3:52 AM CDTQUEST DIAGNOSTICSELECTROLYTE QVURFTP30 - 17 mmol/L (calc)12/24/2024 3:52 AM CDTQUEST FBRHCFAYIYSMTVSLTWV36232 - 110 mmol/L1 3:52 AM CDTQUEST DIAGNOSTICSSpecimen (Source)Anatomical Location / LateralityCollection Method / VolumeCollection TimeReceived TimeBlood BLOOD SPECIMEN / UnknownQuest Collect / Thbpmro7412/23/2024 12:28 PM CDT1 12:28 PM CDT Narrative Authorizing ProviderResult TypeResult StatusErin Herminia Hamilton DOCHEMISTRYFinal ResultPerforming OrganizationAddressCity/State/ZIP CodePhone Number [facility] [place] [address], from Last 3 Months Insurance * Guarantor: Haley Crow TypeRelation to PatientDate of BirthPhone Billing AddressPersonal/EojmakYdch15/15/1941 [address] [place] [address] Care Teams Team MemberRelationshipSpecialtyStart DateEnd Amada Hamilton DO [facility] [place] [address] PCP - GeneralFamily Practice04/09/24 Carmen Rajput PA [address] [place] [address] [place] [address] Physician Assistant11/11/24
--- OUTSIDE RECORDS SUMMARY | 2025-03-09 15:18 | XMS_ITS | Clinical Summary ---
Author Organization [facility] Address [address] [place] [id number] Care Team Providers Care Electricity Trader Name Role Phone JameelKy moses MD Primary Care Provider [phone] Source Comments You are receiving this document as you are listed as the primary care provider,follow-up provider, or the patient has been referred to you for consultation.This is in compliance with the Medicare andMedicaid EHR Incentive Program,which states Providers who transition their patient to another setting of careor provider of care or refers their patient to another provider of care shouldprovide summary care record for each transition of care or referral. [facility] Allergies Active AllergyReactionsCriticalityNoted DateCommentsGramineae PollensHivesHigh 02/04/20216497MochaoobkkgdcygkvyWtilnBcwa05/18/2021 Medications MedicationSigDispense QuantityRefillsLast FilledStart DateEnd DateStatus loratadine (CLARITIN) 10 MG tablet Take 1 Tablet (10 mg) by mouth daily.Active cyanocobalamin (VITAMIN B12) 1000 MCG tablet Take 1 Tablet (1,000 mcg) by mouth daily.Active latanoprost (XALATAN) 0.005 % eye drop solution Place 1 Drop into both eyes every evening. 2.5 mL 11/18/2017Active dorzolamide (TRUSOPT) 2 % eye drop solution Place 1 Drop into both eyes three times a day. 10 mL 11/18/2017Active cholecalciferol (VITAMIND3) 2000 units tablet Take 1 Tablet (2,000 Units) by mouth daily.Active ALBUterol sulfate HFA 108 (90 Base) MCG/ACT inhaler Inhale 1-2 Puffs every 4 hours as needed for Wheezing. 1 Each Active metoprolol succinate (TOPROL XL) 25 MG 24 hour release tablet Take 1 Tablet (25 mg) by mouth daily.07/14/2020ctive rosuvastatin (CRESTOR) 10 MG tablet Take 1 Tablet (10 mg) by mouth daily at bedtime.07/11/2020ctive Potassium Chloride ER 20 MEQ TBCR Take 1 Tablet (20 mEq) by mouth daily.08/19/2020ctive escitalopram oxalate (LEXAPRO) 5 MG tablet TAKE 1 TABLET BY MOUTH IN THE MORNING WITH FOOD06/27/2020ctive amLODIPine (NORVASC) 5 MG tablet 08/24/2020ctive aspirin 81 MG chewable tablet Chew and swallow 1 Tablet (81 mg) by mouth daily.Active Triamcinolone Acetonide (NASACORT NA) Active desvenlafaxine succinate (PRISTIQ) 50 MG 24 hour release tablet Take 25 mg by mouth daily.Active Probiotic Product (SUPER PROBIOTIC OR) Active ALBUterol sulfate HFA 108 (90 Base) MCG/ACT inhaler Indications:SOB (shortness of breath)Inhale 1-2 Puffs every 4 hours as needed for Wheezing. 1 g 02/04/2021ctive cholecalciferol (VITAMIN D3) 1.25 MG (21846 UT) capsule Vitamin D3 2000 iuActive cyanocobalamin 100 MCG tablet Active benzonatate (TESSALON) 200 MG capsule Take 1 Capsule by mouth three times a day as needed for Cough. 30 Capsule 02/13/2021ctive ketoconazole (NIZORAL) 2 % cream Apply topically two times a day. 30 g 02/13/2021ctive ferrous sulfate (AKA IRON SULFATE) 325 (65 Fe) MG enteric coated tablet Take 1 Tablet (325 mg) by mouth.Active cetirizine (ZYRTEC) 10 MG tablet Take 1 Tablet (10 mg) by mouth.Active melatonin 3 MG tablet Take 2 Tablets (6 mg) by mouth.Active potassium chloride (KLOR-CON M) 20 MEQ ER tablet Take 1 Tablet (20 mEq) by mouth daily.04/01/2023ctive DULoxetine (CYMBALTA) 20 MG capsule Take 1 Capsule (20 mg) by mouth daily.Active Active Problems ProblemNoted DateDiagnosed DateMixed pvakoowfxyqztt06/22/2024Recurrent major depressive disorder, in full pkkkkwtja72/22/2024Hypertrophic cardiomyopathy 07/31/2023oronary artery oyfsmoc0207/31/2023Stented coronary mgtqkt4507/31/2023GERD without afqbyrzfrae26/22/2024History of iron deficiency ewetbx5407/31/2023 Overactive ztdiibj6407/31/2023Lichen yncnwoagl89/22/2024olymyalgia rheumatica 07/31/20233403Rfglbhyk35/10/2018Essential vghfrvtzfrjy46/07/2003 Overview (10/31/2016): Hypertension Yrcghgt0908/15/2002 Overview (10/31/2016): Pain Low Back Immunizations ImmunizationAdministration DatesNext DueFlu Vac (3+ yrs)11/30/2011,12/11/2010, 12/06/2008,01/16/2008,01/13/2007,01/09/2006,12/14/19981606P7Q8-Ysezupyxzx01/29/2009 HepA Adult (19+ yrs)03/11/2006,06/01/1998HepA, Pediatric (DO NOT USE; for [facility] only)06/01/1998HepB Adult (Engerix-B, 20+ yrs, 3 dose series)03/11/2006IPV (Polio)06/01/1998Influenza ([place] Only) (Flulaval Quad 0.5, 3+ yrs)11/10/2019 Influenza IIV3 (Trivalent) Fluzone Highdose, 65+ Yrs (32924)11/10/2019, 12/08/2018,12/14/2016,11/20/2015,12/05/2014,11/29/2013,01/06/2013Influenza IIV4 (Quadrivalent) Fluzone, 65+ Yrs01/01/2023,12/01/2021,12/02/2020,11/10/2019 Influenza aIIV3 65+ Years (Fluad)03/11/2016MMR03/11/2006Moderna COVID-19 12+ (Spikevax)3PCV13 (Prevnar)12/10/2017,08/23/2014,03/11/2009PPSV23 (Pneumovax)01/13/2007,03/11/2006Pfizer Bivalent 12+2Pfizer Monovalent 12+ Purple Top12/03/2020,05/03/2020,1RSV Gzglfu53Td11/27/1993 Tdap07/08/2018,03/11/2006Tetanus Toxoid, Nlkjohhq55/01/2007Tetanus Toxoid, Unspecified Izfaelyiooz42/01/2007Zoster (Zostavax)03/11/2012Zoster, Unspecified Tpzudwbjruz28/30/2019 Social History Tobacco UseTypesPacks/DayYears UsedDateSmoking Tobacco: NeverSmokeless Tobacco: NeverAlcohol UseStandard Drinks/WeekCommentsNo0 (1 standard drink = 0.6 oz pure alcohol)PHQ-2AnswerDate RecordedPHQ-2 Jeppi9414CommentsNoSex and Gender InformationValueDate RecordedSex Assigned at BirthNot on fileLegal Sex Betaoi3012/19/2011 4:27 AM CDTGender IdentityNot on fileSexual OrientationNot on file Last Filed Vital Signs Vital SignReadingTime TakenCommentsBlood Kmzxdjyj770/7312/18/2023 4:30 PM CDT Gdubk168612/18/2023 4:30 PM BCMPppnrrqebzi82.8 ??C (98.2 ??F)12/18/2023 2:53 PM CDTRespiratory Twxo3445 4:30 PM CDTOxygen Zmcejahmqj65%12/18/2023 4:30 PM CDTInhaled Oxygen Concentration--Wkpmkg56.9 kg (152 lb)03/05/2024 10:27 AM AVNBdpgpg972.4 cm (5' 5.5)03/05/2024 10:27 AM CSTBody Mass Index24.9103/05/2024 10: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 Plan of Treatment Health MaintenanceDue DateLast DoneCommentsPneumococcal PCV20 Immunization Dlnnibqmba21/15/0737Blms23/15/2006HepB Vaccine (2) Zoster/Shingles Vaccine (2 of 3), 03/11/2012Medicare Annual Wellness Visit/4COVID-19 Vaccine ( season) , 01/24/2023, 12/01/2021, Additional history existsInfluenza Vaccine (#1), 01/01/2023, 12/01/2021, Additional history existsDTaP/Tdap/Td Vaccine (3 - Tdap), 03/11/2006, 11/27/1993HepA CgrvhkpXficnzsxh20/01/2007, 06/01/1998, 06/01/1998Pneumococcal Vaccine 50+ YypVqdgoaily05/02/2018, 08/23/2014, 03/11/2009, Additional history existsRSV HjjkbemBkjjtjkbv16/24/2023Hib VaccineAged OutNo longer eligible based on patient's age to complete this topicMCV4 VaccineAged OutNo longer eligible based on patient's age to complete this topicMeningococcal B VaccineAged OutNo longer eligible based on patient's age to complete this topic Insurance Care Teams Team MemberRelationshipSpecialtyStart [place] [id number] [place] [address] PCP - GeneralFamily Practice11/21/17
--- OUTSIDE RECORDS SUMMARY | 2025-03-09 15:18 | XMS_ITS | Clinical Summary ---
Author Organization [facility] Address [address] [place] [address] Care Team Providers Care Molder Inflated Ball Name Role Phone System, Provider Not In Primary Care Provider Un available Seema Boateng APRN DETENTION WORKER Unavailable Nicole Ernst PA-C Unavailable [phone] Allergies Active AllergyReactionsCriticalityNoted DateCommentsDust Mite ExtractOther (See Comments)Low08/26/2023Gramineae FrttmpcEeeumZxns82/27/2021Hydroxychloroquine Hives11/20/2022Smoke.Unknown,Other (See Comments)08/26/2023 Medications MedicationSigDispense QuantityRefillsLast FilledStart DateEnd DateStatus potassium chloride michelle er (K-DUR) Take 20 mEq by mouth dailyActive VITAMIN D, CHOLECALCIFEROL, PO Take 2,000 Units by mouth dailyActive aspirin 81 MG EC tablet Take 81 mg by mouth daily05/30/2021ctive clobetasol (TEMOVATE) 0.05 % external ointment Apply topically 2 times daily To víctor areaActive dorzolamide-timolol (COSOPT) 2-0.5 % ophthalmic solution Place 1 drop into the right eye 2 times daily10/15/2022ctive DULoxetine (CYMBALTA) 20 MG capsule Take 40 mg by mouth At BedtimeActive ferrous sulfate (FE TABS) 325 (65 Fe) MG EC tablet Take 65 mg of iron by mouth dailyActive latanoprost (XALATAN) 0.005 % ophthalmic solution INSTILL 1 DROP IN BOTH EYES NIGHTLY AT TIKNUYQ47/20/2023Active rosuvastatin (CRESTOR) 10 MG tablet Take 10 mg by mouth dailyActive cyanocobalamin (VITAMIN B-12) 1000 MCG tablet Take 1,000 mcg by mouth dailyActive melatonin 5 MG tablet Take 5 mg by mouth at bedtime.Active Magnesium Citrate (MAGNESIUM GUMMIES PO) Take 500 mg by mouth daily. 2 per dayActive albuterol (PROAIR HFA/PROVENTIL HFA/VENTOLIN HFA) 108 (90 Base) MCG/ACT inhaler Indications:Influenza A,Mild intermittent asthma with exacerbationInhale 2 puffs into the lungs every 4 hours as needed for shortness of breath, wheezing or cough. 18 g 5Active benzonatate (TESSALON) 100 MG capsule Indications:Influenza A,Mild intermittent asthma with exacerbationTake 2 capsules (200 mg) by mouth 3 times daily as needed for cough. 30 capsule 5Active guaiFENesin-dextromethorphan (ROBITUSSIN DM) 100-10 MG/5ML syrup Indications:Influenza A,Mild intermittent asthma with exacerbationTake 10 mLs by mouth every 4 hours as needed for cough. 236 mL 5Active losartan (COZAAR) 50 MG tablet Indications:Benign essential hypertensionTake 1 tablet (50 mg) by mouth daily. 90 tablet 5Active Cranberry 50 MG CHEW Take by mouth.Active amLODIPine (NORVASC) 5 MG tablet Indications:Primary hypertensionTake 1 tablet (5 mg) by mouth daily. 90 tablet 5Active Active Problems ProblemNoted DateDiagnosed ZagtInrqvgklkyvn38/06/2025Chest dwdivzczw18/06/2025 Influenza A003/16/2024Vomiting and hfafblwv92/06/2025Near kivjkgx2811/09/2023 Symptomatic fsgtlxaydyb44/12/2023cute renal failure, unspecified acute renal failure type11/20/2022Syncope, unspecified syncope type11/20/2022nemia 06/01/20212762Hkrsapskft32/24/2022Polymyalgia zcyhlwtcwh85/15/2021yst of left ovary 02/22/2020Coronary dbgifxfqdkxzhcmm29/27/2020Hypertrophic cardiomyopathy 07/14/2019 Overview (11/20/2022): Isolated septal hypertrophy Irizcu4602/16/2019Major depression in ltstsqupp47/21/1151Tkkntvjp97/31/2018Low back pain01/08/2018Methicillin resistant Staphylococcus aureus infection 01/08/2018Urinary yrsdqcl8201/08/20184926Nkquieuz31/10/2018Essential hypertension 08/15/2002 Overview (11/20/2022): Hypertension Encounters DateTypeDepartmentCare OuoxZwfbgcaglga97/29/2025 2:[address] [facility] [address] [facility] [address] [place] [phone] Zoe Yang MD Kattel, Sharma B, MD Coronary artery disease involving bad river band coronary artery of bad river band heart without angina pectoris (Primary Dx); Orthostasis; Primary jwveqjajoedm78/29/0088Bntvfh13/21/2025 9:22 AM CDT - 12/29/2024 11:59 PM CDTHospital Encounter [facility] [address] [place] [phone] Zoe Yang MD Essential hypertension Discharge Disposition: Home or Self Care12/29/2024Results Follow-Up [address] [place], [place] [phone] Ariella Lim RN 12/29/2024Telephone [place] [address] [place] [phone] Ariella Lim RN Ldaamez1612/29/20249396Sytgow06/07/2025 12:15 PM CDTOffice Visit [place] [address] [place] [phone] Zoe Yang MD Essential gsawmmfyrtpw41/07/8199Htmcql28/03/2025Results Follow-Up [facility] [address] [facility] [address] [place] [phone] Nicole Ernst PA-C 12/09/2024 10:[address] [facility] [address] [place] [phone] Essential jzvnkppnddre28/01/2025 9:25 AM CDT - 12/09/2024 11:59 PM CDTHospital Encounter [facility] [address] [facility] [address] [place] [phone] Nicole Ernst PA-C Mitral valve stenosis, unspecified etiology Discharge Disposition: Home or Self Care12/09/2024Travelfrom Last 3 Months Family History RelationStatusCommentsFatherDeceasedMotherDeceased Social History Tobacco UseTypesPacks/DayYears UsedDateSmoking Tobacco: FormerCigarettes Smokeless Tobacco: Former Tobacco Cessation:Counseling Given: Not Answered Alcohol UseStandard Drinks/WeekCommentsNot Currently0 (1 standard drink = 0.6 oz pure alcohol)Adolescent EducationAnswerDate RecordedGetting School Help Needed Not on file12/06/2022Food InsecurityAnswerDate RecordedWithin the past 12 months, did you worry that your food would run out before you got money to buy more?No11/09/2023Within the past 12 months, did the food you bought just not last and you didn???t have money to getmore?No11/09/2023Housing StabilityAnswer Date RecordedDo you have housing? (Housing is defined as stable permanent housing and does not include staying outside in a car, in a tent, in an abandoned building, in an overnight halfway, or couch-surfing.)Yes11/09/2023re you worried about losing your housing?No11/09/2023Financial Resource Strain AnswerDate RecordedWithin the past 12 months, have you or your family members you live with been unable to get utilities (heat, electricity) when it was really needed?No11/09/2023Transportation NeedsAnswerDate RecordedWithin the past 12 months, has lack of transportation kept you from medical appointments, getting your medicines, non-medical meetings or appointments, work, or from getting things that you need?No11/09/2023Interpersonal SafetyAnswerDate Recorded Do you feel physically and emotionally safe where you currently live?Yes 11/09/2023Within the past 12 months, have you been hit, slapped, kicked or otherwise physically hurt by someone?No11/09/2023Within the past 12 months, have you been humiliated or emotionally abused in other ways by your partner or ex-partner?No11/09/2023CommentsNoSex and Gender InformationValueDate RecordedSex Assigned at BirthNot on fileLegal WipTomzby46/04/2012 3:18 AM 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 Gender IdentityNot on fileSexual OrientationNot on file Last Filed Vital Signs Vital SignReadingTime TakenCommentsBlood Yqzaoghz074/8210 2:16 PM CDTbp also high at euchSlscd4337/29/2025 2:16 PM GJGEgvljedkrkf76.3 ??C (97.4 ??F) 03/17/2024 8:35 AM CSTRespiratory Mahx6804 11:45 AM CDTOxygen Saturation 100%12/15/2024 11:45 AM CDTInhaled Oxygen Concentration--Pliyzs22.2 kg (150 lb 6.4 oz)01/06/2025 2:16 PM PUZSwnfqf964.4 cm (5' 5.5)01/06/2025 2:16 PM CDTBody Mass Index24.6501/06/2025 2:16 PM CDT Plan of Treatment DateTypeDepartmentCare Team (Latest Contact Info)Uttcuqlgrjz40/29/2026 10:[address] [facility] [address] [place] [address] [address] [place] [address] Rob Gramajo MD [address] [place] [address] Health MaintenanceDue DateLast DoneCommentsADVANCE CARE PCXSISVI38/15/1941NNUAL REVIEW OF HM JPFCXT851ASTHMA ACTION PLAN1ASTHMA CONTROL TEST 1DEPRESSION ACTION PLAN7711QYLR09/15/1941PHQ-90 1940FALL RISK TBEVIDTGIE92/15/2006ZOSTER VACCINE (2 of 3), 03/11/2012 COVID-19 VACCINE ( season)/01/2024, 01/24/2023, 12/01/2021, Additional history existsINFLUENZA VACCINE (#1)/01/2024, 01/01/2023, 12/01/2021, Additional history existsMEDICARE ANNUAL WELLNESS VISIT /1542ZYB77/03/2024, 03/16/2024, 11/09/2023, Additional history ojhdmbZXWXZ58/01/202610/03/2024, 4DTAP/TDAP/TD VACCINE (3 - Td or Tdap), 03/11/2006, 03/11/2006, Additional history exists PNEUMOCOCCAL VACCINE 50+ KCCMQIrlpjmogn99/02/2018, 08/23/2014, 03/11/2009, Additional history existsRSV YGRTZWGXllbggeam56/24/2023HPV VACCINE (No Doses Required)CompletedMENINGITIS VACCINEAged OutNo longer eligible based on patient's age to complete this topic Procedures Procedure NamePriorityDate/TimeAssociated DiagnosisCommentsECHO EXERCISE STRESS ERHCNywutct40/21/2025 10:09 AM CDT Essential hypertension CBC WITH IWPUISKDNQdntrgk91/01/2025 10:09 AM CDT Essential hypertension LIPID REFLEX TO DIRECT LDL GKPVJFqsnpai25/01/2025 10:09 AM CDT Essential hypertension BASIC METABOLIC FXBOGGfgunjj72/03/2024 10:09 AM CDT Essential hypertension ECHO VBZYLUWCNalbfro35/01/2025 9:58 AM CDT Mitral valve stenosis, unspecified etiology from Last 3 Months Results * ECHO EXERCISE STRESS TEST (12/29/2024 10:09 AM CDT)ComponentValueRef RangeTest MethodAnalysis TimePerformed AtPathologist NnrcdhwpnARXT28-64%CARDIOLOGY RESULTSAnatomical RegionLateralityModalityEchocardiographySpecimen (Source) Anatomical Location / LateralityCollection Method / VolumeCollection Time Received Time12/29/2024 9:41 AM CDT Narrative 12/29/2024 2:03 PM CDT [id number]^HILL^ZOE^ASAF [facility] Echocardiography Laboratory [address] [place] [address] Name: HALEY CROW : 1940 Study Date: 12/29/2024 09:41 AM Age: 84 yrs Gender: Female Patient Location: [facility] Reason For Study: Essential hypertension History: HTN,Diabetes,High cholesterol Ordering Physician: Zoe Yang MD Referring Physician: Zoe Yang MD Performed By: Mary Kay Douglass BSA: 1.7 m2 Height: 64 in Weight: 149 lb HR: 60 BP: 168/80 mmHg Procedure Stress Echo Treadmill with two dimensional, color and spectral Doppler. Interpretation Summary The patient exercised 4:12 minutes The patient exhibited dyspnea during exercise. The patient exhibited no chest pain during exercise. Hypertensive at rest Target HR not achieved due to dizziness.63% of maximal predicted heart rate achieved Normal resting wall motion and no stress-induced wall motion abnormality. Moderate to severe mitral annular calcification with mild mitral stenosis Overall nondiagnostic stress test due to inability to achieve target heart rate Stress The patient exercised 4:12. RPP 46704. Exercise Stopped: Dizziness. The patient exhibited dyspnea during exercise. There was a borderline hypertensive BP response to exercise. The patient exhibited no chest pain during exercise. The Sutton treadmill score was intermediate risk ( -11< Sutton score <5). Target HR not achieved due to dizziness.63% of maximal predicted heart rate achieved. No arrhythmia noted. The visual ejection fraction is >70%. Left ventricular cavity size decreases with exercise. Global LV systolic function augments with exercise. Normal resting wall motion and no stress-induced wall motion abnormality. Baseline sinus rhythm. No regional wall motion abnormalities noted. The visual ejection fraction is estimated at 60-65%. Moderate to severe mitral annular calcification with mild mitral stenosis. Stress Results ? Protocol: ??Rolo ?Maximum Predicted HR: ?? 136 bpm ? Target HR: 116 bpm ?% Maximum Predicted HR: 63 % Stage ??DurationHeart Rate ??BP ?Comment ?(mm:ss) ?? (bpm) Stage 1 ?? 3:00 ?77 ?164/80Duke Treadmill Score: 4 (Moderate Risk) Stage 2 ?? 1:12 ?86 ?/ ?? Dizzy, SOB, Shakey RecoveryR ??6:00 ?74 ?158/76 ?? Stress Duration: ?? 4:12 mm:ss * ?Recovery Time: 6:00 mm:ss ?? Maximum Stress HR: 86 bpm * ?METS: ?6 Left Ventricle Proximal septal thickening is noted. Left ventricular systolic function is normal. The visual ejection fraction is 60-65%. No regional wall motion abnormalities noted. Mitral Valve There is moderate to severe mitral annular calcification. There is mild (1+) mitral regurgitation. There is mild mitral stenosis. The mean mitral valve gradient is 4mmHg. Tricuspid Valve There is trace tricuspid regurgitation. Aortic Valve No aortic stenosis is present. MMode/2D Measurements & Calculations IVSd: 1.2 cm LVIDd: 4.6 cm LVIDs: 2.6 cm LVPWd: 1.0 cm FS: 42.6 % LV mass(C)dI: 105.4 grams/m2 RWT: 0.44 Doppler Measurements & Calculations MV max P.5 mmHg MV mean P.8 mmHg MV V2 VTI: 24.2 cm TR max mac: 208.2 cm/sec TR max P.3 mmHg Report approved by: Maykel Galeana MD on 12/29/2024 02:03 PM Procedure Note Maykel Galeana MD - 12/29/2024 [id number]^HILL^ZOE^ASAF [facility] Echocardiography Laboratory [address] [place] [address] Name: HALEY CROW : 1940 Study Date: 12/29/2024 09:41 AM Age: 84 yrs Gender: Female Patient Location: [facility] Reason For Study: Essential hypertension History: HTN,Diabetes,High cholesterol Ordering Physician: Zoe Yang MD Referring Physician: Zoe Yang MD Performed By: Mary Kay Beckant BSA: 1.7 m2 Height: 64 in Weight: 149 lb HR: 60 BP: 168/80 mmHg Procedure Stress Echo Treadmill with two dimensional, color and spectral Doppler. Interpretation Summary The patient exercised 4:12 minutes The patient exhibited dyspnea during exercise. The patient exhibited no chest pain during exercise. Hypertensive at rest Target HR not achieved due to dizziness.63% of maximal predicted heartrate achieved Normal resting wall motion and no stress-induced wall motionabnormality. Moderate to severe mitral annular calcification with mild mitralstenosis Overall nondiagnostic stress test due to inability to achieve targetheart rate Stress The patient exercised 4:12. RPP 62677. Exercise Stopped: Dizziness. The patient exhibited dyspnea during exercise. There was a borderline hypertensive BP response to exercise. The patient exhibited no chest pain during exercise. The Sutton treadmill score was intermediate risk ( -11< Sutton score <5). Target HR not achieved due to dizziness.63% of maximal predicted heartrate achieved. No arrhythmia noted. The visual ejection fraction is >70%. Left ventricular cavity size decreases with exercise. Global LV systolic function augments with exercise. Normal resting wall motion and no stress-induced wall motionabnormality. Baseline sinus rhythm. No regional wall motion abnormalities noted. The visual ejection fraction is estimated at 60-65%. Moderate to severe mitral annular calcification with mild mitralstenosis. Stress Results Protocol: Rolo Maximum Predicted HR: 136 bpm Target HR: 116 bpm % Maximum Predicted HR: 63 % Stage DurationHeart Rate BP Comment (mm:ss) (bpm) Stage 1 3:00 77 164/80Duke Treadmill Score: 4 (Moderate Risk) Stage 2 1:12 86 / Dizzy, SOB, Shakey RecoveryR 6:00 74 158/76 Stress Duration: 4:12 mm:ss * Recovery Time: 6:00 mm:ss Maximum Stress HR: 86 bpm * METS: 6 Left Ventricle Proximal septal thickening is noted. Left ventricular systolic functionis normal. The visual ejection fraction is 60-65%. No regional wall motion abnormalities noted. Mitral Valve There is moderate to severe mitral annular calcification. There is mild(1+) mitral regurgitation. There is mild mitral stenosis. The mean mitralvalve gradient is 4mmHg. Tricuspid Valve There is trace tricuspid regurgitation. Aortic Valve No aortic stenosis is present. MMode/2D Measurements & Calculations IVSd: 1.2 cm LVIDd: 4.6 cm LVIDs: 2.6 cm LVPWd: 1.0 cm FS: 42.6 % LV mass(C)dI: 105.4 grams/m2 RWT: 0.44 Doppler Measurements & Calculations MV max P.5 mmHg MV mean P.8 mmHg MV V2 VTI: 24.2 cm TR max mac: 208.2 cm/sec TR max P.3 mmHg Report approved by: Maykel Galeana MD on 12/29/2024 02:03 PM Authorizing ProviderResult TypeResult StatusBilal Asaf Yang [facility] ECHO ORDERABLESEdited Result - Final * Lipid panel reflex to direct LDL Fasting (12/09/2024 10:09 AM CDT)Component ValueRef RangeTest MethodAnalysis TimePerformed AtPathologist Signature Pkrlheyrayc372<200 mg/dL12/09/2024 4:16 PM CDTUU POWXBOWGWPLxnyokshbxrsg40<150 mg/dL12/09/2024 4:16 PM CDTUU LABORATORYDirect Measure HDL61>=50 mg/dL 12/09/2024 4:16 PM CDTUU LABORATORYLDL Cholesterol Mgrrdfakiw91<100 mg/dL 12/09/2024 4:16 PM CDTUU LABORATORYComment:LDL calculated using the Friedewald equation.Non HDL Pwvodcczxww27<130 mg/dL12/09/2024 4:16 PM CDTUU LABORATORY Patient Fasting > 8hrs?Yes12/09/2024 4:16 PM CDTRH LABORATORYSpecimen (Source) Anatomical Location / LateralityCollection Method / VolumeCollection Time Received TimeBloodSTRUCTURE OF LEFT UPPER LIMB / UnknownVenipuncture / Unknown 12/09/2024 10:09 AM CDT1 10:09 AM CDT Narrative [facility] - [...] Borderline High: 130 - 159 mg/dL High: ??160 - 189 mg/dL Very High: >= 190 mg/dL Non HDL Cholesterol Desirable: < 130 mg/dL Above Desirable: 130 - 159 mg/dL Borderline High: 160 - 189 mg/dL High: 190 - 219 mg/dL Very High: >= 220 mg/dL Authorizing ProviderResult TypeResult StatusNicole CASTRO - BLOOD ORDERABLESFinal ResultPerforming OrganizationAddressCity/State/ZIP Code Phone Number LABORATORY [facility] [place] [facility] [address] [facility] [address], [address] [place] [address], [facility] Lab [address] Lab (1st floor, no room number) [place] [address], [facility] * (ABNORMAL) Basic metabolic panel (12/09/2024 10:09 AM CDT)ComponentValueRef RangeTest MethodAnalysis TimePerformed AtPathologist CivxdivehJpnbpa685786 - 145 mmol/L1 12:01 PM CDTR LABORATORYPotassium4.03.4 - 5.3 mmol/L 12/09/2024 12:01 PM CDTRH MANIFQDKADCgoayzsm69072 - 107 mmol/L1 12:01 PM CDTR LABORATORYCarbon Dioxide (CO2)2322 - 29 mmol/L1 12:01 PM CDT LABORATORYAnion Kau980 - 15 mmol/L1 12:01 PM CDTR LABORATORYUrea Umabsyce64.88.0 - 23.0 mg/dL12/09/2024 12:01 PM CDTR LABORATORYCreatinine0.85 0.51 - 0.95 mg/dL12/09/2024 12:01 PM CDTRH LABORATORYGFR Enhncjse42>60 mL/min/1.02z30912/09/2024 12:01 PM CDTR LABORATORYComment:eGFR calculated using 2020 CKD-EPI equation.Calcium8.98.8 - 10.4 mg/dL12/09/2024 12:01 PM CDTR CGSSOTITICKtzwzpu439(H)70 - 99 mg/dL12/09/2024 12:01 PM CDTR LABORATORY Specimen (Source)Anatomical Location / LateralityCollection Method / Volume Collection TimeReceived TimeBloodSTRUCTURE OF LEFT UPPER LIMB / Unknown Venipuncture / Vuzpqwe1812/09/2024 10:09 AM CDT1 10:09 AM CDT Narrative Authorizing ProviderResult TypeResult StatusNicole Mead BLOOD ORDERABLESFinal ResultPerforming OrganizationAddressCity/State/ZIP Code Phone Number [facility] Lab [address] [facility] Lab (1st floor, no room number) [place] [address] * (ABNORMAL) CBC with platelets (12/09/2024 10:09 AM CDT)ComponentValueRef Range Test MethodAnalysis TimePerformed AtPathologist SignatureWBC Count7.394.00 - 11.00 10e3/uL12/09/2024 11:31 AM CDTR LABORATORYRBC Count4.213.80 - 5.20 10e6/uL12/09/2024 11:31 AM CDTR LABORATORYHemoglobin9.6(L)11.7 - 15.7 g/dL 12/09/2024 11:31 AM CDTR VIKIEXCHLZZpsjpppjkm36.2(L)35.0 - 47.0 %12/09/2024 11:31 AM CDTR QKDSMBHFSNQUY76.5(L)78.0 - 100.0 fL12/09/2024 11:31 AM CDTR GXDXOYIXSDTVR43.8(L)26.5 - 33.0 pg12/09/2024 11:31 AM CDTR VDVHWMJSZVEGNZ15.8 (L)31.5 - 36.5 g/dL12/09/2024 11:31 AM CDTR NEHVNBOGHLFPW90.810.0 - 15.0 % 12/09/2024 11:31 AM CDTR LABORATORYPlatelet Iysml080036 - 450 10e3/uL 12/09/2024 11:31 AM CDTRH LABORATORYSpecimen (Source)Anatomical Location / LateralityCollection Method / VolumeCollection TimeReceived TimeBloodSTRUCTURE OF LEFT UPPER LIMB / UnknownVenipuncture / Metzicq2912/09/2024 10:09 AM CDT 12/09/2024 10:09 AM CDT Narrative Authorizing ProviderResult TypeResult StatusNicole PADRONB - BLOOD ORDERABLESFinal ResultPerforming OrganizationAddressCity/State/ZIP Code Phone Number [facility] [address] [facility] Lab (1st floor, no room number) [place] [address], [facility] * ECHO COMPLETE (12/09/2024 9:58 AM CDT)ComponentValueRef RangeTest Method Analysis TimePerformed AtPathologist HvtglowdeKOAE11-62%CARDIOLOGY RESULTS Anatomical RegionLateralityModalityEchocardiographySpecimen (Source)Anatomical Location / LateralityCollection Method / VolumeCollection TimeReceived Time 12/09/2024 9:34 AM CDT Narrative 12/09/2024 11:51 AM CDT [id number]^SUJATA^NICOLE^JH [facility] Echocardiography Laboratory [address] [place] [address] Name: HALEY CROW : 1940 Study Date: 12/09/2024 09:34 AM Age: 84 yrs Gender: Female Patient Location: [facility] Reason For Study: Mitral valve stenosis, [...] Procedure Note Kelvin Dubon MD - 12/09/2024 [id number]^SUJATA^NICOLE^JH [facility] Echocardiography Laboratory [address] [place] [address] Name: HALEY CROW : 1940 Study Date: 12/09/2024 09:34 AM Age: 84 yrs Gender: Female Patient Location: [facility] Reason For Study: Mitral valve stenosis, [...] by: Nilam Dubon on 12/09/2024 11:51 AM Authorizing ProviderResult TypeResult StatusSarah Jh BHATTI ECHO ORDERABLESEdited Result - Final from Last 3 Months Insurance Advance Directives For more information, please contact: [phone] * Full Code (Latest Code Status on File) Date ActivatedDate InactivatedComments03/16/2024 10:14 PM03/17/2024 1:59 PMAll basic and advanced life-sustaining interventions are performed as appropriateQuestion AnswerCommentsCode status determined by:* Discussion with patient/ legal decision maker * Full Code Date ActivatedDate InactivatedComments11/09/2023 8:00 PM11/10/2023 3:01 PMAll basic and advanced life-sustaining interventions are performed as appropriateQuestion AnswerCommentsCode status determined by:* Discussion with patient/ legal decision maker * Full Code Date ActivatedDate InactivatedComments11/21/2022 1:26 AM11/22/2022 3:33 PMAll basic and advanced life-sustaining interventions are performed as appropriate QuestionAnswerCommentsCode status determined by:* Discussion with patient/ legal decision maker Care Teams Team MemberRelationshipSpecialtyStart DateEnd Date System, Provider Not In PCP - GeneralClinic11/09/17 Seema Boateng APRN DETENTION WORKER [address] [place] [address] [id number] Nurse PractitionerCardiovascular Disease11/22/22 Nicole Ernst PA-C [address] [place] [id number] Assigned Heart and Vascular Provider07/31/24
--- NOTE | 2025-03-09 15:42 | ED.GENADULT ---
HPI - General Adult General Chief complaint: Urogenital Problems, Female Stated complaint: Weakness Time Seen by Provider: 03/09/25 15:42 History of Present Illness HPI narrative: sudden bladder and urethra pain this am. pt saying she needs a catheter. pt states urine is pink in color. pt thinks this started from constipation. took a senna and has been having bm's today. ems gave pt 50mcg fentanyl. pt lives independent in [facility] in [place]. pt also states 3 weeks ago had screening for bladder cancer that was negative. 84-year-old woman presenting to the emergency department with concern of abdominal pain. She also thinks that it is often her urethra that hurts. I go to see her shortly after arrival in the emergency department and she says that she has had large bowel movement and passed a lot of urine. She feels a lot better in admits that if she is feeling as she is now she probably would not have come into the emergency department. Had abrupt onset of lower abdominal pain this morning. She had been constipated for some days and had been taking senna and everything broke loose. She does struggle with constipation chronically. History of urinary and fecal incontinence. She does have a bladder stimulator. She has not had a fever. Brought by EMS and did receive 50 Mcg of fentanyl EN route. until having this bowel movement she had been unable to urinate. She has noticed quite a bit of blood now she says and blames this on bad hemorrhoids. History of lichus planus and sclerosis she believes she had a an unremarkable abdomen and pelvis CT probably in [place] within the last 2 years. And was cleared to no longer have further colonoscopies at the age of 80 after Q 3 years for precancerous polyps. Related Data Home Medications ?Medication ?Instructions ?Recorded ?Confirmed aspirin 81 mg tablet,delayed 81 mg PO DAILY 11/21/21 03/21/24 release (Adult Aspirin Regimen) duloxetine 20 mg capsule,delayed 40 mg PO HS 11/21/21 03/21/24 release (Cymbalta) potassium chloride 20 mEq 20 meq PO DAILY 11/21/21 03/21/24 tablet,extended release (K-Tab) tramadol 50 mg tablet 50 mg PO Q6H PRN 11/21/21 03/21/24 amlodipine 5 mg tablet 7.5 mg PO DAILY 03/21/24 03/21/24 cholecalciferol (vitamin D3) 50 50 mcg PO DAILY 03/21/24 03/21/24 mcg (2,000 unit) capsule cyanocobalamin (vitamin B-12) 500 1,000 mcg PO DAILY 03/21/24 03/21/24 mcg tablet dorzolamide 22.3 mg-timolol 6.8 1 drp ophthalmic (eye) BID 03/21/24 03/21/24 mg/mL eye drops (Cosopt) ferrous sulfate 325 mg (65 mg 325 mg PO DAILY 03/21/24 03/21/24 iron) tablet (FeroSul) latanoprost 0.005 % eye drops 1 drp ophthalmic (eye) HS 03/21/24 03/21/24 melatonin 5 mg capsule 5 mg PO HS 03/21/24 03/21/24 rosuvastatin 10 mg tablet 10 mg PO HS 03/23/24 03/23/24 Previous Rx's ?Medication ?Instructions ?Recorded cefdinir 300 mg capsule 300 mg PO BID 2 days #4 caps 03/24/24 cephalexin 250 mg capsule 250 mg PO QID #20 caps 12/24/24 Allergies Allergy/AdvReac Type Severity Reaction Status Date / Time hydroxychloroquine (From Allergy Verified 12/24/24 15:39 Plaquenil) Review of Systems Status of ROS: Reports: 6 or more systems reviewed and unremarkable except as noted in History and below [facility] Medical History Physical debility ?R53.81 - Other malaise (ICD-10) Fecal incontinence ?R15.9 - Full incontinence of feces (ICD-10) History of syncope ?Z87.898 - Personal history of other specified conditions (ICD-10) History of MRSA infection ?Z86.14 - Personal history of Methicillin resistant Staphylococcus aureus infection (ICD-10) HLD (hyperlipidemia) ?E78.5 - Hyperlipidemia, unspecified (ICD-10) HTN (hypertension) ?I10 - Essential (primary) hypertension (ICD-10) CAD (coronary artery disease) ?I25.10 - Atherosclerotic heart disease of [place] coronary artery without angina pectoris (ICD-10) Social History What is your current living situation?: I presently have a place to live Problems where you live: no known problems Problems where you live details: none In the past 12 months, utilities in danger of being shut off: no In past 12 months, lack of transportation kept you from medical appts, meetings, work, or getting things needed for daily living: no In the past 12 mos, have been you worried that your food would run out before you had money to buy more?: never true In the past 12 mos, the food you bought just didn't last and you didn't have money to buy more?: never true Highest level of school completed/degree received: high school graduate Smoking Status: Former smoker What tobacco products do you use: cigarettes Smoking quit date/years: >15 years ago Do you use any of these nicotine containing products: None Second hand tobacco smoke exposure: No How often do you have a drink containing alcohol: never How often do you have six or more drinks on one occasion: Never AUDIT-C Alcohol total score: 0 Non-prescribed substance use: denies use Caffeine: Yes (1-2/cup coffee) How often does anyone, including family, friends and others, physically hurt you: never How often does anyone, including family, friends and others, insult or talk down to you: never How often does anyone, including family, friends and others, threaten you with harm: never How often does anyone, including family, friends and others, scream or curse at you: never service: No Exam Narrative: Exam Narrative: Pleasant. NAD. Talkative. Breathing easily. Lungs appear clear. Heart in regular rate and rhythm with 2/6 mid systolic crescendo murmur loudest at the left sternal border. Abdomen of present bowel sounds soft and mild to moderately tender to deeper palpation in the left at low abdomen/pelvis. No peritoneal signs. No mass. No flank pain. Extremities are well perfused without edema. She does have floral compression stockings on. Skin otherwise showing heliotropic type rash. ultimately requiring placement of catheter as unable to urinate. I did partly attend this evaluation. There is moderate edema about the labia. She says this is actually pretty good for her. I do not appreciate cellulitic change however; without notable induration. Due to discomfort, did place with lidocaine jelly. Const: Vital Signs, click to edit/add: Vital Signs - 24 hr 12/30/25 15:06 03/09/25 15:51 03/09/25 17:08 Temperature 98.2 F Pulse Rate 78 Pulse Rate [Pulse Oximeter] 84 76 Respiratory Rate 24 16 Blood Pressure [Ri ght Upper Arm] 195/99 H 156/82 H Pulse Oximetry 100 96 96 Oxygen Delivery Me thod Room Air Room Air Documenting provider has reviewed patient's vital signs: yes Course Vital Signs Vital signs: Initial Vital Signs Temperature 98.2 F 03/09/25 15:06 Temperature Source Temporal Artery Scan 03/09/25 15:06 Pulse Rate 84 03/09/25 15:06 Respiratory Rate 24 03/09/25 15:06 Blood Pressure 195/99 H 03/09/25 15:06 Blood Pressure Mean 131 H 03/09/25 15:06 Blood Pressure Position Supine 03/09/25 15:06 Pulse Oximetry 100 03/09/25 15:06 Oxygen Delivery Method Room Air 03/09/25 15:06 Vital Signs Temperature 98.2 F 03/09/25 15:06 Pulse Rate 84 03/09/25 15:06 Respiratory Rate 24 03/09/25 15:06 Blood Pressure 195/99 H 03/09/25 15:06 Pulse Oximetry 100 03/09/25 15:06 Oxygen Delivery Method Room Air 03/09/25 15:06 Temperature 98.2 F 03/09/25 15:06 Pulse Rate 76 03/09/25 17:08 Respiratory Rate 16 03/09/25 17:08 Blood Pressure 156/82 H 03/09/25 17:08 Pulse Oximetry 96 03/09/25 17:08 Oxygen Delivery Method Room Air 03/09/25 17:08 Medications Administered Medications: Generic Name Dose Route Start Last Admin Trade Name Freq PRN Reason Stop Dose Admin Lidocaine HCl 6 ml 03/09/25 16:08 03/09/25 16:15 Lidocaine Hcl 2 % Jelly (Top) Sterile UR 6 ml ONCE PRN Administration Medical Decision Making MDM Narrative Medical decision making narrative: She does wonder if maybe she has urinary tract infection. I think it would be good idea to check. Unfortunately 1st specimen has been contaminated. Does sound as though head excessive constipation resulting in urinary retention in somebody who might be more prone to this. Would also check bladder scan for residual or straight cath. Diverticulitis I suppose remains in differential she says she has never had this before. Abdominal exam would not suggest a perforation. I did review echo results from October of 2023 which confirms mitral stenosis which I think would be consistent with physical exam. good ejection fraction. Postvoid bladder scan reported as 200 mL. This likely means more like 400-500. Anticipating placement of Mckeon with further cares pending this result. Was drained of 350 mL. She does make a point of saying that had urinated a good deal with loose bowel movement that she had here near arrival. urinalysis I think suggests inflammation more so than infection. She is much more comfortable on repeat exam. Area of discomfort in the left low abdomen is further diminished. catheter is draining of very lightly pink-tinged urine. it does appear that she does not need any further evaluation at this time. reassuring vitals. Some combination of constipation and urinary retention has contributed to the other to some degree. Probably the former resulting in the latter See patient discharge plan for further discussion As I said, your urine looks more inflamed than infected. We will be culturing your urine if it looks like you might benefit from antibiotics, we will give you a call. you were unable to urinate with later attempt but considering the amount that you did go and what remained in your bladder, it would probably be a good idea to leave this mckeon catheter in for a few days at least. Would call for a clinic appointment for the end of the week or early next week to consider removal of this mckeon. I am sure the health troubles you have had have been frustrating. at least you can self- treat your constipation. Continue to stay well-hydrated. I would consider addition of Benefiber or Citrucel; whichever works better for you. and then using senna then when you feel you need some more bowel stimulation. Medical Records Medical records reviewed: Yes I reviewed the patient's medical records Lab Data Lab results reviewed: Yes I reviewed the patient's lab results Labs: Lab Results 03/09/25 Range/Units 16:21 Urine Color Red A (Yellow) Urine Appearance Cloudy A (Clear) Urine pH 6.5 (5.0-8.5) Ur Specific [place] 1.020 (1.000-1.030) Urine Protein 3+ A (Negative) Urine Glucose (UA) Negative (Negative) Urine Ketones 1+ A (Negative) Urine Blood 3+ A (Negative) Urine Nitrite Negative (Negative) Urine Bilirubin Negative (Negative) Urine Urobilinogen 0.2 (0.2-1.0) Ur Leukocyte Esterase Trace A (Negative) Urine RBC >100 A (0-2) Urine WBC 10-25 A (0-5) Ur Squamous Epith Cells None (None-Few) Urine Bacteria None (None) Discharge Plan Discharge Clinical Impression: Acute urinary retention, Constipation Patient Disposition: Home w/ Parent or Adult Condition: Improved Instructions: Mckeon Catheter Placement and Care (ED) Additional Instructions: As I said, your urine looks more inflamed than infected. We will be culturing your urine if it looks like you might benefit from antibiotics, we will give you a call. you were unable to urinate with later attempt but considering the amount that you did go and what remained in your bladder, it would probably be a good idea to leave this mckeon catheter in for a few days at least. Would call for a clinic appointment for the end of the week or early next week to consider removal of this mckeon. I am sure the health troubles you have had have been frustrating. at least you can self- treat your constipation. Continue to stay well-hydrated. I would consider addition of Benefiber or Citrucel; whichever works better for you. and then using senna then when you feel you need some more bowel stimulation. Prescriptions: No Action potassium chloride [K-Tab] 20 mEq tablet extended release 20 meq PO DAILY duloxetine [Cymbalta] 20 mg capsule,delayed release(DR/EC) 40 mg PO HS aspirin [Adult Aspirin Regimen] 81 mg tablet,delayed release (DR/EC) 81 mg PO DAILY tramadol 50 mg tablet 50 mg PO Q6H PRN amlodipine 5 mg tablet 7.5 mg PO DAILY dorzolamide-timolol [Cosopt] 22.3-6.8 mg/mL drops 1 drp ophthalmic (eye) BID Rx Instructions: RIGHT EYE latanoprost 0.005 % drops 1 drp ophthalmic (eye) HS cholecalciferol (vitamin D3) 50 mcg (2,000 unit) capsule 50 mcg PO DAILY ferrous sulfate [FeroSul] 325 mg (65 mg iron) tablet 325 mg PO DAILY cyanocobalamin (vitamin B-12) 500 mcg tablet 1,000 mcg PO DAILY melatonin 5 mg capsule 5 mg PO HS rosuvastatin 10 mg tablet 10 mg PO HS cefdinir 300 mg capsule 300 mg PO BID 2 Days Qty: 4 0RF cephalexin 250 mg capsule 250 mg PO QID Qty: 20 0RF Follow Up/Referrals: Amada Hamilton DO [Primary Care Provider, Family Practice] Stand Alone [facility]: [facility] Info Instructions
[2025-03-09 15:51] VITALS: PULSE 78; O2SAT 96
[2025-03-09] MEDS: lidocaine HCL 2 % JELLY (TOP) STERILE 6 ML UR (16:15)
[2025-03-09 16:28] LABS: Appearance Urine Cloudy (Clear)
[2025-03-09 17:08] VITALS: BP 156/82; PULSE 76; RESP 16; O2SAT 96
== END 2025-03-09 18:46 | disposition home or self-care (01) ==
PROVIDERS: Emergency Provider Family Medicine; PCP Family Medicine
DX: R33.9 Retention of urine, unspecified (principal); K59.00 Constipation, unspecified
CPT/HCPCS: 51702; 51798; 81001; 87086; 99283; 99284